=== PATIENT | male | born 1940 | race Caucasian/White ===

== ENCOUNTER 2016-08-11 16:37 | Inpatient (IN) ==
--- NOTE | 2016-08-11 17:11 | Emergency Department Note ---
Disposition Clinical Impression: Transaminitis, Elevated bilirubin Abdominal pain Qualifiers: Abdominal location: epigastric Qualified Code(s): R10.13 - Epigastric pain Disposition: Admitted As Inpatient Condition: Good Time of Disposition: 18:43 General Adult HPI - General Chief complaint: ED Abdominal Pain Stated complaint: ABD PAIN Time Seen by Provider: 08/11/16 16:44 Source: patient Limitations: no limitations Nursing Notes Reviewed: Yes Vital Signs Reviewed: Yes - History of Present Illness HPI Narrative: Three-day history of abdominal pain that started in his lower abdomen as a gas feeling and came up to his epigastric region. He states he has had several episodes of this in the past year. With him getting closer together. he states that it was relieved with the medicine at the [place]. Has any radiation of the symptoms. He stated to bubbling feeling in his abdomen initially and then a sharp pain. Onset (ago): hour(s) Location: abdomen Radiation: non-radiation Pain Scale: 0 Quality: crushing, sharp Consistency: intermittent - Related Data Home Medications Medication Instructions Recorded Confirmed Aspirin [Adult Low Dose Aspirin EC] 81 mg PO QAM 09/10/15 05/27/16 Metoprolol [Lopressor] 25 mg PO BID 09/10/15 05/27/16 Omeprazole [PriLOSEC] 40 mg PO QAM 09/10/15 05/27/16 Simvastatin [Zocor] 40 mg PO HS 09/10/15 05/27/16 Warfarin [Coumadin] 5 mg PO QMWF 09/10/15 05/27/16 Warfarin [Coumadin] 7.5 mg PO QTUTHSA 09/10/15 05/27/16 Losartan [Cozaar] 25 mg PO DAILY 05/27/16 05/27/16 Previous Rx's Medication Instructions Recorded Famotidine [Pepcid] 20 mg PO BID #21 tablet 05/27/16 Allergies Allergy/AdvReac Type Severity Reaction Status Date / Time No Known Allergies Allergy Verified 09/10/15 01:00 All systems ED: reviewed and negative except as stated. Constitutional: Denies: fever, chills, weakness ENT ED: Denies: throat pain, congestion, dysphagia Cardiovascular: Denies: chest pain, palpitations, edema, syncope Respiratory: Denies: cough, dyspnea Gastrointestinal: Reports: abdominal pain (She states it starts in his lower abdomen and feels like gas then radiates up to his epigastric region. Has happened 4 times in the past year.). Denies: nausea, vomiting, diarrhea, constipation, hematemesis, melena, hematochezia Genitourinary: Denies: urgency, dysuria, frequency, hematuria Musculoskeletal: Denies: back pain, neck pain, joint swelling Integumentary: Denies: rash, abrasion Neurological: Denies: headache, weakness Past Medical History - Past Medical History Attestation: Yes The following information was validated with the patient. Medical history: Reports: aortic aneurysm, CVA, diabetes, GERD, hyperlipidemia, hypertension, myocardial infarction, TIA Psychiatric history: Reports: anxiety, depression - Social History Smoking Status: Former smoker Smokeless Tobacco Status: No Alcohol use: Reports: none Drug use: Reports: none Physical Exam - General Limitations: no limitations General appearance: alert, in no apparent distress - Head Head exam: atraumatic, normocephalic, normal inspection - Eye Eye exam: Present: normal appearance, PERRL, EOMI. Absent: scleral icterus, conjunctival injection - ENT ENT exam: normal exam, normal oropharynx, mucous membranes moist - Neck Neck exam: Present: normal inspection, full ROM, trachea midline. Absent: tenderness, lymphadenopathy - Chest Chest inspection: Present: normal inspection, symmetric chest wall rise. Absent : tenderness, rash - Respiratory Respiratory exam: Present: normal lung sounds bilaterally. Absent: respiratory distress, wheezes - Cardiovascular Cardiovascular exam: Present: regular rate, normal rhythm, normal heart sounds - Abdominal Exam Abdominal exam: Present: soft, Non-Tender, normal bowel sounds. Absent: tenderness, distention, guarding, rebound, rigidity, organomegaly, Ospina's sign , Rovsing's sign, tenderness at McBurney's Point - Extremities Exam Extremities exam: Present: normal inspection, full ROM, normal capillary refill. Absent: tenderness, pedal edema - Back Exam Back exam: Present: normal inspection, full ROM. Absent: tenderness, CVA tenderness (R), CVA tenderness (L) - Neurological Exam Neurological exam: Present: alert, oriented X3 - Psychiatric Psychiatric exam: Present: normal affect, normal mood - Skin Skin exam: Present: warm, dry, intact, normal color. Absent: rash, cyanosis, erythema Course Course Narrative: Well-appearing male patient in no distress brought in by EMS from the [place]. He has had a three-day history of abdominal pain. He states the pain starts in his lower abdomen feels like gas and then radiates up to his epigastric region. He states his is happened about 4 times in the past year. Generally relieved with pain medication. He states this time he was requesting to figure out why he was having this pain. So the [place] did lab work and a CT of his abdomen. They sent him over due to elevated liver enzymes. [facility] results show no urinary tract infection. His troponin is negative. His WBC is 7.8. His AST is 340. His ALC is 331. His total bilirubin is 6.1. Hysterectomy bilirubin is 3.8. His alkaline phosphatase is 175. He has no history of liver complications. CT there is read as no acute findings but a distended gallbladder without CT evidence of cholelithiasis or acute cholecystitis. Multiple low-attenuation lesions arising from each kidney statistically likely to represent cyst. Milk or hernia containing nonobstructed loop of bowel and omental fat. We will review the CT ourselves and I will contact surgery for further recommendations. Is resting comfortably at this time he has no abdominal pain. He was given Toradol and this relieved his pain at the [place]. His abdomen is soft and nontender. He is obese. Appears as if his diet is poor. He reports fried food. He states that the fried food does not aggravate his abdominal pain. - Reevaluation(s) Reevaluation #1: Patient is resting comfortably in bed. He is agreeable to admission to the hospital. Time: 18:42 - Consultations Consultation #1: Dr. Vigil. He is recommending admitting to the hospitalist and having them consult Dr. Reddy in the morning. He Is requesting patient have a full hepatic workup as well as a gallbladder ultrasound and hepatitis panel. Time: 18:29 Consultation #2: Spoke with Dr. Gloria. He is addmitting Pt in stable condition. I have made him aware that Dr Vigil reccomeneded consulting Dr Reddy, and doing a hepatitis panel. As well as a possible RUQ U/S Time: 19:08 Vital Signs Temperature 97.8 F 08/11/16 16:41 Pulse Rate 84 08/11/16 16:41 Respiratory Rate 16 08/11/16 16:41 Blood Pressure 147/101 08/11/16 16:41 O2 Sat by Pulse Oximetry 97 08/11/16 16:41 Temperature 97.8 F 08/11/16 16:41 Pulse Rate 75 08/11/16 19:45 Respiratory Rate 18 08/11/16 19:47 Blood Pressure 0/0 08/11/16 19:47 O2 Sat by Pulse Oximetry 99 08/11/16 19:45 Oxygen Delivery Oxygen Delivery Room Air Medical Decision Making - Medical Records Medical records reviewed: Yes I reviewed the patient's medical records. - Lab Data Lab results reviewed: Yes I reviewed the patient's lab results. - Radiology Data Radiology results reviewed: Yes I reviewed the patient's radiology results. Attestation Statement - Attestation Attestation: I examined this patient and my medical decision-making was reviewed with the P[employer] DESIGNER/PA/Advanced Practice Nurse/Resident Physician. I agree with the documented findings, disposition and treatment plan as described except to the extent set forth below. 75-year-old male brought in from his abdominal pain. He has been having recurrent abdominal pain over the past couple days ago worse last night. He presented to the [facility] and was found to have elevated transaminases , alkaline phosphatase and bilirubin. CT of the abdomen was negative for any acute process. Patient currently denies any active pain. He did receive 1 dose of IV Toradol at [facility]. Denies fevers, chills or rales. No chest pain or dyspnea. No diarrhea or dysuria. Pleasant elderly male in no apparent distress. Currently appears comfortable. Oropharynx clear and mucous membranes are moist. Conjunctivae are moist. Chest is clear to auscultation bilaterally. Abdomen soft non-distended, non- tender to palpation. Flanks are non-tender. Extremities warm and dry. Patient remained comfortable. Case is discussed with hospitalist for admission and they will continue further workup including probable MRCP and ultrasound.
[2016-08-11] MEDS ORDERED: Acetaminophen 325 MG TABLET PO PRN (20:35)
[2016-08-11] MEDS ORDERED: Ondansetron 4 MG/2 ML VIAL IVP PRN (20:35)
[2016-08-11] MEDS ORDERED: *HR* OxyCODONE Immed Rel 5 MG TABLET PO PRN (20:35)
[2016-08-11] MEDS ORDERED: Naloxone 0.4 MG/ML INJ IVP PRN (20:35)
[2016-08-11] MEDS ORDERED: Pantoprazole 80 MG in 0.9 % Sodium Chloride 50 ML IVPB STA (21:03)
[2016-08-11] MEDS ORDERED: GI Cocktail 40 ML EACH PO STA (21:09)
--- NOTE | 2016-08-11 21:23 | Internal Med History&Physical ---
Date of Encounter: 08/11/16 Time of Encounter: 20:00 Assessment and Plan (1) Acute generalized abdominal pain Status: Acute . (2) Cholestasis Status: Acute . (3) Jaundice, hepatocellular Status: Acute . (4) Obesity (BMI 30-39.9) Status: Chronic . (5) PAF (paroxysmal atrial fibrillation) Status: Chronic . (6) Chronic anticoagulation Status: Chronic . (7) HTN (hypertension) Status: Chronic . Qualifiers: Hypertension type: essential hypertension Qualified Code(s): I10 - Essential (primary) hypertension (8) Type 2 diabetes mellitus Status: Chronic . Qualifiers: Diabetes mellitus complication status: with unspecified complications Diabetes mellitus senior care insulin use: without terminal supervisor use Qualified Code( s): E11.8 - Type 2 diabetes mellitus with unspecified complications (9) CAD (coronary artery disease), [place] coronary artery Status: Chronic . Qualifiers: [place] vs. transplanted heart: [place] heart Associated angina: angina presence unspecified Qualified Code(s): I25.10 - Atherosclerotic heart disease of [place] coronary artery without angina pectoris (10) History of PTCA Status: Chronic . (11) H/O TIA (transient ischemic attack) and stroke Status: Chronic . (12) Hard of hearing Status: Chronic . Qualifiers: Hearing loss type: unspecified Laterality: bilateral Qualified Code(s): H91.93 - Unspecified hearing loss, bilateral (13) Dyslipidemia Status: Chronic . (14) GERD (gastroesophageal reflux disease) Status: Chronic . Qualifiers: Esophagitis presence: esophagitis presence not specified Qualified Code(s) : K21.9 - Gastro-esophageal reflux disease without esophagitis (15) Transaminitis Status: Acute . (16) LLQ abdominal pain Status: Acute . (17) Gaseous abdominal distention Status: Acute . Internal Medicine - H&P: HPI Chief complaint: Acute abdominal pain Admitted From: Hospital to Hospital Transfer (Hospital transfer [facility] to [facility] emergency department) Plans for Post Hospital Care: Home History of present illness: Mr. Antunez is a 75 year old male [facility] patient history significantfor type 2 DM , CKD III, ANDRES, osteoarthritis, osteopenia, chr LBP/neck/MSK pain, CAD, CHF, AAA s/p repair, hypogonadism/ED, depression-anxiety, h/o TIA/syncope, hypertension, dyslipidemia, PAF/PSVT/chr A/C (WARFARIN), skin Pawan s/pexcisions, morbid obesity, former smoker The patient was visited and interviewed and examined. Patient is admitted for complaints of abdominal pain x3-4days as a referral from [facility] urgent care center. Patient reported primarily epigastric pain worse in the 24 hours leading up to his presentation to the urgent care center with radiation to his shoulders. Abdominal bloating nausea and diminished oral intake was reported. She reports that this has occurred at least 4 times within the last year and each time self-limited without the discrete diagnosis being made. CT of abdomen and pelvis without contrast obtained at the [facility] prior to transfer demonstrated no acute findings. No distended gallbladder without evidence of cholelithiasis or acute cholecystitis was noted. Nonobstructive bowel gas pattern seen. Multiple bilateral renal cysts. Umbilical hernia without obstruction containing a loop of bowel and omental fat. Incomplete distention of the urinary bladder was suspicious for thickening and correlation recommended. Lung bases demonstrated mild atelectatic changes. Calcified granuloma right lung base. Coronary vascular calcifications. Granulomatous disease and calcifications noted. Liver and spleen aorta stent graft noted. Atherosclerotic vascular disease. Changes of the spine and pelvis noted incidentally. Prostate enlargement with minimal calcification. Postsurgical changes in each groin. He was transitioned to [facility] to access next level of care and potential consultative interventions. Initial studies suggest presence of cholestatic jaundice. Differential includes biliary obstruction and associated pancreatitis. Workup and treatment will proceed comprehensively. Cumulative laboratory and radiographic data base will be considered and discussed. Pertinent ancillary medical records including ECW and PCI documentation when available was reviewed and considered. Given the patient's presenting concerns, past medical history, clinical findings and symptoms, he is admitted at this time will undergo further evaluation and disposition. Orders were written as per Computerized physician medical orderly system.......................................................................... .................... Consultative opinion and will be sought as clinical circumstances justify. Pain management needs will be addressed. Laboratory radiographic data base will be updated as appropriate. Studies include: Cultures of blood and urine and sputum, coag's, UA, cardiac injury panel, BNP, ammonia, metabolic and hematologic panel, magnesium, phosphorus, ionized calcium, thyroid panel, amylase, lipase, lipid profile, A1c C-peptide, CRP sedimentation rate, respiratory infection profile, respiratory virus panel, blood gas, lactic acid, serologies, etc. Precautions: Aspiration, fall, delirium protocol/surveillance initiated. Telemetry with continuous hemodynamic monitoring and pulse oximetry initiated. Empiric antibody coverage: Intravenous Rocephin and azithromycin pending culture data. Special studies: CTchest/abd/pelvis, MRCP, chest x-ray, telemetry, EKG. Pulmonary toilet: Incentive spirometry, aerosol bronchodilator, mucolytic, antitussive, supplemental oxygen. Corticosteroid therapy PRN. CPAP/BiPAP supplemental oxygen delivery employed PRN. Aerosol Mucomyst therapy may be employed. Fluid and electrolyte repletion efforts will proceed. Careful attention to fluid balance and renal recovery will be emphasized. Avoidance of nephrotoxic exposure and adverse drug drug interaction in the setting of impaired renal function will be monitored closely. Acute coronary syndrome protocol/surveillance initiated. DVT and PUD prophylaxis initiated: PPI therapy, intermittent pneumatic cuffs. Subcutaneous heparin was held due to thrombocytopenia. Early ambulation will be encouraged. Immunization updates recommended. Influenza and pneumococcal vaccinations as part of ongoing preventative healthcare recommendations strongly recommended. Smoking cessation counseling briefly addressed. Patient is a former smoker. Advanced care directive discussion briefly addressed. Patient does not declare any healthcare restrictions at this time. Cardiovascular risk appraisal and cardiovascular risk reduction efforts will be emphasized. Physical /occupational therapy may be counseled to evaluate patient's function capacity and progressive mobility of her circumstances justify. Sliding scale insulin coverage, ADA dietary restraint and schedule an as-needed basis fingerstick glucose assessments were initiated. Nutrition/diabetes education counseling may be considered as circumstances justify. Outpatient medication schedules will be reviewed confirmed and facilitated as appropriate. Reconciliation of home treatments including adjustment substitutions and reintroduction into the treatment regimen as necessary maintenance therapies for chronic pre-existing medical conditions. Plan of care has been reviewed and discussed in detail with the patient. Questions addressed. Hospital course dictated by clinical findings, treatment response and potential consultative interventions. Patient is a risk for further acute clinical decline due to his age, chief complaints and comorbid conditions. Condition is serious. Prognosis is guarded. CODE STATUS is full. Past Med Surg Social Fam HX - Past Medical History Source: old records reviewed Medical history: aortic aneurysm, arthritis, atrial fibrillation, cancer, COPD ( ANDRES), coronary artery disease, CVA, diabetes, GERD, hyperlipidemia, hypertension , myocardial infarction, osteoporosis, renal disease, SVT, syncope, TIA, other Psychiatric history: anxiety, depression, other - Past Surgical History Surgical History: angioplasty/stent, other - Social History Smoking Status: Former smoker Smokeless Tobacco Status: No Alcohol use: none Drug use: none Occupational status: retired Current living situation: With Family Activity Level: Independent ambulation, Mostly sedentary Recent Out of Country Travel Within the Last 8 Weeks: No Exposure or Possible Exposure to Illness During Travel: No - Family History Father History Unknown: Yes Adopted: [place]: gabby brown Family Member Ethnicity: Non- Living Status: Cause of : cardiac Hx Family Cardiac Disorders: Yes Internal Medicine - H&P: Meds Aspirin [Adult Low Dose Aspirin EC] 81 mg PO QAM 09/10/15 [History] Simvastatin [Zocor] 40 mg PO HS 09/10/15 [History] Warfarin [Coumadin] 5 mg PO MOWEFR 09/10/15 [History] Warfarin [Coumadin] 7.5 mg PO SUTUTHSA 09/10/15 [History] DiphenhydraMINE [Benadryl] 50 mg PO BID 08/12/16 [History] Ketoconazole Shampoo [Nizoral Shampoo] 1 appl TP Q48H 08/12/16 [History] Losartan Potassium [Cozaar] 50 mg PO DAILY 08/12/16 [History] Omeprazole [PriLOSEC] 20 mg PO DAILY 08/12/16 [History] Diltiazem CD (24hr) [Cardizem CD] 120 mg PO DAILY #30 cap.er.24h 08/19/16 [Rx] Docusate [Colace] 100 mg PO BID #60 capsule 08/19/16 [Rx] HYDROcodone/Acet 5/325 mg [[place] 5-325 mg] 1 tab PO Q6H PRN #30 tablet 08/19/16 [Rx] Metoprolol [Lopressor] 50 mg PO BID #60 tablet 08/19/16 [Rx] Sennosides [Senna] 17.6 mg PO HS 14 Days 08/19/16 [Rx] Allergies No Known Allergies Allergy (Verified 08/12/16 14:11) All Systems PM: A 10-system review of systems was performed and is negative for pertinent findings except as documented above in the HPI. - Constitutional Constitutional: as per HPI, malaise, no chills, no fever(s), no night sweats - EENT Eyes: as per HPI, no change in vision, no discharge, no pain, no photophobia Ears: as per HPI, decreased hearing, no ear discharge, no ear pain, no tinnitus Nose, mouth and throat: as per HPI, no dysphagia, no nasal discharge, no neck pain, no sore throat - Cardiovascular Cardiovascular ROS IM: as per HPI, no chest pain, no diaphoresis, no dyspnea, no lightheadedness, no palpitations, no syncope - Respiratory Respiratory: as per HPI, no cough, no dyspnea, no wheezing, no excessive phlegm production - Gastrointestinal Gastrointestinal: as per HPI, abdominal pain, bloating, excessive flatus, other , no diarrhea, no hematemesis, no hematochezia, no melena, no nausea, no vomiting - Genitourinary Genitourinary ROS male: as per HPI - Musculoskeletal Musculoskeletal ROS IM: as per HPI, other, no numbness, no tingling - Integumentary Integumentary IM: as per HPI, no rash, no unusual bruising - Neurological Neurological ROS: abnormal gait, no confusion, no convulsions, no focal weakness , no numbness, no tingling, no tremor(s) - Psychiatric Psychiatric: as per HPI - Endocrine Endocrine IM: as per HPI - Hematologic/Lymphatic Hematologic/Lymphatic: as per HPI, no easy bruising - Allergic/Immunologic Allergic/Immunologic: as per HPI - Constitutional Vitals: Temp Pulse Resp BP Pulse Ox 97.9 F 77 16 124/83 95 08/11/16 21:00 08/11/16 21:00 08/11/16 21:00 08/11/16 21:00 08/11/16 21:00 General appearance: Present: cooperative, mild distress, A&O X 3, morbidly obese , answers questions appropriately - Head Head exam: Present: atraumatic, normocephalic - Eye Eye exam: Present: EOMI, PERRL, conjuntiva pink, sclera anicteric Pupils: Present: normal accommodation, PERRL - ENT ENT exam: Present: mucous membranes moist, normal oropharynx - Neck Neck exam general surgery: Present: full ROM, supple, trachea midline. Absent: lymphadenopathy - Respiratory Respiratory exam: Present: decreased breath sounds, CTAB. Absent: accessory muscle use, rales, rhonchi, wheezes - Cardiovascular Cardiovascular exam: Present: distant heart sounds, RRR, +S1, +S2. Absent: diastolic murmur, gallop, rubs, systolic murmur - GI/Abdominal GI/Abdominal exam: Present: guarding, normal bowel sounds, soft, tenderness ( LLQ tenderness/guarding), no peritoneal signs. Absent: distended - Extremities Exam Extremities exam: Present: full ROM, warm, radial pulses palpable and symetrical. Absent: calf tenderness, cyanotic, pedal edema - Neurological Exam Neurological exam: Present: alert, CN II-XII intact, oriented X3, no focal deficits. Absent: pronater drift, facial droop, speech deficit - Psychiatric Psychiatric exam: Present: normal affect, normal mood - Skin Skin exam: Present: dry, intact, warm. Absent: petechiae, rash, urticaria, vesicles Internal Med - H&P Results - Labs CBC & Chem 7: 08/19/16 04:16 08/19/16 04:16 Labs: Vital Signs Temp Pulse Resp BP Pulse Ox 08/11/16 21:00 97.9 F 77 16 124/83 95 08/11/16 19:47 18 0/0 08/11/16 19:45 75 18 119/92 99 08/11/16 19:02 97 18 104/57 97 08/11/16 18:01 88 16 107/70 95 08/11/16 16:41 97.8 F 84 16 147/101 97 Intake and Output 08/11/16 08/11/16 08/11/16 07:59 15:59 23:59 Intake Total 0 / 0 Output Total 0 / 0 Balance 0 / 0 Intake: Oral 0 / 0 Output: Urine 0 / 0 Other: Weight 104 kg Patient Weight 08/11/16 23:59 Weight 104 kg Cardiac Enzymes 08/11/16 Range/Units 20:53 Troponin I 0.00 (0-0.03) ng/mL Allergies Allergy/AdvReac Type Severity Reaction Status Date / Time No Known Allergies Allergy Verified 09/10/15 01:00 - Impressions Laboratory Results Troponin I 0.00 ng/mL (0-0.03) 08/11/16 20:53 Impressions Abdomen X-Ray 08/11/16 21:15 IMPRESSION: No acute process of the chest or abdomen. D/ / 08/11/2016 22:05:09 Nabor Garrison MD / gadiel Interpreting Provider: Nabor Garrison MD Chest X-Ray 08/11/16 21:15 IMPRESSION: No acute process of the chest or abdomen. D/ / 08/11/2016 22:05:09 Nabor Garrison MD / gadiel Interpreting Provider: Nabor Garrison MD - Attending Attestation Allergies No Known Allergies Allergy (Verified 08/12/16 14:11) Home Medications Medication Instructions Recorded Confirmed Type Aspirin [Adult Low Dose Aspirin EC] 81 mg PO QAM 09/10/15 08/12/16 History Simvastatin [Zocor] 40 mg PO HS 09/10/15 08/12/16 History Warfarin [Coumadin] 5 mg PO MOWEFR 09/10/15 08/12/16 History Warfarin [Coumadin] 7.5 mg PO SUTUTHSA 09/10/15 08/12/16 History DiphenhydraMINE [Benadryl] 50 mg PO BID 08/12/16 08/12/16 History Ketoconazole Shampoo [Nizoral 1 appl TP Q48H 08/12/16 08/12/16 History Shampoo] Losartan Potassium [Cozaar] 50 mg PO DAILY 08/12/16 08/12/16 History Omeprazole [PriLOSEC] 20 mg PO DAILY 08/12/16 08/12/16 History Prescriptions Medication Instructions Recorded Type Diltiazem CD (24hr) [Cardizem CD] 120 mg PO DAILY #30 cap.er.24h 08/19/16 Rx Docusate [Colace] 100 mg PO BID #60 capsule 08/19/16 Rx HYDROcodone/Acet 5/325 mg [[place] 1 tab PO Q6H PRN #30 tablet 08/19/16 Rx 5-325 mg] Metoprolol [Lopressor] 50 mg PO BID #60 tablet 08/19/16 Rx Sennosides [Senna] 17.6 mg PO HS 14 Days 08/19/16 Rx Medications Discontinued Medications Acetaminophen (Tylenol) 650 mg PO Q6HR PRN PRN Reason: Mild Pain (1-3) Stop: 02/10/17 20:36 Acetaminophen (Tylenol) 650 mg PO Q6HR PRN PRN Reason: Mild Pain (1-3) Stop: 02/10/17 20:36 Aspirin (Aspirin Ec) 81 mg PO QAM [facility] Stop: 02/11/17 09:01 Last Admin: 08/16/16 08:07 Dose: 81 mg Bupivacaine HCl (Marcaine-Mpf 0.5% Vial) Confirm Administered Dose 30 ml .ROUTE .STK-MED ONE Stop: 08/16/16 11:42 Cefoxitin Sodium (Mefoxin) Confirm Administered Dose 2,000 mg IVPB .STK-MED ONE Stop: 08/16/16 12:42 Dexamethasone (Decadron) 4 mg IVP .STK-MED ONE Stop: 08/12/16 12:37 Diltiazem HCl (Cardizem) 30 mg PO Q6HR [facility] Stop: 02/16/17 10:29 Last Admin: 08/19/16 11:52 Dose: 30 mg Docusate Sodium (Colace) 100 mg PO BID PRN PRN Reason: Constipation Stop: 02/10/17 20:36 Docusate Sodium (Colace) 100 mg PO BID [facility] Stop: 02/11/17 09:01 Last Admin: 08/16/16 08:07 Dose: 100 mg Docusate Sodium (Colace) 100 mg PO BID [facility] Stop: 02/11/17 09:01 Last Admin: 08/19/16 08:05 Dose: 100 mg Enoxaparin Sodium (Lovenox) 40 mg SQ 0600 [facility] PRN Reason: Protocol Stop: 02/12/17 12:01 Esmolol HCl (Esmolol) Confirm Administered Dose 100 mg IVP .STK-MED ONE Stop: 08/16/16 12:42 Fentanyl Citrate (Fentanyl (Pf)) Confirm Administered Dose 100 mcg .ROUTE .STK- MED ONE Stop: 08/12/16 13:56 Fentanyl Citrate (Fentanyl (Pf)) Confirm Administered Dose 100 mcg .ROUTE .STK- MED ONE Stop: 08/16/16 12:05 Furosemide (Lasix) 20 mg IVP ONCE ONE Stop: 08/15/16 00:59 Last Admin: 08/15/16 01:10 Dose: 20 mg Glycopyrrolate (Robinul) Confirm Administered Dose 0.4 mg .ROUTE .STK-MED ONE Stop: 08/16/16 13:45 Heparin Sodium (Porcine) (Heparin) 5,000 unit SQ Q12HCO [facility] Stop: 02/13/17 18:01 Last Admin: 08/16/16 05:40 Dose: Hydromorphone HCl (Dilaudid) 1 mg IVP Q2H PRN PRN Reason: Severe Pain (7-10) Stop: 02/11/17 06:41 Last Admin: 08/12/16 07:47 Dose: 1 mg Hydromorphone HCl (Dilaudid) 1 mg IVP Q2H PRN PRN Reason: Severe Pain (7-10) Stop: 02/11/17 06:41 Last Admin: 08/15/16 16:55 Dose: 1 mg Re-Assess: [facility] Pain Assessment Document 08/15/16 17:40 GERTRUDE (Rec: 08/15/16 18:52 GERTRUDE [id number]) Patient's Stated Pain Level Pain Intensity 3 Hydromorphone HCl (Dilaudid) 0.5 mg IVP Q5MIN PRN; Protocol PRN Reason: Pain Stop: 02/15/17 13:44 Last Admin: 08/16/16 14:25 Dose: 0.5 mg Hydromorphone HCl (Dilaudid) Confirm Administered Dose 2 mg .ROUTE .STK-MED ONE Stop: 08/16/16 13:51 Hydromorphone HCl (Dilaudid) 1 mg IVP Q2H PRN PRN Reason: Severe Pain (7-10) Stop: 02/11/17 06:41 Last Admin: 08/19/16 08:53 Dose: 1 mg Re-Assess: [facility] Pain Assessment Document 08/19/16 09:38 MMR (Rec: 08/19/16 10:00 MMR [id number]) Patient's Stated Pain Level Pain Intensity 3 Sodium Chloride (0.9 % Sodium Chloride) 1,000 mls @ 75 mls/hr IVC .[id number] [facility] Stop: 02/10/17 20:46 Last Infusion: 08/14/16 17:49 Dose: 0 mls/hr Pantoprazole Sodium 80 mg/ (Sodium Chloride) 50 mls @ 600 mls/hr IVPB ONCE STA Stop: 08/11/16 21:07 Last Infusion: 08/14/16 17:50 Dose: 0 mls/hr Pantoprazole Sodium 40 mg/ (Sodium Chloride) 100 mls @ 20 mls/hr IVC .Q5H [facility] Stop: 02/10/17 21:16 Last Infusion: 08/14/16 17:49 Dose: 0 mls/hr Magnesium Sulfate 2 gm/ (Dextrose) 104 mls @ 100 mls/hr IVPB ONCE STA Stop: 08/12/16 07:45 Last Infusion: 08/14/16 17:49 Dose: 0 mls/hr Sodium Phosphate 30 mmol/ (Dextrose) 110 mls @ 16 mls/hr IVPB ONCE ONE Stop: 08/12/16 13:35 Last Infusion: 08/14/16 17:50 Dose: 0 mls/hr Lactated Ringer's (Lactated Ringers) 1,000 mls @ 50 mls/hr IVC .Q20H [facility] Stop: 02/11/17 13:31 Last Infusion: 08/14/16 14:38 Dose: 0 mls/hr Sodium Chloride (0.9 % Sodium Chloride) 1,000 mls @ 125 mls/hr IVC .Q8H [facility] Stop: 02/11/17 14:34 Last Infusion: 08/13/16 11:37 Dose: 125 mls/hr Lactated Ringer's (Lactated Ringers) 1,000 mls @ 75 mls/hr IVC .[id number] [facility] Stop: 02/12/17 11:46 Last Infusion: 08/15/16 16:54 Dose: 100 mls/hr Phytonadione 10 mg/ Sodium (Chloride) 51 mls @ 100 mls/hr IVPB ONCE ONE Stop: 08/13/16 12:52 Last Infusion: 08/13/16 15:14 Dose: 100 mls/hr Lactated Ringer's (Lactated Ringers) 1,000 mls @ 100 mls/hr IVC .Q10H [facility] Stop: 02/14/17 11:30 Last Admin: 08/17/16 07:06 Dose: Diltiazem HCl 125 mg/ Dextrose 125 mls @ 5 mls/hr IVC .Q24H [facility] PRN Reason: 5 MG/HR Stop: 02/14/17 14:01 Last Infusion: 08/16/16 11:25 Dose: 5 mg/hr, 5 mls/hr Lactated Ringer's (Lactated Ringers) 1,000 mls @ 25 mls/hr IVC .Q24H [facility] Stop: 02/15/17 13:46 Last Infusion: 08/16/16 15:08 Dose: 25 mls/hr Diltiazem HCl 125 mg/ Dextrose 125 mls @ 5 mls/hr IVC .Q24H [facility] PRN Reason: 5 MG/HR Stop: 02/14/17 14:01 Last Admin: 08/17/16 12:54 Dose: Indomethacin (Indocin) 100 mg RC ONCE ONE Stop: 08/12/16 15:29 Last Admin: 08/12/16 15:00 Dose: 100 mg Comments: given by Arcenio Ashford RN Labetalol HCl (Labetalol) 5 mg IVP ONCE ONE Stop: 08/16/16 14:41 Last Admin: 08/16/16 14:44 Dose: 5 mg Lidocaine (Xylocaine-Mpf 2% Vial) 5 ml INFILT .STK-MED ONE Stop: 08/12/16 12:37 Lidocaine (Xylocaine-Mpf 2%) Confirm Administered Dose 2 ml .ROUTE .STK-MED ONE Stop: 08/16/16 12:06 Losartan Potassium (Cozaar) 25 mg PO DAILY [facility] PRN Reason: Protocol Stop: 02/11/17 09:01 Last Admin: 08/12/16 00:23 Dose: 25 mg Losartan Potassium (Cozaar) 25 mg PO HS [facility] PRN Reason: Protocol Stop: 02/11/17 21:01 Last Admin: 08/15/16 19:35 Dose: 25 mg Losartan Potassium (Cozaar) 25 mg PO HS [facility] PRN Reason: Protocol Stop: 02/11/17 21:01 Last Admin: 08/18/16 20:16 Dose: 25 mg Magnesium Citrate (Citroma) 296 ml PO ONCE ONE Stop: 08/18/16 16:04 Last Admin: 08/18/16 17:05 Dose: 296 ml Metoprolol Tartrate (Lopressor) 25 mg PO BID [facility] Stop: 02/11/17 09:01 Last Admin: 08/15/16 07:10 Dose: 25 mg Metoprolol Tartrate (Lopressor) 5 mg IVP ONCE ONE Stop: 08/12/16 08:38 Last Admin: 08/12/16 08:50 Dose: 5 mg Metoprolol Tartrate (Lopressor) Confirm Administered Dose 5 mg IVP .STK-MED ONE Stop: 08/12/16 08:41 Metoprolol Tartrate (Lopressor) 5 mg IVP Q6HR PRN PRN Reason: Tachyarrhythmias Stop: 02/11/17 11:24 Last Admin: 08/16/16 05:41 Dose: 5 mg Metoprolol Tartrate (Lopressor) 25 mg PO ONCE ONE Stop: 08/15/16 00:59 Last Admin: 08/15/16 01:10 Dose: 25 mg Metoprolol Tartrate (Lopressor) 5 mg IVP ONCE ONE Stop: 08/15/16 13:31 Last Admin: 08/15/16 13:36 Dose: 5 mg Metoprolol Tartrate (Lopressor) 50 mg PO BID [facility] Stop: 02/14/17 21:01 Last Admin: 08/16/16 08:07 Dose: 50 mg Metoprolol Tartrate (Lopressor) 5 mg IVP Q6HR PRN PRN Reason: Tachyarrhythmias Stop: 02/11/17 11:24 Metoprolol Tartrate (Lopressor) 50 mg PO BID [facility] Stop: 02/14/17 21:01 Last Admin: 08/19/16 08:05 Dose: 50 mg Midazolam HCl (Versed) Confirm Administered Dose 2 mg .ROUTE .STK-MED ONE Stop: 08/12/16 13:56 Morphine Sulfate (Morphine Sulfate) 2 mg IVP Q4HR PRN PRN Reason: Severe Pain (7-10) Stop: 02/10/17 20:36 Last Admin: 08/12/16 06:39 Dose: 2 mg Re-Assess: [facility] Pain Assessment Document 08/12/16 07:30 MED (Rec: 08/12/16 07:40 MED [id number]) Patient's Stated Pain Level Pain Intensity 7 Multi-Ingredient Liquid (Gi Cocktail) 40 ml PO ONCE STA Stop: 08/11/16 21:10 Last Admin: 08/11/16 22:37 Dose: 40 ml Naloxone HCl (Narcan) 0.4 mg IVP Q2MIN PRN PRN Reason: Opioid Reversal Stop: 02/10/17 20:36 Naloxone HCl (Narcan) 0.4 mg IVP Q2MIN PRN PRN Reason: Opioid Reversal Stop: 02/10/17 20:36 Neostigmine Methylsulfate (Neostigmine Methylsulfate) Confirm Administered Dose 3 mg .ROUTE .STK-MED ONE Stop: 08/16/16 13:45 Ondansetron HCl (Zofran) 4 mg IVP Q8HR PRN PRN Reason: Nausea And Vomiting Stop: 02/10/17 20:36 Last Admin: 08/12/16 10:13 Dose: 4 mg Ondansetron HCl (Zofran) 4 mg IVP .STK-MED ONE Stop: 08/12/16 12:37 Ondansetron HCl (Zofran) Confirm Administered Dose 4 mg .ROUTE .STK-MED ONE Stop: 08/16/16 13:46 Ondansetron HCl (Zofran) 4 mg IVP Q8HR PRN PRN Reason: Nausea And Vomiting Stop: 02/10/17 20:36 Oxycodone HCl (Roxicodone) 5 mg PO Q6HR PRN PRN Reason: Moderate Pain (4-6) Stop: 02/10/17 20:36 Last Admin: 08/12/16 04:19 Dose: 5 mg Re-Assess: [facility] Pain Assessment Document 08/12/16 05:04 [id number] (Rec: 08/12/16 05:24 [id number]) Patient's Stated Pain Level Pain Intensity 7 Oxycodone HCl (Roxicodone) 10 mg PO Q6HR PRN PRN Reason: Moderate Pain (4-6) Stop: 02/10/17 20:36 Oxycodone HCl (Roxicodone) 10 mg PO Q6HR PRN PRN Reason: Moderate Pain (4-6) Stop: 02/10/17 20:36 Last Admin: 08/15/16 11:36 Dose: 10 mg Re-Assess: [facility] Pain Assessment Document 08/15/16 12:21 GERTRUDE (Rec: 08/15/16 16:58 GERTRUDE [id number]) Patient's Stated Pain Level Pain Intensity 2 Oxycodone/Acetaminophen (Percocet 5/325) 1 each PO Q4HR PRN PRN Reason: Pain Stop: 02/15/17 16:40 Last Admin: 08/19/16 13:54 Dose: 1 each Pantoprazole Sodium (Protonix) 40 mg IVP Q12HR [facility] Stop: 02/11/17 18:01 Last Admin: 08/16/16 05:40 Dose: 40 mg Pantoprazole Sodium (Protonix) 40 mg IVP Q12HR [facility] Stop: 02/11/17 18:01 Last Admin: 08/19/16 05:09 Dose: 40 mg Phenylephrine HCl (Phenylephrine) 10 mg IVC .STK-MED ONE Stop: 08/12/16 12:37 Polyethylene Glycol (Miralax) 17 gm PO DAILY [facility] Stop: 02/16/17 10:46 Last Admin: 08/19/16 08:05 Dose: 17 gm Promethazine HCl (Phenergan) 6.25 mg IVP Q5MIN PRN PRN Reason: Nausea And Vomiting Stop: 08/17/16 13:44 Propofol (Diprivan) 400 mg IVP .STK-MED ONE Stop: 08/12/16 12:37 Propofol (Diprivan) Confirm Administered Dose 200 mg IVP .STK-MED ONE Stop: 08/16/16 12:05 Simethicone (Gas-X) 80 mg PO TID KAYKAY Stop: 02/16/17 10:31 Last Admin: 08/19/16 08:05 Dose: 80 mg Simvastatin (Zocor) 40 mg PO HS KAYKAY PRN Reason: Protocol Stop: 02/11/17 21:01 Last Admin: 08/15/16 19:35 Dose: 40 mg Simvastatin (Zocor) 40 mg PO HS KAYKAY PRN Reason: Protocol Stop: 02/11/17 21:01 Last Admin: 08/18/16 20:15 Dose: 40 mg Sodium Chloride (0.9 % Sodium Chloride) 100 ml IV .STK-MED ONE Stop: 08/12/16 12:37 Sodium Chloride (Many Nasal [place]) 2 spray NS Q1H PRN PRN Reason: Congestion; stuffy nose Stop: 02/16/17 01:54 Last Admin: 08/17/16 02:23 Dose: 2 spray Succinylcholine Chloride (Quelicin) 200 mg IVP .STK-MED ONE Stop: 08/12/16 12:37 Succinylcholine Chloride (Quelicin) Confirm Administered Dose 200 mg IVP .STK- MED ONE Stop: 08/16/16 12:06 Warfarin Sodium (Coumadin) 5 mg PO [id number] KAYKAY Stop: 02/18/17 18:01 Warfarin Sodium (Coumadin) 7.5 mg PO [id number]@1800 KAYKAY Stop: 02/16/17 18:01 Last Admin: 08/18/16 17:53 Dose: 7.5 mg Microbiology Results 08/12/16 03:40 Urine,Clean Catch Urine Culture - Final No growth. Nursing Notes 08/19/16 15:29 Clinical Case Mgmt by Ailyn Paris Received call from [place] with [facility] to inform this CM that they will be bringing a portable oxygen tank to the hospital and then will go with the patient to set up home oxygen. Informed primary ANKITA Perez of this so that the patient can be ready to be discharged home around that time. Clinical Case Mgmt Is Patient Currently Being No Followed By Navigation What Brought The Patient To "Severe pain" The Hospital Does The Patient Have A Yes: Herberth [place] Physician That They See Regularly Patient Referred To [address] [place] [address] No Does The PT Have Any Trouble No Getting To Their Appointment Are There Any Meds The PT Has No Trouble Getting Filled Monthly Home Environment Mobile Home Resides With Spouse Does The Patient Plan To Yes Return Home Is There A Caregiver At Home Yes To Help The Patient Is The Patient Appropriate For Yes Case Management Is The Patient Appropriate For No Social Work Consult Referrals Made No Is The PT Appropriate For No Navigation Or Payer Case Mgmt Initialized on 08/19/16 15:29 - END OF NOTE 08/19/16 13:03 Clinical Case Mgmt by Ailyn Paris Called and spoke with Nereida Alberto-Home Oxygen Coordinator to set up home oxygen for Mr Antunez d/t decreased saturations with walking. Information given and faxed; fax number [phone]. Waiting on return call at this time. Clinical Case Mgmt Is Patient Currently Being No Followed By Navigation What Brought The Patient To "Severe pain" The Hospital Does The Patient Have A Yes: Herberth [place] Physician That They See Regularly Patient Referred To [facility] No Does The PT Have Any Trouble No Getting To Their Appointment Are There Any Meds The PT Has No Trouble Getting Filled Monthly Home Environment Mobile Home Resides With Spouse Does The Patient Plan To Yes Return Home Is There A Caregiver At Home Yes To Help The Patient Is The Patient Appropriate For Yes Case Management Is The Patient Appropriate For No Social Work Consult Referrals Made No Is The PT Appropriate For No Navigation Or Payer Case Mgmt Initialized on 08/19/16 13:03 - END OF NOTE 08/18/16 03:43 Nurse Note by Mark Fischer Patient declines bathing at this time, states he "is not feeling well." Initialized on 08/18/16 03:43 - END OF NOTE 08/17/16 08:05 Nurse Note by Eduarda Paz Patient states "The way i feel right now i don't wanna get up to do anything today." after this HARD CANDY BATCH MIXER asked if he would like to get cleaned up later on. Initialized on 08/17/16 08:05 - END OF NOTE 08/16/16 15:27 Nurse Note by Lianet Mendez No vitals, patient on surgery vitals. Initialized on 08/16/16 15:27 - END OF NOTE 08/16/16 14:54 Phase I Recovery Note by Verito Ortega Addendum entered by Verito Ortega 08/16/16 15:13: 1508 Pt transported to [facility] via bed by OR leeanne Patel. Pt is stable with n/c. Pt is resting quietly with eyes closed. No acute distress noted at time of transport. Original Note: 08/16/2016 1357 Pt arrives to PACU stable with patent airway and simple mask. Pt is sleeping; no acute distress noted. Report received from Shiv Benavides RN and Shiv Blanco GENERAL FARMWORKER. Pt care assumed at this time. 1410 simple mask replaced by n/c. Pt encouraged to cough and deep breathe. Dilaudid given for c/o pain. 1420 RN inquires patient if his breathing seems labored, Lungs CTA anterior hernandez and no pedal edema noted. Pt states that his breathing is labored d/t pain and recent dx of CHF. 1430 Pt is resting quietly with eyes closed 1440 Pt HR increasing and BP elevated. Dr. Strickland and Dr. Juarez notified. Order received for labetalol 5mg IV x 1 now. 1450 BP has decreased after labetolol. Initialized on 08/16/16 14:54 - END OF NOTE 08/16/16 13:00 Nurse Note by Marianela Stanley Patient away for surgery at 1300 Patient Rounding. Initialized on 08/16/16 13:00 - END OF NOTE 08/16/16 11:29 Transport Report by Xin Elaine Date: 08/16/16 Transport Method: Portable No Known Allergies Allergy (Verified 08/12/16 14:11) Resuscitation Status Full Code Oxygen: Nasal Cannula 3 Mental Status: Alert Fall Risk: Isolation: Nurse Required for Transport: No ___ Yes Limb Restrictions: No ___ Yes Behavioral issue/Risk for Elopement: No ___ Yes Telemetry Room Notification: Destination: MRI XRAY STRESS ULTRASOUND CT DIALYSIS ENDO OTHER: Depart Time: Nurse: Transporter: Arrive Time: Received by: ___ Return Time: Nurse: Transporter: ] Initialized on 08/16/16 11:29 - END OF NOTE 08/15/16 19:27 Nurse Note by Barbara Monet Will reassess BP after administration of scheduled Lopressor. Initialized on 08/15/16 19:27 - END OF NOTE 08/15/16 19:23 Nurse Note by Emelina Tejeda [id number] Pt's heart rate was elevating to 140 during ambulation and 170 when using the bedside commode. Notified Dr. Mendiola. EKG obtained. Pt is in AFIB with RVR. Dr. Mendiola changed dose of medication and added a cardizem drip Initialized on 08/15/16 19:23 - END OF NOTE 08/15/16 11:58 Nurse Note by Lianet Mendez Cancel ECG assessment, HARD CANDY BATCH MIXER document on EKG instead Initialized on 08/15/16 11:58 - END OF NOTE 08/15/16 04:44 Nurse Note by Radha Burris Pt states that since the lasix and extra lopressor that he's feeling better. Heart-rat enow running 105. Initialized on 08/15/16 04:44 - END OF NOTE 08/15/16 00:44 Nurse Note by Radha Burris 0030 Pt still running in 130's heart-rate. Pt also c/o increase in shortness of breath. Dr Davis paged and will come and see patient. Stat EKG was obtained. Initialized on 08/15/16 00:44 - END OF NOTE 08/13/16 18:39 Nurse Note by Radha Burris Pt has been running at-fib today with heart-rate from 90-120's Pt has been given 2 doses of IV Lopressore for heart-rate above 120 per order. Pt states that his heart-rate will stay up and down shelia while in the hospital. Initialized on 08/13/16 18:39 - END OF NOTE 08/13/16 16:12 Nurse Note by Radha Burris Dr in talking with patient. Initialized on 08/13/16 16:12 - END OF NOTE 08/12/16 13:40 Clinical Case Mgmt by Ailyn Paris Spoke with patient regarding home set up and discharge planning. Patient resides at home with ; goal to return. Denies use of DME's including oxygen ; patient currently on 2L NC. States he is still very independent, still drives. Denies needs at this time. Will continue to monitor for discharge needs. Clinical Case Mgmt Is Patient Currently Being No Followed By Navigation What Brought The Patient To "Severe pain" The Hospital Does The Patient Have A Yes: Herberth Team [place] Physician That They See Regularly Patient Referred To [facility] No Does The PT Have Any Trouble No Getting To Their Appointment Are There Any Meds The PT Has No Trouble Getting Filled Monthly Home Environment Mobile Home Resides With Spouse Does The Patient Plan To Yes Return Home Is There A Caregiver At Home Yes To Help The Patient Is The Patient Appropriate For Yes Case Management Is The Patient Appropriate For No Social Work Consult Referrals Made No Is The PT Appropriate For No Navigation Or Payer Case Mgmt Initialized on 08/12/16 13:40 - END OF NOTE 08/12/16 08:52 Nurse Note by Gissel Ruiz 0840: THIS RN NOTIFIED BY TELEMETRY THAT THE PT'S HEARTRATE SUSTAINING IN THE 130'S - NOTIFIED. ORDER OBTAINED FOR IV LOPRESSOR 5MG NOW PER PT'S NPO STATUS. IV LOPRESSOR GIVEN AT 0850. Initialized on 08/12/16 08:52 - END OF NOTE 08/12/16 08:42 Nurse Note by Harper Leavitt I asked the PT. if he wanted to take s shower this morning, he stated not right now he is in too much pain. Initialized on 08/12/16 08:42 - END OF NOTE 08/12/16 07:41 Nurse Note by Gissel Ruiz SCHEDULED MEDICATIONS BEING HELD UNTIL PT RETURNS FROM ULTRASOUND Initialized on 08/12/16 07:41 - END OF NOTE 08/12/16 07:36 Transport Report by Therese Amato Date: 08/12/16 Transport Method: Wheelchair No Known Allergies Allergy (Verified 09/10/15 01:00) Resuscitation Status Full Code 08/11/16 20:44 MRCP [MR abdomen wo con] [MR] Stat Mode Of Transportation: Wheelchair Reason For Exam: acute abdomenal pain Order Doctor: Vasquez Bey Exam Performed At:: [facility] Additional Notes/Special Instructions: PT HAS AAA REPAIR DONE 2-4 YEARS AGO AT [place]. ALSO HAS CARDS AT HOME, WILL FAX OFF FOR INFO AND IF HE CAN GET AHOLD OF HIS SHE WILL BRING CARDS BACK IN THE MORNING. EXAM ON HOLD UNTIL TOMORROW - 08/11 @ 2147 - CRL CFS @ 2053 - CRL 08/11/16 21:09 US gall bladder [US] Routine Comment: includes liver Mode Of Transportation: Wheelchair Reason For Exam: acute abd pain w/cholestasis Order Doctor: Vasquez Bey Exam Performed At:: [facility] Additional Notes/Special Instructions: pt not NPO 08/12/16 AM Oxygen: Room Air Mental Status: Alert Fall Risk: Isolation: Nurse Required for Transport: No ___ Yes Limb Restrictions: No ___ Yes Behavioral issue/Risk for Elopement: No ___ Yes Telemetry Room Notification: Destination: MRI XRAY STRESS ULTRASOUND CT DIALYSIS ENDO OTHER: Depart Time: Nurse: Transporter: Arrive Time: Received by: ___ Return Time: Nurse: Transporter: ] Initialized on 08/12/16 07:36 - END OF NOTE 08/12/16 07:36 Transport Report by Therese Amato Date: 08/12/16 Transport Method: Wheelchair No Known Allergies Allergy (Verified 09/10/15 01:00) Resuscitation Status Full Code 08/11/16 20:44 MRCP [MR abdomen wo con] [MR] Stat Mode Of Transportation: Wheelchair Reason For Exam: acute abdomenal pain Order Doctor: Vasquez Bey Exam Performed At:: [facility] Additional Notes/Special Instructions: PT HAS AAA REPAIR DONE 2-4 YEARS AGO AT [place]. ALSO HAS CARDS AT HOME, WILL FAX OFF FOR INFO AND IF HE CAN GET AHOLD OF HIS SHE WILL BRING CARDS BACK IN THE MORNING. EXAM ON HOLD UNTIL TOMORROW - 08/11 @ 2147 - CRL CFS @ 4 - CRL 08/11/16 21:09 US gall bladder [US] Routine Comment: includes liver Mode Of Transportation: Wheelchair Reason For Exam: acute abd pain w/cholestasis Order Doctor: Vasquez Bey Exam Performed At:: [facility] Additional Notes/Special Instructions: pt not NPO 08/12/16 AM Oxygen: Room Air Mental Status: Alert Fall Risk: Isolation: Nurse Required for Transport: No ___ Yes Limb Restrictions: No ___ Yes Behavioral issue/Risk for Elopement: No ___ Yes Telemetry Room Notification: Destination: MRI XRAY STRESS ULTRASOUND CT DIALYSIS ENDO OTHER: Depart Time: Nurse: Transporter: Arrive Time: Received by: ___ Return Time: Nurse: Transporter: ] Initialized on 08/12/16 07:36 - END OF NOTE 08/12/16 05:45 Nurse Note by Lesvia Motta Patient ran A-fib low to mid 100"s was his heart rate throughout this shift, unable to print, saved strips to clinical access. Initialized on 08/12/16 05:45 - END OF NOTE 08/11/16 19:01 Nurse Note by Onel Mcdonald DR SPOKE TO DR VIGIL AND CONCERN NOTED FOR HEPATITIS, SO WILL ADMIT TO THE HOSPITALIST AND FOLLOW UP WITH DR ATKINSON FOR HEP, OBSTRUCTED GB OR OTHER PROBLEMS. Initialized on 08/11/16 19:01 - END OF NOTE 08/11/16 18:57 Nurse Note by Onel Mcdonald PROVIDED PT W MEAL DOM Initialized on 08/11/16 18:57 - END OF NOTE 08/11/16 18:38 Transport Report by Jeff Huntley Date: 08/11/16 Transport Method: Wheelchair No Known Allergies Allergy (Verified 09/10/15 01:00) Resuscitation Status Oxygen: Mental Status: Fall Risk: Isolation: Nurse Required for Transport: No ___ Yes Limb Restrictions: No ___ Yes Behavioral issue/Risk for Elopement: No ___ Yes Telemetry Room Notification: Destination: MRI XRAY STRESS ULTRASOUND CT DIALYSIS ENDO OTHER: Depart Time: Nurse: Transporter: Arrive Time: Received by: ___ Return Time: Nurse: Transporter: ] Initialized on 08/11/16 18:38 - END OF NOTE Orders 08/11/16 18:[address] Stat Comment: Reason for Visit: increased liver enzymes 08/11/16 20:35 Vital Signs Assessment [RC] Q4H Acetaminophen [Tylenol] 650 mg PO Q6HR PRN Docusate [Colace] 100 mg PO BID PRN Morphine [Morphine Sulfate] 2 mg IVP Q4HR PRN Naloxone [Narcan] 0.4 mg IVP Q2MIN PRN Ondansetron [Zofran] 4 mg IVP Q8HR PRN OxyCODONE Immed Rel [Roxicodone] 5 mg PO Q6HR PRN Resuscitation Status: Active [RES] Routine Comment: Resuscitation Status: Full Code 08/11/16 20:36 Bed rest [RC] .CONT Physician Instructions: Bed rest w/bedside commode [RC] .PRN Peripheral IV [RC] CONT Placement to Observation Routine Physician Instructions: Reason for Visit: Abdomenal pain Is VTE Prophylaxis Indicated?: Yes 08/11/16 20:37 Cardiac Monitoring Med/Surg [RC] .CONT Telemetry Reason: ACS/CP Continuous pulse oximetry [RC] CONT Comment: Measure intake and output [RC] QSHIFT Measure weight [RC] DAILY RT has an order or consult [RC] NOW 08/11/16 20:38 Oxygen via nasal cannula Nasal Cannula 2 lpm Comment: Titrate O2 to main O2 sat greater than: 92% 08/11/16 20:45 0.9 % Sodium Chloride 1,000 ml IVC 75 mls/hr 08/11/16 20:53 Troponin I Q6H Comment: Specimen: Send someone from the department to collect 08/11/16 21:03 Pantoprazole [Protonix] 80 mg 0.9 % Sodium Chloride 50 ml IVPB ONCE 08/11/16 21:09 Apply anti-embolic stockings [RC] .NOW GI Cocktail 40 ml PO ONCE STA 08/11/16 21:15 XR abdomen 2V [XR] Routine Mode Of Transportation: Wheelchair Reason For Exam: acute abd pain Order Doctor: Vasquez Bey Exam Performed At:: [facility] XR chest 2V [XR] Routine Mode Of Transportation: Wheelchair Reason For Exam: acute abd pain Order Doctor: Vasquez Bey Exam Performed At:: [facility] 0.9 % Sodium Chloride Mini Bag [0.9 % Sodium Chloride (Mini-Bag +)] 100 ml Pantoprazole [Protonix] 40 mg IVC 20 mls/hr 08/12/16 01:14 Admit as Inpatient Routine Estimated Total Length of Stay (Days): 3 Plans for Post Hospital Care: Home Inpatient Status Required: Still symptomatic/not sta Unresolved acute problem Explain each choice below Explain Concerns: Acute illness risk for further decline due to comorbid conditions Potential Adverse Outcome: Sepsis Worsening Renal Failure Fall Risk at Home Cardiac Perfusion Is VTE Prophylaxis Indicated?: Yes 08/12/16 03:40 Culture,Urine [RM] Routine GWEN Source: [facility] Specimen Description: Drug Screen, Urine [UCHEM] AM 0400 Comment: Specimen: Has been collected UA w. reflex culture [Urinalysis Reflex Cult & Micro] [URIN] AM 0400 Comment: Specimen: Has been collected 08/12/16 05:32 Activated Partial Thrombo Time [COAG] AM 0400 Comment: Specimen: Send someone from the department to collect Amylase Routine B-Type Natriuretic Peptide AM 0400 Comment: Specimen: Send someone from the department to collect Bilirubin,Direct Routine C-Peptide AM 0400 Comment: Specimen: Send someone from the department to collect C-Reactive Protein Routine Complete Blood Count [HEME] AM 0400 Comment: Specimen: Send someone from the department to collect Comprehensive Metabolic Panel AM 0400 Comment: Specimen: Send someone from the department to collect Erythrocyte Sedimentation Rate [HEME] AM 0400 Comment: Specimen: Send someone from the department to collect Hepatitis Prof.(Routine A,B,C) AM 0400 Comment: Specimen: Send someone from the department to collect Hgb A1C AM 0400 Comment: Specimen: Send someone from the department to collect Lactate Dehydrogenase Routine Lipase Routine Lipid Panel AM 0400 Comment: Specimen: Send someone from the department to collect Magnesium AM 0400 Comment: Specimen: Send someone from the department to collect Phosphorous AM 0400 Comment: Specimen: Send someone from the department to collect Prothrombin Time INR [COAG] AM 0400 Comment: Specimen: Send someone from the department to collect Thyroid Stimulating Hormone Routine Troponin I Q6H Comment: Specimen: Send someone from the department to collect 08/12/16 06:40 HYDROmorphone (PF) [Dilaudid] 1 mg IVP Q2H PRN 08/12/16 06:42 OxyCODONE Immed Rel [Roxicodone] 10 mg PO Q6HR PRN 08/12/16 06:43 Magnesium Sulfate 2 gm D5% in Water [Dextrose 5%] 100 ml IVPB ONCE Sodium Phosphate 30 mmol D5% in Water [Dextrose 5%] 100 ml IVPB ONCE 08/12/16 08:37 Metoprolol [Lopressor] 5 mg IVP ONCE ONE 08/12/16 08:40 Metoprolol [Lopressor] 5 mg IVP .STK-MED ONE 08/12/16 09:00 US gall bladder [US] Routine Comment: includes liver Mode Of Transportation: Wheelchair Reason For Exam: acute abd pain w/cholestasis Order Doctor: Vasquez Bey Exam Performed At:: [facility] Additional Notes/Special Instructions: Aspirin Enteric Coated [Aspirin EC] 81 mg PO QAM Docusate [Colace] 100 mg PO BID Losartan [Cozaar] 25 mg PO DAILY Metoprolol [Lopressor] 25 mg PO BID 08/12/16 09:01 Consult to Gastroenterology [CONS] Routine Consulting Provider: Gastroenterology [facility] Reason for Consult: please evaluate for elevated lipase, transaminits and hyperbilirubinemia, MRCP and liver US has been ordered. Thank you Call Completed: Yes 08/12/16 10:16 MR abdomen wo con [MR] Stat Mode Of Transportation: Wheelchair Reason For Exam: acute abdomenal pain Order Doctor: Vasquez Bey Exam Performed At:: [facility] Additional Notes/Special Instructions: PT HAS AAA REPAIR DONE 2-4 YEARS AGO [place] [facility] [place]. ALSO HAS CARDS AT HOME, WILL FAX OFF FOR INFO AND IF HE CAN GET AHOLD OF HIS SHE WILL BRING CARDS BACK IN THE MORNING. EXAM ON HOLD UNTIL TOMORROW - 08/11 @ 2147 - CRL CFS @ 2054 - CRL 08/12/16 11:23 Metoprolol [Lopressor] 5 mg IVP Q6HR PRN 08/12/16 11:39 POC Glucometer Test [POC] Routine 08/12/16 11:49 Troponin I Q6H Comment: Specimen: Send someone from the department to collect 08/12/16 12:36 0.9 % Sodium Chloride 100 ml IV .STK-MED ONE Dexamethasone [Decadron] 4 mg IVP .STK-MED ONE Lidocaine -MPF 2% [Xylocaine-MPF 2% VIAL] 5 ml INFILT .STK-MED ONE Ondansetron [Zofran] 4 mg IVP .STK-MED ONE Phenylephrine 10 mg IVC .STK-MED ONE Propofol [Diprivan] 400 mg IVP .STK-MED ONE Succinylcholine [Quelicin] 200 mg IVP .STK-MED ONE 08/12/16 12:48 HYDROmorphone (PF) [Dilaudid] 1 mg IVP Q2H PRN OxyCODONE Immed Rel [Roxicodone] 10 mg PO Q6HR PRN 08/12/16 13:30 Ringers Solution, Lactated [Lactated Ringers] 1,000 ml IVC 50 mls/hr 08/12/16 13:55 FentaNYL (PF) 100 mcg .ROUTE .STK-MED ONE Midazolam HCl [Versed] 2 mg .ROUTE .STK-MED ONE 08/12/16 14:00 XR endo cath bilpanc duct si [XR] Routine Mode Of Transportation: Wheelchair Reason For Exam: ERCP WITH PANCREATIC STENT-JAUNDICE Order Doctor: Olivia Atkinson 08/12/16 14:33 0.9 % Sodium Chloride 1,000 ml IVC 125 mls/hr 08/12/16 15:28 Indomethacin [Indocin] 100 mg RC ONCE ONE 08/12/16 16:54 POC Glucometer Test [POC] Routine 08/12/16 18:00 Pantoprazole [Protonix] 40 mg IVP Q12HR 08/12/16 21:00 Losartan [Cozaar] 25 mg PO HS Simvastatin [Zocor] 40 mg PO HS 08/13/16 06:20 Amylase Routine CBC [Complete Blood Count] [HEME] AM 0400 Comment: Specimen: Send someone from the department to collect Chem 7 [Basic Metabolic Panel] AM 0400 Comment: Specimen: Send someone from the department to collect Hepatic Panel AM 0400 Comment: Specimen: Send someone from the department to collect Lipase Routine 08/13/16 11:06 Consult to Surgery [CONS] Routine Consulting Provider: [facility] Reason for Consult: Choledocholithiasis. s/p ERCP with 7mm CBD stone. Evaluate candidacy for cholecystectomy. Call Completed: No 08/13/16 11:21 PT/INR [Prothrombin Time INR] [COAG] Stat Comment: Specimen: Send someone from the department to collect 08/13/16 11:45 Ringers Solution, Lactated [Lactated Ringers] 1,000 ml IVC 75 mls/hr 08/13/16 12:00 Enoxaparin [Lovenox] 40 mg SQ 0600 08/13/16 12:06 POC Glucometer Test [POC] Routine 08/13/16 12:22 Phytonadione [AquaMephyton] 10 mg 0.9 % Sodium Chloride 50 ml IVPB ONCE 08/13/16 12:23 Transfusion, FFP [RC] .NOW 08/13/16 13:16 Type and Screen [BBK] Stat BBK Wristband Number: [id number] 08/13/16 Lunch Clear Liquid Diet Diet Modifications: 08/14/16 04:04 Amylase AM 0400 Comment: Specimen: Send someone from the department to collect Basic Metabolic Panel Routine Hepatic Panel AM 0400 Comment: Specimen: Send someone from the department to collect Lipase AM 0400 Comment: Specimen: Send someone from the department to collect PT/INR [Prothrombin Time INR] [COAG] AM 0400 Comment: Specimen: Send someone from the department to collect 08/14/16 05:48 POC Glucometer Test [POC] Routine 08/14/16 06:29 Ambulate [RC] TID Physician Instructions: 08/14/16 18:00 Heparin 5,000 unit SQ Q12HCO 08/14/16 Breakfast Clear Liquid Diet Diet Modifications: 08/15/16 00:22 EKG [ECG 12 lead ECG] [ECG] Stat Mode Of Transportation: Portable Reason For Exam: A fib with RVR Order Doctor: Julia Davis Exam Performed At:: [facility] 08/15/16 00:23 12 lead ECG assessment [RC] NOW 08/15/16 00:42 ECG 12 lead ECG [ECG] Routine Mode Of Transportation: Portable Reason For Exam: . 08/15/16 00:58 Furosemide [Lasix] 20 mg IVP ONCE ONE Metoprolol [Lopressor] 25 mg PO ONCE ONE 08/15/16 04:26 BNP [B-Type Natriuretic Peptide] AM 0400 Comment: Specimen: Send someone from the department to collect Basic Metabolic Panel Routine LFTs [Hepatic Panel] AM 0400 Comment: Specimen: Send someone from the department to collect 08/15/16 05:35 POC Glucometer Test [POC] Routine 08/15/16 11:05 POC Glucometer Test [POC] Routine 08/15/16 11:29 Ringers Solution, Lactated [Lactated Ringers] 1,000 ml IVC 100 mls/hr 08/15/16 11:35 ECG 12 lead ECG [ECG] Routine Mode Of Transportation: Portable Reason For Exam: . 08/15/16 13:30 Metoprolol [Lopressor] 5 mg IVP ONCE ONE 08/15/16 14:00 D5% in Water [Dextrose 5%] 100 ml Diltiazem [Cardizem] 125 mg IVC 5 mg/hr 08/15/16 17:11 POC Glucometer Test [POC] Routine 08/15/16 21:00 Metoprolol [Lopressor] 50 mg PO BID 08/15/16 Dinner Full Liquid Diet Diet Modifications: 08/16/16 XR cholangiogram operative [XR] Routine Mode Of Transportation: Portable Reason For Exam: LAP CRSI FOR GALLSTONE PANCREATITIS Order Doctor: Nanda Lidn Exam Performed At:: [facility] 08/16/16 00:34 POC Glucometer Test [POC] Routine 08/16/16 05:44 POC Glucometer Test [POC] Routine 08/16/16 08:38 CBC [Complete Blood Count] [HEME] Stat Comment: Specimen: Send someone from the department to collect Chem 7 [Basic Metabolic Panel] Stat Comment: Specimen: Send someone from the department to collect Hepatic Panel Stat Comment: Specimen: Send someone from the department to collect 08/16/16 08:51 INR/PT [Prothrombin Time INR] [COAG] Stat Comment: Specimen: Send someone from the department to collect 08/16/16 11:20 POC Glucometer Test [POC] Routine 08/16/16 11:41 Bupivacaine-MPF 0.5% [Marcaine-MPF 0.5% VIAL] 30 ml .ROUTE .STK-MED ONE 08/16/16 12:04 FentaNYL (PF) 100 mcg .ROUTE .STK-MED ONE Propofol [Diprivan] 200 mg IVP .STK-MED ONE 08/16/16 12:05 Lidocaine -MPF 2% [Xylocaine-MPF 2%] 2 ml .ROUTE .STK-MED ONE Succinylcholine [Quelicin] 200 mg IVP .STK-MED ONE 08/16/16 12:41 CefOXitin [Mefoxin] 2,000 mg IVPB .STK-MED ONE Esmolol 100 mg IVP .STK-MED ONE 08/16/16 12:54 Surgical Pathology [PTH] Routine Comment: Department: Surgical Pathology Specimen: Has been collected Specimen placed in fixative?: Yes Tissue Removal Time:: 12:55 Tissue Fixative Time:: 13:38 DATE JOSE ANTONIO:: 08/16/16 PRE-OP DIAGNOSIS:: gallstone pancreatitis POST-OP DIAGNOSIS:: same SPECIMEN & SITE: 1: gallbladder and contents 08/16/16 13:43 Continuous pulse oximetry [RC] .ONCE Comment: Discharge from PACU when crite [RC] PROTOCOL Glucose, blood poc measurement [RC] .ONCE Oxygen via nasal cannula Nasal Cannula 2 lpm Comment: Titrate O2 to main O2 sat greater than: 94% RT has an order or consult [RC] NOW HYDROmorphone (PF) [Dilaudid] 0.5 mg IVP Q5MIN PRN OPTION # __ (1-5): 1 MAX DOSE ____(MG): 2 Promethazine [Phenergan] 6.25 mg IVP Q5MIN PRN 08/16/16 13:44 Glycopyrrolate [Robinul] 0.4 mg .ROUTE .STK-MED ONE Neostigmine Methylsulfate 3 mg .ROUTE .STK-MED ONE 08/16/16 13:45 Ondansetron [Zofran] 4 mg .ROUTE .STK-MED ONE Ringers Solution, Lactated [Lactated Ringers] 1,000 ml IVC 25 mls/hr 08/16/16 13:50 HYDROmorphone [Dilaudid] 2 mg .ROUTE .STK-MED ONE 08/16/16 13:51 Transfer Order [TRANSFER] Routine Comment: Patient Transfer: Med/Surg Telemetry 08/16/16 14:02 POC Glucometer Test [POC] Routine 08/16/16 14:40 Labetalol 5 mg IVP ONCE ONE 08/16/16 16:39 EPCD [Intermittent pneumatic ronaldo] [RC] .CONTINUOUS Intermit Pneumatic Compression Device: Calf Pumps Acetaminophen [Tylenol] 650 mg PO Q6HR PRN D5% in Water [Dextrose 5%] 100 ml Diltiazem [Cardizem] 125 mg IVC 5 mg/hr HYDROmorphone (PF) [Dilaudid] 1 mg IVP Q2H PRN Metoprolol [Lopressor] 5 mg IVP Q6HR PRN Naloxone [Narcan] 0.4 mg IVP Q2MIN PRN Ondansetron [Zofran] 4 mg IVP Q8HR PRN OxyCODONE/APAP 5/325 [Percocet 5/325] 1 each PO Q4HR PRN 08/16/16 18:00 Pantoprazole [Protonix] 40 mg IVP Q12HR 08/16/16 21:00 Docusate [Colace] 100 mg PO BID Losartan [Cozaar] 25 mg PO HS Metoprolol [Lopressor] 50 mg PO BID Simvastatin [Zocor] 40 mg PO HS 08/16/16 Lunch Clear Liquid Diet Diet Modifications: advance to regular diet if tolerates 08/17/16 01:53 Saline Nasal [place] [Many Nasal [place]] 2 spray NS Q1H PRN 08/17/16 04:56 CBC [Complete Blood Count] [HEME] AM 0400 Comment: Specimen: Send someone from the department to collect Hepatic Panel AM 0400 Comment: Specimen: Send someone from the department to collect Lipase Stat Comment: Specimen: Send someone from the department to collect 08/17/16 10:28 Diltiazem [Cardizem] 30 mg PO Q6HR 08/17/16 10:30 Simethicone [Gas-X] 80 mg PO TID 08/17/16 10:45 Polyethylene Glycol 3350 [MiraLAX] 17 gm PO DAILY 08/17/16 14:48 NPO Diet Diet Modifications: 08/17/16 17:30 POC Glucometer Test [POC] Routine 08/17/16 18:00 Warfarin [Coumadin] 7.5 mg PO [id number] 08/17/16 23:46 POC Glucometer Test [POC] Routine 08/18/16 04:26 Prothrombin Time INR [COAG] AM 0400 Comment: Specimen: Send someone from the department to collect 08/18/16 05:25 POC Glucometer Test [POC] Routine 08/18/16 08:07 CBC [Complete Blood Count] [HEME] Stat Comment: Specimen: Send someone from the department to collect Chem 7 [Basic Metabolic Panel] Stat Comment: Specimen: Send someone from the department to collect Hepatic Panel Stat Comment: Specimen: Send someone from the department to collect 08/18/16 10:57 XR acute abdominal series [XR] Stat Mode Of Transportation: Portable Reason For Exam: ileus Order Doctor: Ehsan Arriaza Exam Performed At:: [facility] 08/18/16 12:15 POC Glucometer Test [POC] Routine 08/18/16 16:03 Magnesium Citrate [Citroma] 296 ml PO ONCE ONE 08/18/16 17:11 POC Glucometer Test [POC] Routine 08/19/16 01:21 POC Glucometer Test [POC] Routine 08/19/16 04:16 Complete Blood Count [HEME] AM 0400 Comment: Specimen: Send someone from the department to collect Comprehensive Metabolic Panel AM 0400 Comment: Specimen: Send someone from the department to collect Magnesium AM 0400 Comment: Specimen: Send someone from the department to collect Phosphorous AM 0400 Comment: Specimen: Send someone from the department to collect 08/19/16 05:22 POC Glucometer Test [POC] Routine 08/19/16 10:22 Discharge Order [DISCHARGE] Routine Comment: 08/19/16 10:32 Advance Diet as Tolerated Routine Comment: 08/19/16 11:48 POC Glucometer Test [POC] Routine 08/19/16 18:00 Warfarin [Coumadin] 5 mg PO [email or web address] 08/19/16 Lunch Diabetic Diet Diet Modifications: Vital Signs Temp Pulse Resp BP Pulse Ox 08/19/16 10:00 95 08/19/16 05:18 98.0 F 85 15 166/82 95 08/19/16 01:20 98.2 F 83 17 124/76 98 08/18/16 22:02 97.7 F 65 17 151/83 96 08/18/16 17:08 97.8 F 99 18 155/73 96 08/18/16 16:10 98.5 F 86 18 149/79 95 08/18/16 12:11 98.7 F 89 18 162/92 97 08/18/16 08:29 97.6 F 91 18 161/76 93 L 08/18/16 03:39 98.3 F 90 20 142/90 95 08/17/16 22:57 97.6 F 100 20 158/78 94 L 08/17/16 18:55 99.0 F 94 20 152/87 94 L 08/17/16 15:25 98.0 F 75 18 115/80 91 L 08/17/16 11:53 98.2 F 102 18 133/90 93 L 08/17/16 07:45 94 L 08/17/16 06:48 98.4 F 108 18 130/72 96 08/17/16 05:26 98.3 F 89 18 136/75 94 L 08/16/16 22:52 98.6 F 99 18 151/67 95 08/16/16 22:03 94 L 08/16/16 19:07 98.2 F 90 18 118/76 94 L 08/16/16 17:20 97.7 F 99 18 120/81 96 08/16/16 16:20 98.5 F 96 18 138/77 95 08/16/16 15:54 98 F 98 18 147/78 95 08/16/16 15:35 98.5 F 86 18 128/74 95 08/16/16 15:20 98.7 F 90 18 147/83 95 08/16/16 15:07 97.7 F 95 20 145/85 92 L 08/16/16 14:57 92 20 147/80 93 L 08/16/16 14:47 94 20 142/80 93 L 08/16/16 14:37 102 20 167/95 93 L 08/16/16 14:27 97.8 F 94 20 165/95 93 L 08/16/16 14:17 90 20 168/89 93 L 08/16/16 14:07 83 20 150/77 95 08/16/16 13:57 97.6 F 82 16 148/73 95 08/16/16 11:34 98.0 F 106 16 161/91 95 08/16/16 07:50 98.4 F 92 17 151/91 96 08/16/16 04:04 99.0 F 95 16 150/82 96 08/16/16 00:31 98.8 F 85 14 110/64 92 L 08/15/16 20:15 98.0 F 91 18 160/92 93 L 08/15/16 14:24 98.7 F 86 17 151/75 93 L 08/15/16 11:09 98.1 F 98 16 154/74 97 08/15/16 06:59 98.0 F 100 16 136/74 94 L 08/15/16 04:31 98.0 F 80 18 127/89 96 08/15/16 00:40 98.0 F 71 20 149/71 94 L 08/14/16 21:52 97.9 F 108 16 155/83 95 08/14/16 19:35 97.8 F 132 16 159/79 91 L 08/14/16 10:00 97.3 F L 90 18 147/63 96 08/14/16 07:25 98.7 F 90 18 108/70 94 L 08/14/16 04:21 98.7 F 105 16 135/84 95 08/14/16 00:30 99.1 F 67 15 147/78 96 08/13/16 20:05 98.1 F 114 16 154/68 96 08/13/16 15:36 98.6 F 100 18 125/69 95 08/13/16 11:54 98.5 F 109 18 107/63 97 08/13/16 08:05 98.1 F 94 18 134/64 97 08/13/16 04:51 98.2 F 96 14 122/72 96 08/13/16 03:13 97.5 F L 86 18 102/61 95 08/12/16 23:45 97.9 F 94 18 126/62 92 L 08/12/16 18:47 98.3 F 86 18 122/70 95 08/12/16 16:10 97.7 F 88 16 121/67 96 17 15:45 99.3 F 88 16 137/77 97 06 15:35 99.3 F 80 16 130/62 96 08/12/16 15:25 97.3 F L 71 16 120/70 95 0617 15:15 97.3 F L 79 16 105/63 96 08/12/16 13:19 97.3 F L 95 18 131/78 95 08/12/16 11:30 97.7 F 101 20 111/71 97 08/12/16 08:54 124 111/64 96 08/12/16 08:05 97 08/12/16 07:35 98.6 F 78 16 131/71 91 L 08/12/16 01:12 98.0 F 76 16 116/78 96 08/11/16 21:00 97.9 F 77 16 124/83 95 08/11/16 20:36 97.7 F 89 16 132/82 96 08/11/16 19:47 18 0/0 08/11/16 19:45 75 18 119/92 99 08/11/16 19:02 97 18 104/57 97 08/11/16 18:01 88 16 107/70 95 08/11/16 16:41 97.8 F 84 16 147/101 97 Laboratory Results 08/11/16 08/12/16 08/12/16 Range/Units 20:53 03:40 03:40 WBC (4.3-11.1) K/mcL RBC (4.19-5.50) M/mcL Hgb (12.9-16.9) g/dL Hct (37.5-50.1) % MCV (83.0-100.0) fL MCH (28.0-33.3) pg MCHC (31.6-35.5) g/dL RDW (11.5-14.5) % Plt Count (140-400) K/mcL MPV (9.4-12.4) fL Immature Gran % (0-4) % Seg Neutrophils % % Lymphocytes % % Monocytes % % Eosinophils % % Basophils % % Neutrophils # (1.6-8.9) K/mcL Lymphocytes # (0.6-4.6) K/mcL Monocytes # (0.0-1.3) K/mcL Eosinophils # (0.0-0.6) K/mcL Basophils # (0.0-0.2) K/mcL Immature Plt Fraction (1.1-6.1) % ESR (0-10) mm/hr PT (9.4-12.1) Seconds INR APTT (26.0-36.0) Seconds Sodium (136-145) mEq/L Potassium (3.5-4.5) mEq/L Chloride (98-109) mEq/L Carbon Dioxide (19-29) mEq/L BUN (8-26) mg/dL Creatinine (0.72-1.25) mg/dL Est GFR ( Amer) (> 60) Est GFR (Non-Af Amer) (> 60) BUN/Creatinine Ratio (6-26) Glucose (70-99) mg/dL POC Glucose (58-89) Est Mean Plasma Glucose mg/dl Hemoglobin A1c ( - 5.6) % C-Peptide (0.8-3.5) ng/mL Calculated Osmolality (280-300) Calcium (8.6-10.8) mg/dL Phosphorus (2.3-4.7) mg/dL Magnesium (1.6-2.6) mg/dL Total Bilirubin (0.2-1.2) mg/dL Direct Bilirubin (0.0-0.5) mg/dL Indirect Bilirubin (0.0-1.2) mg/dL AST (5-34) Units/L ALT (0-55) Units/L Alkaline Phosphatase (38-126) Units/L Lactate Dehydrogenase (159-327) Units/L Troponin I 0.00 (0-0.03) ng/mL C-Reactive Protein (Less than 5) mg/L B-Natriuretic Peptide (0-100) pg/mL Serum Total Protein (6.0-8.3) g/dL Albumin (3.5-5.0) g/dL Globulin (2.4-3.5) g/dL Albumin/Globulin Ratio (1.1-2.2) Triglycerides (< 150) mg/dL Cholesterol (< 200) mg/dL LDL Cholesterol, Calc (0-99) mg/dL VLDL Cholesterol, Calc (< 31) mg/dL HDL Cholesterol (40-59) mg/dL Cholesterol/HDL Ratio (0-4.9) Amylase (25-125) Units/L Lipase (8-78) Units/L TSH (0.350-4.840) mcIU/mL Urine Color [place] A (Yellow) Urine Clarity Cloudy A (Clear) Urine pH 5.5 (5.0-8.0) pH Units Ur Specific [place] 1.019 (1.010-1.025) Urine Protein Trace (Neg-Trace) mg/dL Urine Glucose (UA) Normal (Normal) mg/dL Urine Ketones Trace H (Negative) mg/dL Urine Blood Negative (Negative) Urine Nitrite Positive A (Negative) Urine Bilirubin Large H (Negative) Urine Urobilinogen Normal (Normal) mg/dL Ur Leukocyte Esterase Small H (Negative) Urine Microscopic RBC 5-15 H (0-3) per hpf Urine Microscopic WBC 5-15 H (0-3) per hpf Ur Squamous Epith Cells Few (None-Few) per lpf Urine Bacteria None Seen (None-Few) per hpf Hyaline Casts None Seen (None-Few) per lpf Ur Culture Indicated? YES A (NO) Urine Opiates Screen Positive H (Curiso=055) ng/mL Ur Barbiturates Screen Negative (Kywcva=307) ng/mL Ur Phencyclidine Scrn Negative (Cutoff=25) ng/mL Ur Amphetamines Screen Negative (Txtppl=2607) ng/mL U Benzodiazepines Scrn Negative (Qtzmgh=346) ng/mL Urine Cocaine Screen Negative (Cutoff= 300) ng/mL U Marijuana (THC) Screen Negative (Cutoff = 50) ng/mL Hepatitis A IgM Ab (Nonreactive) Hep Bs Antigen (Nonreactive) Hep B Core IgM Ab (Nonreactive) Hepatitis C Ab Screen (Nonreactive) Blood Type Antibody Screen 08/12/16 08/12/16 08/12/16 Range/Units 05:32 05:32 05:32 WBC 8.7 (4.3-11.1) K/mcL RBC 5.42 (4.19-5.50) M/mcL Hgb 15.0 (12.9-16.9) g/dL Hct 46.0 (37.5-50.1) % MCV 84.9 (83.0-100.0) fL MCH 27.7 L (28.0-33.3) pg MCHC 32.6 (31.6-35.5) g/dL RDW 13.7 (11.5-14.5) % Plt Count 154 (140-400) K/mcL MPV 9.8 (9.4-12.4) fL Immature Gran % 0.3 (0-4) % Seg Neutrophils % 84.1 % Lymphocytes % 6.2 % Monocytes % 9.1 % Eosinophils % 0.1 % Basophils % 0.2 % Neutrophils # 7.3 (1.6-8.9) K/mcL Lymphocytes # 0.5 L (0.6-4.6) K/mcL Monocytes # 0.8 (0.0-1.3) K/mcL Eosinophils # 0.0 (0.0-0.6) K/mcL Basophils # 0.0 (0.0-0.2) K/mcL Immature Plt Fraction 3.0 (1.1-6.1) % ESR (0-10) mm/hr PT 42.0 H (9.4-12.1) Seconds INR 3.7 APTT 38.9 H (26.0-36.0) Seconds Sodium (136-145) mEq/L Potassium (3.5-4.5) mEq/L Chloride (98-109) mEq/L Carbon Dioxide (19-29) mEq/L BUN (8-26) mg/dL Creatinine (0.72-1.25) mg/dL Est GFR ( Amer) (> 60) Est GFR (Non-Af Amer) (> 60) BUN/Creatinine Ratio (6-26) Glucose (70-99) mg/dL POC Glucose (58-89) Est Mean Plasma Glucose mg/dl Hemoglobin A1c ( - 5.6) % C-Peptide (0.8-3.5) ng/mL Calculated Osmolality (280-300) Calcium (8.6-10.8) mg/dL Phosphorus (2.3-4.7) mg/dL Magnesium (1.6-2.6) mg/dL Total Bilirubin (0.2-1.2) mg/dL Direct Bilirubin (0.0-0.5) mg/dL Indirect Bilirubin (0.0-1.2) mg/dL AST (5-34) Units/L ALT (0-55) Units/L Alkaline Phosphatase (38-126) Units/L Lactate Dehydrogenase (159-327) Units/L Troponin I 0.00 (0-0.03) ng/mL C-Reactive Protein (Less than 5) mg/L B-Natriuretic Peptide (0-100) pg/mL Serum Total Protein (6.0-8.3) g/dL Albumin (3.5-5.0) g/dL Globulin (2.4-3.5) g/dL Albumin/Globulin Ratio (1.1-2.2) Triglycerides (< 150) mg/dL Cholesterol (< 200) mg/dL LDL Cholesterol, Calc (0-99) mg/dL VLDL Cholesterol, Calc (< 31) mg/dL HDL Cholesterol (40-59) mg/dL Cholesterol/HDL Ratio (0-4.9) Amylase (25-125) Units/L Lipase (8-78) Units/L TSH (0.350-4.840) mcIU/mL Urine Color (Yellow) Urine Clarity (Clear) Urine pH (5.0-8.0) pH Units Ur Specific [place] (1.010-1.025) Urine Protein (Neg-Trace) mg/dL Urine Glucose (UA) (Normal) mg/dL Urine Ketones (Negative) mg/dL Urine Blood (Negative) Urine Nitrite (Negative) Urine Bilirubin (Negative) Urine Urobilinogen (Normal) mg/dL Ur Leukocyte Esterase (Negative) Urine Microscopic RBC (0-3) per hpf Urine Microscopic WBC (0-3) per hpf Ur Squamous Epith Cells (None-Few) per lpf Urine Bacteria (None-Few) per hpf Hyaline Casts (None-Few) per lpf Ur Culture Indicated? (NO) Urine Opiates Screen (Urtuxt=518) ng/mL Ur Barbiturates Screen (Gtfcxq=478) ng/mL Ur Phencyclidine Scrn (Cutoff=25) ng/mL Ur Amphetamines Screen (Jghdlq=5571) ng/mL U Benzodiazepines Scrn (Ezcpoj=155) ng/mL Urine Cocaine Screen (Cutoff= 300) ng/mL U Marijuana (THC) Screen (Cutoff = 50) ng/mL Hepatitis A IgM Ab (Nonreactive) Hep Bs Antigen (Nonreactive) Hep B Core IgM Ab (Nonreactive) Hepatitis C Ab Screen (Nonreactive) Blood Type Antibody Screen 08/12/16 08/12/16 08/12/16 Range/Units 05:32 05:32 05:32 WBC (4.3-11.1) K/mcL RBC (4.19-5.50) M/mcL Hgb (12.9-16.9) g/dL Hct (37.5-50.1) % MCV (83.0-100.0) fL MCH (28.0-33.3) pg MCHC (31.6-35.5) g/dL RDW (11.5-14.5) % Plt Count (140-400) K/mcL MPV (9.4-12.4) fL Immature Gran % (0-4) % Seg Neutrophils % % Lymphocytes % % Monocytes % % Eosinophils % % Basophils % % Neutrophils # (1.6-8.9) K/mcL Lymphocytes # (0.6-4.6) K/mcL Monocytes # (0.0-1.3) K/mcL Eosinophils # (0.0-0.6) K/mcL Basophils # (0.0-0.2) K/mcL Immature Plt Fraction (1.1-6.1) % ESR 38 H (0-10) mm/hr PT (9.4-12.1) Seconds INR APTT (26.0-36.0) Seconds Sodium 135 L (136-145) mEq/L Potassium 4.0 (3.5-4.5) mEq/L Chloride 105 (98-109) mEq/L Carbon Dioxide 19 (19-29) mEq/L BUN 21 (8-26) mg/dL Creatinine 1.77 H (0.72-1.25) mg/dL Est GFR ( Amer) 46 L (> 60) Est GFR (Non-Af Amer) 38 L (> 60) BUN/Creatinine Ratio 12 (6-26) Glucose 96 (70-99) mg/dL POC Glucose (58-89) Est Mean Plasma Glucose mg/dl Hemoglobin A1c ( - 5.6) % C-Peptide (0.8-3.5) ng/mL Calculated Osmolality 283 (280-300) Calcium 8.9 (8.6-10.8) mg/dL Phosphorus 2.0 L (2.3-4.7) mg/dL Magnesium 1.4 L (1.6-2.6) mg/dL Total Bilirubin 7.7 H (0.2-1.2) mg/dL Direct Bilirubin 4.8 H (0.0-0.5) mg/dL Indirect Bilirubin (0.0-1.2) mg/dL AST 227 H (5-34) Units/L ALT 266 H (0-55) Units/L Alkaline Phosphatase 172 H (38-126) Units/L Lactate Dehydrogenase 252 (159-327) Units/L Troponin I (0-0.03) ng/mL C-Reactive Protein 72 H (Less than 5) mg/L B-Natriuretic Peptide 91 (0-100) pg/mL Serum Total Protein 7.0 (6.0-8.3) g/dL Albumin 3.2 L (3.5-5.0) g/dL Globulin 3.8 H (2.4-3.5) g/dL Albumin/Globulin Ratio 0.8 L (1.1-2.2) Triglycerides 98 (< 150) mg/dL Cholesterol 100 (< 200) mg/dL LDL Cholesterol, Calc 54 (0-99) mg/dL VLDL Cholesterol, Calc 20 (< 31) mg/dL HDL Cholesterol 26 L (40-59) mg/dL Cholesterol/HDL Ratio 3.8 (0-4.9) Amylase 2959 H (25-125) Units/L Lipase 9217 H (8-78) Units/L TSH 1.436 (0.350-4.840) mcIU/mL Urine Color (Yellow) Urine Clarity (Clear) Urine pH (5.0-8.0) pH Units Ur Specific [place] (1.010-1.025) Urine Protein (Neg-Trace) mg/dL Urine Glucose (UA) (Normal) mg/dL Urine Ketones (Negative) mg/dL Urine Blood (Negative) Urine Nitrite (Negative) Urine Bilirubin (Negative) Urine Urobilinogen (Normal) mg/dL Ur Leukocyte Esterase (Negative) Urine Microscopic RBC (0-3) per hpf Urine Microscopic WBC (0-3) per hpf Ur Squamous Epith Cells (None-Few) per lpf Urine Bacteria (None-Few) per hpf Hyaline Casts (None-Few) per lpf Ur Culture Indicated? (NO) Urine Opiates Screen (Puwglc=427) ng/mL Ur Barbiturates Screen (Ubvtjv=950) ng/mL Ur Phencyclidine Scrn (Cutoff=25) ng/mL Ur Amphetamines Screen (Qjzbbq=3123) ng/mL U Benzodiazepines Scrn (Thiejq=772) ng/mL Urine Cocaine Screen (Cutoff= 300) ng/mL U Marijuana (THC) Screen (Cutoff = 50) ng/mL Hepatitis A IgM Ab (Nonreactive) Hep Bs Antigen (Nonreactive) Hep B Core IgM Ab (Nonreactive) Hepatitis C Ab Screen (Nonreactive) Blood Type Antibody Screen 08/12/16 08/12/16 08/12/16 Range/Units 05:32 05:32 05:32 WBC (4.3-11.1) K/mcL RBC (4.19-5.50) M/mcL Hgb (12.9-16.9) g/dL Hct (37.5-50.1) % MCV (83.0-100.0) fL MCH (28.0-33.3) pg MCHC (31.6-35.5) g/dL RDW (11.5-14.5) % Plt Count (140-400) K/mcL MPV (9.4-12.4) fL Immature Gran % (0-4) % Seg Neutrophils % % Lymphocytes % % Monocytes % % Eosinophils % % Basophils % % Neutrophils # (1.6-8.9) K/mcL Lymphocytes # (0.6-4.6) K/mcL Monocytes # (0.0-1.3) K/mcL Eosinophils # (0.0-0.6) K/mcL Basophils # (0.0-0.2) K/mcL Immature Plt Fraction (1.1-6.1) % ESR (0-10) mm/hr PT (9.4-12.1) Seconds INR APTT (26.0-36.0) Seconds Sodium (136-145) mEq/L Potassium (3.5-4.5) mEq/L Chloride (98-109) mEq/L Carbon Dioxide (19-29) mEq/L BUN (8-26) mg/dL Creatinine (0.72-1.25) mg/dL Est GFR ( Amer) (> 60) Est GFR (Non-Af Amer) (> 60) BUN/Creatinine Ratio (6-26) Glucose (70-99) mg/dL POC Glucose (58-89) Est Mean Plasma Glucose 131 mg/dl Hemoglobin A1c 6.2 H ( - 5.6) % C-Peptide 3.5 (0.8-3.5) ng/mL Calculated Osmolality (280-300) Calcium (8.6-10.8) mg/dL Phosphorus (2.3-4.7) mg/dL Magnesium (1.6-2.6) mg/dL Total Bilirubin (0.2-1.2) mg/dL Direct Bilirubin (0.0-0.5) mg/dL Indirect Bilirubin (0.0-1.2) mg/dL AST (5-34) Units/L ALT (0-55) Units/L Alkaline Phosphatase (38-126) Units/L Lactate Dehydrogenase (159-327) Units/L Troponin I (0-0.03) ng/mL C-Reactive Protein (Less than 5) mg/L B-Natriuretic Peptide (0-100) pg/mL Serum Total Protein (6.0-8.3) g/dL Albumin (3.5-5.0) g/dL Globulin (2.4-3.5) g/dL Albumin/Globulin Ratio (1.1-2.2) Triglycerides (< 150) mg/dL Cholesterol (< 200) mg/dL LDL Cholesterol, Calc (0-99) mg/dL VLDL Cholesterol, Calc (< 31) mg/dL HDL Cholesterol (40-59) mg/dL Cholesterol/HDL Ratio (0-4.9) Amylase (25-125) Units/L Lipase (8-78) Units/L TSH (0.350-4.840) mcIU/mL Urine Color (Yellow) Urine Clarity (Clear) Urine pH (5.0-8.0) pH Units Ur Specific [place] (1.010-1.025) Urine Protein (Neg-Trace) mg/dL Urine Glucose (UA) (Normal) mg/dL Urine Ketones (Negative) mg/dL Urine Blood (Negative) Urine Nitrite (Negative) Urine Bilirubin (Negative) Urine Urobilinogen (Normal) mg/dL Ur Leukocyte Esterase (Negative) Urine Microscopic RBC (0-3) per hpf Urine Microscopic WBC (0-3) per hpf Ur Squamous Epith Cells (None-Few) per lpf Urine Bacteria (None-Few) per hpf Hyaline Casts (None-Few) per lpf Ur Culture Indicated? (NO) Urine Opiates Screen (Nmbnky=141) ng/mL Ur Barbiturates Screen (Xxehsy=873) ng/mL Ur Phencyclidine Scrn (Cutoff=25) ng/mL Ur Amphetamines Screen (Uefxow=6645) ng/mL U Benzodiazepines Scrn (Ffuvjk=111) ng/mL Urine Cocaine Screen (Cutoff= 300) ng/mL U Marijuana (THC) Screen (Cutoff = 50) ng/mL Hepatitis A IgM Ab Nonreactive (Nonreactive) Hep Bs Antigen Nonreactive (Nonreactive) Hep B Core IgM Ab Nonreactive (Nonreactive) Hepatitis C Ab Screen Nonreactive (Nonreactive) Blood Type Antibody Screen 08/12/16 08/12/16 08/12/16 Range/Units 11:39 11:49 16:54 WBC (4.3-11.1) K/mcL RBC (4.19-5.50) M/mcL Hgb (12.9-16.9) g/dL Hct (37.5-50.1) % MCV (83.0-100.0) fL MCH (28.0-33.3) pg MCHC (31.6-35.5) g/dL RDW (11.5-14.5) % Plt Count (140-400) K/mcL MPV (9.4-12.4) fL Immature Gran % (0-4) % Seg Neutrophils % % Lymphocytes % % Monocytes % % Eosinophils % % Basophils % % Neutrophils # (1.6-8.9) K/mcL Lymphocytes # (0.6-4.6) K/mcL Monocytes # (0.0-1.3) K/mcL Eosinophils # (0.0-0.6) K/mcL Basophils # (0.0-0.2) K/mcL Immature Plt Fraction (1.1-6.1) % ESR (0-10) mm/hr PT (9.4-12.1) Seconds INR APTT (26.0-36.0) Seconds Sodium (136-145) mEq/L Potassium (3.5-4.5) mEq/L Chloride (98-109) mEq/L Carbon Dioxide (19-29) mEq/L BUN (8-26) mg/dL Creatinine (0.72-1.25) mg/dL Est GFR ( Amer) (> 60) Est GFR (Non-Af Amer) (> 60) BUN/Creatinine Ratio (6-26) Glucose (70-99) mg/dL POC Glucose 108 H 101 H (58-89) Est Mean Plasma Glucose mg/dl Hemoglobin A1c ( - 5.6) % C-Peptide (0.8-3.5) ng/mL Calculated Osmolality (280-300) Calcium (8.6-10.8) mg/dL Phosphorus (2.3-4.7) mg/dL Magnesium (1.6-2.6) mg/dL Total Bilirubin (0.2-1.2) mg/dL Direct Bilirubin (0.0-0.5) mg/dL Indirect Bilirubin (0.0-1.2) mg/dL AST (5-34) Units/L ALT (0-55) Units/L Alkaline Phosphatase (38-126) Units/L Lactate Dehydrogenase (159-327) Units/L Troponin I 0.00 (0-0.03) ng/mL C-Reactive Protein (Less than 5) mg/L B-Natriuretic Peptide (0-100) pg/mL Serum Total Protein (6.0-8.3) g/dL Albumin (3.5-5.0) g/dL Globulin (2.4-3.5) g/dL Albumin/Globulin Ratio (1.1-2.2) Triglycerides (< 150) mg/dL Cholesterol (< 200) mg/dL LDL Cholesterol, Calc (0-99) mg/dL VLDL Cholesterol, Calc (< 31) mg/dL HDL Cholesterol (40-59) mg/dL Cholesterol/HDL Ratio (0-4.9) Amylase (25-125) Units/L Lipase (8-78) Units/L TSH (0.350-4.840) mcIU/mL Urine Color (Yellow) Urine Clarity (Clear) Urine pH (5.0-8.0) pH Units Ur Specific [place] (1.010-1.025) Urine Protein (Neg-Trace) mg/dL Urine Glucose (UA) (Normal) mg/dL Urine Ketones (Negative) mg/dL Urine Blood (Negative) Urine Nitrite (Negative) Urine Bilirubin (Negative) Urine Urobilinogen (Normal) mg/dL Ur Leukocyte Esterase (Negative) Urine Microscopic RBC (0-3) per hpf Urine Microscopic WBC (0-3) per hpf Ur Squamous Epith Cells (None-Few) per lpf Urine Bacteria (None-Few) per hpf Hyaline Casts (None-Few) per lpf Ur Culture Indicated? (NO) Urine Opiates Screen (Bcgyjq=066) ng/mL Ur Barbiturates Screen (Zrihkf=708) ng/mL Ur Phencyclidine Scrn (Cutoff=25) ng/mL Ur Amphetamines Screen (Kayqmp=1203) ng/mL U Benzodiazepines Scrn (Lnykwq=683) ng/mL Urine Cocaine Screen (Cutoff= 300) ng/mL U Marijuana (THC) Screen (Cutoff = 50) ng/mL Hepatitis A IgM Ab (Nonreactive) Hep Bs Antigen (Nonreactive) Hep B Core IgM Ab (Nonreactive) Hepatitis C Ab Screen (Nonreactive) Blood Type Antibody Screen 08/13/16 08/13/16 08/13/16 Range/Units 06:20 06:20 11:21 WBC 9.1 (4.3-11.1) K/mcL RBC 4.85 (4.19-5.50) M/mcL Hgb 13.1 D (12.9-16.9) g/dL Hct 42.3 (37.5-50.1) % MCV 87.2 (83.0-100.0) fL MCH 27.0 L (28.0-33.3) pg MCHC 31.0 L (31.6-35.5) g/dL RDW 14.0 (11.5-14.5) % Plt Count 131 L (140-400) K/mcL MPV 9.6 (9.4-12.4) fL Immature Gran % 0.8 (0-4) % Seg Neutrophils % 86.2 % Lymphocytes % 6.6 % Monocytes % 6.3 % Eosinophils % 0.0 % Basophils % 0.1 % Neutrophils # 7.8 (1.6-8.9) K/mcL Lymphocytes # 0.6 (0.6-4.6) K/mcL Monocytes # 0.6 (0.0-1.3) K/mcL Eosinophils # 0.0 (0.0-0.6) K/mcL Basophils # 0.0 (0.0-0.2) K/mcL Immature Plt Fraction (1.1-6.1) % ESR (0-10) mm/hr PT 43.1 H (9.4-12.1) Seconds INR 3.8 APTT (26.0-36.0) Seconds Sodium 137 (136-145) mEq/L Potassium 4.8 H (3.5-4.5) mEq/L Chloride 108 (98-109) mEq/L Carbon Dioxide 19 (19-29) mEq/L BUN 29 H (8-26) mg/dL Creatinine 1.58 H (0.72-1.25) mg/dL Est GFR ( Amer) 52 L (> 60) Est GFR (Non-Af Amer) 43 L (> 60) BUN/Creatinine Ratio 18 (6-26) Glucose 140 H (70-99) mg/dL POC Glucose (58-89) Est Mean Plasma Glucose mg/dl Hemoglobin A1c ( - 5.6) % C-Peptide (0.8-3.5) ng/mL Calculated Osmolality 292 (280-300) Calcium 8.0 L (8.6-10.8) mg/dL Phosphorus (2.3-4.7) mg/dL Magnesium (1.6-2.6) mg/dL Total Bilirubin 3.4 H D (0.2-1.2) mg/dL Direct Bilirubin 2.1 H (0.0-0.5) mg/dL Indirect Bilirubin 1.3 H (0.0-1.2) mg/dL AST 89 H (5-34) Units/L ALT 165 H (0-55) Units/L Alkaline Phosphatase 132 H (38-126) Units/L Lactate Dehydrogenase (159-327) Units/L Troponin I (0-0.03) ng/mL C-Reactive Protein (Less than 5) mg/L B-Natriuretic Peptide (0-100) pg/mL Serum Total Protein 6.2 (6.0-8.3) g/dL Albumin 2.5 L D (3.5-5.0) g/dL Globulin 3.7 H (2.4-3.5) g/dL Albumin/Globulin Ratio 0.7 L (1.1-2.2) Triglycerides (< 150) mg/dL Cholesterol (< 200) mg/dL LDL Cholesterol, Calc (0-99) mg/dL VLDL Cholesterol, Calc (< 31) mg/dL HDL Cholesterol (40-59) mg/dL Cholesterol/HDL Ratio (0-4.9) Amylase 928 H (25-125) Units/L Lipase 981 H (8-78) Units/L TSH (0.350-4.840) mcIU/mL Urine Color (Yellow) Urine Clarity (Clear) Urine pH (5.0-8.0) pH Units Ur Specific [place] (1.010-1.025) Urine Protein (Neg-Trace) mg/dL Urine Glucose (UA) (Normal) mg/dL Urine Ketones (Negative) mg/dL Urine Blood (Negative) Urine Nitrite (Negative) Urine Bilirubin (Negative) Urine Urobilinogen (Normal) mg/dL Ur Leukocyte Esterase (Negative) Urine Microscopic RBC (0-3) per hpf Urine Microscopic WBC (0-3) per hpf Ur Squamous Epith Cells (None-Few) per lpf Urine Bacteria (None-Few) per hpf Hyaline Casts (None-Few) per lpf Ur Culture Indicated? (NO) Urine Opiates Screen (Ycnaoh=694) ng/mL Ur Barbiturates Screen (Ijbblh=808) ng/mL Ur Phencyclidine Scrn (Cutoff=25) ng/mL Ur Amphetamines Screen (Lyictx=1483) ng/mL U Benzodiazepines Scrn (Jbhoob=114) ng/mL Urine Cocaine Screen (Cutoff= 300) ng/mL U Marijuana (THC) Screen (Cutoff = 50) ng/mL Hepatitis A IgM Ab (Nonreactive) Hep Bs Antigen (Nonreactive) Hep B Core IgM Ab (Nonreactive) Hepatitis C Ab Screen (Nonreactive) Blood Type Antibody Screen 08/13/16 08/13/16 08/14/16 Range/Units 12:06 13:16 04:04 WBC (4.3-11.1) K/mcL RBC (4.19-5.50) M/mcL Hgb (12.9-16.9) g/dL Hct (37.5-50.1) % MCV (83.0-100.0) fL MCH (28.0-33.3) pg MCHC (31.6-35.5) g/dL RDW (11.5-14.5) % Plt Count (140-400) K/mcL MPV (9.4-12.4) fL Immature Gran % (0-4) % Seg Neutrophils % % Lymphocytes % % Monocytes % % Eosinophils % % Basophils % % Neutrophils # (1.6-8.9) K/mcL Lymphocytes # (0.6-4.6) K/mcL Monocytes # (0.0-1.3) K/mcL Eosinophils # (0.0-0.6) K/mcL Basophils # (0.0-0.2) K/mcL Immature Plt Fraction (1.1-6.1) % ESR (0-10) mm/hr PT (9.4-12.1) Seconds INR APTT (26.0-36.0) Seconds Sodium 137 (136-145) mEq/L Potassium 4.4 (3.5-4.5) mEq/L Chloride 105 (98-109) mEq/L Carbon Dioxide 23 (19-29) mEq/L BUN 24 (8-26) mg/dL Creatinine 1.11 (0.72-1.25) mg/dL Est GFR ( Amer) > 60 (> 60) Est GFR (Non-Af Amer) > 60 (> 60) BUN/Creatinine Ratio 22 (6-26) Glucose 99 (70-99) mg/dL POC Glucose 125 H (58-89) Est Mean Plasma Glucose mg/dl Hemoglobin A1c ( - 5.6) % C-Peptide (0.8-3.5) ng/mL Calculated Osmolality 288 (280-300) Calcium 8.1 L (8.6-10.8) mg/dL Phosphorus (2.3-4.7) mg/dL Magnesium (1.6-2.6) mg/dL Total Bilirubin 3.5 H (0.2-1.2) mg/dL Direct Bilirubin 1.7 H (0.0-0.5) mg/dL Indirect Bilirubin 1.8 H (0.0-1.2) mg/dL AST 39 H (5-34) Units/L ALT 107 H (0-55) Units/L Alkaline Phosphatase 110 (38-126) Units/L Lactate Dehydrogenase (159-327) Units/L Troponin I (0-0.03) ng/mL C-Reactive Protein (Less than 5) mg/L B-Natriuretic Peptide (0-100) pg/mL Serum Total Protein 6.0 (6.0-8.3) g/dL Albumin 2.4 L (3.5-5.0) g/dL Globulin 3.6 H (2.4-3.5) g/dL Albumin/Globulin Ratio 0.7 L (1.1-2.2) Triglycerides (< 150) mg/dL Cholesterol (< 200) mg/dL LDL Cholesterol, Calc (0-99) mg/dL VLDL Cholesterol, Calc (< 31) mg/dL HDL Cholesterol (40-59) mg/dL Cholesterol/HDL Ratio (0-4.9) Amylase (25-125) Units/L Lipase 110 H (8-78) Units/L TSH (0.350-4.840) mcIU/mL Urine Color (Yellow) Urine Clarity (Clear) Urine pH (5.0-8.0) pH Units Ur Specific [place] (1.010-1.025) Urine Protein (Neg-Trace) mg/dL Urine Glucose (UA) (Normal) mg/dL Urine Ketones (Negative) mg/dL Urine Blood (Negative) Urine Nitrite (Negative) Urine Bilirubin (Negative) Urine Urobilinogen (Normal) mg/dL Ur Leukocyte Esterase (Negative) Urine Microscopic RBC (0-3) per hpf Urine Microscopic WBC (0-3) per hpf Ur Squamous Epith Cells (None-Few) per lpf Urine Bacteria (None-Few) per hpf Hyaline Casts (None-Few) per lpf Ur Culture Indicated? (NO) Urine Opiates Screen (Amctyz=990) ng/mL Ur Barbiturates Screen (Ehubtd=360) ng/mL Ur Phencyclidine Scrn (Cutoff=25) ng/mL Ur Amphetamines Screen (Ihiysw=3322) ng/mL U Benzodiazepines Scrn (Twrrha=028) ng/mL Urine Cocaine Screen (Cutoff= 300) ng/mL U Marijuana (THC) Screen (Cutoff = 50) ng/mL Hepatitis A IgM Ab (Nonreactive) Hep Bs Antigen (Nonreactive) Hep B Core IgM Ab (Nonreactive) Hepatitis C Ab Screen (Nonreactive) Blood Type A NEGATIVE Antibody Screen NEGATIVE 08/14/16 08/14/16 08/14/16 Range/Units 04:04 04:04 05:48 WBC (4.3-11.1) K/mcL RBC (4.19-5.50) M/mcL Hgb (12.9-16.9) g/dL Hct (37.5-50.1) % MCV (83.0-100.0) fL MCH (28.0-33.3) pg MCHC (31.6-35.5) g/dL RDW (11.5-14.5) % Plt Count (140-400) K/mcL MPV (9.4-12.4) fL Immature Gran % (0-4) % Seg Neutrophils % % Lymphocytes % % Monocytes % % Eosinophils % % Basophils % % Neutrophils # (1.6-8.9) K/mcL Lymphocytes # (0.6-4.6) K/mcL Monocytes # (0.0-1.3) K/mcL Eosinophils # (0.0-0.6) K/mcL Basophils # (0.0-0.2) K/mcL Immature Plt Fraction (1.1-6.1) % ESR (0-10) mm/hr PT 17.5 H D (9.4-12.1) Seconds INR 1.6 D APTT (26.0-36.0) Seconds Sodium (136-145) mEq/L Potassium (3.5-4.5) mEq/L Chloride (98-109) mEq/L Carbon Dioxide (19-29) mEq/L BUN (8-26) mg/dL Creatinine (0.72-1.25) mg/dL Est GFR ( Amer) (> 60) Est GFR (Non-Af Amer) (> 60) BUN/Creatinine Ratio (6-26) Glucose (70-99) mg/dL POC Glucose 94 H (58-89) Est Mean Plasma Glucose mg/dl Hemoglobin A1c ( - 5.6) % C-Peptide (0.8-3.5) ng/mL Calculated Osmolality (280-300) Calcium (8.6-10.8) mg/dL Phosphorus (2.3-4.7) mg/dL Magnesium (1.6-2.6) mg/dL Total Bilirubin (0.2-1.2) mg/dL Direct Bilirubin (0.0-0.5) mg/dL Indirect Bilirubin (0.0-1.2) mg/dL AST (5-34) Units/L ALT (0-55) Units/L Alkaline Phosphatase (38-126) Units/L Lactate Dehydrogenase (159-327) Units/L Troponin I (0-0.03) ng/mL C-Reactive Protein (Less than 5) mg/L B-Natriuretic Peptide (0-100) pg/mL Serum Total Protein (6.0-8.3) g/dL Albumin (3.5-5.0) g/dL Globulin (2.4-3.5) g/dL Albumin/Globulin Ratio (1.1-2.2) Triglycerides (< 150) mg/dL Cholesterol (< 200) mg/dL LDL Cholesterol, Calc (0-99) mg/dL VLDL Cholesterol, Calc (< 31) mg/dL HDL Cholesterol (40-59) mg/dL Cholesterol/HDL Ratio (0-4.9) Amylase 178 H (25-125) Units/L Lipase (8-78) Units/L TSH (0.350-4.840) mcIU/mL Urine Color (Yellow) Urine Clarity (Clear) Urine pH (5.0-8.0) pH Units Ur Specific [place] (1.010-1.025) Urine Protein (Neg-Trace) mg/dL Urine Glucose (UA) (Normal) mg/dL Urine Ketones (Negative) mg/dL Urine Blood (Negative) Urine Nitrite (Negative) Urine Bilirubin (Negative) Urine Urobilinogen (Normal) mg/dL Ur Leukocyte Esterase (Negative) Urine Microscopic RBC (0-3) per hpf Urine Microscopic WBC (0-3) per hpf Ur Squamous Epith Cells (None-Few) per lpf Urine Bacteria (None-Few) per hpf Hyaline Casts (None-Few) per lpf Ur Culture Indicated? (NO) Urine Opiates Screen (Rohwre=069) ng/mL Ur Barbiturates Screen (Gyipnt=744) ng/mL Ur Phencyclidine Scrn (Cutoff=25) ng/mL Ur Amphetamines Screen (Nurlxr=4353) ng/mL U Benzodiazepines Scrn (Hcdlsc=951) ng/mL Urine Cocaine Screen (Cutoff= 300) ng/mL U Marijuana (THC) Screen (Cutoff = 50) ng/mL Hepatitis A IgM Ab (Nonreactive) Hep Bs Antigen (Nonreactive) Hep B Core IgM Ab (Nonreactive) Hepatitis C Ab Screen (Nonreactive) Blood Type Antibody Screen 08/15/16 08/15/16 08/15/16 Range/Units 04:26 04:26 05:35 WBC (4.3-11.1) K/mcL RBC (4.19-5.50) M/mcL Hgb (12.9-16.9) g/dL Hct (37.5-50.1) % MCV (83.0-100.0) fL MCH (28.0-33.3) pg MCHC (31.6-35.5) g/dL RDW (11.5-14.5) % Plt Count (140-400) K/mcL MPV (9.4-12.4) fL Immature Gran % (0-4) % Seg Neutrophils % % Lymphocytes % % Monocytes % % Eosinophils % % Basophils % % Neutrophils # (1.6-8.9) K/mcL Lymphocytes # (0.6-4.6) K/mcL Monocytes # (0.0-1.3) K/mcL Eosinophils # (0.0-0.6) K/mcL Basophils # (0.0-0.2) K/mcL Immature Plt Fraction (1.1-6.1) % ESR (0-10) mm/hr PT (9.4-12.1) Seconds INR APTT (26.0-36.0) Seconds Sodium 138 (136-145) mEq/L Potassium 3.8 (3.5-4.5) mEq/L Chloride 103 (98-109) mEq/L Carbon Dioxide 27 (19-29) mEq/L BUN 14 D (8-26) mg/dL Creatinine 1.02 (0.72-1.25) mg/dL Est GFR ( Amer) > 60 (> 60) Est GFR (Non-Af Amer) > 60 (> 60) BUN/Creatinine Ratio 14 (6-26) Glucose 122 H (70-99) mg/dL POC Glucose 117 H (58-89) Est Mean Plasma Glucose mg/dl Hemoglobin A1c ( - 5.6) % C-Peptide (0.8-3.5) ng/mL Calculated Osmolality 288 (280-300) Calcium 8.5 L (8.6-10.8) mg/dL Phosphorus (2.3-4.7) mg/dL Magnesium (1.6-2.6) mg/dL Total Bilirubin 2.9 H (0.2-1.2) mg/dL Direct Bilirubin 1.6 H (0.0-0.5) mg/dL Indirect Bilirubin 1.3 H (0.0-1.2) mg/dL AST 22 (5-34) Units/L ALT 70 H (0-55) Units/L Alkaline Phosphatase 97 (38-126) Units/L Lactate Dehydrogenase (159-327) Units/L Troponin I (0-0.03) ng/mL C-Reactive Protein (Less than 5) mg/L B-Natriuretic Peptide 349 H (0-100) pg/mL Serum Total Protein 6.3 (6.0-8.3) g/dL Albumin 2.3 L (3.5-5.0) g/dL Globulin 4.0 H (2.4-3.5) g/dL Albumin/Globulin Ratio 0.6 L (1.1-2.2) Triglycerides (< 150) mg/dL Cholesterol (< 200) mg/dL LDL Cholesterol, Calc (0-99) mg/dL VLDL Cholesterol, Calc (< 31) mg/dL HDL Cholesterol (40-59) mg/dL Cholesterol/HDL Ratio (0-4.9) Amylase (25-125) Units/L Lipase (8-78) Units/L TSH (0.350-4.840) mcIU/mL Urine Color (Yellow) Urine Clarity (Clear) Urine pH (5.0-8.0) pH Units Ur Specific [place] (1.010-1.025) Urine Protein (Neg-Trace) mg/dL Urine Glucose (UA) (Normal) mg/dL Urine Ketones (Negative) mg/dL Urine Blood (Negative) Urine Nitrite (Negative) Urine Bilirubin (Negative) Urine Urobilinogen (Normal) mg/dL Ur Leukocyte Esterase (Negative) Urine Microscopic RBC (0-3) per hpf Urine Microscopic WBC (0-3) per hpf Ur Squamous Epith Cells (None-Few) per lpf Urine Bacteria (None-Few) per hpf Hyaline Casts (None-Few) per lpf Ur Culture Indicated? (NO) Urine Opiates Screen (Wyergq=305) ng/mL Ur Barbiturates Screen (Pdfbqx=247) ng/mL Ur Phencyclidine Scrn (Cutoff=25) ng/mL Ur Amphetamines Screen (Bhxnub=8614) ng/mL U Benzodiazepines Scrn (Kxssyc=575) ng/mL Urine Cocaine Screen (Cutoff= 300) ng/mL U Marijuana (THC) Screen (Cutoff = 50) ng/mL Hepatitis A IgM Ab (Nonreactive) Hep Bs Antigen (Nonreactive) Hep B Core IgM Ab (Nonreactive) Hepatitis C Ab Screen (Nonreactive) Blood Type Antibody Screen 08/15/16 08/15/16 08/16/16 Range/Units 11:05 17:11 00:34 WBC (4.3-11.1) K/mcL RBC (4.19-5.50) M/mcL Hgb (12.9-16.9) g/dL Hct (37.5-50.1) % MCV (83.0-100.0) fL MCH (28.0-33.3) pg MCHC (31.6-35.5) g/dL RDW (11.5-14.5) % Plt Count (140-400) K/mcL MPV (9.4-12.4) fL Immature Gran % (0-4) % Seg Neutrophils % % Lymphocytes % % Monocytes % % Eosinophils % % Basophils % % Neutrophils # (1.6-8.9) K/mcL Lymphocytes # (0.6-4.6) K/mcL Monocytes # (0.0-1.3) K/mcL Eosinophils # (0.0-0.6) K/mcL Basophils # (0.0-0.2) K/mcL Immature Plt Fraction (1.1-6.1) % ESR (0-10) mm/hr PT (9.4-12.1) Seconds INR APTT (26.0-36.0) Seconds Sodium (136-145) mEq/L Potassium (3.5-4.5) mEq/L Chloride (98-109) mEq/L Carbon Dioxide (19-29) mEq/L BUN (8-26) mg/dL Creatinine (0.72-1.25) mg/dL Est GFR ( Amer) (> 60) Est GFR (Non-Af Amer) (> 60) BUN/Creatinine Ratio (6-26) Glucose (70-99) mg/dL POC Glucose 116 H 95 H 99 H (58-89) Est Mean Plasma Glucose mg/dl Hemoglobin A1c ( - 5.6) % C-Peptide (0.8-3.5) ng/mL Calculated Osmolality (280-300) Calcium (8.6-10.8) mg/dL Phosphorus (2.3-4.7) mg/dL Magnesium (1.6-2.6) mg/dL Total Bilirubin (0.2-1.2) mg/dL Direct Bilirubin (0.0-0.5) mg/dL Indirect Bilirubin (0.0-1.2) mg/dL AST (5-34) Units/L ALT (0-55) Units/L Alkaline Phosphatase (38-126) Units/L Lactate Dehydrogenase (159-327) Units/L Troponin I (0-0.03) ng/mL C-Reactive Protein (Less than 5) mg/L B-Natriuretic Peptide (0-100) pg/mL Serum Total Protein (6.0-8.3) g/dL Albumin (3.5-5.0) g/dL Globulin (2.4-3.5) g/dL Albumin/Globulin Ratio (1.1-2.2) Triglycerides (< 150) mg/dL Cholesterol (< 200) mg/dL LDL Cholesterol, Calc (0-99) mg/dL VLDL Cholesterol, Calc (< 31) mg/dL HDL Cholesterol (40-59) mg/dL Cholesterol/HDL Ratio (0-4.9) Amylase (25-125) Units/L Lipase (8-78) Units/L TSH (0.350-4.840) mcIU/mL Urine Color (Yellow) Urine Clarity (Clear) Urine pH (5.0-8.0) pH Units Ur Specific [place] (1.010-1.025) Urine Protein (Neg-Trace) mg/dL Urine Glucose (UA) (Normal) mg/dL Urine Ketones (Negative) mg/dL Urine Blood (Negative) Urine Nitrite (Negative) Urine Bilirubin (Negative) Urine Urobilinogen (Normal) mg/dL Ur Leukocyte Esterase (Negative) Urine Microscopic RBC (0-3) per hpf Urine Microscopic WBC (0-3) per hpf Ur Squamous Epith Cells (None-Few) per lpf Urine Bacteria (None-Few) per hpf Hyaline Casts (None-Few) per lpf Ur Culture Indicated? (NO) Urine Opiates Screen (Qsooqc=453) ng/mL Ur Barbiturates Screen (Jbzbto=289) ng/mL Ur Phencyclidine Scrn (Cutoff=25) ng/mL Ur Amphetamines Screen (Mlrcsd=0538) ng/mL U Benzodiazepines Scrn (Pqagyl=211) ng/mL Urine Cocaine Screen (Cutoff= 300) ng/mL U Marijuana (THC) Screen (Cutoff = 50) ng/mL Hepatitis A IgM Ab (Nonreactive) Hep Bs Antigen (Nonreactive) Hep B Core IgM Ab (Nonreactive) Hepatitis C Ab Screen (Nonreactive) Blood Type Antibody Screen 08/16/16 08/16/16 08/16/16 Range/Units 05:44 08:38 08:38 WBC 8.2 (4.3-11.1) K/mcL RBC 4.44 (4.19-5.50) M/mcL Hgb 12.6 L (12.9-16.9) g/dL Hct 38.6 (37.5-50.1) % MCV 86.9 (83.0-100.0) fL MCH 28.4 (28.0-33.3) pg MCHC 32.6 (31.6-35.5) g/dL RDW 14.0 (11.5-14.5) % Plt Count 148 (140-400) K/mcL MPV 10.3 (9.4-12.4) fL Immature Gran % 0.4 (0-4) % Seg Neutrophils % 71.7 % Lymphocytes % 15.6 % Monocytes % 10.7 % Eosinophils % 1.5 % Basophils % 0.1 % Neutrophils # 5.9 (1.6-8.9) K/mcL Lymphocytes # 1.3 (0.6-4.6) K/mcL Monocytes # 0.9 (0.0-1.3) K/mcL Eosinophils # 0.1 (0.0-0.6) K/mcL Basophils # 0.0 (0.0-0.2) K/mcL Immature Plt Fraction (1.1-6.1) % ESR (0-10) mm/hr PT (9.4-12.1) Seconds INR APTT (26.0-36.0) Seconds Sodium 138 (136-145) mEq/L Potassium 3.7 (3.5-4.5) mEq/L Chloride 103 (98-109) mEq/L Carbon Dioxide 24 (19-29) mEq/L BUN 11 (8-26) mg/dL Creatinine 0.88 (0.72-1.25) mg/dL Est GFR ( Amer) > 60 (> 60) Est GFR (Non-Af Amer) > 60 (> 60) BUN/Creatinine Ratio 13 (6-26) Glucose 117 H (70-99) mg/dL POC Glucose 103 H (58-89) Est Mean Plasma Glucose mg/dl Hemoglobin A1c ( - 5.6) % C-Peptide (0.8-3.5) ng/mL Calculated Osmolality 286 (280-300) Calcium 8.6 (8.6-10.8) mg/dL Phosphorus (2.3-4.7) mg/dL Magnesium (1.6-2.6) mg/dL Total Bilirubin 2.5 H (0.2-1.2) mg/dL Direct Bilirubin 1.4 H (0.0-0.5) mg/dL Indirect Bilirubin 1.1 (0.0-1.2) mg/dL AST 17 (5-34) Units/L ALT 48 (0-55) Units/L Alkaline Phosphatase 95 (38-126) Units/L Lactate Dehydrogenase (159-327) Units/L Troponin I (0-0.03) ng/mL C-Reactive Protein (Less than 5) mg/L B-Natriuretic Peptide (0-100) pg/mL Serum Total Protein 6.4 (6.0-8.3) g/dL Albumin 2.2 L (3.5-5.0) g/dL Globulin 4.2 H (2.4-3.5) g/dL Albumin/Globulin Ratio 0.5 L (1.1-2.2) Triglycerides (< 150) mg/dL Cholesterol (< 200) mg/dL LDL Cholesterol, Calc (0-99) mg/dL VLDL Cholesterol, Calc (< 31) mg/dL HDL Cholesterol (40-59) mg/dL Cholesterol/HDL Ratio (0-4.9) Amylase (25-125) Units/L Lipase (8-78) Units/L TSH (0.350-4.840) mcIU/mL Urine Color (Yellow) Urine Clarity (Clear) Urine pH (5.0-8.0) pH Units Ur Specific [place] (1.010-1.025) Urine Protein (Neg-Trace) mg/dL Urine Glucose (UA) (Normal) mg/dL Urine Ketones (Negative) mg/dL Urine Blood (Negative) Urine Nitrite (Negative) Urine Bilirubin (Negative) Urine Urobilinogen (Normal) mg/dL Ur Leukocyte Esterase (Negative) Urine Microscopic RBC (0-3) per hpf Urine Microscopic WBC (0-3) per hpf Ur Squamous Epith Cells (None-Few) per lpf Urine Bacteria (None-Few) per hpf Hyaline Casts (None-Few) per lpf Ur Culture Indicated? (NO) Urine Opiates Screen (Jwwdem=350) ng/mL Ur Barbiturates Screen (Wcghte=066) ng/mL Ur Phencyclidine Scrn (Cutoff=25) ng/mL Ur Amphetamines Screen (Novdjk=3087) ng/mL U Benzodiazepines Scrn (Wlzpia=230) ng/mL Urine Cocaine Screen (Cutoff= 300) ng/mL U Marijuana (THC) Screen (Cutoff = 50) ng/mL Hepatitis A IgM Ab (Nonreactive) Hep Bs Antigen (Nonreactive) Hep B Core IgM Ab (Nonreactive) Hepatitis C Ab Screen (Nonreactive) Blood Type Antibody Screen 08/16/16 08/16/16 08/16/16 Range/Units 08:51 11:20 14:02 WBC (4.3-11.1) K/mcL RBC (4.19-5.50) M/mcL Hgb (12.9-16.9) g/dL Hct (37.5-50.1) % MCV (83.0-100.0) fL MCH (28.0-33.3) pg MCHC (31.6-35.5) g/dL RDW (11.5-14.5) % Plt Count (140-400) K/mcL MPV (9.4-12.4) fL Immature Gran % (0-4) % Seg Neutrophils % % Lymphocytes % % Monocytes % % Eosinophils % % Basophils % % Neutrophils # (1.6-8.9) K/mcL Lymphocytes # (0.6-4.6) K/mcL Monocytes # (0.0-1.3) K/mcL Eosinophils # (0.0-0.6) K/mcL Basophils # (0.0-0.2) K/mcL Immature Plt Fraction (1.1-6.1) % ESR (0-10) mm/hr PT 15.9 H (9.4-12.1) Seconds INR 1.5 APTT (26.0-36.0) Seconds Sodium (136-145) mEq/L Potassium (3.5-4.5) mEq/L Chloride (98-109) mEq/L Carbon Dioxide (19-29) mEq/L BUN (8-26) mg/dL Creatinine (0.72-1.25) mg/dL Est GFR ( Amer) (> 60) Est GFR (Non-Af Amer) (> 60) BUN/Creatinine Ratio (6-26) Glucose (70-99) mg/dL POC Glucose 107 H 123 H (58-89) Est Mean Plasma Glucose mg/dl Hemoglobin A1c ( - 5.6) % C-Peptide (0.8-3.5) ng/mL Calculated Osmolality (280-300) Calcium (8.6-10.8) mg/dL Phosphorus (2.3-4.7) mg/dL Magnesium (1.6-2.6) mg/dL Total Bilirubin (0.2-1.2) mg/dL Direct Bilirubin (0.0-0.5) mg/dL Indirect Bilirubin (0.0-1.2) mg/dL AST (5-34) Units/L ALT (0-55) Units/L Alkaline Phosphatase (38-126) Units/L Lactate Dehydrogenase (159-327) Units/L Troponin I (0-0.03) ng/mL C-Reactive Protein (Less than 5) mg/L B-Natriuretic Peptide (0-100) pg/mL Serum Total Protein (6.0-8.3) g/dL Albumin (3.5-5.0) g/dL Globulin (2.4-3.5) g/dL Albumin/Globulin Ratio (1.1-2.2) Triglycerides (< 150) mg/dL Cholesterol (< 200) mg/dL LDL Cholesterol, Calc (0-99) mg/dL VLDL Cholesterol, Calc (< 31) mg/dL HDL Cholesterol (40-59) mg/dL Cholesterol/HDL Ratio (0-4.9) Amylase (25-125) Units/L Lipase (8-78) Units/L TSH (0.350-4.840) mcIU/mL Urine Color (Yellow) Urine Clarity (Clear) Urine pH (5.0-8.0) pH Units Ur Specific [place] (1.010-1.025) Urine Protein (Neg-Trace) mg/dL Urine Glucose (UA) (Normal) mg/dL Urine Ketones (Negative) mg/dL Urine Blood (Negative) Urine Nitrite (Negative) Urine Bilirubin (Negative) Urine Urobilinogen (Normal) mg/dL Ur Leukocyte Esterase (Negative) Urine Microscopic RBC (0-3) per hpf Urine Microscopic WBC (0-3) per hpf Ur Squamous Epith Cells (None-Few) per lpf Urine Bacteria (None-Few) per hpf Hyaline Casts (None-Few) per lpf Ur Culture Indicated? (NO) Urine Opiates Screen (Qezecu=018) ng/mL Ur Barbiturates Screen (Juzxxg=641) ng/mL Ur Phencyclidine Scrn (Cutoff=25) ng/mL Ur Amphetamines Screen (Irhdyg=4486) ng/mL U Benzodiazepines Scrn (Gbtozo=665) ng/mL Urine Cocaine Screen (Cutoff= 300) ng/mL U Marijuana (THC) Screen (Cutoff = 50) ng/mL Hepatitis A IgM Ab (Nonreactive) Hep Bs Antigen (Nonreactive) Hep B Core IgM Ab (Nonreactive) Hepatitis C Ab Screen (Nonreactive) Blood Type Antibody Screen 08/17/16 08/17/16 08/17/16 Range/Units 04:56 04:56 04:56 WBC 8.3 (4.3-11.1) K/mcL RBC 4.55 (4.19-5.50) M/mcL Hgb 12.5 L (12.9-16.9) g/dL Hct 40.1 (37.5-50.1) % MCV 88.1 (83.0-100.0) fL MCH 27.5 L (28.0-33.3) pg MCHC 31.2 L (31.6-35.5) g/dL RDW 14.1 (11.5-14.5) % Plt Count 169 (140-400) K/mcL MPV 9.8 (9.4-12.4) fL Immature Gran % 0.6 (0-4) % Seg Neutrophils % 72.6 % Lymphocytes % 13.6 % Monocytes % 11.7 % Eosinophils % 1.3 % Basophils % 0.2 % Neutrophils # 6.0 (1.6-8.9) K/mcL Lymphocytes # 1.1 (0.6-4.6) K/mcL Monocytes # 1.0 (0.0-1.3) K/mcL Eosinophils # 0.1 (0.0-0.6) K/mcL Basophils # 0.0 (0.0-0.2) K/mcL Immature Plt Fraction (1.1-6.1) % ESR (0-10) mm/hr PT (9.4-12.1) Seconds INR APTT (26.0-36.0) Seconds Sodium (136-145) mEq/L Potassium (3.5-4.5) mEq/L Chloride (98-109) mEq/L Carbon Dioxide (19-29) mEq/L BUN (8-26) mg/dL Creatinine (0.72-1.25) mg/dL Est GFR ( Amer) (> 60) Est GFR (Non-Af Amer) (> 60) BUN/Creatinine Ratio (6-26) Glucose (70-99) mg/dL POC Glucose (58-89) Est Mean Plasma Glucose mg/dl Hemoglobin A1c ( - 5.6) % C-Peptide (0.8-3.5) ng/mL Calculated Osmolality (280-300) Calcium (8.6-10.8) mg/dL Phosphorus (2.3-4.7) mg/dL Magnesium (1.6-2.6) mg/dL Total Bilirubin 1.8 H (0.2-1.2) mg/dL Direct Bilirubin 0.9 H (0.0-0.5) mg/dL Indirect Bilirubin 0.9 (0.0-1.2) mg/dL AST 35 H (5-34) Units/L ALT 45 (0-55) Units/L Alkaline Phosphatase 88 (38-126) Units/L Lactate Dehydrogenase (159-327) Units/L Troponin I (0-0.03) ng/mL C-Reactive Protein (Less than 5) mg/L B-Natriuretic Peptide (0-100) pg/mL Serum Total Protein 6.5 (6.0-8.3) g/dL Albumin 2.2 L (3.5-5.0) g/dL Globulin 4.3 H (2.4-3.5) g/dL Albumin/Globulin Ratio 0.5 L (1.1-2.2) Triglycerides (< 150) mg/dL Cholesterol (< 200) mg/dL LDL Cholesterol, Calc (0-99) mg/dL VLDL Cholesterol, Calc (< 31) mg/dL HDL Cholesterol (40-59) mg/dL Cholesterol/HDL Ratio (0-4.9) Amylase (25-125) Units/L Lipase 45 (8-78) Units/L TSH (0.350-4.840) mcIU/mL Urine Color (Yellow) Urine Clarity (Clear) Urine pH (5.0-8.0) pH Units Ur Specific [place] (1.010-1.025) Urine Protein (Neg-Trace) mg/dL Urine Glucose (UA) (Normal) mg/dL Urine Ketones (Negative) mg/dL Urine Blood (Negative) Urine Nitrite (Negative) Urine Bilirubin (Negative) Urine Urobilinogen (Normal) mg/dL Ur Leukocyte Esterase (Negative) Urine Microscopic RBC (0-3) per hpf Urine Microscopic WBC (0-3) per hpf Ur Squamous Epith Cells (None-Few) per lpf Urine Bacteria (None-Few) per hpf Hyaline Casts (None-Few) per lpf Ur Culture Indicated? (NO) Urine Opiates Screen (Irhjlm=995) ng/mL Ur Barbiturates Screen (Qstqlp=426) ng/mL Ur Phencyclidine Scrn (Cutoff=25) ng/mL Ur Amphetamines Screen (Ofxdhy=3856) ng/mL U Benzodiazepines Scrn (Wcezro=004) ng/mL Urine Cocaine Screen (Cutoff= 300) ng/mL U Marijuana (THC) Screen (Cutoff = 50) ng/mL Hepatitis A IgM Ab (Nonreactive) Hep Bs Antigen (Nonreactive) Hep B Core IgM Ab (Nonreactive) Hepatitis C Ab Screen (Nonreactive) Blood Type Antibody Screen 08/17/16 08/17/16 08/18/16 Range/Units 17:30 23:46 04:26 WBC (4.3-11.1) K/mcL RBC (4.19-5.50) M/mcL Hgb (12.9-16.9) g/dL Hct (37.5-50.1) % MCV (83.0-100.0) fL MCH (28.0-33.3) pg MCHC (31.6-35.5) g/dL RDW (11.5-14.5) % Plt Count (140-400) K/mcL MPV (9.4-12.4) fL Immature Gran % (0-4) % Seg Neutrophils % % Lymphocytes % % Monocytes % % Eosinophils % % Basophils % % Neutrophils # (1.6-8.9) K/mcL Lymphocytes # (0.6-4.6) K/mcL Monocytes # (0.0-1.3) K/mcL Eosinophils # (0.0-0.6) K/mcL Basophils # (0.0-0.2) K/mcL Immature Plt Fraction (1.1-6.1) % ESR (0-10) mm/hr PT 17.3 H (9.4-12.1) Seconds INR 1.6 APTT (26.0-36.0) Seconds Sodium (136-145) mEq/L Potassium (3.5-4.5) mEq/L Chloride (98-109) mEq/L Carbon Dioxide (19-29) mEq/L BUN (8-26) mg/dL Creatinine (0.72-1.25) mg/dL Est GFR ( Amer) (> 60) Est GFR (Non-Af Amer) (> 60) BUN/Creatinine Ratio (6-26) Glucose (70-99) mg/dL POC Glucose 114 H 105 H (58-89) Est Mean Plasma Glucose mg/dl Hemoglobin A1c ( - 5.6) % C-Peptide (0.8-3.5) ng/mL Calculated Osmolality (280-300) Calcium (8.6-10.8) mg/dL Phosphorus (2.3-4.7) mg/dL Magnesium (1.6-2.6) mg/dL Total Bilirubin (0.2-1.2) mg/dL Direct Bilirubin (0.0-0.5) mg/dL Indirect Bilirubin (0.0-1.2) mg/dL AST (5-34) Units/L ALT (0-55) Units/L Alkaline Phosphatase (38-126) Units/L Lactate Dehydrogenase (159-327) Units/L Troponin I (0-0.03) ng/mL C-Reactive Protein (Less than 5) mg/L B-Natriuretic Peptide (0-100) pg/mL Serum Total Protein (6.0-8.3) g/dL Albumin (3.5-5.0) g/dL Globulin (2.4-3.5) g/dL Albumin/Globulin Ratio (1.1-2.2) Triglycerides (< 150) mg/dL Cholesterol (< 200) mg/dL LDL Cholesterol, Calc (0-99) mg/dL VLDL Cholesterol, Calc (< 31) mg/dL HDL Cholesterol (40-59) mg/dL Cholesterol/HDL Ratio (0-4.9) Amylase (25-125) Units/L Lipase (8-78) Units/L TSH (0.350-4.840) mcIU/mL Urine Color (Yellow) Urine Clarity (Clear) Urine pH (5.0-8.0) pH Units Ur Specific [place] (1.010-1.025) Urine Protein (Neg-Trace) mg/dL Urine Glucose (UA) (Normal) mg/dL Urine Ketones (Negative) mg/dL Urine Blood (Negative) Urine Nitrite (Negative) Urine Bilirubin (Negative) Urine Urobilinogen (Normal) mg/dL Ur Leukocyte Esterase (Negative) Urine Microscopic RBC (0-3) per hpf Urine Microscopic WBC (0-3) per hpf Ur Squamous Epith Cells (None-Few) per lpf Urine Bacteria (None-Few) per hpf Hyaline Casts (None-Few) per lpf Ur Culture Indicated? (NO) Urine Opiates Screen (Xpesow=768) ng/mL Ur Barbiturates Screen (Tatroq=389) ng/mL Ur Phencyclidine Scrn (Cutoff=25) ng/mL Ur Amphetamines Screen (Ctfhjg=6153) ng/mL U Benzodiazepines Scrn (Sbmaxq=065) ng/mL Urine Cocaine Screen (Cutoff= 300) ng/mL U Marijuana (THC) Screen (Cutoff = 50) ng/mL Hepatitis A IgM Ab (Nonreactive) Hep Bs Antigen (Nonreactive) Hep B Core IgM Ab (Nonreactive) Hepatitis C Ab Screen (Nonreactive) Blood Type Antibody Screen 08/18/16 08/18/16 08/18/16 Range/Units 05:25 08:07 08:07 WBC 7.9 (4.3-11.1) K/mcL RBC 4.42 (4.19-5.50) M/mcL Hgb 12.4 L (12.9-16.9) g/dL Hct 39.5 (37.5-50.1) % MCV 89.4 (83.0-100.0) fL MCH 28.1 (28.0-33.3) pg MCHC 31.4 L (31.6-35.5) g/dL RDW 13.9 (11.5-14.5) % Plt Count 173 (140-400) K/mcL MPV 10.0 (9.4-12.4) fL Immature Gran % 0.5 (0-4) % Seg Neutrophils % 63.8 % Lymphocytes % 21.5 % Monocytes % 10.8 % Eosinophils % 3.0 % Basophils % 0.4 % Neutrophils # 5.0 (1.6-8.9) K/mcL Lymphocytes # 1.7 (0.6-4.6) K/mcL Monocytes # 0.9 (0.0-1.3) K/mcL Eosinophils # 0.2 (0.0-0.6) K/mcL Basophils # 0.0 (0.0-0.2) K/mcL Immature Plt Fraction (1.1-6.1) % ESR (0-10) mm/hr PT (9.4-12.1) Seconds INR APTT (26.0-36.0) Seconds Sodium 141 (136-145) mEq/L Potassium 3.7 (3.5-4.5) mEq/L Chloride 103 (98-109) mEq/L Carbon Dioxide 28 (19-29) mEq/L BUN 14 (8-26) mg/dL Creatinine 1.03 (0.72-1.25) mg/dL Est GFR ( Amer) > 60 (> 60) Est GFR (Non-Af Amer) > 60 (> 60) BUN/Creatinine Ratio 14 (6-26) Glucose 118 H (70-99) mg/dL POC Glucose 107 H (58-89) Est Mean Plasma Glucose mg/dl Hemoglobin A1c ( - 5.6) % C-Peptide (0.8-3.5) ng/mL Calculated Osmolality 294 (280-300) Calcium 8.6 (8.6-10.8) mg/dL Phosphorus (2.3-4.7) mg/dL Magnesium (1.6-2.6) mg/dL Total Bilirubin 1.8 H (0.2-1.2) mg/dL Direct Bilirubin 1.1 H (0.0-0.5) mg/dL Indirect Bilirubin 0.7 (0.0-1.2) mg/dL AST 26 (5-34) Units/L ALT 35 (0-55) Units/L Alkaline Phosphatase 85 (38-126) Units/L Lactate Dehydrogenase (159-327) Units/L Troponin I (0-0.03) ng/mL C-Reactive Protein (Less than 5) mg/L B-Natriuretic Peptide (0-100) pg/mL Serum Total Protein 6.4 (6.0-8.3) g/dL Albumin 2.2 L (3.5-5.0) g/dL Globulin 4.2 H (2.4-3.5) g/dL Albumin/Globulin Ratio 0.5 L (1.1-2.2) Triglycerides (< 150) mg/dL Cholesterol (< 200) mg/dL LDL Cholesterol, Calc (0-99) mg/dL VLDL Cholesterol, Calc (< 31) mg/dL HDL Cholesterol (40-59) mg/dL Cholesterol/HDL Ratio (0-4.9) Amylase (25-125) Units/L Lipase (8-78) Units/L TSH (0.350-4.840) mcIU/mL Urine Color (Yellow) Urine Clarity (Clear) Urine pH (5.0-8.0) pH Units Ur Specific [place] (1.010-1.025) Urine Protein (Neg-Trace) mg/dL Urine Glucose (UA) (Normal) mg/dL Urine Ketones (Negative) mg/dL Urine Blood (Negative) Urine Nitrite (Negative) Urine Bilirubin (Negative) Urine Urobilinogen (Normal) mg/dL Ur Leukocyte Esterase (Negative) Urine Microscopic RBC (0-3) per hpf Urine Microscopic WBC (0-3) per hpf Ur Squamous Epith Cells (None-Few) per lpf Urine Bacteria (None-Few) per hpf Hyaline Casts (None-Few) per lpf Ur Culture Indicated? (NO) Urine Opiates Screen (Pygjvm=929) ng/mL Ur Barbiturates Screen (Laojyo=533) ng/mL Ur Phencyclidine Scrn (Cutoff=25) ng/mL Ur Amphetamines Screen (Qmbncp=0965) ng/mL U Benzodiazepines Scrn (Kbzgjv=421) ng/mL Urine Cocaine Screen (Cutoff= 300) ng/mL U Marijuana (THC) Screen (Cutoff = 50) ng/mL Hepatitis A IgM Ab (Nonreactive) Hep Bs Antigen (Nonreactive) Hep B Core IgM Ab (Nonreactive) Hepatitis C Ab Screen (Nonreactive) Blood Type Antibody Screen 08/18/16 08/18/16 08/19/16 Range/Units 12:15 17:11 01:21 WBC (4.3-11.1) K/mcL RBC (4.19-5.50) M/mcL Hgb (12.9-16.9) g/dL Hct (37.5-50.1) % MCV (83.0-100.0) fL MCH (28.0-33.3) pg MCHC (31.6-35.5) g/dL RDW (11.5-14.5) % Plt Count (140-400) K/mcL MPV (9.4-12.4) fL Immature Gran % (0-4) % Seg Neutrophils % % Lymphocytes % % Monocytes % % Eosinophils % % Basophils % % Neutrophils # (1.6-8.9) K/mcL Lymphocytes # (0.6-4.6) K/mcL Monocytes # (0.0-1.3) K/mcL Eosinophils # (0.0-0.6) K/mcL Basophils # (0.0-0.2) K/mcL Immature Plt Fraction (1.1-6.1) % ESR (0-10) mm/hr PT (9.4-12.1) Seconds INR APTT (26.0-36.0) Seconds Sodium (136-145) mEq/L Potassium (3.5-4.5) mEq/L Chloride (98-109) mEq/L Carbon Dioxide (19-29) mEq/L BUN (8-26) mg/dL Creatinine (0.72-1.25) mg/dL Est GFR ( Amer) (> 60) Est GFR (Non-Af Amer) (> 60) BUN/Creatinine Ratio (6-26) Glucose (70-99) mg/dL POC Glucose 123 H 93 H 112 H (58-89) Est Mean Plasma Glucose mg/dl Hemoglobin A1c ( - 5.6) % C-Peptide (0.8-3.5) ng/mL Calculated Osmolality (280-300) Calcium (8.6-10.8) mg/dL Phosphorus (2.3-4.7) mg/dL Magnesium (1.6-2.6) mg/dL Total Bilirubin (0.2-1.2) mg/dL Direct Bilirubin (0.0-0.5) mg/dL Indirect Bilirubin (0.0-1.2) mg/dL AST (5-34) Units/L ALT (0-55) Units/L Alkaline Phosphatase (38-126) Units/L Lactate Dehydrogenase (159-327) Units/L Troponin I (0-0.03) ng/mL C-Reactive Protein (Less than 5) mg/L B-Natriuretic Peptide (0-100) pg/mL Serum Total Protein (6.0-8.3) g/dL Albumin (3.5-5.0) g/dL Globulin (2.4-3.5) g/dL Albumin/Globulin Ratio (1.1-2.2) Triglycerides (< 150) mg/dL Cholesterol (< 200) mg/dL LDL Cholesterol, Calc (0-99) mg/dL VLDL Cholesterol, Calc (< 31) mg/dL HDL Cholesterol (40-59) mg/dL Cholesterol/HDL Ratio (0-4.9) Amylase (25-125) Units/L Lipase (8-78) Units/L TSH (0.350-4.840) mcIU/mL Urine Color (Yellow) Urine Clarity (Clear) Urine pH (5.0-8.0) pH Units Ur Specific [place] (1.010-1.025) Urine Protein (Neg-Trace) mg/dL Urine Glucose (UA) (Normal) mg/dL Urine Ketones (Negative) mg/dL Urine Blood (Negative) Urine Nitrite (Negative) Urine Bilirubin (Negative) Urine Urobilinogen (Normal) mg/dL Ur Leukocyte Esterase (Negative) Urine Microscopic RBC (0-3) per hpf Urine Microscopic WBC (0-3) per hpf Ur Squamous Epith Cells (None-Few) per lpf Urine Bacteria (None-Few) per hpf Hyaline Casts (None-Few) per lpf Ur Culture Indicated? (NO) Urine Opiates Screen (Wjkoog=341) ng/mL Ur Barbiturates Screen (Qiykif=352) ng/mL Ur Phencyclidine Scrn (Cutoff=25) ng/mL Ur Amphetamines Screen (Tnwhyt=0958) ng/mL U Benzodiazepines Scrn (Wawwvj=419) ng/mL Urine Cocaine Screen (Cutoff= 300) ng/mL U Marijuana (THC) Screen (Cutoff = 50) ng/mL Hepatitis A IgM Ab (Nonreactive) Hep Bs Antigen (Nonreactive) Hep B Core IgM Ab (Nonreactive) Hepatitis C Ab Screen (Nonreactive) Blood Type Antibody Screen 08/19/16 08/19/16 08/19/16 Range/Units 04:16 04:16 05:22 WBC 6.5 (4.3-11.1) K/mcL RBC 4.19 (4.19-5.50) M/mcL Hgb 11.7 L (12.9-16.9) g/dL Hct 37.3 L (37.5-50.1) % MCV 89.0 (83.0-100.0) fL MCH 27.9 L (28.0-33.3) pg MCHC 31.4 L (31.6-35.5) g/dL RDW 13.7 (11.5-14.5) % Plt Count 178 (140-400) K/mcL MPV 10.0 (9.4-12.4) fL Immature Gran % 0.5 (0-4) % Seg Neutrophils % 68.4 % Lymphocytes % 17.1 % Monocytes % 11.1 % Eosinophils % 2.6 % Basophils % 0.3 % Neutrophils # 4.5 (1.6-8.9) K/mcL Lymphocytes # 1.1 (0.6-4.6) K/mcL Monocytes # 0.7 (0.0-1.3) K/mcL Eosinophils # 0.2 (0.0-0.6) K/mcL Basophils # 0.0 (0.0-0.2) K/mcL Immature Plt Fraction (1.1-6.1) % ESR (0-10) mm/hr PT (9.4-12.1) Seconds INR APTT (26.0-36.0) Seconds Sodium 140 (136-145) mEq/L Potassium 3.9 (3.5-4.5) mEq/L Chloride 103 (98-109) mEq/L Carbon Dioxide 28 (19-29) mEq/L BUN 14 (8-26) mg/dL Creatinine 0.96 (0.72-1.25) mg/dL Est GFR ( Amer) > 60 (> 60) Est GFR (Non-Af Amer) > 60 (> 60) BUN/Creatinine Ratio 15 (6-26) Glucose 122 H (70-99) mg/dL POC Glucose 102 H (58-89) Est Mean Plasma Glucose mg/dl Hemoglobin A1c ( - 5.6) % C-Peptide (0.8-3.5) ng/mL Calculated Osmolality 292 (280-300) Calcium 8.4 L (8.6-10.8) mg/dL Phosphorus 2.2 L (2.3-4.7) mg/dL Magnesium 1.7 (1.6-2.6) mg/dL Total Bilirubin 1.2 (0.2-1.2) mg/dL Direct Bilirubin (0.0-0.5) mg/dL Indirect Bilirubin (0.0-1.2) mg/dL AST 21 (5-34) Units/L ALT 29 (0-55) Units/L Alkaline Phosphatase 75 (38-126) Units/L Lactate Dehydrogenase (159-327) Units/L Troponin I (0-0.03) ng/mL C-Reactive Protein (Less than 5) mg/L B-Natriuretic Peptide (0-100) pg/mL Serum Total Protein 6.1 (6.0-8.3) g/dL Albumin 2.1 L (3.5-5.0) g/dL Globulin 4.0 H (2.4-3.5) g/dL Albumin/Globulin Ratio 0.5 L (1.1-2.2) Triglycerides (< 150) mg/dL Cholesterol (< 200) mg/dL LDL Cholesterol, Calc (0-99) mg/dL VLDL Cholesterol, Calc (< 31) mg/dL HDL Cholesterol (40-59) mg/dL Cholesterol/HDL Ratio (0-4.9) Amylase (25-125) Units/L Lipase (8-78) Units/L TSH (0.350-4.840) mcIU/mL Urine Color (Yellow) Urine Clarity (Clear) Urine pH (5.0-8.0) pH Units Ur Specific [place] (1.010-1.025) Urine Protein (Neg-Trace) mg/dL Urine Glucose (UA) (Normal) mg/dL Urine Ketones (Negative) mg/dL Urine Blood (Negative) Urine Nitrite (Negative) Urine Bilirubin (Negative) Urine Urobilinogen (Normal) mg/dL Ur Leukocyte Esterase (Negative) Urine Microscopic RBC (0-3) per hpf Urine Microscopic WBC (0-3) per hpf Ur Squamous Epith Cells (None-Few) per lpf Urine Bacteria (None-Few) per hpf Hyaline Casts (None-Few) per lpf Ur Culture Indicated? (NO) Urine Opiates Screen (Mxuqnn=673) ng/mL Ur Barbiturates Screen (Whsybf=590) ng/mL Ur Phencyclidine Scrn (Cutoff=25) ng/mL Ur Amphetamines Screen (Xemqxr=1724) ng/mL U Benzodiazepines Scrn (Nluauc=037) ng/mL Urine Cocaine Screen (Cutoff= 300) ng/mL U Marijuana (THC) Screen (Cutoff = 50) ng/mL Hepatitis A IgM Ab (Nonreactive) Hep Bs Antigen (Nonreactive) Hep B Core IgM Ab (Nonreactive) Hepatitis C Ab Screen (Nonreactive) Blood Type Antibody Screen 08/19/16 Range/Units 11:48 WBC (4.3-11.1) K/mcL RBC (4.19-5.50) M/mcL Hgb (12.9-16.9) g/dL Hct (37.5-50.1) % MCV (83.0-100.0) fL MCH (28.0-33.3) pg MCHC (31.6-35.5) g/dL RDW (11.5-14.5) % Plt Count (140-400) K/mcL MPV (9.4-12.4) fL Immature Gran % (0-4) % Seg Neutrophils % % Lymphocytes % % Monocytes % % Eosinophils % % Basophils % % Neutrophils # (1.6-8.9) K/mcL Lymphocytes # (0.6-4.6) K/mcL Monocytes # (0.0-1.3) K/mcL Eosinophils # (0.0-0.6) K/mcL Basophils # (0.0-0.2) K/mcL Immature Plt Fraction (1.1-6.1) % ESR (0-10) mm/hr PT (9.4-12.1) Seconds INR APTT (26.0-36.0) Seconds Sodium (136-145) mEq/L Potassium (3.5-4.5) mEq/L Chloride (98-109) mEq/L Carbon Dioxide (19-29) mEq/L BUN (8-26) mg/dL Creatinine (0.72-1.25) mg/dL Est GFR ( Amer) (> 60) Est GFR (Non-Af Amer) (> 60) BUN/Creatinine Ratio (6-26) Glucose (70-99) mg/dL POC Glucose 150 H (58-89) Est Mean Plasma Glucose mg/dl Hemoglobin A1c ( - 5.6) % C-Peptide (0.8-3.5) ng/mL Calculated Osmolality (280-300) Calcium (8.6-10.8) mg/dL Phosphorus (2.3-4.7) mg/dL Magnesium (1.6-2.6) mg/dL Total Bilirubin (0.2-1.2) mg/dL Direct Bilirubin (0.0-0.5) mg/dL Indirect Bilirubin (0.0-1.2) mg/dL AST (5-34) Units/L ALT (0-55) Units/L Alkaline Phosphatase (38-126) Units/L Lactate Dehydrogenase (159-327) Units/L Troponin I (0-0.03) ng/mL C-Reactive Protein (Less than 5) mg/L B-Natriuretic Peptide (0-100) pg/mL Serum Total Protein (6.0-8.3) g/dL Albumin (3.5-5.0) g/dL Globulin (2.4-3.5) g/dL Albumin/Globulin Ratio (1.1-2.2) Triglycerides (< 150) mg/dL Cholesterol (< 200) mg/dL LDL Cholesterol, Calc (0-99) mg/dL VLDL Cholesterol, Calc (< 31) mg/dL HDL Cholesterol (40-59) mg/dL Cholesterol/HDL Ratio (0-4.9) Amylase (25-125) Units/L Lipase (8-78) Units/L TSH (0.350-4.840) mcIU/mL Urine Color (Yellow) Urine Clarity (Clear) Urine pH (5.0-8.0) pH Units Ur Specific [place] (1.010-1.025) Urine Protein (Neg-Trace) mg/dL Urine Glucose (UA) (Normal) mg/dL Urine Ketones (Negative) mg/dL Urine Blood (Negative) Urine Nitrite (Negative) Urine Bilirubin (Negative) Urine Urobilinogen (Normal) mg/dL Ur Leukocyte Esterase (Negative) Urine Microscopic RBC (0-3) per hpf Urine Microscopic WBC (0-3) per hpf Ur Squamous Epith Cells (None-Few) per lpf Urine Bacteria (None-Few) per hpf Hyaline Casts (None-Few) per lpf Ur Culture Indicated? (NO) Urine Opiates Screen (Ptpsco=002) ng/mL Ur Barbiturates Screen (Snfgod=374) ng/mL Ur Phencyclidine Scrn (Cutoff=25) ng/mL Ur Amphetamines Screen (Letofi=4415) ng/mL U Benzodiazepines Scrn (Zxuzwt=149) ng/mL Urine Cocaine Screen (Cutoff= 300) ng/mL U Marijuana (THC) Screen (Cutoff = 50) ng/mL Hepatitis A IgM Ab (Nonreactive) Hep Bs Antigen (Nonreactive) Hep B Core IgM Ab (Nonreactive) Hepatitis C Ab Screen (Nonreactive) Blood Type Antibody Screen Assessments/Treatments 12 lead ECG assessment Start: 08/15/16 00: 23 Freq: NOW Status: Complete Document 08/15/16 00:47 JLM (Rec: 08/15/16 00:47 JLM [id number]) Document 08/15/16 11:57 BEH (Rec: 08/15/16 11:57 BEH [id number]) Document 08/15/16 11:57 BEH (Rec: 08/15/16 11:57 BEH [id number]) Ambulate Start: 08/14/16 06: 29 Freq: TID Status: Discharge Document 08/14/16 12:45 LEB (Rec: 08/14/16 14:45 LEB [id number]) Ambulate Ambulation Distance (ft) (feet) 125 Ambulation Ability Standby Assistance Ambulation Tolerance Good Document 08/17/16 15:25 EGH (Rec: 08/17/16 15:26 EGH [id number]) Ambulate Ambulation Distance (ft) (feet) 450 Ambulation Ability Standby Assistance Ambulation Tolerance Good Document 08/18/16 20:25 CNH (Rec: 08/18/16 20:34 CNH [id number]) Ambulate Ambulation Distance (ft) (feet) 30 Ambulation Ability Independent Ambulation Tolerance Fair Cardiac Monitoring Med/Surg Start: 08/11/16 20: 37 Freq: .CONT Status: Discharge Document 08/12/16 08:05 MED (Rec: 08/12/16 19:51 MED [id number]) Alarms/Limits Heart Rate 134 EKG Method Telemetry Rhythm Atrial Fibrillation QRS Interval 0.08 QT Interval 0.29 Document 08/12/16 12:50 MED (Rec: 08/12/16 19:52 MED [id number]) Alarms/Limits Heart Rate 103 Rhythm Atrial Fibrillation QRS Interval 0.09 QT Interval 0.33 Document 08/12/16 17:00 MED (Rec: 08/12/16 19:53 MED [id number]) Alarms/Limits Heart Rate 84 EKG Method Telemetry Rhythm Atrial Fibrillation QRS Interval 0.11 QT Interval 0.32 Document 08/12/16 20:06 JDF (Rec: 08/13/16 01:19 JDF [id number]) Cardiac Monitoring Monitor Number [id number] Strip placed in Chart Yes Alarms/Limits HR Alarm 130/40 Heart Rate 82 EKG Method Telemetry Rhythm Atrial Fibrillation QRS Interval 0.07 QT Interval 0.31 Document 08/13/16 00:10 JDF (Rec: 08/13/16 02:34 JDF [id number]) Cardiac Monitoring Monitor Number [id number] Strip placed in Chart Yes Alarms/Limits HR Alarm 130/40 Heart Rate 93 EKG Method Telemetry Rhythm Atrial Fibrillation QRS Interval 0.06 QT Interval 0.29 Document 08/13/16 03:41 JDF (Rec: 08/13/16 05:00 JDF [id number]) Cardiac Monitoring Monitor Number [id number] Strip placed in Chart Yes Alarms/Limits HR Alarm 130/40 Heart Rate 77 EKG Method Telemetry Rhythm Atrial Fibrillation QRS Interval 0.08 QT Interval 0.32 Document 08/13/16 09:57 JLM (Rec: 08/13/16 10:00 JLM [id number]) Cardiac Monitoring Monitor Number [id number] Strip placed in Chart Yes Alarms/Limits HR Alarm 130/40 Heart Rate 120 EKG Method Telemetry Rhythm Atrial Fibrillation QRS Interval .08 Document 08/13/16 11:17 JLM (Rec: 08/13/16 11:17 JLM [id number]) Cardiac Monitoring Monitor Number [id number] Strip placed in Chart Yes Alarms/Limits HR Alarm 130/40 Heart Rate 102 EKG Method Telemetry Rhythm Atrial Fibrillation QRS Interval .08 Document 08/13/16 18:39 JLM (Rec: 08/13/16 18:39 JLM [id number]) Cardiac Monitoring Monitor Number [id number] Alarms/Limits HR Alarm 130/40 Heart Rate 102 Rhythm Atrial Fibrillation QRS Interval .08 Document 08/15/16 00:49 JLM (Rec: 08/15/16 00:50 JLM [id number]) Cardiac Monitoring Monitor Number [id number] Strip placed in Chart Yes Alarms/Limits HR Alarm 130/40 Heart Rate 123 EKG Method Telemetry Rhythm Atrial Fibrillation QRS Interval .08 Document 08/17/16 03:30 CBT (Rec: 08/17/16 07:05 CBT [id number]) Cardiac Monitoring Monitor Number [id number] Strip placed in Chart No Alarms/Limits HR Alarm 130/40 Heart Rate 110 EKG Method Bedside Rhythm Atrial Fibrillation Cardiac Ectopy PAC's Document 08/17/16 11:45 KJP (Rec: 08/17/16 12:19 KJP [id number]) Cardiac Monitoring Monitor Number [id number] Strip placed in Chart No Alarms/Limits HR Alarm 130/40 Heart Rate 139 EKG Method Telemetry Rhythm Atrial Fibrillation Cardiac Ectopy PAC's QRS Interval 0.09 QT Interval 0.31 Document 08/17/16 20:06 CN (Rec: 08/18/16 01:09 [id number] Cardiac Monitoring Monitor Number [id number] Strip placed in Chart No Alarms/Limits HR Alarm 130/40 Heart Rate 106 EKG Method Telemetry Rhythm Atrial Fibrillation [place] Interval 0.27 QRS Interval 0.07 QT Interval 0.32 Document 08/18/16 00:05 [facility] (Rec: 08/18/16 01:09 [id number]) Cardiac Monitoring Monitor Number [id number] Strip placed in Chart No Alarms/Limits HR Alarm 130/40 Heart Rate 115 EKG Method Telemetry Rhythm Atrial Fibrillation [place] Interval 0.10 QRS Interval 0.07 QT Interval 0.32 Document 08/18/16 04:10 [facility] (Rec: 08/18/16 07:05 [id number]) Cardiac Monitoring Monitor Number [id number] Strip placed in Chart No Alarms/Limits HR Alarm 130/40 Heart Rate 99 EKG Method Telemetry Rhythm Sinus Arrhythmia [place] Interval 0.14 QRS Interval 0.07 QT Interval 0.30 Document 08/18/16 10:40 KJP (Rec: 08/18/16 18:18 KJP [id number]) Cardiac Monitoring Monitor Number [id number] Strip placed in Chart No Alarms/Limits HR Alarm 130/40 Heart Rate 119 EKG Method Telemetry Rhythm Sinus Arrhythmia Cardiac Ectopy PAC's QRS Interval 0.04 QT Interval 0.32 Document 08/18/16 20:02 [facility] (Rec: 08/19/16 01:43 [facility] [id number]) Cardiac Monitoring Monitor Number [id number] Strip placed in Chart No Alarms/Limits HR Alarm 130/40 Heart Rate 152 EKG Method Telemetry Rhythm Atrial Fibrillation [place] Interval 0.09 QRS Interval 0.07 QT Interval 0.28 Document 08/19/16 00:00 CN (Rec: 08/19/16 01:45 [facility] [id number]) Cardiac Monitoring Monitor Number [id number] Strip placed in Chart No Alarms/Limits HR Alarm 130/40 Heart Rate 124 EKG Method Telemetry Rhythm Atrial Fibrillation [place] Interval 0.12 QRS Interval 0.08 QT Interval 0.13 Document 08/19/16 04:01 [facility] (Rec: 08/19/16 07:27 [facility] [id number]) Cardiac Monitoring Monitor Number [id number] Strip placed in Chart No Alarms/Limits HR Alarm 130/40 Heart Rate 95 EKG Method Telemetry Rhythm Atrial Fibrillation [place] Interval 0.11 QRS Interval 0.07 QT Interval 0.36 Senior Planning Analyst Nutrition Assessment Start: 08/12/16 15: 05 Freq: Status: Discharge Document 08/12/16 15:06 [facility] (Rec: 08/12/16 15:13 [id number] Nutritional Assessment - Senior Planning Analyst Subjective Data: 75 YOM admitted with abdominal pain, cholestasis, jaundice. GI consulted, pt currently off the floor for ERCP. Abd MRI- suggests acute pancreatitis. Hx: DM, CAD, TIA, HTN, GERD, HLD, CKD III, ANDRES, CHF Labs: amylase 2959, lipase 9217, alb 3.2, phos 2, Mg 1.4, tbili 4.8 Meds: Mg Sulfate, Na Phos, IVF , Zofran [place] Body Weight 166 Comment CBW: 229# unable to obtain wt hx Diet NPO Gastrointestinal Symptoms Abdominal Pain Calories Needed to Maintain Weight 1875-2250kcal (25-30kcal/kg) Estimated Protein Needs 90gm (1.2gm/kg) Initial assessment face to face time Inadequate food/beverage with patient (mins) intake Nutrition Problem PES Statement r/t abdominal pain and GI workup aeb undergoing ERCP Nutrition Intervention: Meals and Snacks Comment 1. Diet: NPO- advance per GI Nutrition Monitoring: Gastrointestinal Profile Comment f/u 08/14 Diet advance/tolerance Document 08/14/16 15:34 [facility] (Rec: 08/14/16 15:39 [facility] [id number]) Nutritional Assessment - Senior Planning Analyst Subjective Data: Pt admitted with acute pancreatitis. s/p ERCP with stent placemnet. LFT's, amylase and lipase continue to trend down. Currently on clear liquid diet, to be NPO p MN for lap cris tomorrow. Pt is now day #5 of NPO/clear liquids. Alb is down to 2.4. Anticipate diet to advance tomorrow after lap cris. [place] Body Weight 166 Comment CBW: 238# unable to obtain wt hx Diet clear liquids Calories Needed to Maintain Weight 1875-2250kcal (25-30kcal/kg) Estimated Protein Needs 90gm (1.2gm/kg) Initial assessment face to face time Inadequate food/beverage with patient (mins) intake Nutrition Problem PES Statement r/t abdominal pain and GI workup aeb undergoing ERCP Nutrition Intervention: Meals and Snacks Comment 1. Diet: Clear liquids- advance per Surgery after lap cris tomorrow 2. Would benefit from high protein supplements as diet advances Nutrition Monitoring: Energy Intake Gastrointestinal Profile Comment f/u 08/16 Document 08/16/16 13:45 CCP (Rec: 08/16/16 13:48 CCP [id number]) Nutritional Assessment - Senior Planning Analyst Subjective Data: Pt is day #6 of NPO/clear liquids. Is NPO today with plans for lap cris. Admitted with acute pancreatitis, s/p ERCP with stent placement. Amylase/lipase and LFT's significantly decreased. Albumin down to 2.2. Anticipate PO diet to advance as tolerated following lap cris today. [place] Body Weight 166 Comment CBW: 234# unable to obtain wt hx Diet NPO Calories Needed to Maintain Weight 1875-2250kcal (25-30kcal/kg) Estimated Protein Needs 90gm (1.2gm/kg) Initial assessment face to face time Inadequate food/beverage with patient (mins) intake Nutrition Problem PES Statement r/t abdominal pain and GI workup aeb undergoing ERCP Nutrition Intervention: Coordination of Care Comment 1. Diet: NPO- advance per Surgery 2. Pt is 6 days without adequate nutrition, if po diet not able to advance will need to consider TPN Nutrition Monitoring: Energy Intake Gastrointestinal Profile Comment f/u 08/19 Diet advance vs TPN *check on 08/17 for possible addition of supplements Discharge Assessment Start: 08/11/16 19: 42 Freq: Status: Discharge Document 08/19/16 13:02 [facility] (Rec: 08/19/16 13:08 [facility] [id number]) Discharge Assessment Discharge Disposition Home Mode of Discharge Wheelchair Belongings sent with patient Yes Services Needed at Discharge Oxygen Therapy Summary of Care Provided Yes Patient was provided information on Yes accessing patient portal Level Of Consciousness Awake Alert Appropriate Eating (Feeding) Ability Independent Bathing Ability Independent Upper Body Dressing Ability Independent Lower Body Dressing Ability Independent Ambulation Ability Independent Toileting Ability Independent Bowel Continent Bladder Continent Has Patient Been in Isolation During No Hospital Stay Doctor's Appointment Made Yes: 2 week F/U; S/P Rehan Wheeler Referrals Made No Patient Education Given Yes Discharge Instructions Given To Patient Discharge Instructions Address Diet Medications Follow Up Patient instructed regarding new Yes medications and to provide the list to their Primary Care Provider Patient instructed to carry their Yes medication list with them at all times in case of emergency Prescriptions Given To Patient Was patient discharged on Warfarin for No confirmed VTE diagnosis? Was patient discharged with diagnosis of No ischemic or hemmorrhagic stroke? Flu Vaccine Given No Reason Flu Vaccine Not Given Previously Received Current Flu Season Discharge Assessment From OR Start: 08/16/16 12: 15 Freq: Status: Discharge Document 08/16/16 14:00 [facility] (Rec: 08/16/16 14:00 [facility]) Discharge Assessment From OR Level of Consciousness at Discharge From Under Care of Anesthesia OR Bovie Pad Removed Yes EKG Pads No Pad Site Reaction no Pressure Areas Checked? Yes Tubes/Drains Secured? Yes Circulation Checked? Yes Prep Solution Removed Post Op? Yes Tolerated Procedure With No Apparent Yes Injury? ED Abdominal Pain Assessment Start: 08/11/16 16: 38 Freq: Status: Complete Document 08/11/16 16:46 DLW (Rec: 08/11/16 16:47 DLW [id number]) Abdominal Pain Symptoms/Complaint Abdominal Pain Context Unknown Improves With Medication Worsens With Eating Associated Symptoms Denies Other Symptoms Level Of Consciousness Awake Alert Appropriate Follows Commands Patient Orientation Person Place Time Skin Temperature Warm Skin Moisture Dry Skin Turgor Normal Capillary Refill < 3 Seconds Respiratory Depth Normal All Quadrants Bowel Sounds Hyperactive Abdomen Description Soft Nausea/Vomiting Presence None Bladder Distention Description None ED Discharge Assessment Start: 08/11/16 16: 38 Freq: Status: Discharge Document 08/11/16 19:47 DLW (Rec: 08/11/16 19:54 DLW [id number]) ED Discharge Assessment ED Discharge Disposition Admitted ED Condition on Discharge Good Med Rec/Patient Pharmacy Completed? Yes Admitted to 3A Bed assigned 3A-33 Transported by oxygen equipment technician Transported with monitor oxygen IV pulse oximetry Report given to Nurse Care transferred to (name/credentials) RADHA RN Information relayed patient's care treatments medications given condition recent/anticipated changes Clinical Documentation Summary Provided Yes Pain Scale 0 Pain Scale Used Standard (1-10) Blood Pressure 0/0 Heart rate 105 Respiratory Rate 18 Oxygen Delivery Room Air Oxygen Saturation 96 Critical Care Minutes 0 EKG Assessment Start: 08/15/16 11: 58 Freq: Status: Discharge Document 08/15/16 12:02 BEH (Rec: 08/15/16 12:03 BEH [id number]) EKG Assessment EKG Indications Shortness of Breath Heart Rate < 50 or > 150 EKG Method 12 Lead Endoscopy Op Start: 08/12/16 14: 01 Freq: Status: Discharge Document 08/12/16 14:01 TLS (Rec: 08/12/16 14:03 TLS [id number]) Procedure and Scope Identification Letter ERCP cp Document 08/12/16 14:39 CLF (Rec: 08/12/16 14:40 CLF [id number]) Procedure and Scope Identification Letter ERCP cp Sphincterotomy Yes Biliary Stent Yes Stone Retrieval w/Balloon Yes Document 08/12/16 14:48 CLF (Rec: 08/12/16 14:48 CLF [id number]) Procedure and Scope Identification Letter Sphincterotomy Yes Stone Retrieval w/Balloon Yes Pancreatic Stent Yes Fall Precautions Acute Start: 08/11/16 20: 38 Freq: Q12H Status: Discharge Document 08/11/16 21:00 [id number] (Rec: 08/12/16 01:16 [id number]) Saleh Putnam Fall Risk Assessment Tool Age 70-79 years (2 points) Fall History No falls within last 6 months (0 points) Elimination, Bowel, and Urine N/A (0 pts) Medications: Includes HARD CANDY BATCH MIXER/opiates, On 1 high fall risk drug (3 antivulsants, ant-hypertensives, points) diuretics, hypnotics, Patient Care Equipment: Any equipment One present (1 point) that tethers patient (e.g. IV infusions, chest tube, indwelling Mobility Requires assistance or supervision for transfer/ ambulation (2 points) Cognition N/A (0 points) Total Fall Risk Score 8 Fall Risk Category Moderate Risk (6-13) Fall Risk Interventions Low Risk Interventions Bed in lowest position Top side rails up x 2 Secure brake on bed Use properly fitting non-skid footwear Call light and frequently needed objects within reach Encourage patients/families to call for assistance when needed Fall education including risk assessment, injury risk and routine/ Inspect environment for safety and communication risk Supervise and assist with toileting/ADLs as needed High Risk Interventions Remain with patient while toileting Document 08/12/16 08:05 MED (Rec: 08/12/16 17:18 MED [id number]) [facility] Fall Risk Assessment Tool Age 70-79 years (2 points) Fall History No falls within last 6 months (0 points) Elimination, Bowel, and Urine N/A (0 pts) Medications: Includes HARD CANDY BATCH MIXER/opiates, On 1 high fall risk drug (3 antivulsants, ant-hypertensives, points) diuretics, hypnotics, Patient Care Equipment: Any equipment One present (1 point) that tethers patient (e.g. IV infusions, chest tube, indwelling Mobility Requires assistance or supervision for transfer/ ambulation (2 points) Cognition N/A (0 points) Total Fall Risk Score 8 Fall Risk Category Moderate Risk (6-13) Fall Risk Interventions Low Risk Interventions Bed in lowest position Top side rails up x 2 Secure brake on bed Use properly fitting non-skid footwear Call light and frequently needed objects within reach Encourage patients/families to call for assistance when needed Fall education including risk assessment, injury risk and routine/ Inspect environment for safety and communication risk Supervise and assist with toileting/ADLs as needed High Risk Interventions Remain with patient while toileting Document 08/12/16 20:06 RAHAT (Rec: 08/13/16 01:19 RAHAT [id number]) [facility] Fall Risk Assessment Tool Age 70-79 years (2 points) Fall History No falls within last 6 months (0 points) Elimination, Bowel, and Urine N/A (0 pts) Medications: Includes HARD CANDY BATCH MIXER/opiates, On 1 high fall risk drug (3 antivulsants, ant-hypertensives, points) diuretics, hypnotics, Patient Care Equipment: Any equipment One present (1 point) that tethers patient (e.g. IV infusions, chest tube, indwelling Mobility Requires assistance or supervision for transfer/ ambulation (2 points) Cognition N/A (0 points) Total Fall Risk Score 8 Fall Risk Category Moderate Risk (6-13) Fall Risk Interventions Low Risk Interventions Bed in lowest position Top side rails up x 2 Secure brake on bed Use properly fitting non-skid footwear Call light and frequently needed objects within reach Encourage patients/families to call for assistance when needed Fall education including risk assessment, injury risk and routine/ Inspect environment for safety and communication risk Supervise and assist with toileting/ADLs as needed Moderate Risk Interventions Institue fall-risk divyalit ( yellow flag, yellow non-skid socks and Document 08/13/16 08:57 JL (Rec: 08/13/16 09:07 JLM [id number]) [facility] Fall Risk Assessment Tool Age 70-79 years (2 points) Fall History No falls within last 6 months (0 points) Elimination, Bowel, and Urine N/A (0 pts) Medications: Includes HARD CANDY BATCH MIXER/opiates, N/A (0 points) antivulsants, ant-hypertensives, diuretics, hypnotics, Patient Care Equipment: Any equipment One present (1 point) that tethers patient (e.g. IV infusions, chest tube, indwelling Mobility N/A (0 points) Cognition N/A (0 points) Total Fall Risk Score 3 Fall Risk Category Low Risk (0-5) Document 08/13/16 20:59 [id number] (Rec: 08/13/16 21:00 [id number]) [facility] Fall Risk Assessment Tool Age 70-79 years (2 points) Fall History No falls within last 6 months (0 points) Elimination, Bowel, and Urine N/A (0 pts) Medications: Includes HARD CANDY BATCH MIXER/opiates, N/A (0 points) antivulsants, ant-hypertensives, diuretics, hypnotics, Patient Care Equipment: Any equipment One present (1 point) that tethers patient (e.g. IV infusions, chest tube, indwelling Mobility N/A (0 points) Cognition N/A (0 points) Total Fall Risk Score 3 Fall Risk Category Low Risk (0-5) Fall Risk Interventions Low Risk Interventions Bed in lowest position Top side rails up x 2 Secure brake on bed Use properly fitting non-skid footwear Call light and frequently needed objects within reach Encourage patients/families to call for assistance when needed Fall education including risk assessment, injury risk and routine/ Inspect environment for safety and communication risk Supervise and assist with toileting/ADLs as needed Document 08/14/16 08:00 [facility] (Rec: 08/14/16 09:12 [id number] Fall Risk Assessment Tool Age 70-79 years (2 points) Fall History No falls within last 6 months (0 points) Elimination, Bowel, and Urine N/A (0 pts) Medications: Includes HARD CANDY BATCH MIXER/opiates, On 1 high fall risk drug (3 antivulsants, ant-hypertensives, points) diuretics, hypnotics, Patient Care Equipment: Any equipment One present (1 point) that tethers patient (e.g. IV infusions, chest tube, indwelling Mobility N/A (0 points) Cognition N/A (0 points) Total Fall Risk Score 6 Fall Risk Category Moderate Risk (6-13) Fall Risk Interventions Low Risk Interventions Bed in lowest position Top side rails up x 2 Secure brake on bed Use properly fitting non-skid footwear Call light and frequently needed objects within reach Encourage patients/families to call for assistance when needed Fall education including risk assessment, injury risk and routine/ Inspect environment for safety and communication risk Supervise and assist with toileting/ADLs as needed Moderate Risk Interventions Institue fall-risk tooklit ( yellow flag, yellow non-skid socks and Frequent reorientation for confused patients Document 08/14/16 19:47 [facility] (Rec: 08/14/16 20:02 [facility] [id number]) [facility] Fall Risk Assessment Tool Age 70-79 years (2 points) Fall History No falls within last 6 months (0 points) Elimination, Bowel, and Urine N/A (0 pts) Medications: Includes HARD CANDY BATCH MIXER/opiates, On 2 or more high fall risk antivulsants, ant-hypertensives, drugs (5 points) diuretics, hypnotics, Patient Care Equipment: Any equipment One present (1 point) that tethers patient (e.g. IV infusions, chest tube, indwelling Mobility N/A (0 points) Cognition N/A (0 points) Total Fall Risk Score 8 Fall Risk Category Moderate Risk (6-13) Fall Risk Interventions Low Risk Interventions Bed in lowest position Top side rails up x 2 Secure brake on bed Use properly fitting non-skid footwear Document 08/15/16 07:00 GERTRUDE (Rec: 08/15/16 19:13 GERTRUDE [id number]) [facility] Fall Risk Assessment Tool Age 70-79 years (2 points) Fall History No falls within last 6 months (0 points) Elimination, Bowel, and Urine N/A (0 pts) Medications: Includes HARD CANDY BATCH MIXER/opiates, On 2 or more high fall risk antivulsants, ant-hypertensives, drugs (5 points) diuretics, hypnotics, Patient Care Equipment: Any equipment One present (1 point) that tethers patient (e.g. IV infusions, chest tube, indwelling Mobility N/A (0 points) Cognition N/A (0 points) Total Fall Risk Score 8 Fall Risk Category Moderate Risk (6-13) Fall Risk Interventions Moderate Risk Interventions Institue fall-risk tooklit ( yellow flag, yellow non-skid socks and Frequent reorientation for confused patients Document 08/15/16 16:55 GERTRUDE (Rec: 08/15/16 19:22 GERTRUDE [id number]) [facility] Fall Risk Assessment Tool Age 70-79 years (2 points) Fall History No falls within last 6 months (0 points) Elimination, Bowel, and Urine N/A (0 pts) Medications: Includes HARD CANDY BATCH MIXER/opiates, On 2 or more high fall risk antivulsants, ant-hypertensives, drugs (5 points) diuretics, hypnotics, Patient Care Equipment: Any equipment One present (1 point) that tethers patient (e.g. IV infusions, chest tube, indwelling Mobility N/A (0 points) Cognition N/A (0 points) Total Fall Risk Score 8 Fall Risk Category Moderate Risk (6-13) Document 08/15/16 19:51 JRA (Rec: 08/15/16 19:58 JRA [id number]) [facility] Fall Risk Assessment Tool Age 70-79 years (2 points) Fall History No falls within last 6 months (0 points) Elimination, Bowel, and Urine N/A (0 pts) Medications: Includes HARD CANDY BATCH MIXER/opiates, On 2 or more high fall risk antivulsants, ant-hypertensives, drugs (5 points) diuretics, hypnotics, Patient Care Equipment: Any equipment 3 or more present (3 points) that tethers patient (e.g. IV infusions, chest tube, indwelling Mobility N/A (0 points) Cognition N/A (0 points) Total Fall Risk Score 10 Fall Risk Category Moderate Risk (6-13) Fall Risk Interventions Low Risk Interventions Bed in lowest position Top side rails up x 2 Secure brake on bed Use properly fitting non-skid footwear Moderate Risk Interventions Institue fall-risk tooklit ( yellow flag, yellow non-skid socks and Frequent reorientation for confused patients High Risk Interventions Remain with patient while toileting Document 08/16/16 07:00 MMR (Rec: 08/16/16 09:27 MMR [id number]) Saleh Putnam Fall Risk Assessment Tool Age 70-79 years (2 points) Fall History No falls within last 6 months (0 points) Elimination, Bowel, and Urine N/A (0 pts) Medications: Includes HARD CANDY BATCH MIXER/opiates, On 2 or more high fall risk antivulsants, ant-hypertensives, drugs (5 points) diuretics, hypnotics, Patient Care Equipment: Any equipment 3 or more present (3 points) that tethers patient (e.g. IV infusions, chest tube, indwelling Mobility N/A (0 points) Cognition N/A (0 points) Total Fall Risk Score 10 Fall Risk Category Moderate Risk (6-13) Fall Risk Interventions Low Risk Interventions Bed in lowest position Top side rails up x 2 Secure brake on bed Use properly fitting non-skid footwear Call light and frequently needed objects within reach Encourage patients/families to call for assistance when needed Fall education including risk assessment, injury risk and routine/ Inspect environment for safety and communication risk Supervise and assist with toileting/ADLs as needed Document 08/16/16 22:02 CBT (Rec: 08/16/16 22:03 CBT [id number]) Saleh Putnam Fall Risk Assessment Tool Age 70-79 years (2 points) Fall History No falls within last 6 months (0 points) Elimination, Bowel, and Urine N/A (0 pts) Medications: Includes HARD CANDY BATCH MIXER/opiates, On 2 or more high fall risk antivulsants, ant-hypertensives, drugs (5 points) diuretics, hypnotics, Patient Care Equipment: Any equipment Two present (2 points) that tethers patient (e.g. IV infusions, chest tube, indwelling Mobility N/A (0 points) Cognition N/A (0 points) Total Fall Risk Score 9 Fall Risk Category Moderate Risk (6-13) Fall Risk Interventions Low Risk Interventions Bed in lowest position Top side rails up x 2 Secure brake on bed Use properly fitting non-skid footwear Call light and frequently needed objects within reach Encourage patients/families to call for assistance when needed Fall education including risk assessment, injury risk and routine/ Inspect environment for safety and communication risk Supervise and assist with toileting/ADLs as needed Moderate Risk Interventions Institue fall-risk tooklit ( yellow flag, yellow non-skid socks and Frequent reorientation for confused patients Document 08/17/16 07:45 KJP (Rec: 08/17/16 07:58 KJP [id number]) [facility] Fall Risk Assessment Tool Age 70-79 years (2 points) Fall History No falls within last 6 months (0 points) Elimination, Bowel, and Urine N/A (0 pts) Medications: Includes HARD CANDY BATCH MIXER/opiates, On 2 or more high fall risk antivulsants, ant-hypertensives, drugs (5 points) diuretics, hypnotics, Patient Care Equipment: Any equipment Two present (2 points) that tethers patient (e.g. IV infusions, chest tube, indwelling Mobility N/A (0 points) Cognition N/A (0 points) Total Fall Risk Score 9 Fall Risk Category Moderate Risk (6-13) Fall Risk Interventions Low Risk Interventions Bed in lowest position Top side rails up x 2 Secure brake on bed Use properly fitting non-skid footwear Call light and frequently needed objects within reach Encourage patients/families to call for assistance when needed Fall education including risk assessment, injury risk and routine/ Inspect environment for safety and communication risk Supervise and assist with toileting/ADLs as needed Moderate Risk Interventions Institue fall-risk tooklit ( yellow flag, yellow non-skid socks and Frequent reorientation for confused patients High Risk Interventions Remain with patient while toileting Document 08/17/16 22:18 [facility] (Rec: 08/17/16 22:51 [id number]) [facility] Fall Risk Assessment Tool Age 70-79 years (2 points) Fall History No falls within last 6 months (0 points) Elimination, Bowel, and Urine N/A (0 pts) Medications: Includes HARD CANDY BATCH MIXER/opiates, On 2 or more high fall risk antivulsants, ant-hypertensives, drugs (5 points) diuretics, hypnotics, Patient Care Equipment: Any equipment One present (1 point) that tethers patient (e.g. IV infusions, chest tube, indwelling Mobility N/A (0 points) Cognition N/A (0 points) Total Fall Risk Score 8 Fall Risk Category Moderate Risk (6-13) Fall Risk Interventions Low Risk Interventions Bed in lowest position Top side rails up x 2 Secure brake on bed Use properly fitting non-skid footwear Call light and frequently needed objects within reach Encourage patients/families to call for assistance when needed Fall education including risk assessment, injury risk and routine/ Inspect environment for safety and communication risk Supervise and assist with toileting/ADLs as needed Moderate Risk Interventions Institue fall-risk tooklit ( yellow flag, yellow non-skid socks and Frequent reorientation for confused patients High Risk Interventions Remain with patient while toileting Document 08/18/16 08:45 KJP (Rec: 08/18/16 09:01 KJP [id number]) [facility] Fall Risk Assessment Tool Age 70-79 years (2 points) Fall History No falls within last 6 months (0 points) Elimination, Bowel, and Urine N/A (0 pts) Medications: Includes HARD CANDY BATCH MIXER/opiates, On 2 or more high fall risk antivulsants, ant-hypertensives, drugs (5 points) diuretics, hypnotics, Patient Care Equipment: Any equipment One present (1 point) that tethers patient (e.g. IV infusions, chest tube, indwelling Mobility N/A (0 points) Cognition N/A (0 points) Total Fall Risk Score 8 Fall Risk Category Moderate Risk (6-13) Fall Risk Interventions Low Risk Interventions Bed in lowest position Top side rails up x 2 Secure brake on bed Use properly fitting non-skid footwear Call light and frequently needed objects within reach Encourage patients/families to call for assistance when needed Fall education including risk assessment, injury risk and routine/ Inspect environment for safety and communication risk Supervise and assist with toileting/ADLs as needed Moderate Risk Interventions Institue fall-risk tooklit ( yellow flag, yellow non-skid socks and Frequent reorientation for confused patients High Risk Interventions Remain with patient while toileting Document 08/18/16 20:25 [facility] (Rec: 08/18/16 20:34 [id number]) [facility] Fall Risk Assessment Tool Age 70-79 years (2 points) Fall History No falls within last 6 months (0 points) Elimination, Bowel, and Urine N/A (0 pts) Medications: Includes HARD CANDY BATCH MIXER/opiates, On 2 or more high fall risk antivulsants, ant-hypertensives, drugs (5 points) diuretics, hypnotics, Patient Care Equipment: Any equipment One present (1 point) that tethers patient (e.g. IV infusions, chest tube, indwelling Mobility N/A (0 points) Cognition N/A (0 points) Total Fall Risk Score 8 Fall Risk Category Moderate Risk (6-13) Fall Risk Interventions Low Risk Interventions Bed in lowest position Top side rails up x 2 Secure brake on bed Use properly fitting non-skid footwear Call light and frequently needed objects within reach Encourage patients/families to call for assistance when needed Fall education including risk assessment, injury risk and routine/ Inspect environment for safety and communication risk Supervise and assist with toileting/ADLs as needed Moderate Risk Interventions Institue fall-risk tooklit ( yellow flag, yellow non-skid socks and High Risk Interventions Remain with patient while toileting Document 08/19/16 07:00 MMR (Rec: 08/19/16 08:38 MMR [id number]) [facility] Fall Risk Assessment Tool Age 70-79 years (2 points) Fall History No falls within last 6 months (0 points) Elimination, Bowel, and Urine N/A (0 pts) Medications: Includes HARD CANDY BATCH MIXER/opiates, On 2 or more high fall risk antivulsants, ant-hypertensives, drugs (5 points) diuretics, hypnotics, Patient Care Equipment: Any equipment One present (1 point) that tethers patient (e.g. IV infusions, chest tube, indwelling Mobility N/A (0 points) Cognition N/A (0 points) Total Fall Risk Score 8 Fall Risk Category Moderate Risk (6-13) Fall Risk Interventions Low Risk Interventions Bed in lowest position Top side rails up x 2 Secure brake on bed Use properly fitting non-skid footwear Call light and frequently needed objects within reach Encourage patients/families to call for assistance when needed Fall education including risk assessment, injury risk and routine/ Inspect environment for safety and communication risk Supervise and assist with toileting/ADLs as needed Glucose, blood point of care measurement Start: 08/12/16 08: 39 Freq: Status: Discharge Document 08/12/16 08:40 BELKIS (Rec: 08/12/16 08:42 [id number]) Blood Glucose Assessment Blood Glucose* 114 Hypoglycemia Symptoms None Hyperglycemia Symptoms None Document 08/12/16 11:38 BELKIS (Rec: 08/12/16 11:40 BELKIS [id number]) Blood Glucose Assessment Blood Glucose* 108 Hypoglycemia Symptoms None Hyperglycemia Symptoms None Document 08/12/16 16:52 BELKIS (Rec: 08/12/16 16:54 BELKIS [id number]) Blood Glucose Assessment Blood Glucose* 101 Hypoglycemia Symptoms None Hyperglycemia Symptoms None Document 08/12/16 23:50 RKA (Rec: 08/12/16 23:50 RKA [id number]) Blood Glucose Assessment Blood Glucose* 126 Hypoglycemia Symptoms None Hyperglycemia Symptoms None Action Taken Wrote on board, will notify RN Document 08/13/16 04:55 RKA (Rec: 08/13/16 04:55 RKA [id number]) Blood Glucose Assessment Blood Glucose* 135 Hypoglycemia Symptoms None Hyperglycemia Symptoms None Action Taken Wrote on board, will notify RN Document 08/13/16 11:54 [facility] (Rec: 08/13/16 12:07 [facility] [id number]) Blood Glucose Assessment Blood Glucose* 125 Hypoglycemia Symptoms None Hyperglycemia Symptoms None Action Taken RN notified Document 08/14/16 05:50 [facility] (Rec: 08/14/16 05:52 [facility] [id number]) Blood Glucose Assessment Blood Glucose* 94 Hypoglycemia Symptoms None Hyperglycemia Symptoms None Action Taken rn notified Document 08/15/16 05:41 LMO (Rec: 08/15/16 05:41 LMO [id number]) Blood Glucose Assessment Blood Glucose* 117 Hypoglycemia Symptoms None Hyperglycemia Symptoms None Document 08/15/16 11:09 BEH (Rec: 08/15/16 11:10 BEH [id number]) Blood Glucose Assessment Blood Glucose* 116 Hypoglycemia Symptoms None Hyperglycemia Symptoms None Action Taken On board for RN Document 08/15/16 17:09 BEH (Rec: 08/15/16 17:11 BEH [id number]) Blood Glucose Assessment Blood Glucose* 95 Hypoglycemia Symptoms None Hyperglycemia Symptoms None Action Taken On board for RN Document 08/16/16 00:31 LMO (Rec: 08/16/16 00:37 LMO [id number]) Blood Glucose Assessment Blood Glucose* 99 Hypoglycemia Symptoms None Hyperglycemia Symptoms None Document 08/16/16 05:46 LMO (Rec: 08/16/16 05:47 LMO [id number]) Blood Glucose Assessment Blood Glucose* 103 Hypoglycemia Symptoms None Hyperglycemia Symptoms None Document 08/16/16 11:34 BEH (Rec: 08/16/16 11:34 BEH [id number]) Blood Glucose Assessment Blood Glucose* 107 Hypoglycemia Symptoms None Hyperglycemia Symptoms None Action Taken On board for RN Document 08/17/16 17:28 EG (Rec: 08/17/16 17:31 [id number] Blood Glucose Assessment Blood Glucose* 114 Hypoglycemia Symptoms None Hyperglycemia Symptoms None Action Taken Rn notified Document 08/17/16 23:44 CDP (Rec: 08/17/16 23:46 CDP [id number]) Blood Glucose Assessment Blood Glucose* 105 Hypoglycemia Symptoms None Hyperglycemia Symptoms None Action Taken RN aware. Document 08/18/16 05:23 CDP (Rec: 08/18/16 05:25 CDP [id number]) Blood Glucose Assessment Blood Glucose* 107 Hypoglycemia Symptoms None Hyperglycemia Symptoms None Action Taken RN aware. Document 08/18/16 12:11 [facility] (Rec: 08/18/16 12:21 [id number]) Blood Glucose Assessment Blood Glucose* 123 Hypoglycemia Symptoms None Hyperglycemia Symptoms None Action Taken RN notified Document 08/18/16 17:08 EG (Rec: 08/18/16 17:20 [id number] Blood Glucose Assessment Blood Glucose* 93 Hypoglycemia Symptoms None Hyperglycemia Symptoms None Action Taken RN notified Document 08/19/16 01:20 [id number] (Rec: 08/19/16 01:24 [id number]) Blood Glucose Assessment Blood Glucose* 112 Document 08/19/16 05:18 [id number] (Rec: 08/19/16 05:24 [id number]) Blood Glucose Assessment Blood Glucose* 102 Document 08/19/16 11:46 BLE (Rec: 08/19/16 11:51 BLE [id number]) Blood Glucose Assessment Blood Glucose* 150 Hypoglycemia Symptoms None Hyperglycemia Symptoms None Action Taken nurse notifited Holding Vital Signs Start: 08/12/16 13: 17 Freq: Status: Complete Document 08/12/16 13:19 CLF (Rec: 08/12/16 13:19 CLF [id number]) Holding Vital Signs Temperature (97.6 F-99.6 F) 97.3 F L Pulse Rate 95 Blood Pressure 131/78 Respiratory Rate 18 O2 Sat by Pulse Oximetry (95-100) 95 Hygiene activity Start: 08/11/16 20: 38 Freq: .PRN Status: Discharge Document 08/12/16 08:42 BELKIS (Rec: 08/12/16 08:42 BELKIS [id number]) Hygiene Bath Type Postpone Until Later 08/12/16 08:42 Nurse Note by Harper Leavitt I asked the PT. if he wanted to take s shower this morning, he stated not right now he is in too much pain. Initialized on 08/12/16 08:42 - END OF NOTE Document 08/12/16 10:50 BELKIS (Rec: 08/12/16 10:51 BELKIS [id number]) Hygiene Bath Type Postpone Until Later Linen Change Complete Document 08/13/16 15:36 [facility] (Rec: 08/13/16 15:39 [facility] [id number]) Hygiene Bath Type Shower Bathing Ability Independent [place]arro Care Completed By N/A Shandra Kahn Complete Oral Care Assist Independent Other Hygiene Hair Washed Document 08/15/16 11:57 [facility] (Rec: 08/15/16 11:57 BEH [id number]) Hygiene Bath Type Full Bed Bath Bathing Ability 2 Person Assist Document 08/17/16 08:05 [facility] (Rec: 08/17/16 08:06 [facility] [id number]) Hygiene Bath Type Refused 08/17/16 08:05 Nurse Note by Eduarda Paz Patient states "The way i feel right now i don't wanna get up to do anything today." after this HARD CANDY BATCH MIXER asked if he would like to get cleaned up later on. Initialized on 08/17/16 08:05 - END OF NOTE Document 08/17/16 15:25 [facility] (Rec: 08/17/16 15:26 [facility] [id number]) Hygiene Bath Type Refused Document 08/18/16 03:43 CDP (Rec: 08/18/16 03:43 CDP [id number]) Hygiene Bath Type Refused 08/18/16 03:43 Nurse Note by Mark Fischer Patient declines bathing at this time, states he "is not feeling well." Initialized on 08/18/16 03:43 - END OF NOTE Document 08/18/16 22:02 [id number] (Rec: 08/18/16 22:03 [id number]) Hygiene Bath Type Refused Navarro Care Completed By N/A Linen Change Complete IV-Invasive Line Management Start: 08/11/16 20: 38 Freq: Q4H Status: Discharge Document 08/11/16 21:00 [id number] (Rec: 08/12/16 01:07 [id number]) IV/Invasive Line Assessment Right Wrist Reason for Line Insertion/Rationale for Replace Lost Fluids Insertion Provide Access for IV Medication(s) Provide Access for Emergency Gauge (gauge) 20 IV Catheter Type Peripheral IV Site Observation [employer] [place] Site Observation Intervention Inspected Line Dressing Applied Transparent Dressing Dry/Intact Line Care Saline Flush Labs drawn from Line* No Document 08/12/16 04:24 [id number] (Rec: 08/12/16 04:26 [id number]) IV/Invasive Line Assessment Right Wrist Reason for Line Insertion/Rationale for Replace Lost Fluids Insertion Provide Access for IV Medication(s) Provide Access for Emergency Gauge (gauge) 20 IV Catheter Type Peripheral IV Site Observation Patent [place] Site Observation Intervention Inspected Line Dressing Applied Transparent Dressing Dry/Intact Line Care Saline Flush Labs drawn from Line* No Document 08/12/16 08:05 MED (Rec: 08/12/16 17:18 MED [id number]) IV/Invasive Line Assessment Right Wrist Reason for Line Insertion/Rationale for Replace Lost Fluids Insertion Provide Access for IV Medication(s) Provide Access for Emergency Gauge (gauge) 20 IV Catheter Type Peripheral IV Site Observation Patent [place] Site Observation Intervention Inspected Line Dressing Applied Transparent Dressing Dry/Intact Line Care Saline Flush Labs drawn from Line* No Document 08/12/16 16:10 MED (Rec: 08/12/16 18:53 MED [id number]) IV/Invasive Line Assessment Right Wrist Reason for Line Insertion/Rationale for Replace Lost Fluids Insertion Provide Access for IV Medication(s) Provide Access for Emergency Gauge (gauge) 20 IV Catheter Type Peripheral IV Site Observation [place] Site Observation Intervention Inspected Line Dressing Applied Transparent Dressing Dry/Intact Line Care Saline Flush Labs drawn from Line* No Document 08/12/16 20:06 JDF (Rec: 08/13/16 01:19 JDF [id number]) IV/Invasive Line Assessment Left Wrist Reason for Line Insertion/Rationale for Provide Access for IV Insertion Medication(s) Provide Access for Emergency Gauge (gauge) 22 IV Catheter Type Peripheral IV Line Care Saline Flush Cap(s) Changed Right Wrist Reason for Line Insertion/Rationale for Replace Lost Fluids Insertion Maintain Electrolyte Balance Provide Access for IV Medication(s) Provide Access for Emergency Gauge (gauge) 20 IV Catheter Type Peripheral IV Site Observation [employer] [place] Site Observation Intervention Inspected Line Dressing Applied Transparent Dressing Dry/Intact Line Care Saline Flush Labs drawn from Line* No Document 08/13/16 00:10 JDF (Rec: 08/13/16 02:33 JDF [id number]) IV/Invasive Line Assessment Left Wrist Reason for Line Insertion/Rationale for Provide Access for IV Insertion Medication(s) Provide Access for Emergency Gauge (gauge) 22 IV Catheter Type Peripheral IV Line Care Cap(s) Changed Right Wrist Reason for Line Insertion/Rationale for Replace Lost Fluids Insertion Maintain Electrolyte Balance Provide Access for IV Medication(s) Provide Access for Emergency Gauge (gauge) 20 IV Catheter Type Peripheral IV Site Observation [place] Site Observation Intervention Inspected Line Dressing Applied Transparent Dressing Dry/Intact Line Care Saline Flush Labs drawn from Line* No Document 08/13/16 03:41 JDF (Rec: 08/13/16 03:43 JDF [id number]) IV/Invasive Line Assessment Left Wrist Reason for Line Insertion/Rationale for Provide Access for IV Insertion Medication(s) Provide Access for Emergency Gauge (gauge) 22 IV Catheter Type Peripheral IV Line Care Cap(s) Changed Right Wrist Reason for Line Insertion/Rationale for Replace Lost Fluids Insertion Maintain Electrolyte Balance Provide Access for IV Medication(s) Provide Access for Emergency Gauge (gauge) 20 IV Catheter Type Peripheral IV Site Observation [place] Site Observation Intervention Inspected Line Dressing Applied Transparent Dressing Dry/Intact Line Care Saline Flush Labs drawn from Line* No Document 08/13/16 08:57 JL (Rec: 08/13/16 09:07 [id number]) IV/Invasive Line Assessment Left Wrist Reason for Line Insertion/Rationale for Provide Access for IV Insertion Medication(s) Provide Access for Emergency Gauge (gauge) 22 IV Catheter Type Peripheral IV Site Observation [place] Site Observation Intervention Inspected Line Dressing Applied Transparent Dressing Dry/Intact Right Wrist Reason for Line Insertion/Rationale for Replace Lost Fluids Insertion Maintain Electrolyte Balance Provide Access for IV Medication(s) Provide Access for Emergency Gauge (gauge) 20 IV Catheter Type Peripheral IV Site Observation [place] Site Observation Intervention Inspected Line Dressing Applied Transparent Dressing Dry/Intact Document 08/13/16 12:37 [facility] (Rec: 08/13/16 12:41 [id number]) IV/Invasive Line Assessment Left Wrist Reason for Line Insertion/Rationale for Replace Lost Fluids Insertion Maintain Electrolyte Balance Provide Access for IV Medication(s) Provide Access for Emergency Gauge (gauge) 22 IV Catheter Type Peripheral IV Site Observation Intervention Inspected Line Dressing Applied Transparent Dressing Dry/Intact Line Care Saline Flush P-Locked Right Wrist Reason for Line Insertion/Rationale for Replace Lost Fluids Insertion Maintain Electrolyte Balance Provide Access for IV Medication(s) Provide Access for Emergency Gauge (gauge) 20 IV Catheter Type Peripheral IV Site Observation [place] Site Observation Intervention Inspected Line Dressing Applied Transparent Dressing Dry/Intact Labs drawn from Line* No Document 08/13/16 15:05 JL (Rec: 08/13/16 15:06 [id number] IV/[facility]vasive Line Assessment Left Wrist Reason for Line Insertion/Rationale for Provide Access for IV Insertion Medication(s) Provide Access for Emergency Gauge (gauge) 22 IV Catheter Type Peripheral IV Site Observation Intervention Inspected Line Dressing Applied Transparent Dressing Dry/Intact Right Wrist Reason for Line Insertion/Rationale for Replace Lost Fluids Insertion Maintain Electrolyte Balance Provide Access for IV Medication(s) Provide Access for Emergency Gauge (gauge) 20 IV Catheter Type Peripheral IV Site Observation Intervention Inspected Line Dressing Applied Transparent Dressing Dry/Intact Document 08/13/16 20:59 [id number] (Rec: 08/13/16 21:00 [id number]) IV/Invasive Line Assessment Left Wrist Reason for Line Insertion/Rationale for Provide Access for IV Insertion Medication(s) Provide Access for Emergency Gauge (gauge) 22 IV Catheter Type Peripheral IV Site Observation Intervention Inspected Line Dressing Applied Transparent Dressing Dry/Intact Right Wrist Reason for Line Insertion/Rationale for Replace Lost Fluids Insertion Maintain Electrolyte Balance Provide Access for IV Medication(s) Provide Access for Emergency Gauge (gauge) 20 IV Catheter Type Peripheral IV Site Observation Intervention Inspected Line Dressing Applied Transparent Dressing Dry/Intact Labs drawn from Line* No Document 08/14/16 01:46 [id number] (Rec: 08/14/16 01:46 [id number]) IV/Invasive Line Assessment Left Wrist Reason for Line Insertion/Rationale for Provide Access for IV Insertion Medication(s) Provide Access for Emergency Gauge (gauge) 22 IV Catheter Type Peripheral IV Site Observation Intervention Inspected Line Dressing Applied Transparent Dressing Dry/Intact Right Wrist Reason for Line Insertion/Rationale for Replace Lost Fluids Insertion Maintain Electrolyte Balance Provide Access for IV Medication(s) Provide Access for Emergency Gauge (gauge) 20 IV Catheter Type Peripheral IV Site Observation Intervention Inspected Line Dressing Applied Transparent Dressing Dry/Intact Labs drawn from Line* No Document 08/14/16 09:00 HL (Rec: 08/14/16 09:11 [id number]) IV/Invasive Line Assessment Left Wrist Reason for Line Insertion/Rationale for Provide Access for IV Insertion Medication(s) Provide Access for Emergency Gauge (gauge) 22 IV Catheter Type Peripheral IV Site Observation Patent Site Observation Intervention Inspected Line Dressing Applied Transparent Dressing Dry/Intact Right Wrist Reason for Line Insertion/Rationale for Replace Lost Fluids Insertion Provide Access for IV Medication(s) Provide Access for Emergency Gauge (gauge) 20 IV Catheter Type Peripheral IV Site Observation Patent Site Observation Intervention Inspected Line Dressing Applied Transparent Dressing Dry/Intact Labs drawn from Line* No Document 08/14/16 12:51 [facility] (Rec: 08/14/16 12:52 [id number]) IV/Invasive Line Assessment Left Wrist Reason for Line Insertion/Rationale for Provide Access for IV Insertion Medication(s) Gauge (gauge) 22 IV Catheter Type Peripheral IV Site Observation Patent Site Observation Intervention Inspected Line Dressing Applied Transparent Dressing Dry/Intact Line Care Saline Flush Right Wrist Reason for Line Insertion/Rationale for Replace Lost Fluids Insertion Provide Access for IV Medication(s) Provide Access for Emergency Gauge (gauge) 20 IV Catheter Type Peripheral IV Site Observation Patent Site Observation Intervention Inspected Line Dressing Applied Transparent Dressing Dry/Intact Labs drawn from Line* No Document 08/14/16 19:47 JLM (Rec: 08/14/16 20:02 JLM [id number]) IV/Invasive Line Assessment Left Wrist Reason for Line Insertion/Rationale for Provide Access for Emergency Insertion Gauge (gauge) 22 IV Catheter Type Peripheral IV Site Observation [place] Site Observation Intervention Inspected Line Dressing Applied Transparent Dressing Dry/Intact Line Care Saline Flush P-Locked Right Wrist Reason for Line Insertion/Rationale for Replace Lost Fluids Insertion Maintain Electrolyte Balance Provide Access for IV Medication(s) Provide Access for Emergency Gauge (gauge) 20 IV Catheter Type Peripheral IV Site Observation [place] Site Observation Intervention Tip Sent for Culture Dressing Applied Transparent Dressing Dry/Intact Document 08/15/16 00:45 JLM (Rec: 08/15/16 00:46 JLM [id number]) IV/Invasive Line Assessment Left Wrist Reason for Line Insertion/Rationale for Provide Access for IV Insertion Medication(s) Provide Access for Emergency Gauge (gauge) 22 IV Catheter Type Peripheral IV Site Observation [place] Site Observation Intervention Inspected Line Dressing Applied Transparent Dressing Dry/Intact Right Wrist Reason for Line Insertion/Rationale for Replace Lost Fluids Insertion Maintain Electrolyte Balance Provide Access for IV Medication(s) Provide Access for Emergency Gauge (gauge) 20 IV Catheter Type Peripheral IV Site Observation [place] Site Observation Intervention Inspected Line Dressing Applied Transparent Dressing Dry/Intact Document 08/15/16 04:16 JL (Rec: 08/15/16 04:28 [id number] IV/Invasive Line Assessment Left Wrist Reason for Line Insertion/Rationale for Provide Access for IV Insertion Medication(s) Provide Access for Emergency Gauge (gauge) 22 IV Catheter Type Peripheral IV Site Observation [place] Site Observation Intervention Inspected Line Dressing Applied Transparent Dressing Dry/Intact Right Wrist Reason for Line Insertion/Rationale for Replace Lost Fluids Insertion Maintain Electrolyte Balance Provide Access for IV Medication(s) Provide Access for Emergency Gauge (gauge) 20 IV Catheter Type Peripheral IV Site Observation [place] Site Observation Intervention Inspected Line Dressing Applied Transparent Dressing Dry/Intact Document 08/15/16 07:00 GERTRUDE (Rec: 08/15/16 19:13 GERTRUDE [id number]) IV/Invasive Line Assessment Left Wrist Reason for Line Insertion/Rationale for Provide Access for IV Insertion Medication(s) Provide Access for Emergency Gauge (gauge) 22 IV Catheter Type Peripheral IV Site Observation [place] Site Observation Intervention Inspected Line Dressing Applied Transparent Dressing Dry/Intact Right Wrist Reason for Line Insertion/Rationale for Replace Lost Fluids Insertion Maintain Electrolyte Balance Provide Access for IV Medication(s) Provide Access for Emergency Gauge (gauge) 20 IV Catheter Type Peripheral IV Site Observation [place] Site Observation Intervention Inspected Line Dressing Applied Transparent Dressing Dry/Intact Labs drawn from Line* No Document 08/15/16 11:26 GERTRUDE (Rec: 08/15/16 19:18 GERTRUDE [id number]) IV/Invasive Line Assessment Left Wrist Reason for Line Insertion/Rationale for Provide Access for IV Insertion Medication(s) Provide Access for Emergency Gauge (gauge) 22 IV Catheter Type Peripheral IV Site Observation [place] Site Observation Intervention Inspected Line Dressing Applied Transparent Dressing Dry/Intact Right Wrist Reason for Line Insertion/Rationale for Replace Lost Fluids Insertion Maintain Electrolyte Balance Provide Access for IV Medication(s) Provide Access for Emergency Gauge (gauge) 20 IV Catheter Type Peripheral IV Site Observation [place] Site Observation Intervention Inspected Line Dressing Applied Transparent Dressing Dry/Intact Labs drawn from Line* No Document 08/15/16 16:55 GERTRUDE (Rec: 08/15/16 19:22 GERTRUDE [id number]) IV/Invasive Line Assessment Left Wrist Reason for Line Insertion/Rationale for Provide Access for IV Insertion Medication(s) Provide Access for Emergency Gauge (gauge) 22 IV Catheter Type Peripheral IV Site Observation [place] Site Observation Intervention Inspected Line Dressing Applied Transparent Dressing Dry/Intact Right Wrist Reason for Line Insertion/Rationale for Replace Lost Fluids Insertion Maintain Electrolyte Balance Provide Access for IV Medication(s) Provide Access for Emergency Gauge (gauge) 20 IV Catheter Type Peripheral IV Site Observation [place] Site Observation Intervention Inspected Line Dressing Applied Transparent Dressing Dry/Intact Document 08/15/16 19:51 JRA (Rec: 08/15/16 19:58 JRA [id number]) IV/Invasive Line Assessment Left Wrist Reason for Line Insertion/Rationale for Provide Access for IV Insertion Medication(s) Provide Access for Emergency Gauge (gauge) 22 IV Catheter Type Peripheral IV Site Observation [place] Site Observation Intervention Inspected Line Dressing Applied Transparent Dressing Dry/Intact Right Wrist Reason for Line Insertion/Rationale for Replace Lost Fluids Insertion Maintain Electrolyte Balance Provide Access for IV Medication(s) Provide Access for Emergency Gauge (gauge) 20 IV Catheter Type Peripheral IV Site Observation [place] Site Observation Intervention Inspected Line Dressing Applied Transparent Dressing Dry/Intact Labs drawn from Line* No Document 08/15/16 23:17 JRA (Rec: 08/15/16 23:17 JRA [id number]) IV/Invasive Line Assessment Left Wrist Reason for Line Insertion/Rationale for Provide Access for IV Insertion Medication(s) Provide Access for Emergency Gauge (gauge) 22 IV Catheter Type Peripheral IV Site Observation [place] Site Observation Intervention Inspected Line Dressing Applied Transparent Dressing Dry/Intact Right Wrist Reason for Line Insertion/Rationale for Replace Lost Fluids Insertion Maintain Electrolyte Balance Provide Access for IV Medication(s) Provide Access for Emergency Gauge (gauge) 20 IV Catheter Type Peripheral IV Site Observation [place] Site Observation Intervention Inspected Line Dressing Applied Transparent Dressing Dry/Intact Labs drawn from Line* No Document 08/16/16 04:30 JRA (Rec: 08/16/16 06:09 JRA [id number]) IV/Invasive Line Assessment Left Wrist Reason for Line Insertion/Rationale for Provide Access for IV Insertion Medication(s) Provide Access for Emergency Gauge (gauge) 22 IV Catheter Type Peripheral IV Site Observation [place] Site Observation Intervention Inspected Line Dressing Applied Transparent Dressing Dry/Intact Right Wrist Reason for Line Insertion/Rationale for Replace Lost Fluids Insertion Maintain Electrolyte Balance Provide Access for IV Medication(s) Provide Access for Emergency Gauge (gauge) 20 IV Catheter Type Peripheral IV Site Observation [place] Site Observation Intervention Inspected Line Dressing Applied Transparent Dressing Dry/Intact Labs drawn from Line* No Document 08/16/16 07:00 MMR (Rec: 08/16/16 07:47 MMR [id number]) IV/Invasive Line Assessment Left Wrist Reason for Line Insertion/Rationale for Provide Access for IV Insertion Medication(s) Provide Access for Emergency IV Catheter Type Peripheral IV Site Observation [place] Site Observation Intervention Inspected Line Dressing Applied Transparent Dressing Dry/Intact Right Wrist Reason for Line Insertion/Rationale for Replace Lost Fluids Insertion Provide Access for IV Medication(s) Provide Access for Emergency IV Catheter Type Peripheral IV Site Observation [place] Site Observation Intervention Inspected Line Dressing Applied Transparent Dressing Dry/Intact Labs drawn from Line* No Document 08/16/16 11:00 MMR (Rec: 08/16/16 11:18 MMR [id number]) IV/Invasive Line Assessment Left Wrist Reason for Line Insertion/Rationale for Provide Access for IV Insertion Medication(s) Provide Access for Emergency IV Catheter Type Peripheral IV Site Observation [place] Site Observation Intervention Inspected Line Dressing Applied Window Dressing Dry/Intact Line Care Saline Flush Right Wrist Reason for Line Insertion/Rationale for Provide Access for IV Insertion Medication(s) Provide Access for Emergency IV Catheter Type Peripheral IV Site Observation [place] Dressing Applied Transparent Dressing Dry/Intact Line Care Saline Flush Labs drawn from Line* No Document 08/16/16 15:10 MMR (Rec: 08/16/16 15:42 MMR [id number]) IV/Invasive Line Assessment Left Wrist Reason for Line Insertion/Rationale for Replace Lost Fluids Insertion Provide Access for IV Medication(s) Provide Access for Emergency IV Catheter Type Peripheral IV Site Observation [place] Site Observation Intervention Inspected Line Dressing Applied Transparent Dressing Dry/Intact Line Care Saline Flush Right Wrist IV Catheter Type Peripheral IV Site Observation [place] Site Observation Intervention Inspected Line Dressing Applied Transparent Dressing Dry/Intact Line Care Saline Flush Labs drawn from Line* No Document 08/16/16 22:01 CBT (Rec: 08/16/16 22:02 CBT [id number]) IV/Invasive Line Assessment Left Wrist Reason for Line Insertion/Rationale for Replace Lost Fluids Insertion Provide Access for IV Medication(s) Provide Access for Emergency IV Catheter Type Peripheral IV Site Observation [place] Site Observation Intervention Inspected Line Dressing Applied Transparent Dressing Dry/Intact Line Care Saline Flush Right Wrist Reason for Line Insertion/Rationale for Replace Lost Fluids Insertion Maintain Electrolyte Balance Provide Access for IV Medication(s) IV Catheter Type Peripheral IV Site Observation [place] Site Observation Intervention Inspected Line Dressing Applied Transparent Dressing Dry/Intact Line Care Saline Flush P-Locked Labs drawn from Line* No Document 08/17/16 00:02 CBT (Rec: 08/17/16 00:02 CBT [id number]) IV/Invasive Line Assessment Left Wrist Reason for Line Insertion/Rationale for Replace Lost Fluids Insertion Provide Access for IV Medication(s) Provide Access for Emergency IV Catheter Type Peripheral IV Site Observation [place] Site Observation Intervention Inspected Line Dressing Applied Transparent Dressing Dry/Intact Line Care Saline Flush Right Wrist Reason for Line Insertion/Rationale for Replace Lost Fluids Insertion Maintain Electrolyte Balance Provide Access for IV Medication(s) IV Catheter Type Peripheral IV Site Observation [place] Site Observation Intervention Inspected Line Dressing Applied Transparent Dressing Dry/Intact Line Care Saline Flush P-Locked Labs drawn from Line* No Document 08/17/16 05:22 CBT (Rec: 08/17/16 05:22 CBT [id number]) IV/Invasive Line Assessment Left Wrist Reason for Line Insertion/Rationale for Replace Lost Fluids Insertion Provide Access for IV Medication(s) Provide Access for Emergency IV Catheter Type Peripheral IV Site Observation [place] Site Observation Intervention Inspected Line Dressing Applied Transparent Dressing Dry/Intact Line Care Saline Flush Right Wrist Reason for Line Insertion/Rationale for Replace Lost Fluids Insertion Maintain Electrolyte Balance Provide Access for IV Medication(s) IV Catheter Type Peripheral IV Site Observation [place] Site Observation Intervention Inspected Line Dressing Applied Transparent Dressing Dry/Intact Line Care Saline Flush P-Locked Labs drawn from Line* No Document 08/17/16 07:45 KJP (Rec: 08/17/16 07:58 KJP [id number]) IV/Invasive Line Assessment Left Wrist Reason for Line Insertion/Rationale for Replace Lost Fluids Insertion Provide Access for IV Medication(s) Provide Access for Emergency IV Catheter Type Peripheral IV Site Observation [place] Site Observation Intervention Inspected Line Dressing Applied Transparent Dressing Dry/Intact Line Care Saline Flush Right Wrist Reason for Line Insertion/Rationale for Replace Lost Fluids Insertion Maintain Electrolyte Balance Provide Access for IV Medication(s) IV Catheter Type Peripheral IV Site Observation [place] Site Observation Intervention Inspected Line Dressing Applied Transparent Dressing Dry/Intact Line Care Saline Flush P-Locked Labs drawn from Line* No Document 08/17/16 15:15 KJ (Rec: 08/17/16 17:07 [id number]) IV/Invasive Line Assessment Left Wrist Reason for Line Insertion/Rationale for Replace Lost Fluids Insertion Provide Access for IV Medication(s) Provide Access for Emergency IV Catheter Type Peripheral IV Site Observation [place] Site Observation Intervention Inspected Line Dressing Applied Transparent Dressing Dry/Intact Line Care Saline Flush Right Wrist Reason for Line Insertion/Rationale for Replace Lost Fluids Insertion Maintain Electrolyte Balance Provide Access for IV Medication(s) IV Catheter Type Peripheral IV Site Observation [place] Site Observation Intervention Inspected Line Dressing Applied Transparent Dressing Dry/Intact Line Care Saline Flush P-Locked Labs drawn from Line* No Document 08/17/16 22:18 [facility] (Rec: 08/17/16 22:51 [id number]) IV/Invasive Line Assessment Left Wrist Reason for Line Insertion/Rationale for Replace Lost Fluids Insertion Provide Access for IV Medication(s) Provide Access for Emergency Gauge (gauge) 22 IV Catheter Type Peripheral IV Site Observation Intervention Inspected Line Line Care P-Locked Line Complications Catheter Migrated Right Wrist Reason for Line Insertion/Rationale for Provide Access for IV Insertion Medication(s) Provide Access for Blood Provide Access for Emergency Gauge (gauge) 20 IV Catheter Type Peripheral IV Site Observation [place] Site Observation Intervention Pain Medication Administered Inspected Line Dressing Applied Transparent Dressing Dry/Intact Line Care Saline Flush P-Locked Date IV Line Discontinued 08/17/16 IV Line Removal Patient Tolerance Tolerated Well IV removed/ tip intact Education Completed Expresses Understanding Labs drawn from Line* No Document 08/18/16 01:15 [facility] (Rec: 08/18/16 01:16 [id number]) IV/Invasive Line Assessment Right Wrist Reason for Line Insertion/Rationale for Provide Access for IV Insertion Medication(s) Provide Access for Blood Provide Access for Emergency Gauge (gauge) 20 IV Catheter Type Peripheral IV Site Observation [place] Site Observation Intervention Inspected Line Dressing Applied Window Dressing Dry/Intact Line Care P-Locked Labs drawn from Line* No Document 08/18/16 04:11 [facility] (Rec: 08/18/16 04:16 [id number]) IV/Invasive Line Assessment Right Wrist Reason for Line Insertion/Rationale for Provide Access for IV Insertion Medication(s) Provide Access for Blood Provide Access for Emergency Gauge (gauge) 20 IV Catheter Type Peripheral IV Site Observation [place] Site Observation Intervention Pain Medication Administered Inspected Line Dressing Applied Window Dressing Dry/Intact Line Care Saline Flush P-Locked Labs drawn from Line* No Document 08/18/16 08:45 KJP (Rec: 08/18/16 09:01 KJP [id number]) IV/Invasive Line Assessment Right Wrist Reason for Line Insertion/Rationale for Provide Access for IV Insertion Medication(s) Provide Access for Blood Provide Access for Emergency Gauge (gauge) 20 IV Catheter Type Peripheral IV Site Observation [place] Site Observation Intervention Pain Medication Administered Inspected Line Dressing Applied Window Dressing Dry/Intact Line Care Saline Flush P-Locked Date IV Line Discontinued 08/17/16 IV Line Removal Patient Tolerance Tolerated Well IV removed/ tip intact Education Completed Expresses Understanding Labs drawn from Line* No Document 08/18/16 15:52 KJP (Rec: 08/18/16 15:56 KJP [id number]) IV/Invasive Line Assessment Right Wrist Reason for Line Insertion/Rationale for Provide Access for IV Insertion Medication(s) Provide Access for Blood Provide Access for Emergency Gauge (gauge) 20 IV Catheter Type Peripheral IV Site Observation [place] Site Observation Intervention Pain Medication Administered Inspected Line Dressing Applied Window Dressing Dry/Intact Line Care Saline Flush P-Locked Labs drawn from Line* No Document 08/18/16 20:25 CNH (Rec: 08/18/16 20:34 CNH [id number]) IV/Invasive Line Assessment Right Wrist Reason for Line Insertion/Rationale for Provide Access for IV Insertion Medication(s) Provide Access for Blood Provide Access for Emergency Gauge (gauge) 20 IV Catheter Type Peripheral IV Site Observation [place] Site Observation Intervention Inspected Line Dressing Applied Window Dressing Dry/Intact Line Care Saline Flush P-Locked Labs drawn from Line* No Document 08/19/16 01:00 MMR (Rec: 08/19/16 13:24 MMR [id number]) IV/Invasive Line Assessment Right Wrist Reason for Line Insertion/Rationale for Replace Lost Fluids Insertion Maintain Electrolyte Balance Provide Access for IV Medication(s) Provide Access for Emergency IV Catheter Type Peripheral IV Site Observation [place] Site Observation Intervention Inspected Line Dressing Applied Transparent Dressing Dry/Intact Line Care Saline Flush P-Locked Labs drawn from Line* No Document 08/19/16 00:18 CNH (Rec: 08/19/16 01:35 CNH [id number]) IV/Invasive Line Assessment Right Wrist Reason for Line Insertion/Rationale for Provide Access for IV Insertion Medication(s) Provide Access for Blood Provide Access for Emergency Gauge (gauge) 20 IV Catheter Type Peripheral IV Site Observation [place] Site Observation Intervention Inspected Line Dressing Applied Window Dressing Dry/Intact Line Care P-Locked Labs drawn from Line* No Document 08/19/16 05:15 CN (Rec: 08/19/16 05:32 [id number]) IV/Invasive Line Assessment Right Wrist Reason for Line Insertion/Rationale for Provide Access for IV Insertion Medication(s) Provide Access for Blood Provide Access for Emergency Gauge (gauge) 20 IV Catheter Type Peripheral IV Site Observation [place] Site Observation Intervention Pain Medication Administered Inspected Line Dressing Applied Window Dressing Dry/Intact Line Care Saline Flush P-Locked Labs drawn from Line* No Document 08/19/16 07:00 MMR (Rec: 08/19/16 09:14 MMR [id number]) IV/Invasive Line Assessment Right Wrist Reason for Line Insertion/Rationale for Replace Lost Fluids Insertion Maintain Electrolyte Balance Provide Access for IV Medication(s) Provide Access for Emergency IV Catheter Type Peripheral IV Site Observation [place] Site Observation Intervention Inspected Line Dressing Applied Transparent Dressing Dry/Intact Line Care Saline Flush P-Locked Labs drawn from Line* No Document 08/19/16 11:00 MMR (Rec: 08/19/16 11:21 MMR [id number]) IV/Invasive Line Assessment Right Wrist Reason for Line Insertion/Rationale for Replace Lost Fluids Insertion Maintain Electrolyte Balance Provide Access for IV Medication(s) Provide Access for Emergency IV Catheter Type Peripheral IV Site Observation [place] Site Observation Intervention Inspected Line Dressing Applied Transparent Dressing Dry/Intact Line Care Saline Flush P-Locked Labs drawn from Line* No Document 08/19/16 13:25 MMR (Rec: 08/19/16 13:25 MMR [id number]) IV/Invasive Line Assessment IV Line Removal Patient Tolerance Tolerated Well Sterile Dressing Applied IV removed/ tip intact Bleeding Controlled Education Completed Expresses Understanding Initial Patient Assessment Start: 08/11/16 20: 38 Freq: .ONCE Status: Complete Document 08/11/16 22:59 [id number] (Rec: 08/11/16 23:16 [id number]) General Questions Date of Arrival on Unit 08/11/16 Time of Arrival on Unit 20:10 Admitted From Emergency Dept Chief Complaint abdominal pain Onset of Chief Complaint 08/09/16 History Provided By Patient Orientation To Call Light Bed Phone TV Bathroom Smoking Policy Visiting Hours Procedures ID Bracelet On Emergency Contact Name Negin Antunez Relationship to Patient Emergency Contact Bands applied ID band Patient Health Portal Patient was provided information on Yes accessing patient portal Patient Requests Portal Enrollment No Reason No Portal Enrollment Patient Declines Malnutrition Screening Tool (MST) Have You Recently Lost Weight Without No Trying Advance Directives Advance Directives No Advance Directives Information Provided Yes Advance Directives on File No Patient Rights Copy of Rights Given and Verbalizes Yes Understanding Tobacco Free [place]: Copy of AHS Yes Statement Given and Patient Verbalizes Understanding Communication Ability Primary Language Welsh Preferred Language Welsh Canvas Cutter Machine Required No Ability to Follow Directions Good Able to Read Yes Able to Write Yes Communication Tools None Learning Preferences One-on-One Instruction Hearing Ability Use of Hearing Aid Visual Assistive Devices Glasses Pain Assessment Do You Have Any Ongoing (Chronic) Pain Yes: lower back/ neck Problems What treatment or medications are you hydrocodone receiving for pain management Educated on Pain Scale Yes Past Medical History Medical history aortic aneurysm arthritis atrial fibrillation coronary artery disease CVA diabetes GERD hyperlipidemia hypertension myocardial infarction TIA other Male Surgical History angioplasty/stent other Psychiatric history anxiety depression other Smoking Status Former smoker Smokeless Tobacco Status No Alcohol use none Drug use none Occupational status retired Current living situation With Family Activity level Independent ambulation Mostly sedentary Recent Out of Country Travel Within the No Last 8 Weeks Exposure or Possible Exposure to Illness No During Travel Family History-Meaningful Use Father History Unknown Yes [place]opted [place] Race Ethnicity Non- Living Status Cause of cardiac Hx Family Cardiac Disorders Yes Psychosocial Over Age 75 and Lives Alone or Over Age Yes 80 Potential Need for Follow-up Care (ECF, No Home Health, ECT) Developmentally Disabled or History of No Mental Health 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 Need or No Terminal Implications Responsible for Care of Others No Financial Concerns No Suspected Abuse or Neglect No Suicidal or Homicidal Ideation No Social Service Consult Needed No Functional Assessment Employment Status Retired Eating (Feeding) Ability Independent Bathing Ability Independent Upper Body Dressing Ability Independent Lower Body Dressing Ability Independent Ambulation Ability Independent Toileting Ability Independent Bladder Continent Bowel Continent Normal Bowel Pattern Daily Date of Last Known Bowel Movement 08/11/16 Intake and Output, Strict Start: 08/11/16 20: 38 Freq: Q8H Status: Discharge Document 08/11/16 21:00 LMO (Rec: 08/11/16 21:07 LMO [id number]) Intake and Output Intake, Oral Amount 0 Output, Urine Amount 0 Document 08/12/16 01:12 LMO (Rec: 08/12/16 01:19 LMO [id number]) Intake and Output Intake, Oral Amount 0 Output, Urine Amount 0 Document 08/12/16 07:35 BELKIS (Rec: 08/12/16 07:37 BELKIS [id number]) Intake and Output Output, Urine Amount 325 Urine Color Light Anne Marie Tea Colored Number of Bowel Movements 0 Document 08/12/16 09:00 JMW (Rec: 08/12/16 09:12 JMW [id number]) Intake and Output Meal NPO breakfast Oral Supplements* None Document 08/12/16 10:50 BELKIS (Rec: 08/12/16 10:50 BELKIS [id number]) Intake and Output Output, Urine Amount 0 Document 08/12/16 13:07 BELKIS (Rec: 08/12/16 13:07 BELKIS [id number]) Intake and Output Intake, Oral Amount 0 Meal NPO Percent of Meal Consumed 0% Oral Supplements* None Document 08/12/16 16:10 MED (Rec: 08/12/16 18:53 MED [id number]) Intake and Output Intake, Oral Amount 0 Document 08/12/16 17:28 BELKIS (Rec: 08/12/16 17:28 BELKIS [id number]) Intake and Output Intake, Oral Amount 0 Meal NPO Percent of Meal Consumed 0% Oral Supplements* None Document 08/13/16 08:05 EGH (Rec: 08/13/16 08:09 EGH [id number]) Intake and Output Intake, Oral Amount 0 Output, Urine Amount 0 Document 08/13/16 11:54 EGH (Rec: 08/13/16 12:07 EGH [id number]) Intake and Output Intake, Oral Amount 0 Number of Voids 1 Document 08/13/16 15:36 EGH (Rec: 08/13/16 15:39 EGH [id number]) Intake and Output Intake, Oral Amount 300 Number of Voids 0 Document 08/13/16 20:05 TMC (Rec: 08/13/16 20:15 TMC [id number]) Intake and Output Intake, Oral Amount 120 Output, Urine Amount 350 Urine Color Yellow Brown Document 08/14/16 00:30 TMC (Rec: 08/14/16 00:36 TMC [id number]) Intake and Output Intake, Oral Amount 0 Output, Urine Amount 150 Urine Color Dark Anne Marie Document 08/14/16 04:21 TMC (Rec: 08/14/16 04:23 TMC [id number]) Intake and Output Intake, Oral Amount 0 Output, Urine Amount 0 Document 08/14/16 05:50 TMC (Rec: 08/14/16 05:52 TMC [id number]) Intake and Output Intake, Oral Amount 0 Output, Urine Amount 300 Urine Color Dark Anne Marie Document 08/14/16 07:25 LEB (Rec: 08/14/16 07:28 LEB [id number]) Intake and Output Output, Urine Amount 0 Document 08/14/16 10:00 LEB (Rec: 08/14/16 12:21 LEB [id number]) Intake and Output Output, Urine Amount 250 Urine Color Dark Anne Marie Document 08/14/16 13:52 [id number] (Rec: 08/14/16 13:52 [id number]) Intake and Output Intake, Oral Amount 360 Meal Lunch Percent of Meal Consumed 75% Oral Supplements* None Document 08/14/16 18:21 [id number] (Rec: 08/14/16 18:22 [id number] [id number]) Intake and Output Intake, Oral Amount 240 Meal Dinner Oral Supplements* None Document 08/14/16 18:54 LEB (Rec: 08/14/16 18:54 LEB [id number]) Intake and Output Intake, Oral Amount 120 Meal Lunch Percent of Meal Consumed 75% Oral Supplements* None Document 08/14/16 19:35 LMO (Rec: 08/14/16 19:49 LMO [id number]) Intake and Output Intake, Oral Amount 0 Output, Urine Amount 200 Urine Color Dark Anne Marie Document 08/14/16 21:52 LMO (Rec: 08/14/16 21:54 LMO [id number]) Intake and Output Intake, Oral Amount 0 Output, Urine Amount 150 Urine Color Dark Anne Marie Tea Colored Document 08/15/16 01:44 LMO (Rec: 08/15/16 01:45 LMO [id number]) Intake and Output Intake, Oral Amount 0 Output, Urine Amount 300 Urine Color Straw Document 08/15/16 04:31 LMO (Rec: 08/15/16 04:38 LMO [id number]) Intake and Output Intake, Oral Amount 0 Output, Urine Amount 1,050 Urine Color Bright Yellow Document 08/15/16 06:59 BEH (Rec: 08/15/16 07:06 BEH [id number]) Intake and Output Intake, Oral Amount 0 Output, Urine Amount 500 Urine Color Dark Yellow Document 08/15/16 09:38 [id number] (Rec: 08/15/16 09:38 [id number]) Intake and Output Meal NPO Oral Supplements* None Document 08/15/16 11:09 BEH (Rec: 08/15/16 11:10 BEH [id number]) Intake and Output Intake, Oral Amount 0 Output, Urine Amount 500 Urine Color Dark Yellow Document 08/15/16 13:42 JRA(2) (Rec: 08/15/16 13:42 JRA(2) [id number]) Intake and Output Meal NPO lunch Oral Supplements* None Document 08/15/16 14:24 BEH (Rec: 08/15/16 14:26 BEH [id number]) Intake and Output Intake, Oral Amount 0 Output, Urine Amount 0 Document 08/15/16 18:09 BEH (Rec: 08/15/16 18:09 BEH [id number]) Intake and Output Meal NPO Oral Supplements* None Document 08/15/16 20:04 JRA (Rec: 08/15/16 20:15 JRA [id number]) Intake and Output Output, Urine Amount 200 Urine Color Dark Anne Marie Number of Bowel Movements 1 Stool Size Large Stool Consistency formed Document 08/15/16 20:15 TMC (Rec: 08/15/16 20:28 TMC [id number]) Intake and Output Intake, Oral Amount 240 Meal Dinner Percent of Meal Consumed 50% Oral Supplements* None Document 08/16/16 00:31 LMO (Rec: 08/16/16 00:37 LMO [id number]) Intake and Output Intake, Oral Amount 0 Output, Urine Amount 0 Document 08/16/16 04:04 LMO (Rec: 08/16/16 04:10 LMO [id number]) Intake and Output Intake, Oral Amount 0 Output, Urine Amount 250 Urine Color Dark Anne Marie Red Brown Document 08/16/16 05:46 LMO (Rec: 08/16/16 05:47 LMO [id number]) Intake and Output Intake, Oral Amount 0 Output, Urine Amount 275 Urine Color Dark Anne Marie Document 08/16/16 07:50 BEH (Rec: 08/16/16 07:51 BEH [id number]) Intake and Output Intake, Oral Amount 0 Output, Urine Amount 0 Document 08/16/16 09:50 BEH (Rec: 08/16/16 09:50 BEH [id number]) Intake and Output Meal NPO Oral Supplements* None Document 08/16/16 11:34 BEH (Rec: 08/16/16 11:34 BEH [id number]) Intake and Output Intake, Oral Amount 0 Output, Urine Amount 700 Urine Color Dark Yellow Document 08/16/16 13:35 BEH (Rec: 08/16/16 13:35 BEH [id number]) Intake and Output Meal NPO Oral Supplements* None Document 08/16/16 19:09 JCC (Rec: 08/16/16 19:09 [id number]) Intake and Output Intake, Oral Amount 360 Meal Dinner Percent of Meal Consumed 90% Oral Supplements* None Document 08/16/16 22:52 JC (Rec: 08/16/16 22:53 [id number]) Intake and Output Intake, Oral Amount 200 Output, Urine Amount 0 Document 08/16/16 23:29 JC (Rec: 08/16/16 23:29 [id number]) Intake and Output Output, Urine Amount 400 Urine Color Straw Light Anne Marie Document 08/17/16 06:48 EGH (Rec: 08/17/16 07:03 EGH [id number]) Intake and Output Intake, Oral Amount 400 Output, Urine Amount 0 Document 08/17/16 09:37 [id number] (Rec: 08/17/16 09:37 [id number]) Intake and Output Intake, Oral Amount 350 Meal Breakfast Oral Supplements* None Document 08/17/16 11:53 EGH (Rec: 08/17/16 11:54 EGH [id number]) Intake and Output Intake, Oral Amount 0 Output, Urine Amount 0 Document 08/17/16 13:17 [id number] (Rec: 08/17/16 13:17 [id number] [id number]) Intake and Output Intake, Oral Amount 600 Meal Lunch Oral Supplements* None Document 08/17/16 15:25 EGH (Rec: 08/17/16 15:26 [id number] Intake and Output Intake, Oral Amount 0 Output, Urine Amount 400 Urine Color Dark Anne Marie Tea Colored Document 08/17/16 18:02 [id number] (Rec: 08/17/16 18:02 FC4311 [id number]) Intake and Output Meal NPO Oral Supplements* None Document 08/17/16 22:52 CNH (Rec: 08/17/16 22:52 [id number]) Intake and Output Output, Urine Amount 300 Urine Color Dark Anne Marie Document 08/18/16 08:29 EGH (Rec: 08/18/16 08:30 [id number]) Intake and Output Intake, Oral Amount 0 Output, Urine Amount 0 Document 08/18/16 12:11 EGH (Rec: 08/18/16 12:21 EGH [id number]) Intake and Output Intake, Oral Amount 0 Output, Urine Amount 450 Urine Color Dark Anne Marie Tea Colored Document 08/18/16 13:19 BELKIS (Rec: 08/18/16 13:19 BELKIS [id number]) Intake and Output Intake, Oral Amount 0 Meal NPO Percent of Meal Consumed 0% Oral Supplements* None Document 08/18/16 16:10 EGH (Rec: 08/18/16 16:14 EGH [id number]) Intake and Output Intake, Oral Amount 0 Output, Urine Amount 0 Document 08/18/16 17:08 EGH (Rec: 08/18/16 17:20 EGH [id number]) Intake and Output Intake, Oral Amount 0 Output, Urine Amount 0 Number of Bowel Movements 1 Stool Size Small Stool Consistency formed Stool Characteristics Normal for Patient Stool Color Brown Document 08/18/16 18:14 [id number] (Rec: 08/18/16 18:15 [id number]) Intake and Output Meal NPO Oral Supplements* None Document 08/18/16 20:25 CNH (Rec: 08/18/16 20:34 [id number]) Intake and Output Number of Voids 1 Urine Color Dark Yellow Number of Bowel Movements 1 Stool Size Moderate Stool Consistency soft Stool Color Brown Document 08/19/16 00:22 CNH (Rec: 08/19/16 00:23 CNH [id number]) Intake and Output Output, Stool Amount 200 Stool Consistency liquid Stool Color Brown Document 08/19/16 05:18 [id number] (Rec: 08/19/16 05:24 [id number] [id number]) Intake and Output Output, Urine Amount 100 Urine Color Dark Yellow Document 08/19/16 09:00 JMW (Rec: 08/19/16 09:15 JMW [id number]) Intake and Output Meal NPO breakfast Oral Supplements* None Document 08/19/16 09:20 MMR (Rec: 08/19/16 10:00 MMR [id number]) Intake and Output Number of Bowel Movements 1 Stool Consistency liquid Document 08/19/16 11:52 BLE (Rec: 08/19/16 11:52 BLE [id number]) Intake and Output Output, Urine Amount 0 Document 08/19/16 13:29 [id number] (Rec: 08/19/16 13:29 [id number] [id number]) Intake and Output Meal NPO Oral Supplements* None Measure weight Start: 08/11/16 20: 37 Freq: DAILY Status: Discharge Document 08/11/16 21:00 LMO (Rec: 08/11/16 21:07 LMO [id number]) Height and Weight Height 1.78 m Weight 104 kg Weight Measurement Method Built in [facility] Body Mass Index (BMI) 32.83 BMI Classification Obese Obesity Class I Document 08/13/16 04:51 RKA (Rec: 08/13/16 04:51 RKA [id number]) Height and Weight Weight 105.233 kg Weight Measurement Method Standing Scale Document 08/14/16 04:21 TMC (Rec: 08/14/16 04:23 TMC [id number]) Height and Weight Weight 108.153 kg Weight Measurement Method Standing Scale Document 08/15/16 04:31 LMO (Rec: 08/15/16 04:38 LMO [id number]) Height and Weight Weight 106.7 kg Weight Measurement Method Built in [facility] Document 08/16/16 04:04 LMO (Rec: 08/16/16 04:10 LMO [id number]) Height and Weight Weight 106.2 kg Weight Measurement Method Built in [employer] Document 08/18/16 03:39 CDP (Rec: 08/18/16 03:42 CDP [id number]) Height and Weight Height 1.78 m Weight 105 kg Weight Measurement Method Built in [facility] Body Mass Index (BMI) 33.18 BMI Classification Obese Obesity Class I Document 08/19/16 05:18 [id number] (Rec: 08/19/16 05:24 [id number]) Height and Weight Weight 106.8 kg Weight Measurement Method Built in [employer] Start: 08/12/16 14: 09 Freq: Status: Discharge Document 08/12/16 14:10 PSB (Rec: 08/12/16 14:17 PSB [id number]) Pharmacy [facility] Rec [facility] Home Medicatons Reconciled? Yes Was this to catch up from previous day No Does patient take 10 or more medications No ? Does patient request medication No education Do home meds include Coumadin, Xarelto, Yes: COUMADIN Pradaxa, Eliquis Added Patient Preferred Pharmacy Yes Verified Allergies Yes Would Patient Like to use [facility] Patient Pharmacy Nursing Dx: Discomfort Start: 08/16/16 12: 14 Freq: Status: Complete Document 08/16/16 14:04 BKN (Rec: 08/16/16 14:04 [place] [id number]) PACU Nursing Dx: Discomfort Explain cause of pain Yes Position for comfort Yes Medicate when indicated Yes Outcome Evaluation Met Nursing Dx:Impaired Gas Exchange Start: 08/16/16 12: 14 Freq: Status: Complete Document 08/16/16 14:04 BKN (Rec: 08/16/16 14:04 N [facility]) PACU Nursing Dx: Gas Exchange Administer oxygen as indicated Yes Position to maintain optimal ventilation Yes Encourage deep breathing exercises Yes Outcome Evaluation Met Nursing Dx:PACU Hypothermia Start: 08/16/16 12: 14 Freq: Status: Complete Document 08/16/16 14:04 BKN (Rec: 08/16/16 14:04 [place] [id number]) PACU Nursing Dx:Hypothermia Monitor patients temperature upon Yes arrival to PACU, after 30 mins., and upon discharge from PACU. Warm blankets will be used to warm Yes patient. Use chantel hugger for temperature less Yes than 96.8F Outcome Evaluation Met Nursing Post Operative Assessment Start: 08/16/16 15: 22 Freq: Status: Discharge Document 08/16/16 15:20 MMR (Rec: 08/16/16 15:25 [id number] Vital Signs with MEWS Temperature (97.6 F-99.6 F) 98.7 F Temperature Source Oral Pulse Rate 90 Respiratory Rate 18 Pulse Oximetry (95-100) 95 Oxygen Delivery Nasal Cannula Oxygen Flow Rate (LPM) 2.5 Blood Pressure 147/83 Blood Pressure Location Left Radial Artery Source Automatic Cuff Position HOB Elevated Neuro Status *recalled from last Alert documentation MEWS Score 1 Pain Assessment Pain Present Reports Pain Abdomen Pain Intensity 5 Description Pressure Scale Used Numeric (1 - 10) Description of Site surgical site Pain Intervention Ice Position Post Operative Assessment Acute Changes From Baseline (If Yes No Specify) Acute Changes From Baseline (If Yes No Specify) Acute Changes From Baseline (If Yes No Specify) Acute Changes From Baseline (If Yes No Specify) Acute Changes From Baseline (If Yes No Specify) Acute Changes From Baseline (If Yes No Specify) Acute Changes From Baseline (If Yes No Specify) Right Radial 2+ Left Radial 2+ Right Dorsalis Pedis 1+ Left Dorsalis Pedis 1+ Document 08/16/16 15:35 MMR (Rec: 08/16/16 15:40 MMR [id number]) Vital Signs with MEWS Temperature (97.6 F-99.6 F) 98.5 F Temperature Source Oral Pulse Rate 86 Respiratory Rate 18 Pulse Oximetry (95-100) 95 Oxygen Delivery Nasal Cannula Oxygen Flow Rate (LPM) 2.5 Blood Pressure 128/74 Blood Pressure Location Left Radial Artery Source Automatic Cuff Position Supine Neuro Status *recalled from last Alert documentation MEWS Score 1 Pain Assessment Pain Present Reports Pain Abdomen Pain Intensity 4 Description Pressure Scale Used Numeric (1 - 10) Pain Intervention Ice Post Operative Assessment Acute Changes From Baseline (If Yes No Specify) Acute Changes From Baseline (If Yes No Specify) Acute Changes From Baseline (If Yes No Specify) Acute Changes From Baseline (If Yes No Specify) Acute Changes From Baseline (If Yes No Specify) Acute Changes From Baseline (If Yes No Specify) Evidence of Incision/Wounds/Breakdown No Acute Changes From Baseline (If Yes No Specify) Right Radial 2+ Left Radial 2+ Right Dorsalis Pedis 1+ Left Dorsalis Pedis 1+ Document 08/16/16 15:54 MMR (Rec: 08/16/16 15:56 MMR [id number]) Vital Signs with MEWS Temperature (97.6 F-99.6 F) 98 F Temperature Source Oral Pulse Rate 98 Respiratory Rate 18 Pulse Oximetry (95-100) 95 Oxygen Delivery Nasal Cannula Oxygen Flow Rate (LPM) 2.5 Blood Pressure 147/78 Blood Pressure Location Left Radial Artery Source Automatic Cuff Position Supine Neuro Status *recalled from last Alert documentation MEWS Score 1 Pain Assessment Pain Present Reports Pain Abdomen Pain Intensity 4 Description Pressure Scale Used Numeric (1 - 10) Pain Intervention Ice Distraction Post Operative Assessment Acute Changes From Baseline (If Yes No Specify) Acute Changes From Baseline (If Yes No Specify) Acute Changes From Baseline (If Yes No Specify) Acute Changes From Baseline (If Yes No Specify) Acute Changes From Baseline (If Yes No Specify) Acute Changes From Baseline (If Yes No Specify) Evidence of Incision/Wounds/Breakdown No Acute Changes From Baseline (If Yes No Specify) Right Radial 2+ Left Radial 2+ Right Dorsalis Pedis 1+ Left Dorsalis Pedis 1+ Document 08/16/16 16:20 MMR (Rec: 08/16/16 17:[address] [id number]) Vital Signs with MEWS Temperature (97.6 F-99.6 F) 98.5 F Temperature Source Oral Pulse Rate 96 Respiratory Rate 18 Pulse Oximetry (95-100) 95 Oxygen Delivery Nasal Cannula Oxygen Flow Rate (LPM) 2.5 Blood Pressure 138/77 Blood Pressure Location Left Radial Artery Neuro Status *recalled from last Alert documentation MEWS Score 1 Pain Assessment Pain Present Reports Pain Abdomen Pain Intensity 4 Description Pressure Scale Used Numeric (1 - 10) Pain Intervention Ice Distraction Post Operative Assessment Acute Changes From Baseline (If Yes No Specify) Acute Changes From Baseline (If Yes No Specify) Acute Changes From Baseline (If Yes No Specify) Acute Changes From Baseline (If Yes No Specify) Acute Changes From Baseline (If Yes No Specify) Acute Changes From Baseline (If Yes No Specify) Evidence of Incision/Wounds/Breakdown No Acute Changes From Baseline (If Yes No Specify) Right Radial 2+ Left Radial 2+ Right Dorsalis Pedis 1+ Left Dorsalis Pedis 1+ Document 08/16/16 17:20 MMR (Rec: 08/16/16 18:[address] [facility] [id number]) Vital Signs with MEWS Temperature (97.6 F-99.6 F) 97.7 F Temperature Source Oral Pulse Rate 99 Respiratory Rate 18 Pulse Oximetry (95-100) 96 Oxygen Delivery Nasal Cannula Oxygen Flow Rate (LPM) 2.5 Blood Pressure 120/81 Blood Pressure Location Left Radial Artery Source Automatic Cuff Position HOB Elevated Neuro Status *recalled from last Alert documentation MEWS Score 1 Pain Assessment Pain Present Reports Pain Abdomen Pain Intensity 7 Description Pressure Sharp Scale Used Numeric (1 - 10) Description of Site surgical sites on abdomen Pain Intervention Ice Medication Post Operative Assessment Acute Changes From Baseline (If Yes No Specify) Acute Changes From Baseline (If Yes No Specify) Acute Changes From Baseline (If Yes No Specify) Acute Changes From Baseline (If Yes No Specify) Acute Changes From Baseline (If Yes No Specify) Acute Changes From Baseline (If Yes No Specify) Evidence of Incision/Wounds/Breakdown No Acute Changes From Baseline (If Yes No Specify) Right Radial 2+ Left Radial 2+ Right Dorsalis Pedis 1+ Left Dorsalis Pedis 1+ OP Nursing Dx: Injury Start: 08/12/16 13: 17 Freq: Status: Complete Document 08/12/16 14:01 TLS (Rec: 08/12/16 14:03 TLS [id number]) Op Nursing Dx:Injury Outcome Evaluation Met Bony Prominences are padded Yes Arm boards are padded, positioned at Yes less than 90 degrees with palms facing up and fingers extended Palms in neutral position when at the Yes side of the body Shoulder lateral rotation and abduction Yes are kept at a minimum Extremities are prevented from dropping Yes below bed level Head placed in neutral position if not Yes limited by procedure or patient physical limitations There is adequate padding for saphenous, Yes sciatic and peroneal nerves especially when patient in lithotomy on lateral position. Outcome Evaluation Met Document 08/12/16 14:57 CLF (Rec: 08/12/16 14:57 CLF [id number]) Op Nursing Dx:Injury ESU electrode appropriate size for Yes patient ESU electrode not placed over bony Yes prominences, metal implants, or tattoos ESU electrode placed on patient after Yes final positioning ESU electrode is free of pooling Yes solutions Outcome Evaluation Met OP Nursing Dx: Injury Start: 08/16/16 12: 14 Freq: Status: Discharge Document 08/16/16 12:37 CAC (Rec: 08/16/16 12:37 CAC [id number]) Op Nursing Dx:Injury ESU electrode appropriate size for Yes patient ESU electrode not placed over bony Yes prominences, metal implants, or tattoos ESU electrode placed on patient after Yes final positioning ESU electrode is free of pooling Yes solutions Outcome Evaluation Met Bony Prominences are padded Yes Arm boards are padded, positioned at Yes less than 90 degrees with palms facing up and fingers extended Palms in neutral position when at the Yes side of the body Shoulder lateral rotation and abduction Yes are kept at a minimum Extremities are prevented from dropping Yes below bed level Head placed in neutral position if not Yes limited by procedure or patient physical limitations There is adequate padding for saphenous, Yes sciatic and peroneal nerves especially when patient in lithotomy on lateral position. Outcome Evaluation Met Op Nursing Dx: Hypothermia Start: 08/16/16 12: 14 Freq: Status: Discharge Document 08/16/16 12:37 CAC (Rec: 08/16/16 12:37 CAC [facility]) Op Nursing Dx: Hypothermia Patient temperature will be monitored. Yes Room temperature will be maintained Yes between 68-73 degrees. Warm blankets will be used to warm Yes patient. Chantel Hugger used when possible. Yes Warm IV fluids will be used. Yes Warm irrigation fluids will be used. Yes Skin exposure will be minimized. Yes Outcome Evaluation Met Op Nursing Dx:Infection Start: 08/12/16 13: 17 Freq: Status: Complete Document 08/12/16 14:01 TLS (Rec: 08/12/16 14:03 TLS [id number]) Op Nursing Dx:Infection Has correct antibiotic prophylaxis been N/A given within last 60 mins? If hair removal required for procedure, No performed with clippers prior to OR Antiseptic agent applied to skin over No surgical site and surrounding area in a manner to minimize contamination, preserve skin integrity, and prevent tissue damage. Sterility will be maintained throughout No surgical procedure. Minimize traffic within the surgical Yes suite during procedure. Outcome Evaluation Met Op Nursing Dx:Infection Start: 08/16/16 12: 14 Freq: Status: Discharge Document 08/16/16 12:37 CAC (Rec: 08/16/16 12:37 CAC [facility]) Op Nursing Dx:Infection Has correct antibiotic prophylaxis been Yes given within last 60 mins? If hair removal required for procedure, Yes performed with clippers prior to OR Antiseptic agent applied to skin over Yes surgical site and surrounding area in a manner to minimize contamination, preserve skin integrity, and prevent tissue damage. Sterility will be maintained throughout Yes surgical procedure. Minimize traffic within the surgical Yes suite during procedure. Outcome Evaluation Met Operative Phase I Start: 08/16/16 14: 05 Freq: Status: Discharge Document 08/16/16 13:57 BKN (Rec: 08/16/16 14:17 [facility]) PACU Intake Data PACU Intake Data EPCD's Warm Blankets Ice SR UP x 2 Chantel Hugger No Home Medications Include Beta Zelalem Yes Date Beta Zelalem Last Taken 08/16/16 Time Beta Zelalem Last Taken 08:00 If yes, was beta zelalem taken/ Yes administered within 24 hours prior to making incision through PACU? Is anesthesia record complete with Yes correct date, antibiotic time and anesthesia start/end time? IV Site Documentation IV #2 IV access established prior to arrival Yes on the unit? IV Location Right Forearm Angiocath size 20 Site Evaluation No problems noted Dressing Transparent-Polyurethane Comment LR#1 running 700 LTC Initial assessment 13:57 IV #1 IV access established prior to arrival Yes on the unit? IV Location Left wrist Angiocath size 18 Site Evaluation No problems noted Dressing Transparent-Polyurethane Comment Cardizem drip running Initial assessment 13:57 Document 08/16/16 14:45 [facility] (Rec: 08/16/16 14:45 [facility]) PACU Intake Data PACU Intake Data Waiting Room Called Family Updated No Document 08/16/16 15:08 [facility] (Rec: 08/16/16 15:12 [facility]) IV Site Documentation IV #2 IV access established prior to arrival Yes on the unit? IV Location Right Forearm Angiocath size 20 Site Evaluation No problems noted Dressing Transparent-Polyurethane Comment LR#1 running 500 LTC Initial assessment 13:57 Reassessed 15:08 IV #1 IV access established prior to arrival Yes on the unit? IV Location Left wrist Angiocath size 18 Site Evaluation No problems noted Dressing Transparent-Polyurethane Comment Cardizem drip running Initial assessment 13:57 Reassessed 15:08 Oxygen administration Start: 08/11/16 20: 38 Freq: Q12H Status: Discharge Document 08/11/16 21:00 [id number] (Rec: 08/12/16 01:07 [id number]) Oxygen Oxygen Delivery Method Room Air Document 08/12/16 08:05 MED (Rec: 08/12/16 17:18 MED [id number]) Oxygen O2 Sat by Pulse Oximetry (95-100) 97 Oxygen Delivery Method Nasal Cannula Oxygen Flow Rate (LPM) 2 Document 08/12/16 20:06 JDF (Rec: 08/13/16 01:19 JDF [id number]) Oxygen Oxygen Delivery Method Nasal Cannula Oxygen Flow Rate (LPM) 2 Document 08/13/16 09:07 JLM (Rec: 08/13/16 09:07 JLM [id number]) Oxygen Oxygen Delivery Method Nasal Cannula Oxygen Flow Rate (LPM) 2 Document 08/14/16 09:10 HLC (Rec: 08/14/16 09:10 HLC [id number]) Oxygen Oxygen S/U/Change No Oxygen Delivery Method Nasal Cannula Oxygen Flow Rate (LPM) 2 Document 08/14/16 19:47 JLM (Rec: 08/14/16 20:02 JLM [id number]) Oxygen Oxygen Delivery Method Nasal Cannula Oxygen Flow Rate (LPM) 3 Document 08/15/16 19:51 JRA (Rec: 08/15/16 19:58 JRA [id number]) RT Cont. Pulse Ox Monitoring RT Cont. Pulse Ox Monitoring Charge* No Oxygen Oxygen S/U/Change No Oxygen Delivery Method Nasal Cannula Oxygen Flow Rate (LPM) 3 Document 08/16/16 07:00 MMR (Rec: 08/16/16 09:27 MMR [id number]) Oxygen Oxygen S/U/Change No Oxygen Delivery Method Nasal Cannula Oxygen Flow Rate (LPM) 3 Document 08/16/16 22:03 CBT (Rec: 08/16/16 22:04 CBT [id number]) Oxygen Oxygen S/U/Change No Heart rate 90 O2 Sat by Pulse Oximetry (95-100) 94 L Oxygen Delivery Method Nasal Cannula Oxygen Flow Rate (LPM) 2.5 FIO2 (%) 30 Document 08/17/16 07:45 KJP (Rec: 08/17/16 07:58 KJP [id number]) Oxygen Oxygen S/U/Change Yes O2 Sat by Pulse Oximetry (95-100) 94 L Oxygen Delivery Method Nasal Cannula Oxygen Flow Rate (LPM) 3 Document 08/17/16 22:18 CNH (Rec: 08/17/16 22:51 CNH [id number]) Oxygen Oxygen Delivery Method Nasal Cannula Oxygen Flow Rate (LPM) 3 Document 08/18/16 20:25 CNH (Rec: 08/18/16 20:34 CNH [id number]) Oxygen Oxygen Delivery Method Nasal Cannula Oxygen Flow Rate (LPM) 3 Document 08/19/16 07:00 MMR (Rec: 08/19/16 08:38 MMR [id number]) Oxygen Oxygen Delivery Method Nasal Cannula Oxygen Flow Rate (LPM) 3 Patient Belongings Start: 08/11/16 20: 38 Freq: .ONCE Status: Complete Document 08/11/16 22:59 [id number] (Rec: 08/11/16 23:16 [id number]) Patient Belongings Belongings With Patient on Admission Yes At Bedside Patient Belongings Glasses Pants Shirt Shoes Patient Rounding Start: 08/11/16 20: 38 Freq: Q1H Status: Discharge Document 08/11/16 21:00 LMO (Rec: 08/11/16 21:07 LMO [id number]) Hourly Rounding Hourly Rounding Checked for Patient Positioning Patient Personal Items Placed Within Reach Hourly Rounding Completed Yes Patient Awake Is family present? No Safety Call Light Within Reach Bed Position Low Phone Within Reach Bed Brake On Side Rails Up X2 Are the Floors Free From Trip Hazards? Yes Is the Room Free From Clutter? Yes Turn and Postion Bedrest Yes Turn Q 2HR No Patient Position Back Document 08/11/16 21:00 [id number] (Rec: 08/12/16 01:07 [id number]) Hourly Rounding Hourly Rounding Checked for Patient Positioning Patient Personal Items Placed Within Reach Checked Patient Pain Level Hourly Rounding Completed No Patient Awake Equipment in Use Anti-embolic Stockings Safety Call Light Within Reach Bed Position Low Phone Within Reach Bed Brake On Side Rails Up X2 Are the Floors Free From Trip Hazards? Yes Is the Room Free From Clutter? Yes Turn and Postion Bedrest Yes Turn Q 2HR No Patient Position Left Side Positioning Aides Pillows Document 08/12/16 01:12 LMO (Rec: 08/12/16 01:19 LMO [id number]) Hourly Rounding Hourly Rounding Checked for Patient Positioning Patient Personal Items Placed Within Reach Hourly Rounding Completed Yes Patient Sleeping Is family present? No Safety Call Light Within Reach Bed Position Low Phone Within Reach Bed Brake On Side Rails Up X2 Are the Floors Free From Trip Hazards? Yes Is the Room Free From Clutter? Yes Turn and Postion Bedrest No Turn Q 2HR No Patient Position Back Document 08/12/16 04:24 [id number] (Rec: 08/12/16 04:26 [id number]) Hourly Rounding Hourly Rounding Checked for Patient Positioning Patient Personal Items Placed Within Reach Checked Patient Pain Level Patient Resting With Eyes Closed Is family present? No Equipment in Use Anti-embolic Stockings Safety Call Light Within Reach Bed Position Low Phone Within Reach Bed Brake On Side Rails Up X2 Are the Floors Free From Trip Hazards? Yes Is the Room Free From Clutter? Yes Turn and Postion Bedrest No Turn Q 2HR No Patient Position Back Document 08/12/16 06:35 [id number] (Rec: 08/12/16 06:35 [id number]) Hourly Rounding Hourly Rounding Checked for Patient Positioning Patient Personal Items Placed Within Reach Patient Resting With Eyes Closed Is family present? No Equipment in Use Anti-embolic Stockings Safety Call Light Within Reach Bed Position Low Phone Within Reach Bed Brake On Side Rails Up X2 Are the Floors Free From Trip Hazards? Yes Is the Room Free From Clutter? Yes Turn and Postion Bedrest No Turn Q 2HR No Patient Position Back Document 08/12/16 07:35 BELKIS (Rec: 08/12/16 07:37 BELKIS [id number]) Hourly Rounding Hourly Rounding Checked for Patient Positioning Patient Personal Items Placed Within Reach Hourly Rounding Completed Yes Patient Awake Is family present? No Safety Call Light Within Reach Bed Position Low Phone Within Reach Bed Brake On Side Rails Up X2 Are the Floors Free From Trip Hazards? Yes Is the Room Free From Clutter? Yes Turn and Postion Bedrest Yes Turn Q 2HR No Document 08/12/16 08:05 MED (Rec: 08/12/16 17:18 MED [id number]) Hourly Rounding Hourly Rounding Checked for Patient Positioning Patient Personal Items Placed Within Reach Hourly Rounding Completed Yes Patient Awake Is family present? Yes Equipment in Use Anti-embolic Stockings Safety Call Light Within Reach Bed Position Low Phone Within Reach Bed Brake On Side Rails Up X2 Are the Floors Free From Trip Hazards? Yes Is the Room Free From Clutter? Yes Turn and Postion Bedrest No Turn Q 2HR No Document 08/12/16 08:54 MED (Rec: 08/12/16 08:54 MED [id number]) Hourly Rounding Hourly Rounding Checked for Patient Positioning Patient Personal Items Placed Within Reach Checked Patient Pain Level Hourly Rounding Completed Yes Is family present? Yes Safety Call Light Within Reach Bed Position Low Phone Within Reach Bed Brake On Side Rails Up X2 Are the Floors Free From Trip Hazards? Yes Is the Room Free From Clutter? Yes Turn and Postion Bedrest No Turn Q 2HR No Patient Position Back Document 08/12/16 09:00 [facility] (Rec: 08/12/16 09:12 [id number]) Hourly Rounding Hourly Rounding Completed Yes Patient Out of Room Document 08/12/16 10:18 MED (Rec: 08/12/16 10:18 MED [id number]) Hourly Rounding Hourly Rounding Checked for Patient Positioning Checked Patient Pain Level Hourly Rounding Completed Yes Comment PT REQUESTED NAUSEA MEDS AT MRI Document 08/12/16 10:50 BELKIS (Rec: 08/12/16 10:50 BELKIS [id number]) Hourly Rounding Hourly Rounding Completed Yes Patient Out of Room Is family present? No Are the Floors Free From Trip Hazards? Yes Is the Room Free From Clutter? Yes Document 08/12/16 11:30 ROSIE (Rec: 08/12/16 11:33 [id number]) Hourly Rounding Hourly Rounding Completed Yes Patient Awake Is family present? No Safety Call Light Within Reach Bed Position Low Phone Within Reach Bed Brake On Side Rails Up X2 Are the Floors Free From Trip Hazards? Yes Is the Room Free From Clutter? Yes Turn and Postion Bedrest No Patient Position Back Document 08/12/16 11:38 BELKIS (Rec: 08/12/16 11:40 BELKIS [id number]) Hourly Rounding Hourly Rounding Checked for Patient Positioning Patient Personal Items Placed Within Reach Hourly Rounding Completed Yes Patient Awake Is family present? No Safety Call Light Within Reach Bed Position Low Phone Within Reach Bed Brake On Side Rails Up X2 Are the Floors Free From Trip Hazards? Yes Is the Room Free From Clutter? Yes Turn and Postion Bedrest Yes Turn Q 2HR No Document 08/12/16 12:07 JEANMARIE (Rec: 08/12/16 12:08 JEANMARIE [id number]) Hourly Rounding Hourly Rounding Checked for Patient Positioning Patient Personal Items Placed Within Reach Checked Patient Pain Level Hourly Rounding Completed Yes Patient Resting With Eyes Closed Is family present? No Comment PT RESTING COMFORTABLY Safety Call Light Within Reach Bed Position Low Fall Precautions Phone Within Reach Bed Brake On Side Rails Up X3 Turn and Postion Turn Q 2HR No Patient Position Right Side Document 08/12/16 16:10 MED (Rec: 08/12/16 18:53 MED [id number]) Hourly Rounding Hourly Rounding Checked for Patient Positioning Patient Personal Items Placed Within Reach Checked Patient Pain Level Hourly Rounding Completed Yes Patient Awake Is family present? Yes Safety Call Light Within Reach Bed Position Low Phone Within Reach Bed Brake On Side Rails Up X2 Are the Floors Free From Trip Hazards? Yes Is the Room Free From Clutter? Yes Turn and Postion Bedrest No Turn Q 2HR No Document 08/12/16 16:23 BELKIS (Rec: 08/12/16 16:24 BELKIS [id number]) Hourly Rounding Hourly Rounding Checked for Patient Positioning Patient Personal Items Placed Within Reach Hourly Rounding Completed Yes Patient Awake Is family present? Yes Safety Call Light Within Reach Bed Position Low Phone Within Reach Bed Brake On Side Rails Up X2 Are the Floors Free From Trip Hazards? Yes Is the Room Free From Clutter? Yes Turn and Postion Bedrest No Turn Q 2HR No Document 08/12/16 18:48 RKA (Rec: 08/12/16 18:48 RKA [id number]) Hourly Rounding Hourly Rounding Checked for Patient Positioning Patient Personal Items Placed Within Reach Hourly Rounding Completed Yes Patient Awake Safety Call Light Within Reach Bed Position Low Side Rails Up X2 Are the Floors Free From Trip Hazards? Yes Is the Room Free From Clutter? Yes Turn and Postion Bedrest Yes Turn Q 2HR No Patient Position Back Document 08/12/16 20:06 JDF (Rec: 08/13/16 01:19 JDF [id number]) Hourly Rounding Hourly Rounding Checked for Patient Positioning Patient Personal Items Placed Within Reach Checked Patient Pain Level Hourly Rounding Completed Yes Patient Awake Is family present? No Safety Call Light Within Reach Bed Position Low Fall Precautions Phone Within Reach Bed Brake On Side Rails Up X2 Are the Floors Free From Trip Hazards? Yes Is the Room Free From Clutter? Yes Turn and Postion Bedrest Yes Turn Q 2HR No Document 08/12/16 20:19 RKLarry (Rec: 08/12/16 20:20 KESHIA [id number]) Hourly Rounding Hourly Rounding Checked for Patient Positioning Patient Personal Items Placed Within Reach Hourly Rounding Completed Yes Patient Awake Comment RN in room Safety Call Light Within Reach Bed Position Low Side Rails Up X2 Are the Floors Free From Trip Hazards? Yes Is the Room Free From Clutter? Yes Turn and Postion Bedrest Yes Turn Q 2HR No Patient Position Back Document 08/12/16 23:49 RKLarry (Rec: 08/12/16 23:50 KESHIA [id number]) Hourly Rounding Hourly Rounding Checked for Patient Positioning Patient Personal Items Placed Within Reach Hourly Rounding Completed Yes Patient Awake Safety Call Light Within Reach Bed Position Low Bed Exit Alarm Bed Brake On Side Rails Up X2 Document 08/13/16 00:10 JDF (Rec: 08/13/16 02:33 J [id number]) Hourly Rounding Hourly Rounding Checked for Patient Positioning Patient Personal Items Placed Within Reach Hourly Rounding Completed Yes Patient Sleeping Safety Call Light Within Reach Bed Position Low Bed Exit Alarm Fall Precautions Bed Brake On Side Rails Up X2 Are the Floors Free From Trip Hazards? Yes Is the Room Free From Clutter? Yes Turn and Postion Bedrest Yes Turn Q 2HR No Document 08/13/16 03:41 JDF (Rec: 08/13/16 03:43 JDF [id number]) Hourly Rounding Hourly Rounding Checked for Patient Positioning Patient Personal Items Placed Within Reach Checked Patient Pain Level Hourly Rounding Completed Yes Patient Resting With Eyes Closed Safety Call Light Within Reach Bed Position Low Fall Precautions Bed Brake On Side Rails Up X2 Are the Floors Free From Trip Hazards? Yes Is the Room Free From Clutter? Yes Turn and Postion Bedrest Yes Turn Q 2HR No Document 08/13/16 05:44 JDF (Rec: 08/13/16 05:46 JDF [id number]) Hourly Rounding Hourly Rounding Checked for Patient Positioning Patient Personal Items Placed Within Reach Checked Patient Pain Level Hourly Rounding Completed Yes Patient Awake Is family present? No Equipment in Use Specialty Bed Safety Call Light Within Reach Bed Position Low Fall Precautions Phone Within Reach Bed Brake On Side Rails Up X2 Are the Floors Free From Trip Hazards? Yes Is the Room Free From Clutter? Yes Turn and Postion Bedrest Yes Turn Q 2HR No Document 08/13/16 08:05 [facility] (Rec: 08/13/16 08:09 [id number] Hourly Rounding Hourly Rounding Checked for Patient Positioning Patient Personal Items Placed Within Reach Hourly Rounding Completed Yes Patient Awake Is family present? No Safety Call Light Within Reach Bed Position Low Phone Within Reach Bed Brake On Side Rails Up X2 Are the Floors Free From Trip Hazards? Yes Is the Room Free From Clutter? Yes Turn and Postion Bedrest No Turn Q 2HR No Document 08/13/16 08:57 JL (Rec: 08/13/16 09:07 [id number] Hourly Rounding Hourly Rounding Checked for Patient Positioning Patient Personal Items Placed Within Reach Checked Patient Pain Level Hourly Rounding Completed Yes Patient Awake Is family present? No Safety Call Light Within Reach Bed Position Low Phone Within Reach Bed Brake On Side Rails Up X2 Are the Floors Free From Trip Hazards? Yes Is the Room Free From Clutter? Yes Turn and Postion Bedrest Yes Turn Q 2HR No Patient Position Back Head of Bed Position (degrees) 45 Document 08/13/16 09:07 [facility] (Rec: 08/13/16 09:07 [id number] Hourly Rounding Hourly Rounding Checked for Patient Positioning Patient Personal Items Placed Within Reach Checked Patient Pain Level Hourly Rounding Completed Yes Patient Awake Is family present? No Safety Call Light Within Reach Bed Position Low Phone Within Reach Bed Brake On Side Rails Up X2 Are the Floors Free From Trip Hazards? Yes Is the Room Free From Clutter? Yes Turn and Postion Bedrest No Turn Q 2HR No Patient Position Back Head of Bed Position (degrees) 45 Document 08/13/16 10:27 JL (Rec: 08/13/16 10:27 [facility] [id number]) Hourly Rounding Hourly Rounding Checked for Patient Positioning Patient Personal Items Placed Within Reach Hourly Rounding Completed Yes Patient Awake Is family present? No Safety Call Light Within Reach Bed Position Low Phone Within Reach Bed Brake On Side Rails Up X2 Document 08/13/16 11:00 JL (Rec: 08/13/16 11:17 [facility] [id number]) Hourly Rounding Hourly Rounding Checked for Patient Positioning Patient Personal Items Placed Within Reach Hourly Rounding Completed Yes Patient Awake Is family present? No Safety Call Light Within Reach Bed Position Low Phone Within Reach Bed Brake On Side Rails Up X2 Are the Floors Free From Trip Hazards? Yes Is the Room Free From Clutter? Yes Turn and Postion Bedrest No Turn Q 2HR No Patient Position Back Head of Bed Position (degrees) 90 Document 08/13/16 11:54 EG (Rec: 08/13/16 12:07 [id number]) Hourly Rounding Hourly Rounding Checked for Patient Positioning Patient Personal Items Placed Within Reach Hourly Rounding Completed Yes Patient Awake Is family present? No Safety Call Light Within Reach Bed Position Low Phone Within Reach Bed Brake On Side Rails Up X2 Are the Floors Free From Trip Hazards? Yes Is the Room Free From Clutter? Yes Turn and Postion Bedrest No Turn Q 2HR No Document 08/13/16 12:41 JL (Rec: 08/13/16 12:42 [facility] [id number]) Hourly Rounding Hourly Rounding Checked for Patient Positioning Patient Personal Items Placed Within Reach Hourly Rounding Completed Yes Patient Awake Is family present? No Safety Call Light Within Reach Bed Position Low Phone Within Reach Bed Brake On Side Rails Up X2 Are the Floors Free From Trip Hazards? Yes Is the Room Free From Clutter? Yes Turn and Postion Bedrest No Turn Q 2HR No Patient Position Back Head of Bed Position (degrees) 90 Document 08/13/16 13:15 JL (Rec: 08/13/16 13:15 [facility] [id number]) Hourly Rounding Hourly Rounding Checked for Patient Positioning Patient Personal Items Placed Within Reach Checked Patient Pain Level Hourly Rounding Completed Yes Patient Awake Is family present? No Safety Call Light Within Reach Bed Position Low Phone Within Reach Bed Brake On Side Rails Up X2 Are the Floors Free From Trip Hazards? Yes Is the Room Free From Clutter? Yes Turn and Postion Bedrest No Turn Q 2HR No Patient Position Back Head of Bed Position (degrees) 90 Document 03/07/17 14:09 JLM (Rec: 08/13/16 14:09 [id number]) Hourly Rounding Hourly Rounding Checked for Patient Positioning Patient Personal Items Placed Within Reach Hourly Rounding Completed Yes Patient Awake Is family present? No Safety Call Light Within Reach Bed Position Low Phone Within Reach Bed Brake On Side Rails Up X2 Are the Floors Free From Trip Hazards? Yes Is the Room Free From Clutter? Yes Turn and Postion Bedrest Yes Turn Q 2HR No Patient Position Back Head of Bed Position (degrees) 90 Document 08/13/16 15:05 JLM (Rec: 08/13/16 15:06 [id number]) Hourly Rounding Hourly Rounding Checked for Patient Positioning Patient Personal Items Placed Within Reach Hourly Rounding Completed Yes Patient Awake Is family present? No Safety Call Light Within Reach Bed Position Low Phone Within Reach Bed Brake On Side Rails Up X2 Are the Floors Free From Trip Hazards? Yes Is the Room Free From Clutter? Yes Turn and Postion Turn Q 2HR No Patient Position Back Head of Bed Position (degrees) 90 Document 08/13/16 15:36 EG (Rec: 08/13/16 15:39 [id number] Hourly Rounding Hourly Rounding Checked for Patient Positioning Patient Personal Items Placed Within Reach Hourly Rounding Completed Yes Patient Awake Is family present? No Safety Call Light Within Reach Bed Position Low Phone Within Reach Bed Brake On Side Rails Up X2 Are the Floors Free From Trip Hazards? Yes Is the Room Free From Clutter? Yes Turn and Postion Bedrest No Turn Q 2HR No Document 08/13/16 16:10 JLM (Rec: 08/13/16 16:12 [id number] Hourly Rounding Hourly Rounding Checked for Patient Positioning Patient Personal Items Placed Within Reach Hourly Rounding Completed Yes Patient Awake Is family present? No Safety Call Light Within Reach Bed Position Low Phone Within Reach Bed Brake On Side Rails Up X2 Are the Floors Free From Trip Hazards? Yes Is the Room Free From Clutter? Yes Turn and Postion Bedrest Yes Turn Q 2HR No Patient Position Back Head of Bed Position (degrees) 90 Document 08/13/16 17:43 JLM (Rec: 08/13/16 17:43 [id number]) Hourly Rounding Hourly Rounding Checked for Patient Positioning Patient Personal Items Placed Within Reach Hourly Rounding Completed Yes Patient Awake Is family present? Yes Safety Call Light Within Reach Bed Position Low Fall Precautions Phone Within Reach Bed Brake On Side Rails Up X2 Are the Floors Free From Trip Hazards? Yes Is the Room Free From Clutter? Yes Turn and Postion Bedrest No Turn Q 2HR No Patient Position Back Head of Bed Position (degrees) 90 Document 08/13/16 18:15 [facility] (Rec: 08/13/16 18:15 [id number] Hourly Rounding Hourly Rounding Checked for Patient Positioning Patient Personal Items Placed Within Reach Hourly Rounding Completed Yes Patient Awake Is family present? Yes Safety Call Light Within Reach Bed Position Low Fall Precautions Phone Within Reach Bed Brake On Side Rails Up X2 Are the Floors Free From Trip Hazards? Yes Is the Room Free From Clutter? Yes Turn and Postion Bedrest No Turn Q 2HR No Patient Position Back Head of Bed Position (degrees) 90 Document 08/13/16 20:05 [facility] [place]Rec: 08/13/16 20:15 [id number]) Hourly Rounding Hourly Rounding Checked for Patient Positioning Patient Personal Items Placed Within Reach Checked Patient Pain Level Hourly Rounding Completed Yes Patient Awake Is family present? No Safety Call Light Within Reach Bed Position Low Phone Within Reach Bed Brake On Side Rails Up X2 Are the Floors Free From Trip Hazards? Yes Is the Room Free From Clutter? Yes Turn and Postion Bedrest No Turn Q 2HR No Patient Position Back Document 08/13/16 21:01 [id number] (Rec: 08/13/16 21:02 [id number]) Hourly Rounding Hourly Rounding Checked for Patient Positioning Patient Personal Items Placed Within Reach Checked Patient Pain Level Hourly Rounding Completed Yes Patient Awake Is family present? No Safety Call Light Within Reach Bed Position Low Fall Precautions Phone Within Reach Bed Brake On Side Rails Up X2 Are the Floors Free From Trip Hazards? Yes Is the Room Free From Clutter? Yes Turn and Postion Bedrest No Turn Q 2HR No Patient Position Back Document 08/14/16 00:30 [facility] (Rec: 08/14/16 00:36 [id number] Hourly Rounding Hourly Rounding Checked for Patient Positioning Patient Personal Items Placed Within Reach Checked Patient Pain Level Hourly Rounding Completed Yes Patient Awake Is family present? No Safety Call Light Within Reach Bed Position Low Phone Within Reach Bed Brake On Side Rails Up X2 Are the Floors Free From Trip Hazards? Yes Is the Room Free From Clutter? Yes Turn and Postion Bedrest No Turn Q 2HR No Patient Position Back Document 08/14/16 04:21 [facility] (Rec: 08/14/16 04:23 [id number] Hourly Rounding Hourly Rounding Checked for Patient Positioning Patient Personal Items Placed Within Reach Checked Patient Pain Level Hourly Rounding Completed Yes Patient Awake Is family present? No Safety Call Light Within Reach Bed Position Low Phone Within Reach Bed Brake On Side Rails Up X2 Are the Floors Free From Trip Hazards? Yes Is the Room Free From Clutter? Yes Turn and Postion Bedrest No Turn Q 2HR No Patient Position Back Document 08/14/16 05:50 [facility] (Rec: 08/14/16 05:52 [id number][facility] Hourly Rounding Hourly Rounding Checked for Patient Positioning Patient Personal Items Placed Within Reach Checked Patient Pain Level Hourly Rounding Completed Yes Patient Awake Is family present? No Safety Call Light Within Reach Bed Position Low Phone Within Reach Bed Brake On Side Rails Up X2 Are the Floors Free From Trip Hazards? Yes Is the Room Free From Clutter? Yes Turn and Postion Bedrest No Turn Q 2HR No Patient Position Back Document 08/14/16 07:25 LEB (Rec: 08/14/16 07:28 LEB [id number]) Hourly Rounding Hourly Rounding Checked for Patient Positioning Patient Personal Items Placed Within Reach Hourly Rounding Completed Yes Patient Awake Is family present? No Safety Call Light Within Reach Bed Position Low Phone Within Reach Bed Brake On Side Rails Up X2 Are the Floors Free From Trip Hazards? Yes Is the Room Free From Clutter? Yes Turn and Postion Bedrest No Turn Q 2HR No Document 08/14/16 09:13 [facility] (Rec: 08/14/16 09:13 [id number] Hourly Rounding Hourly Rounding Checked for Patient Positioning Patient Personal Items Placed Within Reach Checked Patient Pain Level Hourly Rounding Completed Yes Patient Awake Is family present? No Safety Call Light Within Reach Bed Position Low Phone Within Reach Bed Brake On Side Rails Up X2 Are the Floors Free From Trip Hazards? Yes Is the Room Free From Clutter? Yes Turn and Postion Bedrest No Turn Q 2HR No Patient Position Back Document 08/14/16 10:00 LEB (Rec: 08/14/16 12:21 LEB [id number]) Hourly Rounding Hourly Rounding Checked for Patient Positioning Patient Personal Items Placed Within Reach Hourly Rounding Completed Yes Patient Awake Is family present? No Safety Call Light Within Reach Bed Position Low Phone Within Reach Bed Brake On Side Rails Up X2 Are the Floors Free From Trip Hazards? Yes Is the Room Free From Clutter? Yes Turn and Postion Bedrest No Turn Q 2HR No Document 08/14/16 12:51 [facility] (Rec: 08/14/16 12:52 [id number]) Hourly Rounding Hourly Rounding Checked for Patient Positioning Patient Personal Items Placed Within Reach Checked Patient Pain Level Hourly Rounding Completed Yes Patient Awake Is family present? No Safety Call Light Within Reach Bed Position Low Phone Within Reach Bed Brake On Side Rails Up X2 Are the Floors Free From Trip Hazards? Yes Is the Room Free From Clutter? Yes Turn and Postion Bedrest No Turn Q 2HR No Patient Position Sitting on Side of Bed Document 08/14/16 14:33 [facility] (Rec: 08/14/16 14:33 [id number]) Hourly Rounding Hourly Rounding Checked for Patient Positioning Patient Personal Items Placed Within Reach Checked Patient Pain Level Hourly Rounding Completed Yes Patient Awake Is family present? No Safety Call Light Within Reach Bed Position Low Phone Within Reach Bed Brake On Side Rails Up X2 Are the Floors Free From Trip Hazards? Yes Is the Room Free From Clutter? Yes Turn and Postion Bedrest No Turn Q 2HR No Patient Position Right Side Document 08/14/16 19:35 LMO (Rec: 08/14/16 19:49 LMO [id number]) Hourly Rounding Hourly Rounding Checked for Patient Positioning Patient Personal Items Placed Within Reach Hourly Rounding Completed Yes Patient Awake Is family present? No Safety Call Light Within Reach Bed Position Low Phone Within Reach Bed Brake On Side Rails Up X2 Are the Floors Free From Trip Hazards? Yes Is the Room Free From Clutter? Yes Turn and Postion Bedrest No Turn Q 2HR No Patient Position Sitting on Side of Bed Document 08/14/16 19:47 JLM (Rec: 08/14/16 20:02 JLM [id number]) Hourly Rounding Hourly Rounding Checked for Patient Positioning Patient Personal Items Placed Within Reach Checked Patient Pain Level Hourly Rounding Completed Yes Patient Awake Is family present? No Safety Call Light Within Reach Bed Position Low Fall Precautions Phone Within Reach Bed Brake On Side Rails Up X2 Are the Floors Free From Trip Hazards? Yes Is the Room Free From Clutter? Yes Turn and Postion Bedrest No Turn Q 2HR No Patient Position Back Head of Bed Position (degrees) 90 Document 08/14/16 20:02 JLM (Rec: 08/14/16 20:02 JLM [id number]) Hourly Rounding Hourly Rounding Checked for Patient Positioning Patient Personal Items Placed Within Reach Checked Patient Pain Level Hourly Rounding Completed Yes Patient Awake Is family present? No Safety Call Light Within Reach Bed Position Low Fall Precautions Phone Within Reach Bed Brake On Side Rails Up X2 Are the Floors Free From Trip Hazards? Yes Is the Room Free From Clutter? Yes Turn and Postion Bedrest No Turn Q 2HR No Patient Position Back Head of Bed Position (degrees) 90 Document 08/14/16 21:52 LMO (Rec: 08/14/16 21:54 LMO [id number]) Hourly Rounding Hourly Rounding Checked for Patient Positioning Patient Personal Items Placed Within Reach Hourly Rounding Completed Yes Patient Awake Is family present? No Safety Call Light Within Reach Bed Exit Alarm Phone Within Reach Bed Brake On Side Rails Up X2 Are the Floors Free From Trip Hazards? Yes Is the Room Free From Clutter? Yes Turn and Postion Bedrest No Turn Q 2HR No Patient Position Back Document 08/14/16 22:00 JLM (Rec: 08/14/16 22:01 JLM [id number]) Hourly Rounding Hourly Rounding Checked for Patient Positioning Patient Personal Items Placed Within Reach Checked Patient Pain Level Hourly Rounding Completed Yes Patient Awake Is family present? No Safety Call Light Within Reach Bed Position Low Fall Precautions Phone Within Reach Bed Brake On Side Rails Up X2 Are the Floors Free From Trip Hazards? Yes Is the Room Free From Clutter? Yes Turn and Postion Bedrest No Turn Q 2HR No Patient Position Back Head of Bed Position (degrees) 90 Document 08/15/16 00:45 JLM (Rec: 08/15/16 00:46 JLM [id number]) Hourly Rounding Hourly Rounding Checked for Patient Positioning Patient Personal Items Placed Within Reach Checked Patient Pain Level Hourly Rounding Completed Yes Patient Awake Is family present? No Safety Call Light Within Reach Bed Position Low Fall Precautions Phone Within Reach Bed Brake On Side Rails Up X2 Are the Floors Free From Trip Hazards? Yes Is the Room Free From Clutter? Yes Turn and Postion Bedrest No Turn Q 2HR No Patient Position Back Head of Bed Position (degrees) 90 Document 08/15/16 01:01 JLM (Rec: 08/15/16 01:01 JLM [id number]) Hourly Rounding Hourly Rounding Checked for Patient Positioning Patient Personal Items Placed Within Reach Hourly Rounding Completed Yes Patient Awake Is family present? No Safety Call Light Within Reach Bed Position Low Fall Precautions Phone Within Reach Bed Brake On Side Rails Up X2 Are the Floors Free From Trip Hazards? Yes Is the Room Free From Clutter? Yes Turn and Postion Bedrest No Turn Q 2HR No Patient Position Back Head of Bed Position (degrees) 90 Document 08/15/16 01:44 LMO (Rec: 08/15/16 01:44 LMO [id number]) Hourly Rounding Hourly Rounding Checked for Patient Positioning Patient Personal Items Placed Within Reach Hourly Rounding Completed Yes Patient Awake Is family present? No Safety Call Light Within Reach Bed Position Low Phone Within Reach Bed Brake On Side Rails Up X2 Are the Floors Free From Trip Hazards? Yes Is the Room Free From Clutter? Yes Turn and Postion Bedrest No Turn Q 2HR No Patient Position Back Document 08/15/16 02:59 JLM (Rec: 08/15/16 03:00 JLM [id number]) Hourly Rounding Hourly Rounding Checked for Patient Positioning Patient Personal Items Placed Within Reach Hourly Rounding Completed Yes Patient Sleeping Is family present? No Safety Call Light Within Reach Bed Position Low Fall Precautions Phone Within Reach Bed Brake On Side Rails Up X2 Are the Floors Free From Trip Hazards? Yes Is the Room Free From Clutter? Yes Turn and Postion Bedrest No Turn Q 2HR No Patient Position Back Head of Bed Position (degrees) 90 Document 08/15/16 03:00 JLM (Rec: 08/15/16 03:09 JLM [id number]) Hourly Rounding Hourly Rounding Checked for Patient Positioning Patient Personal Items Placed Within Reach Checked Patient Pain Level Hourly Rounding Completed Yes Patient Awake Is family present? No Safety Call Light Within Reach Bed Position Low Fall Precautions Phone Within Reach Bed Brake On Side Rails Up X2 Are the Floors Free From Trip Hazards? Yes Is the Room Free From Clutter? Yes Turn and Postion Bedrest No Turn Q 2HR No Patient Position Back Head of Bed Position (degrees) 90 Document 08/15/16 04:16 JLM (Rec: 08/15/16 04:28 JL [id number]) Hourly Rounding Hourly Rounding Checked for Patient Positioning Patient Personal Items Placed Within Reach Checked Patient Pain Level Hourly Rounding Completed Yes Patient Awake Is family present? No Safety Call Light Within Reach Bed Position Low Fall Precautions Phone Within Reach Bed Brake On Side Rails Up X2 Are the Floors Free From Trip Hazards? Yes Is the Room Free From Clutter? Yes Turn and Postion Bedrest No Turn Q 2HR No Patient Position Back Head of Bed Position (degrees) 90 Document 08/15/16 04:31 LMO (Rec: 08/15/16 04:38 LMO [id number]) Hourly Rounding Hourly Rounding Checked for Patient Positioning Patient Personal Items Placed Within Reach Hourly Rounding Completed Yes Patient Awake Is family present? No Safety Call Light Within Reach Bed Position Low Phone Within Reach Bed Brake On Side Rails Up X2 Are the Floors Free From Trip Hazards? Yes Is the Room Free From Clutter? Yes Turn and Postion Bedrest No Turn Q 2HR No Patient Position Back Document 08/15/16 05:20 JL (Rec: 08/15/16 05:20 JL [id number]) Hourly Rounding Hourly Rounding Checked for Patient Positioning Patient Personal Items Placed Within Reach Checked Patient Pain Level Hourly Rounding Completed Yes Patient Awake Is family present? No Safety Call Light Within Reach Bed Position Low Fall Precautions Phone Within Reach Bed Brake On Side Rails Up X2 Are the Floors Free From Trip Hazards? Yes Is the Room Free From Clutter? Yes Turn and Postion Bedrest No Turn Q 2HR No Patient Position Back Head of Bed Position (degrees) 90 Document 08/15/16 05:41 LMO (Rec: 08/15/16 05:41 LMO [id number]) Hourly Rounding Hourly Rounding Checked for Patient Positioning Patient Personal Items Placed Within Reach Hourly Rounding Completed Yes Patient Awake Is family present? No Safety Call Light Within Reach Bed Position Low Phone Within Reach Bed Brake On Are the Floors Free From Trip Hazards? Yes Is the Room Free From Clutter? Yes Turn and Postion Bedrest No Turn Q 2HR No Patient Position Back Document 08/15/16 06:59 BEH (Rec: 08/15/16 07:06 BEH [id number]) Hourly Rounding Hourly Rounding Checked for Patient Positioning Patient Personal Items Placed Within Reach Hourly Rounding Completed Yes Patient Awake Is family present? No Safety Call Light Within Reach Bed Position Low Phone Within Reach Bed Brake On Side Rails Up X2 Are the Floors Free From Trip Hazards? Yes Is the Room Free From Clutter? Yes Turn and Postion Bedrest No Turn Q 2HR No Document 08/15/16 11:09 BEH (Rec: 08/15/16 11:10 BEH [id number]) Hourly Rounding Hourly Rounding Checked for Patient Positioning Patient Personal Items Placed Within Reach Hourly Rounding Completed Yes Patient Awake Is family present? No Safety Call Light Within Reach Bed Position Low Phone Within Reach Bed Brake On Side Rails Up X2 Are the Floors Free From Trip Hazards? Yes Is the Room Free From Clutter? Yes Turn and Postion Bedrest No Turn Q 2HR No Document 08/15/16 11:26 GERTRUDE (Rec: 08/15/16 19:18 GERTRUDE [id number]) Hourly Rounding Hourly Rounding Checked for Patient Positioning Patient Personal Items Placed Within Reach Checked Patient Pain Level Hourly Rounding Completed Yes Patient Awake Is family present? Yes Equipment in Use Specialty Bed Safety Call Light Within Reach Bed Position Low Phone Within Reach Bed Brake On Side Rails Up X2 Are the Floors Free From Trip Hazards? Yes Is the Room Free From Clutter? Yes Turn and Postion Bedrest No Turn Q 2HR No Document 08/15/16 14:24 BEH (Rec: 08/15/16 14:26 BEH [id number]) Hourly Rounding Hourly Rounding Checked for Patient Positioning Patient Personal Items Placed Within Reach Hourly Rounding Completed Yes Patient Awake Is family present? Yes Safety Call Light Within Reach Bed Position Low Phone Within Reach Bed Brake On Side Rails Up X2 Are the Floors Free From Trip Hazards? Yes Is the Room Free From Clutter? Yes Turn and Postion Bedrest No Turn Q 2HR No Document 08/15/16 16:55 GERTRUDE (Rec: 08/15/16 19:22 GERTRUDE [id number]) Hourly Rounding Hourly Rounding Checked for Patient Positioning Patient Personal Items Placed Within Reach Hourly Rounding Completed Yes Patient Awake Is family present? Yes Equipment in Use Specialty Bed Safety Call Light Within Reach Bed Position Low Phone Within Reach Bed Brake On Side Rails Up X2 Are the Floors Free From Trip Hazards? Yes Is the Room Free From Clutter? Yes Turn and Postion Bedrest No Turn Q 2HR No Document 08/15/16 19:51 JRA (Rec: 08/15/16 19:58 JRA [id number]) Hourly Rounding Hourly Rounding Checked for Patient Positioning Patient Personal Items Placed Within Reach Hourly Rounding Completed Yes Patient Awake Is family present? No Equipment in Use Specialty Bed Safety Call Light Within Reach Bed Position Low Phone Within Reach Bed Brake On Side Rails Up X2 Are the Floors Free From Trip Hazards? Yes Is the Room Free From Clutter? Yes Turn and Postion Bedrest No Turn Q 2HR No Patient Position Back Document 08/15/16 20:15 [facility] [place]Rec: 08/15/16 20:28 [facility] [id number][place] Hourly Rounding Hourly Rounding Checked for Patient Positioning Patient Personal Items Placed Within Reach Checked Patient Pain Level Hourly Rounding Completed Yes Patient Awake Is family present? No Safety Call Light Within Reach Bed Position Low Fall Precautions Phone Within Reach Bed Brake On Side Rails Up X3 Are the Floors Free From Trip Hazards? Yes Is the Room Free From Clutter? Yes Turn and Postion Bedrest Yes Turn Q 2HR No Patient Position Sitting up in Bed Document 08/15/16 23:17 JRLarry (Rec: 08/15/16 23:17 JR [id number]) Hourly Rounding Hourly Rounding Checked for Patient Positioning Patient Personal Items Placed Within Reach Hourly Rounding Completed Yes Patient Sleeping Is family present? No Equipment in Use Specialty Bed Safety Call Light Within Reach Bed Position Low Fall Precautions Phone Within Reach Bed Brake On Side Rails Up X3 Are the Floors Free From Trip Hazards? Yes Is the Room Free From Clutter? Yes Turn and Postion Bedrest Yes Turn Q 2HR No Patient Position Left Side Document 08/16/16 00:31 LMO (Rec: 08/16/16 00:37 LMO [id number]) Hourly Rounding Hourly Rounding Checked for Patient Positioning Patient Personal Items Placed Within Reach Hourly Rounding Completed Yes Patient Awake Is family present? No Safety Call Light Within Reach Bed Position Low Phone Within Reach Bed Brake On Side Rails Up X2 Are the Floors Free From Trip Hazards? Yes Is the Room Free From Clutter? Yes Turn and Postion Bedrest No Turn Q 2HR No Patient Position Back Document 08/16/16 04:04 LMO (Rec: 08/16/16 04:10 LMO [id number]) Hourly Rounding Hourly Rounding Checked for Patient Positioning Patient Personal Items Placed Within Reach Hourly Rounding Completed Yes Patient Awake Is family present? No Safety Call Light Within Reach Bed Position Low Phone Within Reach Bed Brake On Side Rails Up X2 Are the Floors Free From Trip Hazards? Yes Is the Room Free From Clutter? Yes Turn and Postion Bedrest No Turn Q 2HR No Patient Position Back Document 08/16/16 04:30 JRA (Rec: 08/16/16 06:09 JRA [id number]) Hourly Rounding Hourly Rounding Checked for Patient Positioning Patient Personal Items Placed Within Reach Hourly Rounding Completed Yes Patient Awake Is family present? No Equipment in Use Specialty Bed Safety Call Light Within Reach Bed Position Low Phone Within Reach Bed Brake On Side Rails Up X2 Are the Floors Free From Trip Hazards? Yes Is the Room Free From Clutter? Yes Turn and Postion Bedrest No Turn Q 2HR No Patient Position Left Side Document 08/16/16 05:46 LMO (Rec: 08/16/16 05:47 LMO [id number]) Hourly Rounding Hourly Rounding Checked for Patient Positioning Patient Personal Items Placed Within Reach Hourly Rounding Completed Yes Patient Awake Is family present? No Safety Call Light Within Reach Bed Position Low Phone Within Reach Bed Brake On Side Rails Up X2 Are the Floors Free From Trip Hazards? Yes Is the Room Free From Clutter? Yes Turn and Postion Bedrest No Turn Q 2HR No Patient Position Back Document 08/16/16 07:00 MMR (Rec: 08/16/16 07:45 MMR [id number]) Hourly Rounding Hourly Rounding Checked for Patient Positioning Patient Personal Items Placed Within Reach Checked Patient Pain Level Hourly Rounding Completed Yes Patient Sleeping Is family present? No Are the Floors Free From Trip Hazards? Yes Is the Room Free From Clutter? Yes Turn and Postion Bedrest No Turn Q 2HR No Patient Position Back Document 08/16/16 07:50 BEH (Rec: 08/16/16 07:51 BEH [id number]) Hourly Rounding Hourly Rounding Checked for Patient Positioning Patient Personal Items Placed Within Reach Hourly Rounding Completed Yes Patient Awake Is family present? No Safety Call Light Within Reach Bed Position Low Phone Within Reach Bed Brake On Side Rails Up X2 Are the Floors Free From Trip Hazards? Yes Is the Room Free From Clutter? Yes Turn and Postion Bedrest No Turn Q 2HR No Document 08/16/16 07:55 KJP (Rec: 08/16/16 08:20 KJP [id number]) Hourly Rounding Hourly Rounding Checked for Patient Positioning Patient Personal Items Placed Within Reach Hourly Rounding Completed Yes Patient Awake Is family present? No Equipment in Use Specialty Bed Safety Call Light Within Reach Bed Position Low Phone Within Reach Bed Brake On Side Rails Up X2 Are the Floors Free From Trip Hazards? Yes Is the Room Free From Clutter? Yes Turn and Postion Bedrest No Turn Q 2HR No Document 08/16/16 09:00 MMR (Rec: 08/16/16 09:24 MMR [id number]) Hourly Rounding Hourly Rounding Checked for Patient Positioning Patient Personal Items Placed Within Reach Checked Patient Pain Level Hourly Rounding Completed Yes Patient Awake Is family present? No Safety Call Light Within Reach Bed Position Low Phone Within Reach Bed Brake On Side Rails Up X2 Are the Floors Free From Trip Hazards? Yes Is the Room Free From Clutter? Yes Turn and Postion Bedrest No Turn Q 2HR No Patient Position Back Document 08/16/16 11:00 MMR (Rec: 08/16/16 11:16 MMR [id number]) Hourly Rounding Hourly Rounding Checked for Patient Positioning Patient Helped to Bathroom or Assisted with Bedpan or Urinal Patient Personal Items Placed Within Reach Checked Patient Pain Level Hourly Rounding Completed Yes Patient Awake Is family present? No Safety Call Light Within Reach Bed Position Low Phone Within Reach Bed Brake On Side Rails Up X2 Are the Floors Free From Trip Hazards? Yes Is the Room Free From Clutter? Yes Turn and Postion Bedrest No Turn Q 2HR No Patient Position Back Document 08/16/16 11:34 BEH (Rec: 08/16/16 11:34 BEH [id number]) Hourly Rounding Hourly Rounding Checked for Patient Positioning Patient Personal Items Placed Within Reach Hourly Rounding Completed Yes Patient Awake Is family present? No Safety Call Light Within Reach Bed Position Low Phone Within Reach Bed Brake On Side Rails Up X2 Are the Floors Free From Trip Hazards? Yes Is the Room Free From Clutter? Yes Turn and Postion Bedrest No Turn Q 2HR No Document 08/16/16 15:10 MMR (Rec: 08/16/16 15:40 MMR [id number]) Hourly Rounding Hourly Rounding Checked for Patient Positioning Patient Personal Items Placed Within Reach Checked Patient Pain Level Hourly Rounding Completed Yes Patient Awake Is family present? No Equipment in Use EPCDs Safety Call Light Within Reach Bed Position Low Phone Within Reach Bed Brake On Side Rails Up X2 Are the Floors Free From Trip Hazards? Yes Is the Room Free From Clutter? Yes Turn and Postion Bedrest No Turn Q 2HR No Patient Position Back Document 08/16/16 17:00 MMR (Rec: 08/16/16 17:45 MMR [id number]) Hourly Rounding Hourly Rounding Checked for Patient Positioning Patient Personal Items Placed Within Reach Checked Patient Pain Level Hourly Rounding Completed Yes Patient Awake Is family present? Yes Equipment in Use EPCDs Safety Call Light Within Reach Bed Position Low Phone Within Reach Bed Brake On Side Rails Up X2 Are the Floors Free From Trip Hazards? Yes Is the Room Free From Clutter? Yes Turn and Postion Bedrest No Turn Q 2HR No Patient Position Back Document 08/16/16 18:58 MMR (Rec: 08/16/16 18:59 MMR [id number]) Hourly Rounding Hourly Rounding Checked for Patient Positioning Patient Personal Items Placed Within Reach Checked Patient Pain Level Hourly Rounding Completed Yes Patient Awake Is family present? No Equipment in Use EPCDs Safety Call Light Within Reach Bed Position Low Phone Within Reach Bed Brake On Side Rails Up X2 Are the Floors Free From Trip Hazards? Yes Is the Room Free From Clutter? Yes Turn and Postion Bedrest No Turn Q 2HR No Patient Position Back Document 08/16/16 19:07 [facility] (Rec: 08/16/16 19:08 [facility] [id number]) Hourly Rounding Hourly Rounding Checked for Patient Positioning Patient Personal Items Placed Within Reach Hourly Rounding Completed Yes Patient Awake Is family present? No Equipment in Use EPCDs Safety Call Light Within Reach Bed Position Low Phone Within Reach Bed Brake On Side Rails Up X2 Are the Floors Free From Trip Hazards? Yes Is the Room Free From Clutter? Yes Turn and Postion Bedrest No Turn Q 2HR No Patient Position Back Document 08/16/16 20:46 CBT (Rec: 08/16/16 20:47 CBT [id number]) Hourly Rounding Hourly Rounding Checked for Patient Positioning Patient Personal Items Placed Within Reach Checked Patient Pain Level Hourly Rounding Completed Yes Patient Awake Is family present? No Equipment in Use EPCDs Safety Call Light Within Reach Bed Position Low Phone Within Reach Bed Brake On Side Rails Up X2 Are the Floors Free From Trip Hazards? Yes Is the Room Free From Clutter? Yes Turn and Postion Bedrest No Turn Q 2HR No Patient Position Back Head of Bed Position (degrees) 45 Document 08/16/16 21:30 CBT (Rec: 08/16/16 22:10 CBT [id number]) Hourly Rounding Hourly Rounding Checked for Patient Positioning Patient Personal Items Placed Within Reach Checked Patient Pain Level Hourly Rounding Completed Yes Patient Awake Is family present? No Equipment in Use EPCDs Safety Call Light Within Reach Bed Position Low Phone Within Reach Bed Brake On Side Rails Up X2 Are the Floors Free From Trip Hazards? Yes Is the Room Free From Clutter? Yes Turn and Postion Bedrest No Turn Q 2HR No Patient Position Back Head of Bed Position (degrees) 45 Document 08/16/16 22:52 [facility] (Rec: 08/16/16 22:53 [facility] [id number]) Hourly Rounding Hourly Rounding Checked for Patient Positioning Patient Personal Items Placed Within Reach Hourly Rounding Completed Yes Patient Awake Is family present? No Safety Call Light Within Reach Bed Position Low Fall Precautions Phone Within Reach Bed Brake On Side Rails Up X2 Are the Floors Free From Trip Hazards? Yes Is the Room Free From Clutter? Yes Turn and Postion Bedrest No Turn Q 2HR No Patient Position Back Document 08/17/16 00:01 CBT (Rec: 08/17/16 00:01 CBT [id number]) Hourly Rounding Hourly Rounding Checked for Patient Positioning Patient Personal Items Placed Within Reach Checked Patient Pain Level Hourly Rounding Completed Yes Patient Awake Is family present? No Equipment in Use EPCDs Safety Call Light Within Reach Bed Position Low Fall Precautions Phone Within Reach Bed Brake On Side Rails Up X2 Are the Floors Free From Trip Hazards? Yes Is the Room Free From Clutter? Yes Turn and Postion Bedrest No Turn Q 2HR No Patient Position Back Head of Bed Position (degrees) 45 Document 08/17/16 02:30 CBT (Rec: 08/17/16 02:31 CBT [id number]) Hourly Rounding Hourly Rounding Checked for Patient Positioning Patient Personal Items Placed Within Reach Checked Patient Pain Level Hourly Rounding Completed Yes Patient Awake Is family present? No Equipment in Use EPCDs Safety Call Light Within Reach Bed Position Low Fall Precautions Phone Within Reach Bed Brake On Side Rails Up X2 Are the Floors Free From Trip Hazards? Yes Is the Room Free From Clutter? Yes Turn and Postion Bedrest No Turn Q 2HR No Patient Position Back Head of Bed Position (degrees) 45 Document 08/17/16 05:22 CBT (Rec: 08/17/16 05:22 CBT [id number]) Hourly Rounding Hourly Rounding Checked for Patient Positioning Patient Personal Items Placed Within Reach Checked Patient Pain Level Hourly Rounding Completed Yes Patient Awake Is family present? No Equipment in Use EPCDs Safety Call Light Within Reach Bed Position Low Fall Precautions Phone Within Reach Bed Brake On Side Rails Up X2 Are the Floors Free From Trip Hazards? Yes Is the Room Free From Clutter? Yes Turn and Postion Bedrest No Turn Q 2HR No Patient Position Back Head of Bed Position (degrees) 45 Document 08/17/16 05:26 [facility] (Rec: 08/17/16 05:26 [facility] [id number]) Hourly Rounding Hourly Rounding Checked for Patient Positioning Patient Personal Items Placed Within Reach Hourly Rounding Completed Yes Patient Awake Is family present? No Safety Call Light Within Reach Bed Position Low Phone Within Reach Bed Brake On Side Rails Up X2 Are the Floors Free From Trip Hazards? Yes Is the Room Free From Clutter? Yes Turn and Postion Bedrest No Turn Q 2HR No Patient Position Back Document 08/17/16 06:48 EG (Rec: 08/17/16 07:03 [id number]) Hourly Rounding Hourly Rounding Checked for Patient Positioning Patient Personal Items Placed Within Reach Hourly Rounding Completed Yes Patient Awake Is family present? No Safety Call Light Within Reach Bed Position Low Phone Within Reach Bed Brake On Side Rails Up X2 Are the Floors Free From Trip Hazards? Yes Is the Room Free From Clutter? Yes Turn and Postion Bedrest No Turn Q 2HR No Document 08/17/16 07:45 KJP (Rec: 08/17/16 07:58 KJP [id number]) Hourly Rounding Hourly Rounding Checked for Patient Positioning Patient Personal Items Placed Within Reach Checked Patient Pain Level Hourly Rounding Completed Yes Patient Awake Is family present? No Equipment in Use EPCDs Safety Call Light Within Reach Bed Position Low Phone Within Reach Bed Brake On Side Rails Up X2 Are the Floors Free From Trip Hazards? Yes Is the Room Free From Clutter? Yes Turn and Postion Bedrest No Turn Q 2HR No Document 08/17/16 11:53 EG (Rec: 08/17/16 11:54 [id number] Hourly Rounding Hourly Rounding Checked for Patient Positioning Patient Personal Items Placed Within Reach Hourly Rounding Completed Yes Patient Awake Is family present? No Safety Call Light Within Reach Bed Position Low Phone Within Reach Bed Brake On Side Rails Up X2 Are the Floors Free From Trip Hazards? No Is the Room Free From Clutter? No Turn and Postion Bedrest No Turn Q 2HR No Document 08/17/16 15:15 KJP (Rec: 08/17/16 17:07 KJP [id number]) Hourly Rounding Hourly Rounding Checked for Patient Positioning Patient Personal Items Placed Within Reach Checked Patient Pain Level Hourly Rounding Completed Yes Patient Awake Is family present? No Equipment in Use EPCDs Safety Call Light Within Reach Bed Position Low Phone Within Reach Bed Brake On Side Rails Up X2 Are the Floors Free From Trip Hazards? Yes Is the Room Free From Clutter? Yes Turn and Postion Bedrest No Turn Q 2HR No Document 08/17/16 15:25 EG (Rec: 08/17/16 15:26 [id number]) Hourly Rounding Hourly Rounding Checked for Patient Positioning Patient Personal Items Placed Within Reach Hourly Rounding Completed Yes Patient Awake Is family present? No Safety Call Light Within Reach Bed Position Low Phone Within Reach Bed Brake On Side Rails Up X2 Are the Floors Free From Trip Hazards? Yes Is the Room Free From Clutter? Yes Turn and Postion Bedrest No Turn Q 2HR No Document 08/17/16 18:55 CDP (Rec: 08/17/16 18:59 CDP [id number]) Hourly Rounding Hourly Rounding Checked for Patient Positioning Patient Personal Items Placed Within Reach Checked Patient Pain Level Hourly Rounding Completed Yes Patient Awake Is family present? No Comment Vitals assessment completed, EPCDs placed back on. No needs . Equipment in Use EPCDs Specialty Bed Safety Call Light Within Reach Bed Position Low Fall Precautions Phone Within Reach Bed Brake On Side Rails Up X1 Side Rails Up X2 Are the Floors Free From Trip Hazards? Yes Is the Room Free From Clutter? Yes Turn and Postion Bedrest No Turn Q 2HR No Patient Position Sitting up in Bed Positioning Aides Pillows Document 08/17/16 19:30 CN (Rec: 08/18/16 01:15 [id number] Hourly Rounding Hourly Rounding Checked for Patient Positioning Patient Personal Items Placed Within Reach Hourly Rounding Completed Yes Patient Awake Is family present? No Equipment in Use EPCDs Specialty Bed Safety Call Light Within Reach Bed Position Low Fall Precautions Phone Within Reach Bed Brake On Side Rails Up X1 Side Rails Up X2 Are the Floors Free From Trip Hazards? Yes Is the Room Free From Clutter? Yes Turn and Postion Bedrest No Turn Q 2HR No Patient Position Back Positioning Aides Pillows Document 08/17/16 21:07 [facility] (Rec: 08/18/16 07:07 [id number]) Hourly Rounding Hourly Rounding Checked for Patient Positioning Patient Personal Items Placed Within Reach Hourly Rounding Completed Yes Patient Resting With Eyes Closed Is family present? No Equipment in Use EPCDs Specialty Bed Safety Call Light Within Reach Bed Position Low Fall Precautions Phone Within Reach Bed Brake On Side Rails Up X1 Side Rails Up X2 Are the Floors Free From Trip Hazards? Yes Is the Room Free From Clutter? Yes Turn and Postion Bedrest No Turn Q 2HR No Patient Position Back Positioning Aides Pillows Document 08/17/16 22:18 CN (Rec: 08/17/16 22:51 [id number]) Hourly Rounding Hourly Rounding Checked for Patient Positioning Patient Personal Items Placed Within Reach Checked Patient Pain Level Hourly Rounding Completed Yes Patient Awake Is family present? No Equipment in Use EPCDs Specialty Bed Safety Call Light Within Reach Bed Position Low Fall Precautions Phone Within Reach Bed Brake On Side Rails Up X1 Side Rails Up X2 Are the Floors Free From Trip Hazards? Yes Is the Room Free From Clutter? Yes Turn and Postion Bedrest No Turn Q 2HR No Patient Position Back Positioning Aides Pillows Document 08/17/16 22:57 CDP (Rec: 08/17/16 23:00 CDP [id number]) Hourly Rounding Hourly Rounding Checked for Patient Positioning Patient Personal Items Placed Within Reach Checked Patient Pain Level Hourly Rounding Completed Yes Patient Awake Is family present? No Comment Vitals assessment completed. No needs at this time. Equipment in Use EPCDs Specialty Bed Safety Call Light Within Reach Bed Position Low Fall Precautions Phone Within Reach Bed Brake On Side Rails Up X1 Side Rails Up X2 Are the Floors Free From Trip Hazards? Yes Is the Room Free From Clutter? Yes Turn and Postion Bedrest No Turn Q 2HR No Patient Position Sitting up in Bed Positioning Aides Pillows Document 08/17/16 23:07 [facility] (Rec: 08/18/16 07:08 [id number]) Hourly Rounding Hourly Rounding Checked for Patient Positioning Patient Personal Items Placed Within Reach Hourly Rounding Completed Yes Patient Resting With Eyes Closed Is family present? No Equipment in Use EPCDs Specialty Bed Safety Call Light Within Reach Bed Position Low Fall Precautions Phone Within Reach Bed Brake On Side Rails Up X1 Side Rails Up X2 Are the Floors Free From Trip Hazards? Yes Is the Room Free From Clutter? Yes Turn and Postion Bedrest No Turn Q 2HR No Patient Position Back Positioning Aides Pillows Document 08/18/16 01:10 [facility] (Rec: 08/18/16 01:12 [id number]) Hourly Rounding Hourly Rounding Checked for Patient Positioning Patient Personal Items Placed Within Reach Hourly Rounding Completed Yes Patient Awake Is family present? No Equipment in Use EPCDs Specialty Bed Safety Call Light Within Reach Bed Position Low Fall Precautions Phone Within Reach Bed Brake On Side Rails Up X1 Side Rails Up X2 Are the Floors Free From Trip Hazards? Yes Is the Room Free From Clutter? Yes Turn and Postion Bedrest No Turn Q 2HR No Patient Position Left Side Positioning Aides Pillows Document 08/18/16 03:08 CN (Rec: 08/18/16 07:09 [id number]) Hourly Rounding Hourly Rounding Checked for Patient Positioning Patient Personal Items Placed Within Reach Hourly Rounding Completed Yes Patient Awake Is family present? No Equipment in Use EPCDs Specialty Bed Safety Call Light Within Reach Bed Position Low Fall Precautions Phone Within Reach Bed Brake On Side Rails Up X1 Side Rails Up X2 Are the Floors Free From Trip Hazards? Yes Is the Room Free From Clutter? Yes Turn and Postion Bedrest No Turn Q 2HR No Patient Position Back Positioning Aides Pillows Document 08/18/16 03:39 CDP (Rec: 08/18/16 03:42 CDP [id number]) Hourly Rounding Hourly Rounding Checked for Patient Positioning Patient Personal Items Placed Within Reach Checked Patient Pain Level Hourly Rounding Completed Yes Patient Awake Is family present? No Comment Vitals assessment completed, weight. No needs. Equipment in Use Specialty Bed Safety Call Light Within Reach Bed Position Low Fall Precautions Phone Within Reach Bed Brake On Side Rails Up X1 Side Rails Up X2 Are the Floors Free From Trip Hazards? Yes Is the Room Free From Clutter? Yes Turn and Postion Bedrest No Turn Q 2HR No Patient Position Back Positioning Aides Pillows Document 08/18/16 04:11 CN (Rec: 08/18/16 04:16 [id number]) Hourly Rounding Hourly Rounding Checked for Patient Positioning Patient Personal Items Placed Within Reach Checked Patient Pain Level Hourly Rounding Completed Yes Patient Awake Is family present? No Equipment in Use EPCDs Specialty Bed Safety Call Light Within Reach Bed Position Low Fall Precautions Phone Within Reach Bed Brake On Side Rails Up X1 Side Rails Up X2 Are the Floors Free From Trip Hazards? Yes Is the Room Free From Clutter? Yes Turn and Postion Bedrest No Turn Q 2HR No Patient Position Back Positioning Aides Pillows Document 08/18/16 05:09 CN (Rec: 08/18/16 07:09 [id number]) Hourly Rounding Hourly Rounding Checked for Patient Positioning Patient Personal Items Placed Within Reach Checked Patient Pain Level Hourly Rounding Completed Yes Patient Awake Is family present? No Equipment in Use EPCDs Specialty Bed Safety Call Light Within Reach Bed Position Low Fall Precautions Phone Within Reach Bed Brake On Side Rails Up X1 Side Rails Up X2 Are the Floors Free From Trip Hazards? Yes Is the Room Free From Clutter? Yes Turn and Postion Bedrest No Turn Q 2HR No Patient Position Back Positioning Aides Pillows Document 08/18/16 08:29 [facility] (Rec: 08/18/16 08:30 [id number]) Hourly Rounding Hourly Rounding Checked for Patient Positioning Patient Helped to Bathroom or Assisted with Bedpan or Urinal Patient Personal Items Placed Within Reach Hourly Rounding Completed Yes Patient Awake Is family present? No Equipment in Use EPCDs Safety Call Light Within Reach Bed Position Low Phone Within Reach Bed Brake On Side Rails Up X2 Are the Floors Free From Trip Hazards? Yes Is the Room Free From Clutter? Yes Turn and Postion Bedrest No Turn Q 2HR No Document 08/18/16 08:45 KJP (Rec: 08/18/16 09:01 KJP [id number]) Hourly Rounding Hourly Rounding Checked for Patient Positioning Patient Helped to Bathroom or Assisted with Bedpan or Urinal Patient Personal Items Placed Within Reach Hourly Rounding Completed Yes Patient Awake Is family present? No Equipment in Use EPCDs Safety Call Light Within Reach Bed Position Low Phone Within Reach Bed Brake On Side Rails Up X2 Are the Floors Free From Trip Hazards? Yes Is the Room Free From Clutter? Yes Turn and Postion Bedrest No Turn Q 2HR No Document 08/18/16 12:11 [facility] (Rec: 08/18/16 12:21 [id number]) Hourly Rounding Hourly Rounding Checked for Patient Positioning Patient Personal Items Placed Within Reach Hourly Rounding Completed Yes Patient Awake Is family present? No Safety Call Light Within Reach Bed Position Low Phone Within Reach Bed Brake On Side Rails Up X2 Are the Floors Free From Trip Hazards? Yes Is the Room Free From Clutter? Yes Turn and Postion Bedrest No Turn Q 2HR No Document 08/18/16 15:52 KJP (Rec: 08/18/16 15:56 KJP [id number]) Hourly Rounding Hourly Rounding Checked for Patient Positioning Patient Personal Items Placed Within Reach Checked Patient Pain Level Hourly Rounding Completed Yes Patient Awake Is family present? No Equipment in Use EPCDs Safety Call Light Within Reach Bed Position Low Phone Within Reach Bed Brake On Side Rails Up X2 Are the Floors Free From Trip Hazards? Yes Is the Room Free From Clutter? Yes Turn and Postion Bedrest No Turn Q 2HR No Document 08/18/16 16:10 [facility] (Rec: 08/18/16 16:14 [facility] [id number]) Hourly Rounding Hourly Rounding Checked for Patient Positioning Patient Personal Items Placed Within Reach Hourly Rounding Completed Yes Patient Awake Is family present? No Safety Call Light Within Reach Bed Position Low Phone Within Reach Bed Brake On Side Rails Up X2 Are the Floors Free From Trip Hazards? Yes Is the Room Free From Clutter? Yes Turn and Postion Bedrest No Turn Q 2HR No Document 08/18/16 17:08 [facility] (Rec: 08/18/16 17:20 [id number] Hourly Rounding Hourly Rounding Checked for Patient Positioning Patient Personal Items Placed Within Reach Hourly Rounding Completed Yes Patient Awake Is family present? No Safety Call Light Within Reach Bed Position Low Phone Within Reach Bed Brake On Side Rails Up X2 Are the Floors Free From Trip Hazards? Yes Is the Room Free From Clutter? Yes Turn and Postion Bedrest No Turn Q 2HR No Document 08/18/16 19:25 [facility] (Rec: 08/18/16 19:36 [facility] [id number]) Hourly Rounding Hourly Rounding Checked for Patient Positioning Patient Personal Items Placed Within Reach Hourly Rounding Completed Yes Patient Resting With Eyes Closed Is family present? No Equipment in Use [facility] Special[facility] Bed Safety Call Light Within Reach Bed Position Low Phone Within Reach Bed Brake On Side Rails Up X2 Are the Floors Free From Trip Hazards? Yes Is the Room Free From Clutter? Yes Turn and Postion Bedrest No Turn Q 2HR No Patient Position Back Positioning Aides Pillows Document 08/18/16 20:25 [facility] (Rec: 08/18/16 20:34 [facility] [id number]) Hourly Rounding Hourly Rounding Checked for Patient Positioning Patient Personal Items Placed Within Reach Checked Patient Pain Level Hourly Rounding Completed Yes Patient Awake Is family present? No Equipment in Use EPCDs Specialty Bed Safety Call Light Within Reach Bed Position Low Phone Within Reach Bed Brake On Side Rails Up X2 Are the Floors Free From Trip Hazards? Yes Is the Room Free From Clutter? Yes Turn and Postion Bedrest No Turn Q 2HR No Patient Position Back Positioning Aides Pillows Document 08/18/16 21:36 CN (Rec: 08/19/16 01:38 [facility] [id number]) Hourly Rounding Hourly Rounding Checked for Patient Positioning Patient Personal Items Placed Within Reach Hourly Rounding Completed Yes Patient Resting With Eyes Closed Is family present? No Equipment in Use EPCDs Safety Call Light Within Reach Bed Position Low Fall Precautions Phone Within Reach Bed Brake On Side Rails Up X2 Are the Floors Free From Trip Hazards? Yes Is the Room Free From Clutter? Yes Turn and Postion Bedrest No Turn Q 2HR No Patient Position Back Positioning Aides Pillows Document 08/18/16 22:02 [id number] (Rec: 08/18/16 22:03 [id number]) Hourly Rounding Hourly Rounding Checked for Patient Positioning Patient Helped to Bathroom or Assisted with Bedpan or Urinal Patient Personal Items Placed Within Reach Checked Patient Pain Level Hourly Rounding Completed Yes Patient Awake Is family present? No Equipment in Use EPCDs Safety Call Light Within Reach Bed Position Low Phone Within Reach Bed Brake On Side Rails Up X2 Are the Floors Free From Trip Hazards? Yes Is the Room Free From Clutter? Yes Turn and Postion Bedrest No Turn Q 2HR No Patient Position Back Positioning Aides Pillows Document 08/18/16 23:38 CN (Rec: 08/19/16 01:38 [facility] [id number]) Hourly Rounding Hourly Rounding Checked for Patient Positioning Patient Personal Items Placed Within Reach Hourly Rounding Completed Yes Patient Resting With Eyes Closed Is family present? No Equipment in Use Specialty Bed Safety Call Light Within Reach Bed Position Low Phone Within Reach Bed Brake On Side Rails Up X2 Are the Floors Free From Trip Hazards? Yes Is the Room Free From Clutter? Yes Turn and Postion Bedrest No Turn Q 2HR No Patient Position Back Positioning Aides Pillows Document 08/19/16 01:20 [id number] (Rec: 08/19/16 01:24 [id number]) Hourly Rounding Hourly Rounding Checked for Patient Positioning Patient Personal Items Placed Within Reach Checked Patient Pain Level Hourly Rounding Completed Yes Patient Sleeping Is family present? No Equipment in Use EPCDs Safety Call Light Within Reach Bed Position Low Phone Within Reach Bed Brake On Side Rails Up X2 Are the Floors Free From Trip Hazards? Yes Is the Room Free From Clutter? Yes Turn and Postion Bedrest No Turn Q 2HR No Patient Position Back Positioning Aides Pillows Document 08/19/16 00:18 CN (Rec: 08/19/16 01:35 [facility] [id number]) Hourly Rounding Hourly Rounding Checked for Patient Positioning Patient Helped to Bathroom or Assisted with Bedpan or Urinal Patient Personal Items Placed Within Reach Checked Patient Pain Level Hourly Rounding Completed Yes Patient Awake Is family present? No Equipment in Use EPCDs Safety Call Light Within Reach Bed Position Low Fall Precautions Phone Within Reach Bed Brake On Side Rails Up X2 Are the Floors Free From Trip Hazards? Yes Is the Room Free From Clutter? Yes Turn and Postion Bedrest No Turn Q 2HR No Patient Position Back Positioning Aides Pillows Document 08/19/16 01:36 CN (Rec: 08/19/16 01:36 [facility] [id number]) Hourly Rounding Hourly Rounding Checked for Patient Positioning Patient Personal Items Placed Within Reach Hourly Rounding Completed Yes Patient Resting With Eyes Closed Is family present? No Equipment in Use EPCDs Safety Call Light Within Reach Bed Position Low Phone Within Reach Bed Brake On Side Rails Up X2 Are the Floors Free From Trip Hazards? Yes Is the Room Free From Clutter? Yes Turn and Postion Bedrest No Turn Q 2HR No Patient Position Back Positioning Aides Pillows Document 08/19/16 05:15 CN (Rec: 08/19/16 05:32 CN [id number]) Hourly Rounding Hourly Rounding Checked for Patient Positioning Patient Personal Items Placed Within Reach Checked Patient Pain Level Hourly Rounding Completed Yes Patient Awake Is family present? No Equipment in Use Specialty Bed Safety Call Light Within Reach Bed Position Low Fall Precautions Phone Within Reach Bed Brake On Side Rails Up X2 Are the Floors Free From Trip Hazards? Yes Is the Room Free From Clutter? Yes Turn and Postion Bedrest No Turn Q 2HR No Patient Position Back Positioning Aides Pillows Document 08/19/16 07:00 MMR (Rec: 08/19/16 08:31 MMR [id number]) Hourly Rounding Hourly Rounding Checked for Patient Positioning Patient Personal Items Placed Within Reach Checked Patient Pain Level Hourly Rounding Completed Yes Patient Awake Is family present? No Safety Call Light Within Reach Bed Position Low Fall Precautions Phone Within Reach Side Rails Up X2 Are the Floors Free From Trip Hazards? Yes Is the Room Free From Clutter? Yes Turn and Postion Bedrest No Turn Q 2HR No Patient Position Sitting up in Bed Document 08/19/16 09:00 MMR (Rec: 08/19/16 09:12 MMR [id number]) Hourly Rounding Hourly Rounding Checked for Patient Positioning Patient Personal Items Placed Within Reach Checked Patient Pain Level Hourly Rounding Completed Yes Patient Awake Is family present? No Safety Call Light Within Reach Bed Position Low Fall Precautions Phone Within Reach Bed Brake On Side Rails Up X2 Are the Floors Free From Trip Hazards? Yes Is the Room Free From Clutter? Yes Turn and Postion Bedrest No Turn Q 2HR No Patient Position Sitting on Side of Bed Document 08/19/16 11:00 MMR (Rec: 08/19/16 11:21 MMR [id number]) Hourly Rounding Hourly Rounding Checked for Patient Positioning Patient Personal Items Placed Within Reach Checked Patient Pain Level Hourly Rounding Completed Yes Patient Awake Is family present? No Safety Call Light Within Reach Bed Position Low Fall Precautions Phone Within Reach Bed Brake On Side Rails Up X2 Are the Floors Free From Trip Hazards? Yes Is the Room Free From Clutter? Yes Turn and Postion Bedrest No Turn Q 2HR No Patient Position Back Document 08/19/16 11:46 BLE (Rec: 08/19/16 11:51 BLE [id number]) Hourly Rounding Hourly Rounding Checked for Patient Positioning Patient Helped to Bathroom or Assisted with Bedpan or Urinal Patient Personal Items Placed Within Reach Checked Patient Pain Level Hourly Rounding Completed Yes Patient Awake Is family present? No Safety Call Light Within Reach Bed Position Low Fall Precautions Phone Within Reach Bed Brake On Side Rails Up X2 Are the Floors Free From Trip Hazards? Yes Is the Room Free From Clutter? Yes Turn and Postion Bedrest No Turn Q 2HR No Patient Position Sitting up in Bed Document 08/19/16 12:00 MMR (Rec: 08/19/16 12:10 MMR [id number]) Hourly Rounding Hourly Rounding Checked for Patient Positioning Patient Personal Items Placed Within Reach Checked Patient Pain Level Hourly Rounding Completed Yes Patient Awake Safety Call Light Within Reach Bed Position Low Fall Precautions Phone Within Reach Bed Brake On Side Rails Up X2 Are the Floors Free From Trip Hazards? Yes Is the Room Free From Clutter? Yes Turn and Postion Bedrest No Turn Q 2HR No Patient Position Back Document 08/19/16 13:00 MMR (Rec: 08/19/16 13:26 MMR [id number]) Hourly Rounding Hourly Rounding Checked for Patient Positioning Patient Personal Items Placed Within Reach Checked Patient Pain Level Hourly Rounding Completed Yes Patient Awake Is family present? No Safety Call Light Within Reach Bed Position Low Bed Exit Alarm Phone Within Reach Bed Brake On Side Rails Up X2 Are the Floors Free From Trip Hazards? Yes Is the Room Free From Clutter? Yes Turn and Postion Bedrest No Turn Q 2HR No Patient Position Back Peripheral venous cannula mgmt/flush Start: 08/11/16 20: 36 Freq: CONT Status: Discharge Document 08/12/16 20:06 JDF (Rec: 08/13/16 01:19 JDF [id number]) Document 08/14/16 14:33 HLC (Rec: 08/14/16 14:33 HLC [id number]) Post Op Vital Signs Start: 08/12/16 15: 20 Freq: Status: Complete Document 08/12/16 15:15 CLF (Rec: 08/12/16 15:22 CLF [id number]) Postoperative Vital Signs Alarm On/Audible Yes Temperature (97.6 F-99.6 F) 97.3 F L Pulse Rate 79 Respiratory Rate 16 Blood Pressure 105/63 O2 Sat by Pulse Oximetry (95-100) 96 Blood Glucose* 108 Pain Scale 0 Respiratory Effort Easy and Regular Oxygen Appliance Nasal cannula Oxygen Flow Rate (LPM) 2 Cough and Deep Breath No Position Fowlers Level of Consciousness Arouses to Name Activity Awake and Resting Nausea and Vomiting Denies Lines Peripheral Jabari Activity Able to move two extremeties voluntarily on command Jabari Respirations Dyspnea or limited breathing Jabari Circulation Blood pressure and heart rate 20-50% of preprocedure level Jabari Oxygen Saturation Needs oxygen to maintain saturations above 90% Jabari Consciousness Arousable on calling Jabari Total Score 5 Document 08/12/16 15:25 CLF (Rec: 08/12/16 15:27 CLF [id number]) Postoperative Vital Signs Alarm On/Audible Yes B/P Diastolic 90/40 SaO2 100/90 Temperature (97.6 F-99.6 F) 97.3 F L Pulse Rate 71 Respiratory Rate 16 Blood Pressure 120/70 O2 Sat by Pulse Oximetry (95-100) 95 Blood Glucose* 108 Pain Scale 0 Respiratory Effort Easy and Regular Oxygen Appliance Nasal cannula Oxygen Flow Rate (LPM) 2 Cough and Deep Breath No Position Fowlers Level of Consciousness Arouses to Name Activity Awake and Resting Nausea and Vomiting Denies Lines Peripheral Jabari Activity Able to move two extremeties voluntarily on command Jabari Respirations Dyspnea or limited breathing Jabari Circulation Blood pressure and heart rate 20-50% of preprocedure level Jabari Oxygen Saturation Needs oxygen to maintain saturations above 90% Jabari Consciousness Arousable on calling Jabari Total Score 5 Document 08/12/16 15:35 CLF (Rec: 08/12/16 15:35 CLF [place] [id number]) Postoperative Vital Signs Alarm On/Audible Yes B/P Diastolic 90/40 SaO2 100/90 Temperature (97.6 F-99.6 F) 99.3 F Pulse Rate 80 Respiratory Rate 16 Blood Pressure 130/62 O2 Sat by Pulse Oximetry (95-100) 96 Blood Glucose* 108 Pain Scale 0 Respiratory Effort Easy and Regular Oxygen Appliance Nasal cannula Oxygen Flow Rate (LPM) 2 Cough and Deep Breath No Position Fowlers Level of Consciousness Arouses to Name Activity Awake and Resting Nausea and Vomiting Denies Lines Peripheral Jabari Activity Able to move two extremeties voluntarily on command Jabari Respirations Dyspnea or limited breathing Jabari Circulation Blood pressure and heart rate 20-50% of preprocedure level Jabari Oxygen Saturation Needs oxygen to maintain saturations above 90% Jabari Consciousness Arousable on calling Jabari Total Score 5 Document 08/12/16 15:45 CLF (Rec: 08/12/16 15:44 CLF [place] [id number]) Postoperative Vital Signs Alarm On/Audible Yes B/P Diastolic 90/40 SaO2 100/90 Temperature (97.6 F-99.6 F) 99.3 F Pulse Rate 88 Respiratory Rate 16 Blood Pressure 137/77 O2 Sat by Pulse Oximetry (95-100) 97 Blood Glucose* 108 Pain Scale 0 Respiratory Effort Easy and Regular Oxygen Appliance Nasal cannula Oxygen Flow Rate (LPM) 2 Cough and Deep Breath No Position Left Lateral Level of Consciousness Arouses to Name Activity Awake and Resting Nausea and Vomiting Denies Lines Peripheral Jabari Activity Able to move two extremeties voluntarily on command Jabari Respirations Dyspnea or limited breathing Jabari Circulation Blood pressure and heart rate 20-50% of preprocedure level Jabari Oxygen Saturation Needs oxygen to maintain saturations above 90% Jabari Consciousness Arousable on calling Jabari Total Score 5 Document 08/16/16 15:20 MMR (Rec: 08/16/16 15:25 MMR [id number]) Post Op Vital Signs Start: 08/16/16 14: 05 Freq: Status: Discharge Document 08/16/16 13:57 CAROLYNE (Rec: 08/16/16 14:24 B[facility]lyn [facility]) Postoperative Vital Signs Alarm On/Audible Yes B/P Systolic 160/100 Heart Rate 125/50 SaO2 100/90 Temperature (97.6 F-99.6 F) 97.6 F Temperature Source Temporal Artery Scan Pulse Rate 82 Respiratory Rate 16 Blood Pressure 148/73 O2 Sat by Pulse Oximetry (95-100) 95 Blood Glucose* 123 EKG A-Fib Pain Scale 0 Comment Pt sleeping; no acute distress General Skin Assessment Capillary Refill < 3 Seconds Sensation Description Within Normal Limits Pulse Strength Normal Skin Temperature Warm Skin Appearance Warm and Dry Pale [place] Respiratory Effort Easy and Regular Auscultation of Lungs Clear Airway Patent Oxygen Appliance Mask Oxygen Flow Rate (LPM) 8 Cough and Deep Breath No Position Head of Bed Elevated 30 Level of Consciousness Sleeping Unable to Arouse Activity Sleeping Lines Peripheral Jabari Activity Unable to move Jabari Respirations Dyspnea or limited breathing Jabari Circulation Blood pressure and heart rate within 20% of preprocedure level Jabari Oxygen Saturation Needs oxygen to maintain saturations above 90% Jabari Consciousness Unresponsive Jabari Total Score 4 Drains and Dressings #1 Dressing Type and Location Abdominal Stabs x 6 with Steri -Strips and Mastisol Dressing Dry and Intact Drainage Bright Red Scant Document 08/16/16 14:07 CAROLYNE (Rec: 08/16/16 14:30 BKKaylyn [facility]) Postoperative Vital Signs Pulse Rate 83 Respiratory Rate 20 Blood Pressure 150/77 O2 Sat by Pulse Oximetry (95-100) 95 EKG A-Fib Pain Location Abdomen (OS) Pain Scale 7 General Skin Assessment Capillary Refill < 3 Seconds Sensation Description Within Normal Limits Pulse Strength Normal Skin Temperature Warm Skin Appearance Warm and Dry [place] Respiratory Effort Labored Auscultation of Lungs Clear Airway Patent Oxygen Appliance Mask Oxygen Flow Rate (LPM) 8 Cough and Deep Breath No Position Head of Bed Elevated 30 Level of Consciousness Responsive Sleeping Arouses to Name Activity Sleeping Nausea and Vomiting Denies Lines Peripheral Jabari Activity Able to move four extremeties voluntarily upon command Jabari Respirations Dyspnea or limited breathing Jabari Circulation Blood pressure and heart rate within 20% of preprocedure level Jabari Oxygen Saturation Needs oxygen to maintain saturations above 90% Jabari Consciousness Arousable on calling Jabari Total Score 7 Drains and Dressings #1 Dressing Type and Location Abdominal Stabs x 6 with Steri -Strips and Mastisol Dressing Dry and Intact Drainage Bright Red Scant Document 08/16/16 14:17 BKN (Rec: 08/16/16 14:34 BKN [email or web address]) Postoperative Vital Signs Pulse Rate 90 Respiratory Rate 20 Blood Pressure 168/89 O2 Sat by Pulse Oximetry (95-100) 93 L EKG A-Fib Pain Location Abdomen (OS) Pain Scale 6 General Skin Assessment Capillary Refill < 3 Seconds Sensation Description Within Normal Limits Pulse Strength Normal Skin Temperature Warm Skin Appearance Warm and Dry [place] Respiratory Effort Labored Auscultation of Lungs Clear Airway Patent Oxygen Appliance Nasal cannula Oxygen Flow Rate (LPM) 4 Cough and Deep Breath Yes Position Head of Bed Elevated 30 Level of Consciousness Oriented Responsive Drowsy Activity Awake and Resting Nausea and Vomiting Denies Lines Peripheral Jabari Activity Able to move four extremeties voluntarily upon command Jabari Respirations Able to deep breathe and cough freely Jabari Circulation Blood pressure and heart rate within 20% of preprocedure level Jabari Oxygen Saturation Needs oxygen to maintain saturations above 90% Jabari Consciousness Arousable on calling Jabari Total Score 8 Drains and Dressings #1 Dressing Type and Location Abdominal Stabs x 6 with Steri -Strips and Mastisol Dressing Dry and Intact Drainage Bright Red Scant Document 08/16/16 14:27 BKN (Rec: 08/16/16 14:37 BKN [email or web address]) Postoperative Vital Signs Temperature (97.6 F-99.6 F) 97.8 F Temperature Source Temporal Artery Scan Pulse Rate 94 Respiratory Rate 20 Blood Pressure 165/95 O2 Sat by Pulse Oximetry (95-100) 93 L EKG A-Fib Pain Location Abdomen (OS) Pain Scale 5 General Skin Assessment Capillary Refill < 3 Seconds Sensation Description Within Normal Limits Pulse Strength Normal Skin Temperature Warm Skin Appearance Warm and Dry [place] Respiratory Effort Labored Auscultation of Lungs Clear Airway Patent Oxygen Appliance Nasal cannula Oxygen Flow Rate (LPM) 4 Cough and Deep Breath Yes Position Head of Bed Elevated 30 Level of Consciousness Oriented Responsive Drowsy Activity Awake and Resting Nausea and Vomiting Denies Lines Peripheral Jabari Activity Able to move four extremeties voluntarily upon command Jabari Respirations Able to deep breathe and cough freely Jabari Circulation Blood pressure and heart rate within 20% of preprocedure level Jabari Oxygen Saturation Needs oxygen to maintain saturations above 90% Jabari Consciousness Arousable on calling Jabari Total Score 8 Drains and Dressings #1 Dressing Type and Location Abdominal Stabs x 6 with Steri -Strips and Mastisol Dressing Dry and Intact Drainage Bright Red Scant Document 08/16/16 14:37 BKN ([facility]: 08/16/16 14:[facility] Postoperative Vital Signs Pulse Rate 102 Respiratory Rate 20 Blood Pressure 167/95 O2 Sat by Pulse Oximetry (95-100) 93 L EKG A-Fib Pain Location Abdomen (OS) Pain Scale 4 Comment Pt sleeping General Skin Assessment Capillary Refill < 3 Seconds Sensation Description Within Normal Limits Pulse Strength Normal Skin Temperature Warm Skin Appearance Warm and Dry [place] Respiratory Effort Easy and Regular Auscultation of Lungs Clear Airway Patent Oxygen Appliance Nasal cannula Oxygen Flow Rate (LPM) 3 Cough and Deep Breath Yes Position Head of Bed Elevated 30 Level of Consciousness Responsive Sleeping Arouses to Name Activity Sleeping Nausea and Vomiting Denies Lines Peripheral Jabari Activity Able to move four extremeties voluntarily upon command Jabari Respirations Able to deep breathe and cough freely Jabari Circulation Blood pressure and heart rate within 20% of preprocedure level Jabari Oxygen Saturation Needs oxygen to maintain saturations above 90% Jabari Consciousness Arousable on calling Jabari Total Score 8 Drains and Dressings #1 Dressing Type and Location Abdominal Stabs x 6 with Steri -Strips and Mastisol Dressing Dry and Intact Drainage Bright Red Scant Document 08/16/16 14:47 BKN (Rec: 08/16/16 15:09 BK [id number]) Postoperative Vital Signs Pulse Rate 94 Respiratory Rate 20 Blood Pressure 142/80 O2 Sat by Pulse Oximetry (95-100) 93 L EKG A-Fib Pain Location Abdomen (OS) Pain Scale 4 Comment Pt sleeping General Skin Assessment Capillary Refill < 3 Seconds Sensation Description Within Normal Limits Pulse Strength Normal Skin Temperature Warm Skin Appearance Warm and Dry [place] Respiratory Effort Easy and Regular Auscultation of Lungs Clear Airway Patent Oxygen Appliance Nasal cannula Oxygen Flow Rate (LPM) 2 Cough and Deep Breath Yes Position Head of Bed Elevated 30 Level of Consciousness Responsive Sleeping Arouses to Name Activity Sleeping Nausea and Vomiting Denies Lines Peripheral Jabari Activity Able to move four extremeties voluntarily upon command Jabari Respirations Able to deep breathe and cough freely Jabari Circulation Blood pressure and heart rate within 20% of preprocedure level Jabari Oxygen Saturation Needs oxygen to maintain saturations above 90% Jabari Consciousness Arousable on calling Jabari Total Score 8 Drains and Dressings #1 Dressing Type and Location Abdominal Stabs x 6 with Steri -Strips and Mastisol Dressing Dry and Intact Drainage Bright Red Scant Document 08/16/16 14:57 [facility] (Rec: 08/16/16 15:11 [facility] [id number]) Postoperative Vital Signs Pulse Rate 92 Respiratory Rate 20 Blood Pressure 147/80 O2 Sat by Pulse Oximetry (95-100) 93 L EKG A-Fib Pain Location Abdomen (OS) Pain Scale 4 Comment Pt sleeping General Skin Assessment Capillary Refill < 3 Seconds Sensation Description Within Normal Limits Pulse Strength Normal Skin Temperature Warm Skin Appearance Warm and Dry [place] Respiratory Effort Easy and Regular Auscultation of Lungs Clear Airway Patent Oxygen Appliance Nasal cannula Oxygen Flow Rate (LPM) 2 Cough and Deep Breath Yes Position Head of Bed Elevated 30 Level of Consciousness Responsive Sleeping Arouses to Name Activity Sleeping Nausea and Vomiting Denies Lines Peripheral Jabari Activity Able to move four extremeties voluntarily upon command Jabari Respirations Able to deep breathe and cough freely Jabari Circulation Blood pressure and heart rate within 20% of preprocedure level Jabari Oxygen Saturation Needs oxygen to maintain saturations above 90% Jabari Consciousness Arousable on calling Jabari Total Score 8 Drains and Dressings #1 Dressing Type and Location Abdominal Stabs x 6 with Steri -Strips and Mastisol Dressing Dry and Intact Drainage Bright Red Scant Document 08/16/16 15:07 [facility] (Rec: 08/16/16 15:11 [facility] [id number]) Postoperative Vital Signs Temperature (97.6 F-99.6 F) 97.7 F Temperature Source Temporal Artery Scan Pulse Rate 95 Respiratory Rate 20 Blood Pressure 145/85 O2 Sat by Pulse Oximetry (95-100) 92 L EKG A-Fib Pain Location Abdomen (OS) Pain Scale 4 Comment Pt sleeping General Skin Assessment Capillary Refill < 3 Seconds Sensation Description Within Normal Limits Pulse Strength Normal Skin Temperature Warm Skin Appearance Warm and Dry [place] Respiratory Effort Easy and Regular Auscultation of Lungs Clear Airway Patent Oxygen Appliance Nasal cannula Oxygen Flow Rate (LPM) 2 Cough and Deep Breath Yes Position Head of Bed Elevated 30 Level of Consciousness Responsive Sleeping Arouses to Name Activity Sleeping Nausea and Vomiting Denies Lines Peripheral Jabari Activity Able to move four extremeties voluntarily upon command Jabari Respirations Able to deep breathe and cough freely Jabari Circulation Blood pressure and heart rate within 20% of preprocedure level Jabari Oxygen Saturation Needs oxygen to maintain saturations above 90% Jabari Consciousness Arousable on calling Jabari Total Score 8 Drains and Dressings #1 Dressing Type and Location Abdominal Stabs x 6 with Steri -Strips and Mastisol Dressing Dry and Intact Drainage Bright Red Scant Document 08/16/16 15:21 MMR (Rec: 08/16/16 15:21 MMR [id number]) Preoperative Checklist Start: 08/12/16 13: 13 Freq: Status: Discharge Document 08/12/16 13:13 CLF (Rec: 08/12/16 13:14 CLF [place] [id number]) Preoperative Checklist Verified Documents Surgical Consent History and Physical Home Medications Include Beta Zelalem No Patient Checklist ID Bracelet Verified NPO after Midnight Allergies Verified/ Band on Patient IV Access Obtained Glasses Removed Document 08/12/16 13:15 CLF (Rec: 08/12/16 13:15 CLF [place] [id number]) Preoperative Checklist Verified Documents Surgical Consent History and Physical Home Medications Include Beta Zelalem Yes Date Beta Zelalem Last Taken 08/12/16 Time Beta Zelalem Last Taken 00:13 Patient Checklist ID Bracelet Verified NPO after Midnight Allergies Verified/ Band on Patient IV Access Obtained Glasses Removed Document 08/12/16 13:16 CLF (Rec: 08/12/16 13:16 CLF [place] [id number]) Preoperative Checklist Verified Documents Surgical Consent History and Physical Home Medications Include Beta Zelalem Yes Date Beta Zelalem Last Taken 08/12/16 Time Beta Zelalem Last Taken 00:13 Patient Checklist ID Bracelet Verified NPO after Midnight Allergies Verified/ Band on Patient IV Access Obtained Glasses Removed Preoperative Checklist Start: 08/15/16 11: 40 Freq: Status: Discharge Document 08/15/16 11:40 GERTRUDE (Rec: 08/15/16 11:43 GERTRUDE [id number]) Preoperative Checklist Verified Documents Surgical Consent Home Medications Include Beta Zelalem Yes Date Beta Zelalem Last Taken 08/15/16 Time Beta Zelalem Last Taken 13:36 Patient Checklist ID Bracelet Verified IV Access Obtained Glasses Removed Underclothes Removed CHG Cloth Used Yes CHG Shower Yes Antiseptic Nasal Swabbing completed ( N/A Required for all Joint Replacements, Spinal Fusions and Open Hearts) Document 08/16/16 11:08 MMR (Rec: 08/16/16 11:11 MMR [id number]) Preoperative Checklist Verified Documents Surgical Consent History and Physical List of Home Meds Results Verified Type and Cross Chest X-Ray Electrolytes Bleeding/Clotting CBC Home Medications Include Beta Zelalem Yes Date Beta Zelalem Last Taken 08/16/16 Time Beta Zelalem Last Taken 05:42 Patient Checklist ID Bracelet Verified NPO after Midnight Voided/Catheter Emptied IV Access Obtained Underclothes Removed NPO since 0000 CHG Cloth Used Yes CHG Shower No Antiseptic Nasal Swabbing completed ( No Required for all Joint Replacements, Spinal Fusions and Open Hearts) Document 08/16/16 12:15 CAC (Rec: 08/16/16 12:15 CAC [id number]) Preoperative Checklist Verified Documents Surgical Consent Anesthesia Consent History and Physical List of Home Meds Results Verified Type and Cross Chest X-Ray Electrolytes Bleeding/Clotting CBC Home Medications Include Beta Zelalem Yes Date Beta Zelalem Last Taken 08/16/16 Time Beta Zelalem Last Taken 05:42 Patient Checklist ID Bracelet Verified NPO after Midnight Voided/Catheter Emptied IV Access Obtained Underclothes Removed NPO since 0000 CHG Cloth Used Yes CHG Shower No Antiseptic Nasal Swabbing completed ( No Required for all Joint Replacements, Spinal Fusions and Open Hearts) RT Continuous Pulse Oximetry Start: 08/11/16 16: 38 Freq: Status: Complete Document 08/11/16 16:46 DLW (Rec: 08/11/16 16:47 DLW [id number]) RT O2 Qualification Six Minute Walk Test Start: 08/19/16 10: 23 Freq: Status: Discharge Document 08/19/16 10:00 KJP (Rec: 08/19/16 11:17 KJP [id number]) Home Oxygen Qualification Oxygen Delivery Method Nasal Cannula Oxygen Flow Rate 3 O2 Sat by Pulse Oximetry (95-100) 95 Heart rate 60 Respiratory Rate 20 Pulse Rate 72 O2 Saturation by Pulse Oximetry 93 Six Minute Walk/Resting Test Home O2 Yes Charge* Respiratory Rate 22 Pulse Rate 64 O2 Saturation by Pulse Oximetry 91 Respiratory Rate 22 Pulse Rate 56 O2 Saturation by Pulse Oximetry 90 Respiratory Rate 22 Pulse Rate 60 O2 Saturation by Pulse Oximetry 90 Respiratory Rate 22 Pulse Rate 76 O2 Saturation by Pulse Oximetry 90 Respiratory Rate 22 Pulse Rate 78 O2 Saturation by Pulse Oximetry 88 Respiratory Rate 22 Pulse Rate 64 O2 Saturation by Pulse Oximetry 95 Oxygen delivery method Nasal Cannula Oxygen flow rate (L) 2 Activity Tolerance Good Adverse Reactions Desaturation Six Minute Walk Test Distance 340 Sepsis Screening Start: 08/11/16 20: 38 Freq: Q8H Status: Discharge Document 08/11/16 21:00 [id number] (Rec: 08/12/16 01:07 [id number]) Sepsis Screening Sepsis Infection Criteria Present none Sepsis SIRS Criteria none Sepsis Screen No Definite Risk Sepsis Action Taken no action required Document 08/12/16 04:24 [id number] (Rec: 08/12/16 04:26 [id number]) Sepsis Screening Sepsis Infection Criteria Present none Sepsis SIRS Criteria none Sepsis Screen No Definite Risk Sepsis Action Taken no action required Document 08/12/16 08:05 MED (Rec: 08/12/16 17:18 MED [id number]) Sepsis Screening Sepsis Infection Criteria Present none Sepsis SIRS Criteria none Sepsis Screen No Definite Risk Sepsis Action Taken no action required Document 08/12/16 16:10 MED (Rec: 08/12/16 18:53 MED [id number]) Sepsis Screening Sepsis Infection Criteria Present none Sepsis SIRS Criteria none Sepsis Screen No Definite Risk Sepsis Action Taken no action required Document 08/12/16 20:06 JDF (Rec: 08/13/16 01:19 JDF [id number]) Sepsis Screening Sepsis Infection Criteria Present none Sepsis SIRS Criteria HR > 90 bpm Sepsis Screen No Definite Risk Sepsis Action Taken no action required Document 08/13/16 03:41 JDF (Rec: 08/13/16 03:43 JDF [id number]) Sepsis Screening Sepsis Infection Criteria Present none Sepsis SIRS Criteria none Sepsis Screen No Definite Risk Sepsis Action Taken no action required Document 08/13/16 08:57 JLM (Rec: 08/13/16 09:07 [id number] Sepsis Screening Sepsis Infection Criteria Present none Sepsis SIRS Criteria none Sepsis Screen No Definite Risk Sepsis Action Taken no action required Document 08/13/16 12:37 JLM (Rec: 08/13/16 12:41 [id number] Sepsis Screening Sepsis Infection Criteria Present none Sepsis SIRS Criteria none Sepsis Screen No Definite Risk Sepsis Action Taken no action required Document 08/14/16 01:45 [id number] (Rec: 08/14/16 01:46 [id number]) Sepsis Screening Sepsis Infection Criteria Present none Sepsis SIRS Criteria none Sepsis Screen No Definite Risk Sepsis Action Taken no action required Document 08/14/16 09:19 HLC (Rec: 08/14/16 09:20 HLC [id number]) Sepsis Screening Sepsis Infection Criteria Present none Sepsis SIRS Criteria none Sepsis Screen No Definite Risk Sepsis Action Taken no action required Document 08/14/16 12:53 HLC (Rec: 08/14/16 12:59 [id number] Sepsis Screening Sepsis Infection Criteria Present none Sepsis SIRS Criteria none Sepsis Screen No Definite Risk Sepsis Action Taken no action required Document 08/14/16 19:47 JLM (Rec: 08/14/16 20:02 [id number] Sepsis Screening Sepsis Infection Criteria Present none Sepsis SIRS Criteria none Sepsis Screen No Definite Risk Sepsis Action Taken no action required Document 08/15/16 03:00 JLM (Rec: 08/15/16 03:09 JL [id number]) Sepsis Screening Sepsis Infection Criteria Present none Sepsis SIRS Criteria none Sepsis Screen No Definite Risk Sepsis Action Taken no action required Document 08/15/16 19:51 JRA (Rec: 08/15/16 19:58 JRA [id number]) Sepsis Screening Sepsis Infection Criteria Present none Sepsis SIRS Criteria HR > 90 bpm Sepsis Screen No Definite Risk Sepsis Action Taken no action required Document 08/16/16 09:00 MMR (Rec: 08/16/16 09:25 MMR [id number]) Sepsis Screening Sepsis Infection Criteria Present none Sepsis SIRS Criteria HR > 90 bpm Sepsis Screen No Definite Risk Sepsis Action Taken no action required Document 08/16/16 15:05 MMR (Rec: 08/16/16 15:42 MMR [id number]) Sepsis Screening Sepsis Infection Criteria Present none Sepsis SIRS Criteria HR > 90 bpm Sepsis Screen No Definite Risk Sepsis Action Taken no action required Document 08/16/16 22:05 CBT (Rec: 08/16/16 22:06 CBT [id number]) Sepsis Screening Sepsis Infection Criteria Present none Sepsis SIRS Criteria HR > 90 bpm Sepsis Screen No Definite Risk Sepsis Action Taken no action required Document 08/17/16 05:22 CBT (Rec: 08/17/16 05:23 CBT [id number]) Sepsis Screening Sepsis Infection Criteria Present none Sepsis SIRS Criteria HR > 90 bpm Sepsis Screen No Definite Risk Sepsis Action Taken no action required Document 08/17/16 07:45 KJP (Rec: 08/17/16 07:58 KJP [id number]) Sepsis Screening Sepsis Infection Criteria Present none Sepsis SIRS Criteria HR > 90 bpm Sepsis Screen No Definite Risk Sepsis Action Taken no action required Document 08/17/16 15:15 KJP (Rec: 08/17/16 17:07 KJP [id number]) Sepsis Screening Sepsis Infection Criteria Present none Sepsis SIRS Criteria HR > 90 bpm Sepsis Screen No Definite Risk Sepsis Action Taken no action required Document 08/17/16 22:18 CNH (Rec: 08/17/16 22:51 [id number] Sepsis Screening Sepsis Infection Criteria Present none Sepsis SIRS Criteria HR > 90 bpm Sepsis Screen No Definite Risk Sepsis Action Taken no action required Document 08/18/16 04:11 CNH (Rec: 08/18/16 04:16 [id number] Sepsis Screening Sepsis Infection Criteria Present none Sepsis SIRS Criteria none Sepsis Screen No Definite Risk Sepsis Action Taken no action required Document 08/18/16 08:45 KJP (Rec: 08/18/16 09:01 KJP [id number]) Sepsis Screening Sepsis Infection Criteria Present none Sepsis SIRS Criteria none Sepsis Screen No Definite Risk Sepsis Action Taken no action required Document 08/18/16 15:52 KJP (Rec: 08/18/16 15:56 KJP [id number]) Sepsis Screening Sepsis Infection Criteria Present none Sepsis SIRS Criteria none Sepsis Screen No Definite Risk Sepsis Action Taken no action required Document 08/18/16 20:25 CNH (Rec: 08/18/16 20:34 [id number]) Sepsis Screening Sepsis Infection Criteria Present none Sepsis SIRS Criteria HR > 90 bpm Sepsis Screen No Definite Risk Sepsis Action Taken no action required Document 08/19/16 05:15 CNH (Rec: 08/19/16 05:32 CNH [id number]) Sepsis Screening Sepsis Infection Criteria Present none Sepsis SIRS Criteria none Sepsis Screen No Definite Risk Sepsis Action Taken no action required Document 08/19/16 07:00 MMR (Rec: 08/19/16 10:26 MMR [id number]) Sepsis Screening Sepsis Infection Criteria Present none Sepsis SIRS Criteria HR > 90 bpm Sepsis Screen No Definite Risk Sepsis Action Taken no action required Skin Risk Assessment Scale Start: 08/11/16 20: 38 Freq: Q12H Status: Discharge Document 08/11/16 21:00 [id number] (Rec: 08/12/16 01:07 [id number]) Skin Risk Assessment Scale Moisture Risk Rarely Moist Sensory Perception Slightly Limited Activity Risk Walks Occasionally Mobility Risk Slightly Limited Nutrition Risk Adequate Friction & Shear Risk No Apparent Problem Skin Risk Total Score (points) 19 Document 08/12/16 08:05 MED (Rec: 08/12/16 17:18 MED [id number]) Skin Risk Assessment Scale Moisture Risk Rarely Moist Sensory Perception Slightly Limited Activity Risk Walks Occasionally Mobility Risk Slightly Limited Nutrition Risk Adequate Friction & Shear Risk No Apparent Problem Skin Risk Total Score (points) 19 Document 08/12/16 20:06 JDF (Rec: 08/13/16 01:19 JDF [id number]) Skin Risk Assessment Scale Moisture Risk Rarely Moist Sensory Perception Slightly Limited Activity Risk Walks Occasionally Mobility Risk Slightly Limited Nutrition Risk Adequate Friction & Shear Risk No Apparent Problem Skin Risk Total Score (points) 19 Document 08/13/16 08:57 JLM (Rec: 08/13/16 09:07 JLM [id number]) Skin Risk Assessment Scale Moisture Risk Rarely Moist Sensory Perception No Impairment Activity Risk Walks Frequently Mobility Risk No Limitations Nutrition Risk Adequate Friction & Shear Risk No Apparent Problem Skin Risk Total Score (points) 22 Document 08/13/16 21:00 [id number] (Rec: 08/13/16 21:00 [id number]) Skin Risk Assessment Scale Moisture Risk Rarely Moist Sensory Perception No Impairment Activity Risk Walks Frequently Mobility Risk No Limitations Nutrition Risk Adequate Friction & Shear Risk No Apparent Problem Skin Risk Total Score (points) 22 Document 08/14/16 09:14 HLC (Rec: 08/14/16 11:19 HLC [id number]) Skin Risk Assessment Scale Moisture Risk Rarely Moist Sensory Perception No Impairment Activity Risk Walks Occasionally Mobility Risk Slightly Limited Nutrition Risk Adequate Friction & Shear Risk No Apparent Problem Skin Risk Total Score (points) 20 Document 08/14/16 19:47 JLM (Rec: 08/14/16 20:02 JLM [id number]) Skin Risk Assessment Scale Moisture Risk Occasionally Moist Sensory Perception No Impairment Activity Risk Walks Frequently Mobility Risk No Limitations Nutrition Risk Adequate Friction & Shear Risk No Apparent Problem Skin Risk Total Score (points) 21 Document 08/15/16 07:00 GERTRUDE (Rec: 08/15/16 19:13 GERTRUDE [id number]) Skin Risk Assessment Scale Moisture Risk Occasionally Moist Sensory Perception No Impairment Activity Risk Walks Frequently Mobility Risk No Limitations Nutrition Risk Adequate Friction & Shear Risk No Apparent Problem Skin Risk Total Score (points) 21 Document 08/15/16 19:51 JRA (Rec: 08/15/16 19:58 JRA [id number]) Skin Risk Assessment Scale Moisture Risk Occasionally Moist Sensory Perception No Impairment Activity Risk Walks Occasionally Mobility Risk No Limitations Nutrition Risk Adequate Friction & Shear Risk No Apparent Problem Skin Risk Total Score (points) 20 Document 08/16/16 07:00 MMR (Rec: 08/16/16 09:27 MMR [id number]) Skin Risk Assessment Scale Moisture Risk Occasionally Moist Sensory Perception No Impairment Activity Risk Walks Occasionally Mobility Risk No Limitations Nutrition Risk Adequate Friction & Shear Risk No Apparent Problem Skin Risk Total Score (points) 20 Document 08/16/16 22:10 CBT (Rec: 08/16/16 22:10 CBT [id number]) Skin Risk Assessment Scale Moisture Risk Occasionally Moist Sensory Perception No Impairment Activity Risk Walks Occasionally Mobility Risk No Limitations Nutrition Risk Adequate Friction & Shear Risk No Apparent Problem Skin Risk Total Score (points) 20 Document 08/17/16 07:45 KJP (Rec: 08/17/16 07:58 KJP [id number]) Skin Risk Assessment Scale Moisture Risk Occasionally Moist Sensory Perception No Impairment Activity Risk Walks Occasionally Mobility Risk No Limitations Nutrition Risk Adequate Friction & Shear Risk No Apparent Problem Skin Risk Total Score (points) 20 Document 08/17/16 22:18 CNH (Rec: 08/17/16 22:51 CNH [id number]) Skin Risk Assessment Scale Moisture Risk Occasionally Moist Sensory Perception No Impairment Activity Risk Walks Occasionally Mobility Risk No Limitations Nutrition Risk Adequate Friction & Shear Risk No Apparent Problem Skin Risk Total Score (points) 20 Document 08/18/16 08:45 KJP (Rec: 08/18/16 09:01 KJP [id number]) Skin Risk Assessment Scale Moisture Risk Occasionally Moist Sensory Perception No Impairment Activity Risk Walks Occasionally Mobility Risk No Limitations Nutrition Risk Adequate Friction & Shear Risk No Apparent Problem Skin Risk Total Score (points) 20 Document 08/18/16 20:25 CNH (Rec: 08/18/16 20:34 CNH [id number]) Skin Risk Assessment Scale Moisture Risk Occasionally Moist Sensory Perception No Impairment Activity Risk Walks Occasionally Mobility Risk No Limitations Nutrition Risk Adequate Friction & Shear Risk No Apparent Problem Skin Risk Total Score (points) 20 Document 08/19/16 07:00 MMR (Rec: 08/19/16 08:38 MMR [id number]) Skin Risk Assessment Scale Moisture Risk Occasionally Moist Sensory Perception No Impairment Activity Risk Walks Occasionally Mobility Risk Slightly Limited Nutrition Risk Adequate Friction & Shear Risk No Apparent Problem Skin Risk Total Score (points) 19 Surgery Outputs Start: 08/16/16 12: 15 Freq: Status: Discharge Document 08/16/16 13:48 CAC (Rec: 08/16/16 13:48 CAC [id number]) Output Output, Estimated Blood Loss Amount 50 System Review Start: 08/11/16 20: 38 Freq: Q8H Status: Discharge Document 08/11/16 21:00 [id number] (Rec: 08/12/16 01:07 [id number]) Pain Assessment Pain Present Reports No Pain Neurological Assessment Eye Opening Spontaneous Motor Obeys Commands Verbal Oriented Coma Scale Total 15 Neurologic Status Alert Patient Orientation Person Place Time Arousable To Name Speech Pattern Normal rate Normal rhythm Normal tone Appropriate Clear Coherent Patient Behavior Cooperative Mood Description Calm Bilateral Pupil Reaction Reactive Pupil United Equal Scleral Edema No Sensory Hard of Hearing Vision impaired Dance Entertainer Strength Equal Push/Pull Equal Numbness/Tingling No Facial Symmetry Symmetrical Neurological Comment: a/o x3 Cardiovascular Assessment Signs and Symptoms Cool Extremities Pulse Rhythm Regular Jugular Vein Distention None Capillary Refill < 3 Seconds Circulatory Tenderness Description None Right Radial 2+ Left Radial 2+ Right Dorsalis Pedis 2+ Left Dorsalis Pedis 2+ Has Confirmed Diagnosis of DVT, PE or No VTE Mechanical Prophylaxis No Documentation of Mechanical Device Graduated compression elastic hosiery Respiratory Assessment Respiratory Symptoms None Effort Spontaneous Non-Labored Depth Normal Respiratory Pattern Regular Chest Shape Normal Expansion Symmetrical All Lung Hernandez Clear Oxygen Delivery Method Room Air Cough Description None Sputum Amount None Gastrointestinal Assessment Abdomen Description Large Round Distended Tender 3 or more loose stools, in less than 24 No hours Nausea/Vomiting Presence None GI Comment: pt's abdomen distended and right side tender to touch All Four Quadrants Active Flatus Presence Present Genitourinary Assessment Genitourinary Symptoms None Bladder Pattern Normal Voiding Method Urinal Bladder Distention None Suprapubic Tenderness with Palpation No Comment: have not assessed urine, will continue to monitor Integumentary Assessment Fingernail Color Yellow Nail Bed Appearance [place] Temperature Warm Moisture Dry Turgor Normal Color Normal Evidence of Incision/Wounds/Breakdown No Mucous membranes moist, pink and intact Yes Oral Cavity Normal Integumentary Comment: pt has small scrap to right [place] Musculoskeletal Assessment Musculoskeletal Symptoms Generalized Weakness Document 08/12/16 04:24 [id number] (Rec: 08/12/16 04:26 [id number]) Pain Assessment Pain Present Reports Pain Abdomen Pain Intensity 6 Description Ache Scale Used Numeric (1 - 10) Pain Intervention Medication Neurological Assessment Eye Opening Spontaneous Motor Obeys Commands Verbal Oriented Coma Scale Total 15 Neurologic Status Alert Patient Orientation Person Place Time Arousable To Name Speech Pattern Normal rate Normal rhythm Normal tone Appropriate Clear Coherent Patient Behavior Cooperative Mood Description Calm Relaxed Bilateral Pupil Reaction Reactive Pupil United Equal Scleral Edema No Sensory Hard of Hearing Vision impaired Dance Entertainer Strength Equal Push/Pull Equal Numbness/Tingling No Facial Symmetry Symmetrical Neurological Comment: a/o x3 Cardiovascular Assessment Signs and Symptoms Cool Extremities Pulse Rhythm Regular Jugular Vein Distention None Capillary Refill < 3 Seconds Circulatory Tenderness Description None Right Radial 2+ Left Radial 2+ Right Dorsalis Pedis 2+ Left Dorsalis Pedis 2+ Chest Pain Complaint No Has Confirmed Diagnosis of DVT, PE or No VTE Mechanical Prophylaxis No Respiratory Assessment Respiratory Symptoms None Effort Spontaneous Non-Labored Depth Normal Respiratory Pattern Regular Chest Shape Normal Expansion Symmetrical All Lung Hernandez Clear Oxygen Delivery Method Room Air Cough Description None Sputum Amount None Gastrointestinal Assessment Abdomen Description Large Round Distended Tender 3 or more loose stools, in less than 24 No hours Nausea/Vomiting Presence None GI Comment: pt's abdomen distended and right side tender to touch All Four Quadrants Active Flatus Presence Present Genitourinary Assessment Genitourinary Symptoms None Bladder Pattern Normal Voiding Method Urinal Bladder Distention None Suprapubic Tenderness with Palpation No Comment: have not assessed urine, will continue to monitor Integumentary Assessment Fingernail Color Yellow Nail Bed Appearance [place] Temperature Warm Moisture Dry Turgor Normal Color Normal Evidence of Incision/Wounds/Breakdown No Mucous membranes moist, pink and intact Yes Oral Cavity Normal Integumentary Comment: pt has small scrap to right [place] Musculoskeletal Assessment Musculoskeletal Symptoms Generalized Weakness Document 08/12/16 08:05 MED (Rec: 08/12/16 17:18 [facility] [id number]) Pain Assessment Pain Present Reports Pain Abdomen Pain Intensity 8 Neurological Assessment Eye Opening Spontaneous Motor Obeys Commands Verbal Oriented Coma Scale Total 15 Neurologic Status Alert Patient Orientation Person Place Time Arousable To Name Speech Pattern Normal rate Normal rhythm Normal tone Appropriate Clear Coherent Patient Behavior Cooperative Mood Description Calm Relaxed Bilateral Pupil Reaction Reactive Pupil United Equal Scleral Edema No Sensory Hard of Hearing Vision impaired Dance Entertainer Strength Equal Push/Pull Equal Numbness/Tingling No Facial Symmetry Symmetrical Neurological Comment: . Cardiovascular Assessment Signs and Symptoms Cool Extremities Pulse Rhythm Regular Jugular Vein Distention None Capillary Refill < 3 Seconds Circulatory Tenderness Description None Right Radial 2+ Left Radial 2+ Right Dorsalis Pedis 2+ Left Dorsalis Pedis 2+ Chest Pain Complaint No Has Confirmed Diagnosis of DVT, PE or No VTE Mechanical Prophylaxis No Respiratory Assessment Respiratory Symptoms None Effort Spontaneous Non-Labored Depth Normal Respiratory Pattern Regular Chest Shape Normal Expansion Symmetrical All Lung Hernandez Clear Oxygen Delivery Method Nasal Cannula Oxygen Flow Rate (LPM) 2 Cough Description None Sputum Amount None Gastrointestinal Assessment Abdomen Description Large Round Distended Tender 3 or more loose stools, in less than 24 No hours Nausea/Vomiting Presence None GI Comment: . All Four Quadrants Active Flatus Presence Present Genitourinary Assessment Genitourinary Symptoms None Bladder Pattern Normal Voiding Method Urinal Bladder Distention None Suprapubic Tenderness with Palpation No Integumentary Assessment Fingernail Color Yellow Nail Bed Appearance [place] Temperature Warm Moisture Dry Turgor Normal Color Normal Evidence of Incision/Wounds/Breakdown No Mucous membranes moist, pink and intact Yes Oral Cavity Normal Integumentary Comment: . Musculoskeletal Assessment Musculoskeletal Symptoms Generalized Weakness Document 08/12/16 16:10 MED (Rec: 08/12/16 18:53 [facility] [id number]) Pain Assessment Pain Present Reports Pain Abdomen Pain Intensity 10 Neurological Assessment Eye Opening Spontaneous Motor Obeys Commands Verbal Oriented Coma Scale Total 15 Neurologic Status Alert Patient Orientation Person Place Time Arousable To Name Speech Pattern Normal rate Patient Behavior Appropriate Mood Description Calm Bilateral Pupil Reaction Reactive Pupil United Equal Sensory Hard of Hearing Dance Entertainer Strength Equal Push/Pull Equal Cardiovascular Assessment Signs and Symptoms None Heart Sounds S1 & S2 Pulse Rhythm Regular Jugular Vein Distention None Chest Pain Complaint No Has Confirmed Diagnosis of DVT, PE or No VTE Mechanical Prophylaxis No Respiratory Assessment Respiratory Symptoms None Effort Normal for Patient Depth Normal Respiratory Pattern Regular Chest Shape Normal Expansion Symmetrical All Lung Hernandez Clear Oxygen Delivery Method Nasal Cannula Oxygen Flow Rate (LPM) 2 Cough Description None Sputum Amount None Gastrointestinal Assessment Abdomen Description Soft Large Tender Nausea/Vomiting Presence None All Four Quadrants Active Flatus Presence Present Genitourinary Assessment Genitourinary Symptoms None Integumentary Assessment Temperature Warm Moisture Dry Turgor Normal Color Normal All Pressure Points Assessed Yes Evidence of Incision/Wounds/Breakdown No Musculoskeletal Assessment Musculoskeletal Symptoms Generalized Weakness Document 08/12/16 20:06 [facility] (Rec: 08/13/16 01:19 [facility] [id number]) Pain Assessment Pain Present Reports No Pain Neurological Assessment Eye Opening Spontaneous Motor Obeys Commands Verbal Oriented Coma Scale Total 15 Neurologic Status Alert Patient Orientation Person Place Time Arousable To Name Speech Pattern Normal rate Normal rhythm Normal tone Patient Behavior Appropriate Cooperative Mood Description Calm Relaxed Bilateral Pupil Reaction Reactive Pupil United Equal Sensory Hard of Hearing Vision impaired Dance Entertainer Strength Equal Push/Pull Equal Numbness/Tingling No Facial Symmetry Symmetrical Blink Present Cough/Gag Normal Cardiovascular Assessment Signs and Symptoms None Heart Sounds S1 & S2 Pulse Rhythm Irregular Jugular Vein Distention None Capillary Refill < 3 Seconds Circulatory Tenderness Description None Right Radial 2+ Left Radial 2+ Right Dorsalis Pedis 1+ Left Dorsalis Pedis 1+ Chest Pain Complaint No Has Confirmed Diagnosis of DVT, PE or No VTE VTE Prophylaxis PO Treatment Mechanical Prophylaxis No Cardiac Monitoring Heart Rate 82 Monitoring Method Telemetry Rhythm Atrial Fibrillation QRS Interval 0.07 QT Interval 0.31 Monitor Number [id number] Pipe Liner Limits 130/40 Respiratory Assessment Respiratory Symptoms None Effort Normal for Patient Depth Normal Respiratory Pattern Regular Chest Shape Normal Expansion Symmetrical All Lung Hernandez Clear Oxygen Delivery Method Nasal Cannula Oxygen Flow Rate (LPM) 2 Cough Description None Sputum Amount None Gastrointestinal Assessment Abdomen Description Soft Large Distended Tender Nausea/Vomiting Presence None All Four Quadrants Active Flatus Presence Present Genitourinary Assessment Genitourinary Symptoms None Bladder Pattern Normal Voiding Method Urinal Bladder Distention None Suprapubic Tenderness with Palpation No Comment: Nurse has not visualized urine at this time Integumentary Assessment Nail Bed Appearance [place] Temperature Warm Moisture Dry Turgor Normal Color Normal All Pressure Points Assessed Yes Evidence of Incision/Wounds/Breakdown No Mucous membranes moist, pink and intact Yes Oral Cavity Normal Integumentary Comment: Pt noted to have a scab to his right lower leg Musculoskeletal Assessment Musculoskeletal Symptoms Generalized Weakness Document 08/13/16 03:41 JDF (Rec: 08/13/16 03:43 JDF [id number]) Pain Assessment Pain Present Reports No Pain Neurological Assessment Eye Opening Spontaneous Motor Obeys Commands Verbal Oriented Coma Scale Total 15 Neurologic Status Alert Patient Orientation Person Place Time Arousable To Name Speech Pattern Normal rate Normal rhythm Normal tone Patient Behavior Appropriate Cooperative Mood Description Calm Relaxed Bilateral Pupil Reaction Reactive Pupil United Equal Sensory Hard of Hearing Vision impaired Dance Entertainer Strength Equal Push/Pull Equal Numbness/Tingling No Facial Symmetry Symmetrical Blink Present Cough/Gag Normal Cardiovascular Assessment Signs and Symptoms None Heart Sounds S1 & S2 Pulse Rhythm Irregular Jugular Vein Distention None Capillary Refill < 3 Seconds Circulatory Tenderness Description None Right Radial 2+ Left Radial 2+ Right Dorsalis Pedis 1+ Left Dorsalis Pedis 1+ Chest Pain Complaint No Has Confirmed Diagnosis of DVT, PE or No VTE VTE Prophylaxis PO Treatment Mechanical Prophylaxis No Respiratory Assessment Respiratory Symptoms None Effort Normal for Patient Depth Normal Respiratory Pattern Regular Chest Shape Normal Expansion Symmetrical All Lung Hernandez Clear Oxygen Delivery Method Nasal Cannula Oxygen Flow Rate (LPM) 2 Cough Description None Sputum Amount None Gastrointestinal Assessment Abdomen Description Soft Large Distended Tender Nausea/Vomiting Presence None All Four Quadrants Active Flatus Presence Present Genitourinary Assessment Genitourinary Symptoms None Bladder Pattern Normal Voiding Method Urinal Bladder Distention None Suprapubic Tenderness with Palpation No Comment: Nurse has not visualized urine at this time Integumentary Assessment Nail Bed Appearance [place] Temperature Warm Moisture Dry Turgor Normal Color Normal All Pressure Points Assessed Yes Evidence of Incision/Wounds/Breakdown No Mucous membranes moist, pink and intact Yes Oral Cavity Normal Integumentary Comment: Pt noted to have a scab to his right lower leg Musculoskeletal Assessment Musculoskeletal Symptoms Generalized Weakness Document 08/13/16 08:57 JL (Rec: 08/13/16 09:07 [id number] Pain Assessment Pain Present Reports Pain Abdomen Pain Intensity 3 Description Ache Scale Used Numeric (1 - 10) Pain Intervention Medication Neurological Assessment Eye Opening Spontaneous Motor Obeys Commands Verbal Oriented Coma Scale Total [address] Time Speech Pattern Normal rate Normal rhythm Normal tone Appropriate Clear Coherent Patient Behavior Appropriate Cooperative Mood Description Calm Relaxed Bilateral Pupil Reaction Reactive Pupil United Equal Sensory Hard of Hearing Dance Entertainer Strength Equal Push/Pull Equal Numbness/Tingling No Facial Symmetry Symmetrical Cardiovascular Assessment Signs and Symptoms None Heart Sounds S1 & S2 Pulse Rhythm Regular Jugular Vein Distention None Capillary Refill < 3 Seconds Right Radial 2+ Left Radial 2+ Right Dorsalis Pedis 2+ Left Dorsalis Pedis 2+ Has Confirmed Diagnosis of DVT, PE or No VTE VTE Prophylaxis PO Treatment Contraindication Reason for not order Surgical Contraindication VTE Prophylaxis Mechanical Prophylaxis No Contraindication No VTE Prophylaxis Treatment not Indicated - Low risk for VTE Respiratory Assessment Respiratory Symptoms None Effort Normal for Patient Spontaneous Non-Labored Depth Normal Respiratory Pattern Regular Chest Shape Normal Expansion Symmetrical All Lung Hernandez Clear Diminished Oxygen Delivery Method Nasal Cannula Oxygen Flow Rate (LPM) 2 Cough Description Voluntary Cough Frequency Intermittent Sputum Amount None Gastrointestinal Assessment Abdomen Description Non-Tender Large Round 3 or more loose stools, in less than 24 No hours Nausea/Vomiting Presence None All Four Quadrants Active Flatus Presence Present Genitourinary Assessment Genitourinary Symptoms None Bladder Pattern Normal Voiding Method Toilet Bladder Distention None Suprapubic Tenderness with Palpation No Comment: No urine to assess at this time. Integumentary Assessment Nail Bed Appearance [place] Temperature Warm Moisture Dry Color Normal All Pressure Points Assessed Yes Evidence of Incision/Wounds/Breakdown No Mucous membranes moist, pink and intact Yes Oral Cavity Missing Teeth Musculoskeletal Assessment Musculoskeletal Symptoms Generalized Weakness Document 08/13/16 12:37 [facility] (Rec: 08/13/16 12:41 [facility] [id number]) Pain Assessment Pain Present Reports No Pain Abdomen Scale Used Numeric (1 - 10) Pain Intervention None Neurological Assessment Eye Opening Spontaneous Motor Obeys Commands Verbal Oriented Coma Scale Total [address] Time Speech Pattern Normal rate Normal rhythm Normal tone Appropriate Clear Coherent Patient Behavior Appropriate Cooperative Mood Description Calm Relaxed Bilateral Pupil Reaction Reactive Pupil United Equal Sensory Hard of Hearing Dance Entertainer Strength Equal Push/Pull Equal Numbness/Tingling No Facial Symmetry Symmetrical Cardiovascular Assessment Signs and Symptoms None Heart Sounds S1 & S2 Jugular Vein Distention None Capillary Refill < 3 Seconds Right Radial 2+ Left Radial 2+ Has Confirmed Diagnosis of DVT, PE or No VTE VTE Prophylaxis SQ Treatment PO Treatment Mechanical Prophylaxis No Cardiac Monitoring Heart Rate 91 Monitoring Method Telemetry Rhythm Atrial Fibrillation QRS Interval .08 Monitor Number [id number] Pipe Liner Limits 130/40 Respiratory Assessment Respiratory Symptoms None Effort Normal for Patient Spontaneous Non-Labored Depth Normal Respiratory Pattern Regular Chest Shape Normal Expansion Symmetrical All Lung Hernandez Clear Oxygen Delivery Method Nasal Cannula Oxygen Flow Rate (LPM) 2 Cough Description Voluntary Cough Frequency Intermittent Sputum Amount None Gastrointestinal Assessment Abdomen Description Large Round Firm 3 or more loose stools, in less than 24 No hours Nausea/Vomiting Presence None All Four Quadrants Active Flatus Presence Absent Genitourinary Assessment Genitourinary Symptoms None Bladder Pattern Normal Voiding Method Toilet Urinal Bladder Distention None Suprapubic Tenderness with Palpation No Integumentary Assessment Nail Bed Appearance [place] Temperature Warm Moisture Dry Turgor Loose Color Normal All Pressure Points Assessed Yes Evidence of Incision/Wounds/Breakdown No Mucous membranes moist, pink and intact Yes Oral Cavity Missing Teeth Musculoskeletal Assessment Musculoskeletal Symptoms Generalized Weakness Document 08/13/16 21:02 [id number] (Rec: 08/13/16 21:07 [id number]) Pain Assessment Pain Present Reports Pain Abdomen Pain Intensity 2 Scale Used Numeric (1 - 10) Pain Intervention None Comment pt denies any need for pain control at this time. Neurological Assessment Eye Opening Spontaneous Motor Obeys Commands Verbal Oriented Coma Scale Total 15 Neurologic Status Alert Patient Orientation Person Place Time Arousable To Name Speech Pattern Normal rate Normal rhythm Normal tone Appropriate Clear Coherent Patient Behavior Appropriate Cooperative Mood Description Calm Relaxed Bilateral Pupil Reaction Reactive Pupil United Equal Sensory Hard of Hearing Dance Entertainer Strength Equal Push/Pull Equal Numbness/Tingling No Facial Symmetry Symmetrical Cardiovascular Assessment Signs and Symptoms None Heart Sounds S1 & S2 Pulse Rhythm Regular Jugular Vein Distention None Capillary Refill < 3 Seconds Circulatory Tenderness Description None Right Radial 2+ Left Radial 2+ Has Confirmed Diagnosis of DVT, PE or No VTE VTE Prophylaxis SQ Treatment PO Treatment Contraindication Reason for not order Surgical Contraindication VTE Prophylaxis Mechanical Prophylaxis No Respiratory Assessment Respiratory Symptoms None Effort Normal for Patient Spontaneous Non-Labored Depth Normal Respiratory Pattern Regular Chest Shape Normal Expansion Symmetrical All Lung Hernandez Clear Oxygen Delivery Method Nasal Cannula Oxygen Flow Rate (LPM) 2 Cough Description None Sputum Amount None Gastrointestinal Assessment Abdomen Description Large Round Firm 3 or more loose stools, in less than 24 No hours Nausea/Vomiting Presence None All Four Quadrants Active Flatus Presence Absent Genitourinary Assessment Genitourinary Symptoms None Bladder Distention None Suprapubic Tenderness with Palpation No Integumentary Assessment Fingernail Color Yellow Nail Bed Appearance [place] Temperature Warm Moisture Dry Turgor Loose Color Normal All Pressure Points Assessed Yes Evidence of Incision/Wounds/Breakdown No Mucous membranes moist, pink and intact Yes Oral Cavity Missing Teeth Integumentary Comment: Pt noted to have a scab to his right lower leg Musculoskeletal Assessment Musculoskeletal Symptoms Generalized Weakness Document 08/14/16 09:14 [facility] (Rec: 08/14/16 09:20 [facility] [id number]) Pain Assessment Pain Present Reports No Pain Neurological Assessment Eye Opening Spontaneous Motor Obeys Commands Verbal Oriented Coma Scale Total 15 Neurologic Status Alert Patient Orientation Person Place Time Arousable To Name Speech Pattern Normal rate Normal rhythm Normal tone Appropriate Patient Behavior Appropriate Mood Description Calm Bilateral Pupil Reaction Reactive Pupil Size (mm) 2 Pupil United Equal Scleral Edema No Sensory Hard of Hearing Dance Entertainer Strength Equal Push/Pull Equal Numbness/Tingling No Facial Symmetry Symmetrical Cardiovascular Assessment Signs and Symptoms None Heart Sounds S1 & S2 Pulse Rhythm Irregular Jugular Vein Distention None Capillary Refill < 3 Seconds Circulatory Tenderness Description None Right Radial 2+ Left Radial 2+ Right Dorsalis Pedis 1+ Left Dorsalis Pedis 1+ Right Posterior Tibialis 1+ Left Posterior Tibialis 1+ Has Confirmed Diagnosis of DVT, PE or No VTE VTE Prophylaxis SQ Treatment PO Treatment Contraindication Reason for not order Surgical Contraindication VTE Prophylaxis Mechanical Prophylaxis No Cardiac Monitoring Heart Rate 112 Monitoring Method Telemetry Rhythm Sinus Arrhythmia Ectopy Multi-Focal PVC's [place] Interval 0.12 QRS Interval 0.09 QT Interval 0.30 Monitor Number [id number] Pipe Liner Limits 130/40 Strip placed in Chart Yes Monitor History Reviewed No Memory Cleared No Respiratory Assessment Respiratory Symptoms None Effort Normal for Patient Spontaneous Non-Labored Depth Normal Respiratory Pattern Regular Chest Shape Normal Expansion Symmetrical All Lung Hernandez Clear Diminished Oxygen Delivery Method Nasal Cannula Oxygen Flow Rate (LPM) 2 Cough Description None Sputum Amount None Gastrointestinal Assessment Abdomen Description Large Round Distended 3 or more loose stools, in less than 24 No hours Nausea/Vomiting Presence None All Four Quadrants Active Flatus Presence Absent Genitourinary Assessment Genitourinary Symptoms None Bladder Pattern Normal Voiding Method Urinal Bladder Distention None Suprapubic Tenderness with Palpation No Integumentary Assessment Fingernail Condition Striated Fingernail Color Yellow Nail Bed Appearance Pale [place] Temperature Warm Moisture Dry Turgor Normal Color Normal All Pressure Points Assessed Yes Evidence of Incision/Wounds/Breakdown No Mucous membranes moist, pink and intact Yes Oral Cavity Normal Musculoskeletal Assessment Musculoskeletal Symptoms Generalized Weakness Document 03/08/17 12:53 [facility] (Rec: 08/14/16 12:59 [id number]) Pain Assessment Pain Present Reports Pain Abdomen Pain Intensity 6 Description Ache Scale Used Numeric (1 - 10) Pain Intervention Medication Neurological Assessment Eye Opening Spontaneous Motor Obeys Commands Verbal Oriented Coma Scale Total 15 Neurologic Status Alert Patient Orientation Person Place Time Arousable To Name Speech Pattern Normal rate Normal rhythm Normal tone Appropriate Patient Behavior Appropriate Mood Description Calm Bilateral Pupil Reaction Reactive Pupil Size (mm) 2 Pupil United Equal Scleral Edema No Sensory Hard of Hearing Dance Entertainer Strength Equal Push/Pull Equal Numbness/Tingling No Facial Symmetry Symmetrical Cardiovascular Assessment Signs and Symptoms None Heart Sounds S1 & S2 Pulse Rhythm Irregular Jugular Vein Distention None Capillary Refill < 3 Seconds Circulatory Tenderness Description None Right Radial 2+ Left Radial 2+ Right Dorsalis Pedis 1+ Left Dorsalis Pedis 1+ Right Posterior Tibialis 1+ Left Posterior Tibialis 1+ Has Confirmed Diagnosis of DVT, PE or No VTE VTE Prophylaxis SQ Treatment PO Treatment Contraindication Reason for not order Surgical Contraindication VTE Prophylaxis Mechanical Prophylaxis No Cardiac Monitoring Heart Rate 113 Monitoring Method Telemetry Rhythm Atrial Fibrillation Ectopy PAC's QRS Interval 0.10 QT Interval 0.32 Monitor Number [id number] Pipe Liner Limits 120/40 Strip placed in Chart Yes Monitor History Reviewed No Memory Cleared No Respiratory Assessment Respiratory Symptoms None Effort Normal for Patient Spontaneous Non-Labored Depth Normal Respiratory Pattern Regular Chest Shape Normal Expansion Symmetrical All Lung Hernandez Clear Diminished Oxygen Delivery Method Nasal Cannula Oxygen Flow Rate (LPM) 2 Cough Description Voluntary Cough Frequency Intermittent Sputum Amount None Gastrointestinal Assessment Abdomen Description Large Round Distended 3 or more loose stools, in less than 24 No hours Nausea/Vomiting Presence None All Four Quadrants Active Flatus Presence Absent Genitourinary Assessment Genitourinary Symptoms None Bladder Pattern Normal Voiding Method Urinal Bladder Distention None Suprapubic Tenderness with Palpation No Integumentary Assessment Fingernail Condition Striated Fingernail Color Yellow Nail Bed Appearance Pale [place] Temperature Warm Moisture Dry Turgor Normal Color Normal All Pressure Points Assessed Yes Evidence of Incision/Wounds/Breakdown No Mucous membranes moist, pink and intact Yes Oral Cavity Normal Musculoskeletal Assessment Musculoskeletal Symptoms Generalized Weakness Document 08/14/16 19:47 [facility]: [facility]14[facility]16 [id number] Pain Assessment Pain Present Reports No Pain Abdomen Scale Used Numeric (1 - 10) Pain Intervention None Neurological Assessment Eye Opening Spontaneous Motor Obeys Commands Verbal Oriented Coma Scale Total [address] Time Speech Pattern Normal rate Normal rhythm Normal tone Appropriate Clear Coherent Patient Behavior Appropriate Cooperative Mood Description Calm Relaxed Bilateral Pupil Reaction Reactive Pupil United Equal Scleral Edema No Sensory Hard of Hearing Dance Entertainer Strength Equal Push/Pull Equal Numbness/Tingling No Facial Symmetry Symmetrical Cardiovascular Assessment Signs and Symptoms None Heart Sounds S1 & S2 Pulse Rhythm Irregular Jugular Vein Distention None Capillary Refill < 3 Seconds Right Radial 2+ Left Radial 2+ Right Dorsalis Pedis 2+ Left Dorsalis Pedis 2+ Has Confirmed Diagnosis of DVT, PE or No VTE VTE Prophylaxis SQ Treatment Mechanical Prophylaxis No Cardiac Monitoring Heart Rate 166 Rhythm Atrial Fibrillation QRS Interval .08 Monitor Number [id number] Pipe Liner Limits 130/40 Strip placed in Chart Yes Pacemaker Assessment Cardiac Comment: Pt given IV Lopressor at this time to control heart-rate. Respiratory Assessment Respiratory Symptoms Shortness of Breath at Rest Shortness of Breath on Exertion Effort Normal for Patient Spontaneous Depth Normal Respiratory Pattern Regular Chest Shape Normal Expansion Symmetrical Right Upper Lobe Expiratory Wheezing Oxygen Delivery Method Nasal Cannula Oxygen Flow Rate (LPM) 3 Cough Description Voluntary Cough Frequency Intermittent Sputum Amount None Gastrointestinal Assessment Abdomen Description Large Round 3 or more loose stools, in less than 24 No hours Nausea/Vomiting Presence None All Four Quadrants Active Flatus Presence Present Genitourinary Assessment Genitourinary Symptoms None Bladder Pattern Normal Voiding Method Urinal Bladder Distention None Suprapubic Tenderness with Palpation No Integumentary Assessment Nail Bed Appearance [place] Temperature Warm Moisture Dry Turgor Normal Color Normal All Pressure Points Assessed Yes Evidence of Incision/Wounds/Breakdown No Mucous membranes moist, pink and intact Yes Oral Cavity Missing Teeth Musculoskeletal Assessment Musculoskeletal Symptoms Generalized Weakness Document 08/15/16 03:00 [facility] (Rec: 08/15/16 03:09 [facility] [id number]) Pain Assessment Pain Present Reports No Pain Abdomen Scale Used Numeric (1 - 10) Pain Intervention None Neurological Assessment Eye Opening Spontaneous Motor Obeys Commands Verbal Oriented Coma Scale Total [address] Time Speech Pattern Normal rate Normal rhythm Normal tone Appropriate Clear Coherent Patient Behavior Appropriate Cooperative Mood Description Calm Relaxed Bilateral Pupil Reaction Reactive Pupil United Equal Sensory Hard of Hearing Dance Entertainer Strength Equal Push/Pull Equal Numbness/Tingling No Facial Symmetry Symmetrical Cardiovascular Assessment Signs and Symptoms None Heart Sounds S1 & S2 Pulse Rhythm Irregular Jugular Vein Distention None Capillary Refill < 3 Seconds Right Radial 2+ Left Radial 2+ Right Dorsalis Pedis 2+ Left Dorsalis Pedis 2+ Has Confirmed Diagnosis of DVT, PE or No VTE VTE Prophylaxis SQ Treatment Mechanical Prophylaxis No Cardiac Monitoring Heart Rate 98 Monitoring Method Telemetry Rhythm Atrial Fibrillation QRS Interval .08 Monitor Number [id number] Pipe Liner Limits 130/40 Strip placed in Chart Yes Respiratory Assessment Respiratory Symptoms Shortness of Breath at Rest Shortness of Breath on Exertion Effort Short of Breath Depth Normal Respiratory Pattern Irregular Chest Shape Normal Expansion Symmetrical All Lung Hernandez Fine Crackles Oxygen Delivery Method Nasal Cannula Oxygen Flow Rate (LPM) 3 Cough Description Voluntary Cough Frequency Intermittent Sputum Amount None Gastrointestinal Assessment Abdomen Description Large Round 3 or more loose stools, in less than 24 No hours Nausea/Vomiting Presence None All Four Quadrants Active Flatus Presence Present Genitourinary Assessment Genitourinary Symptoms None Bladder Pattern Normal Voiding Method Urinal Odor Normal Bladder Distention None Suprapubic Tenderness with Palpation No Integumentary Assessment Nail Bed Appearance [place] Temperature Warm Moisture Dry Turgor Loose Color Normal All Pressure Points Assessed Yes Evidence of Incision/Wounds/Breakdown No Mucous membranes moist, pink and intact Yes Oral Cavity Missing Teeth Musculoskeletal Assessment Musculoskeletal Symptoms Generalized Weakness Document 08/15/16 07:00 [facility] [place] (Rec: 08/15/16 19:13 [facility] [place] [id number]) Pain Assessment Pain Present Reports No Pain Neurological Assessment Eye Opening Spontaneous Motor Obeys Commands Verbal Oriented Coma Scale Total 15 Neurologic Status Alert Patient Orientation Person Place Time Arousable To Name Speech Pattern Normal rate Normal rhythm Normal tone Appropriate Clear Coherent Patient Behavior Appropriate Cooperative Mood Description Calm Relaxed Bilateral Pupil Reaction Reactive Pupil United Equal Dance Entertainer Strength Equal Push/Pull Equal Numbness/Tingling No Facial Symmetry Symmetrical Cardiovascular Assessment Signs and Symptoms None Heart Sounds S1 & S2 Pulse Rhythm Irregular Jugular Vein Distention None Capillary Refill < 3 Seconds Circulatory Tenderness Description None Right Radial 2+ Left Radial 2+ Right Dorsalis Pedis 2+ Left Dorsalis Pedis 2+ Lower Extremity Degree 1+ Has Confirmed Diagnosis of DVT, PE or No VTE VTE Prophylaxis SQ Treatment Contraindication Reason for not order Surgical Contraindication VTE Prophylaxis Mechanical Prophylaxis No Contraindication No VTE Prophylaxis Treatment not Indicated - Low risk for VTE Cardiac Monitoring Heart Rate 98 Monitoring Method 12 Lead Rhythm Atrial Fibrillation Ectopy PAC's QRS Interval 0.04 QT Interval 0.20 Monitor Number [id number] Pipe Liner Limits 130/40 Strip placed in Chart Yes Respiratory Assessment Respiratory Symptoms Shortness of Breath at Rest Shortness of Breath on Exertion Effort Short of Breath Depth Normal Respiratory Pattern Irregular Chest Shape Normal Expansion Symmetrical All Lung Hernandez Fine Crackles Oxygen Delivery Method Nasal Cannula Oxygen Flow Rate (LPM) 3 Cough Description Voluntary Cough Frequency Intermittent Sputum Amount None Gastrointestinal Assessment Abdomen Description Large Round 3 or more loose stools, in less than 24 No hours Nausea/Vomiting Presence None All Four Quadrants Hypoactive Flatus Presence Absent Genitourinary Assessment Genitourinary Symptoms None Bladder Pattern Normal Voiding Method Urinal Bladder Distention None Suprapubic Tenderness with Palpation No Integumentary Assessment Fingernail Condition Striated Fingernail Color Yellow Nail Bed Appearance [place] Temperature Warm Moisture Dry Turgor Loose Color Normal All Pressure Points Assessed Yes Evidence of Incision/Wounds/Breakdown No Mucous membranes moist, pink and intact Yes Oral Cavity Missing Teeth Musculoskeletal Assessment Musculoskeletal Symptoms Generalized Weakness Document 08/15/16 11:26 [facility] [place] (Rec: 08/15/16 19:18 [facility] [place] [id number]) Pain Assessment Pain Present Reports Pain Abdomen Pain Intensity 5 Description Ache Scale Used Numeric (1 - 10) Pain Intervention Medication Neurological Assessment Eye Opening Spontaneous Motor Obeys Commands Verbal Oriented Coma Scale Total 15 Neurologic Status Alert Patient Orientation Person Place Time Arousable To Name Speech Pattern Normal rate Normal rhythm Normal tone Appropriate Clear Coherent Patient Behavior Appropriate Cooperative Mood Description Calm Relaxed Bilateral Pupil Reaction Reactive Pupil United Equal Sensory Hard of Hearing Dance Entertainer Strength Equal Push/Pull Equal Numbness/Tingling No Facial Symmetry Symmetrical Cardiovascular Assessment Signs and Symptoms None Heart Sounds S1 & S2 Pulse Rhythm Irregular Jugular Vein Distention None Capillary Refill < 3 Seconds Circulatory Tenderness Description None Right Radial 2+ Left Radial 2+ Right Dorsalis Pedis 2+ Left Dorsalis Pedis 2+ Lower Extremity Degree 1+ Has Confirmed Diagnosis of DVT, PE or No VTE VTE Prophylaxis SQ Treatment Contraindication Reason for not order Surgical Contraindication VTE Prophylaxis Mechanical Prophylaxis No Contraindication No VTE Prophylaxis Treatment not Indicated - Low risk for VTE Cardiac Monitoring Heart Rate 116 Monitoring Method 12 Lead Rhythm Atrial Fibrillation Ectopy PAC's QRS Interval 0.05 QT Interval 0.25 Monitor Number [id number] Pipe Liner Limits 130/40 Strip placed in Chart Yes Respiratory Assessment Respiratory Symptoms Shortness of Breath at Rest Shortness of Breath on Exertion Effort Short of Breath Depth Normal Respiratory Pattern Irregular Chest Shape Normal Expansion Symmetrical All Lung Hernandez Fine Crackles Right Upper Lobe Expiratory Wheezing Oxygen Delivery Method Nasal Cannula Oxygen Flow Rate (LPM) 3 Cough Description Voluntary Cough Frequency Intermittent Sputum Amount None Gastrointestinal Assessment Abdomen Description Large Round 3 or more loose stools, in less than 24 No hours Nausea/Vomiting Presence None All Four Quadrants Hypoactive Flatus Presence Absent Genitourinary Assessment Genitourinary Symptoms None Bladder Pattern Normal Voiding Method Urinal Color Dark Yellow Odor Normal Bladder Distention None Suprapubic Tenderness with Palpation No Integumentary Assessment Fingernail Condition Striated Fingernail Color Yellow Nail Bed Appearance [place] Temperature Warm Moisture Dry Turgor Loose Color Normal All Pressure Points Assessed Yes Evidence of Incision/Wounds/Breakdown No Mucous membranes moist, pink and intact Yes Oral Cavity Missing Teeth Musculoskeletal Assessment Musculoskeletal Symptoms Generalized Weakness Document 08/15/16 16:55 [facility] (Rec: 08/15/16 19:22 [facility] [place] [id number]) Pain Assessment Pain Present Reports Pain Abdomen Pain Intensity 7 Description Ache Scale Used Numeric (1 - 10) Pain Intervention Medication Neurological Assessment Eye Opening Spontaneous Motor Obeys Commands Verbal Oriented Coma Scale Total 15 Neurologic Status Alert Patient Orientation Person Place Time Arousable To Name Speech Pattern Normal rate Normal rhythm Normal tone Appropriate Clear Coherent Patient Behavior Appropriate Cooperative Mood Description Calm Relaxed Bilateral Pupil Reaction Reactive Pupil United Equal Dance Entertainer Strength Equal Push/Pull Equal Numbness/Tingling No Facial Symmetry Symmetrical Cardiovascular Assessment Signs and Symptoms None Heart Sounds S1 & S2 Pulse Rhythm Irregular Jugular Vein Distention None Capillary Refill < 3 Seconds Circulatory Tenderness Description None Right Radial 2+ Left Radial 2+ Right Dorsalis Pedis 2+ Left Dorsalis Pedis 2+ Lower Extremity Degree 1+ Has Confirmed Diagnosis of DVT, PE or No VTE VTE Prophylaxis SQ Treatment Contraindication Reason for not order Surgical Contraindication VTE Prophylaxis Mechanical Prophylaxis No Contraindication No VTE Prophylaxis Treatment not Indicated - Low risk for VTE Cardiac Monitoring Monitoring Method 12 Lead Rhythm Atrial Fibrillation Ectopy PAC's QRS Interval 0.06 QT Interval 0.20 Monitor Number [id number] Pipe Liner Limits 130/40 Strip placed in Chart Yes Respiratory Assessment Respiratory Symptoms Shortness of Breath at Rest Shortness of Breath on Exertion Effort Short of Breath Depth Normal Respiratory Pattern Irregular Chest Shape Normal Expansion Symmetrical All Lung Hernandez Fine Crackles Oxygen Delivery Method Nasal Cannula Oxygen Flow Rate (LPM) 3 Cough Description Voluntary Cough Frequency Intermittent Sputum Amount None Gastrointestinal Assessment Abdomen Description Large Round 3 or more loose stools, in less than 24 No hours Nausea/Vomiting Presence None All Four Quadrants Hypoactive Flatus Presence Absent Genitourinary Assessment Genitourinary Symptoms None Bladder Pattern Normal Voiding Method Urinal Color Dark Yellow Odor Normal Bladder Distention None Suprapubic Tenderness with Palpation No Integumentary Assessment Fingernail Condition Striated Fingernail Color Yellow Nail Bed Appearance [place] Temperature Warm Moisture Dry Turgor Loose Color Normal All Pressure Points Assessed Yes Evidence of Incision/Wounds/Breakdown No Mucous membranes moist, pink and intact Yes Oral Cavity Missing Teeth Musculoskeletal Assessment Musculoskeletal Symptoms Generalized Weakness Document 08/15/16 19:51 [facility] (Rec: 08/15/16 19:58 [facility] [id number]) Neurological Assessment Eye Opening Spontaneous Motor Obeys Commands Verbal Oriented Coma Scale Total 15 Neurologic Status Alert Patient Orientation Person Place Time Speech Pattern Normal rate Normal rhythm Normal tone Appropriate Clear Coherent Patient Behavior Appropriate Cooperative Mood Description Calm Relaxed Bilateral Pupil Reaction Reactive Pupil Size (mm) 2 Pupil United PERRLA Scleral Edema No Sensory Hard of Hearing Dance Entertainer Strength Equal Push/Pull Equal Numbness/Tingling No Facial Symmetry Symmetrical Blink Present Cough/Gag Normal Neurological Comment: . Cardiovascular Assessment Signs and Symptoms None Heart Sounds S1 & S2 Pulse Rhythm Irregular Jugular Vein Distention None Capillary Refill < 3 Seconds Circulatory Tenderness Description None Right Radial 2+ Left Radial 2+ Right Dorsalis Pedis 2+ Left Dorsalis Pedis 2+ Lower Extremity Type None Degree 1+ Chest Pain Complaint No Has Confirmed Diagnosis of DVT, PE or No VTE VTE Prophylaxis SQ Treatment Contraindication Reason for not order Surgical Contraindication VTE Prophylaxis Mechanical Prophylaxis No Contraindication No VTE Prophylaxis Treatment not Indicated - Low risk for VTE Cardiac Monitoring Heart Rate 129 Monitoring Method 12 Lead Rhythm Atrial Fibrillation QRS Interval 0.04 Monitor Number [id number] Pipe Liner Limits 130/40 Strip placed in Chart Yes Pacemaker Assessment Cardiac Comment: Pt given IV Lopressor at this time to control heart-rate as well as scheduled PO meds Respiratory Assessment Respiratory Symptoms Shortness of Breath at Rest Shortness of Breath on Exertion Effort Short of Breath Depth Normal Respiratory Pattern Irregular Chest Shape Normal Expansion Symmetrical Right Upper Lobe Clear Right Middle Lobe Clear Right Lower Lobe Clear Diminished Left Upper Lobe Clear Left Lower Lobe Clear Oxygen Delivery Method Nasal Cannula Oxygen Flow Rate (LPM) 3 Cough Description Voluntary Cough Frequency Intermittent Sputum Amount None Respiratory Comment: Asked patient to keep oxygen on Gastrointestinal Assessment Abdomen Description Large Round 3 or more loose stools, in less than 24 No hours Nausea/Vomiting Presence None GI Comment: . All Four Quadrants Active Flatus Presence Present Genitourinary Assessment Genitourinary Symptoms None Bladder Pattern Normal Voiding Method Urinal Color Dark Anne Marie Odor Normal Bladder Distention None Suprapubic Tenderness with Palpation No Comment: . Integumentary Assessment Fingernail Condition Striated Fingernail Color Yellow Nail Bed Appearance [place] Temperature Warm Moisture Dry Turgor Normal Color Normal All Pressure Points Assessed Yes Evidence of Incision/Wounds/Breakdown No Mucous membranes moist, pink and intact Yes Oral Cavity Missing Teeth Integumentary Comment: Pt noted to have a scab to his right lower leg Musculoskeletal Assessment Musculoskeletal Symptoms Generalized Weakness Musculoskeletal Comment: States ROM of left wrist is limited d/t injury in his youth Document 08/16/16 04:30 JRLarry (Rec: 08/16/16 06:09 [facility] [id number]) Neurological Assessment Eye Opening Spontaneous Motor Obeys Commands Verbal Oriented Coma Scale Total 15 Neurologic Status Alert Patient Orientation Person Place Time Arousable To Name Speech Pattern Normal rate Normal rhythm Normal tone Appropriate Clear Coherent Patient Behavior Appropriate Cooperative Mood Description Calm Relaxed Bilateral Pupil Reaction Reactive Pupil Size (mm) 2 Pupil United PERRLA Scleral Edema No Sensory Hard of Hearing Dance Entertainer Strength Equal Push/Pull Equal Numbness/Tingling No Facial Symmetry Symmetrical Blink Present Cough/Gag Normal Neurological Comment: . Cardiovascular Assessment Signs and Symptoms None Heart Sounds S1 & S2 Pulse Rhythm Irregular Jugular Vein Distention None Capillary Refill < 3 Seconds Circulatory Tenderness Description None Right Radial 2+ Left Radial 2+ Right Dorsalis Pedis 2+ Left Dorsalis Pedis 2+ Lower Extremity Type None Degree 1+ Chest Pain Complaint No Has Confirmed Diagnosis of DVT, PE or No VTE VTE Prophylaxis SQ Treatment Contraindication Reason for not order Surgical Contraindication VTE Prophylaxis Mechanical Prophylaxis No Contraindication No VTE Prophylaxis Treatment not Indicated - Low risk for VTE Cardiac Monitoring Heart Rate 96 Monitoring Method 12 Lead Rhythm Sinus Arrhythmia Ectopy PAC's [place] Interval 0.07 QRS Interval 0.04 QT Interval 0.28 Monitor Number [id number] Pipe Liner Limits 130/40 Strip placed in Chart Yes Pacemaker Assessment Cardiac Comment: Pt given IV Lopressor at this time to control heart-rate as well as scheduled PO meds Respiratory Assessment Respiratory Symptoms Shortness of Breath at Rest Shortness of Breath on Exertion Effort Short of Breath Depth Normal Respiratory Pattern Irregular Chest Shape Normal Expansion Symmetrical Right Upper Lobe Clear Right Middle Lobe Clear Right Lower Lobe Clear Diminished Left Upper Lobe Clear Left Lower Lobe Clear Oxygen Delivery Method Nasal Cannula Oxygen Flow Rate (LPM) 3 Cough Description Voluntary Cough Frequency Intermittent Sputum Amount None Gastrointestinal Assessment Abdomen Description Large Round 3 or more loose stools, in less than 24 No hours Nausea/Vomiting Presence None GI Comment: . All Four Quadrants Active Flatus Presence Present Genitourinary Assessment Genitourinary Symptoms None Bladder Pattern Normal Voiding Method Urinal Color Dark Anne Marie Odor Normal Bladder Distention None Suprapubic Tenderness with Palpation No Comment: . Integumentary Assessment Fingernail Condition Striated Fingernail Color Yellow Nail Bed Appearance [place] Temperature Warm Moisture Dry Turgor Normal Color Normal All Pressure Points Assessed Yes Evidence of Incision/Wounds/Breakdown No Mucous membranes moist, pink and intact Yes Oral Cavity Missing Teeth Integumentary Comment: Pt noted to have a scab to his right lower leg Musculoskeletal Assessment Musculoskeletal Symptoms Generalized Weakness Musculoskeletal Comment: States ROM of left wrist is limited d/t injury in his youth Document 08/16/16 07:55 KJP (Rec: 08/16/16 08:20 KJP [id number]) Pain Assessment Pain Present Reports Pain Abdomen Pain Intensity 4 Description Ache Scale Used Numeric (1 - 10) Pain Intervention Declined Neurological Assessment Eye Opening Spontaneous Motor Obeys Commands Verbal Oriented Coma Scale Total 15 Neurologic Status Alert Patient Orientation Person Place Time Arousable To Name Speech Pattern Normal rate Normal rhythm Normal tone Appropriate Clear Coherent Patient Behavior Appropriate Cooperative Mood Description Calm Relaxed Bilateral Pupil Reaction Reactive Pupil Size (mm) 2 Pupil United PERRLA Scleral Edema No Sensory Hard of Hearing Dance Entertainer Strength Equal Push/Pull Equal Numbness/Tingling No Facial Symmetry Symmetrical Blink Present Cough/Gag Normal Cardiovascular Assessment Signs and Symptoms None Heart Sounds S1 & S2 Pulse Rhythm Irregular Jugular Vein Distention None Capillary Refill < 3 Seconds Circulatory Tenderness Description None Right Radial 2+ Left Radial 2+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 08/13/16 12:07 [id number]) Vital Signs with MEWS Temperature (97.6 F-99.6 F) 98.5 F Temperature Source Oral Pulse Rate 109 Respiratory Rate 18 Pulse Oximetry (95-100) 97 Oxygen Delivery Room Air Blood Pressure 107/63 Blood Pressure Location Left Arm Source Automatic Cuff Position HOB Elevated Neuro Status *recalled from last Alert documentation MEWS Score 2 Document 08/13/16 15:36 [facility] (Rec: 08/13/16 15:39 [id number] Vital Signs with MEWS Temperature (97.6 F-99.6 F) 98.6 F Temperature Source Oral Pulse Rate 100 Respiratory Rate 18 Pulse Oximetry (95-100) 95 Oxygen Delivery Nasal Cannula Oxygen Flow Rate (LPM) 2 Blood Pressure 125/69 Blood Pressure Location Left Arm Source Automatic Cuff Position HOB Elevated Neuro Status *recalled from last Alert documentation MEWS Score 1 Document 08/13/16 20:05 [facility] (Rec: 08/13/16 20:15 [id number]) Vital Signs with MEWS Temperature (97.6 F-99.6 F) 98.1 F Temperature Source Oral Pulse Rate 114 Respiratory Rate 16 Pulse Oximetry (95-100) 96 Oxygen Delivery Nasal Cannula Oxygen Flow Rate (LPM) 2 Blood Pressure 154/68 Blood Pressure Location Right Arm Source Automatic Cuff Position HOB Elevated Neuro Status *recalled from last Alert documentation MEWS Score 3 Document 08/14/16 00:30 [facility] (Rec: 08/14/16 00:36 [id number]) Vital Signs with MEWS Temperature (97.6 F-99.6 F) 99.1 F Temperature Source Oral Pulse Rate 67 Respiratory Rate 15 Pulse Oximetry (95-100) 96 Oxygen Delivery Nasal Cannula Oxygen Flow Rate (LPM) 2 Blood Pressure 147/78 Blood Pressure Location Right Arm Source Automatic Cuff Position Supine Neuro Status *recalled from last Alert documentation MEWS Score 1 Document 08/14/16 04:21 TM (Rec: 08/14/16 04:23 [id number]) Vital Signs with MEWS Temperature (97.6 F-99.6 F) 98.7 F Temperature Source Oral Pulse Rate 105 Respiratory Rate 16 Pulse Oximetry (95-100) 95 Oxygen Delivery Room Air Blood Pressure 135/84 Blood Pressure Location Right Arm Source Automatic Cuff Position HOB Elevated Neuro Status *recalled from last Alert documentation MEWS Score 2 Document 08/14/16 07:25 LEB (Rec: 08/14/16 07:28 LE[facility] [id number]) Vital Signs with MEWS Temperature (97.6 F-99.6 F) 98.7 F Temperature Source Oral Pulse Rate 90 Respiratory Rate 18 Pulse Oximetry (95-100) 94 L Oxygen Delivery Room Air Blood Pressure 108/70 Blood Pressure Location Right Arm Source Automatic Cuff Position Supine Neuro Status *recalled from last Alert documentation MEWS Score 1 Document 08/14/16 10:00 LEB (Rec: 08/14/16 12:21 LE[facility] [id number]) Vital Signs with MEWS Temperature (97.6 F-99.6 F) 97.3 F L Temperature Source Oral Pulse Rate 90 Respiratory Rate 18 Pulse Oximetry (95-100) 96 Oxygen Delivery Nasal Cannula Oxygen Flow Rate (LPM) 5 Blood Pressure 147/63 Blood Pressure Location Left Arm Source Automatic Cuff Position Sitting Document 08/14/16 19:35 LMO (Rec: 08/14/16 19:49 LMO [id number]) Vital Signs with MEWS Temperature (97.6 F-99.6 F) 97.8 F Temperature Source Oral Pulse Rate 132 Respiratory Rate 16 Pulse Oximetry (95-100) 91 L Oxygen Delivery Room Air Blood Pressure 159/79 Blood Pressure Location Left Arm Source Automatic Cuff Position Sitting Neuro Status *recalled from last Alert documentation MEWS Score 4 Document 08/14/16 21:52 LMO (Rec: 08/14/16 21:54 LMO [id number]) Vital Signs with MEWS Temperature (97.6 F-99.6 F) 97.9 F Temperature Source Oral Pulse Rate 108 Respiratory Rate 16 Pulse Oximetry (95-100) 95 Oxygen Delivery Nasal Cannula Oxygen Flow Rate (LPM) 3 Blood Pressure 155/83 Blood Pressure Location Left Arm Source Automatic Cuff Position Sitting Neuro Status *recalled from last Alert documentation MEWS Score 2 Document 08/15/16 00:40 EMQ (Rec: 08/15/16 00:42 EMQ [id number]) Vital Signs with MEWS Temperature (97.6 F-99.6 F) 98.0 F Temperature Source Oral Pulse Rate 71 Respiratory Rate 20 Pulse Oximetry (95-100) 94 L Oxygen Delivery Nasal Cannula Oxygen Flow Rate (LPM) 3 Blood Pressure 149/71 Blood Pressure Location Left Arm Source Automatic Cuff Position Sitting Neuro Status *recalled from last Alert documentation MEWS Score 1 Document 08/15/16 04:31 LMO (Rec: 08/15/16 04:38 LMO [id number]) Vital Signs with MEWS Temperature (97.6 F-99.6 F) 98.0 F Temperature Source Oral Pulse Rate 80 Respiratory Rate 18 Pulse Oximetry (95-100) 96 Oxygen Delivery Nasal Cannula Oxygen Flow Rate (LPM) 3 Blood Pressure 127/89 Blood Pressure Location Left Arm Source Automatic Cuff Position HOB Elevated Neuro Status *recalled from last Alert documentation MEWS Score 1 Document 08/15/16 06:59 BEH (Rec: 08/15/16 07:06 BEH [id number]) Vital Signs with MEWS Temperature (97.6 F-99.6 F) 98.0 F Temperature Source Oral Pulse Rate 100 Respiratory Rate 16 Pulse Oximetry (95-100) 94 L Oxygen Delivery Nasal Cannula Oxygen Flow Rate (LPM) 3 Blood Pressure 136/74 Blood Pressure Location Left Arm Source Automatic Cuff Position Supine Neuro Status *recalled from last Alert documentation MEWS Score 1 Document 08/15/16 11:09 BEH (Rec: 08/15/16 11:10 BEH [id number]) Vital Signs with MEWS Temperature (97.6 F-99.6 F) 98.1 F Temperature Source Oral Pulse Rate 98 Respiratory Rate 16 Pulse Oximetry (95-100) 97 Oxygen Delivery Room Air Blood Pressure 154/74 Blood Pressure Location Left Arm Source Automatic Cuff Position HOB Elevated Neuro Status *recalled from last Alert documentation MEWS Score 1 Document 08/15/16 14:24 BEH (Rec: 08/15/16 14:26 BEH [id number]) Vital Signs with MEWS Temperature (97.6 F-99.6 F) 98.7 F Temperature Source Oral Pulse Rate 86 Respiratory Rate 17 Pulse Oximetry (95-100) 93 L Oxygen Delivery Nasal Cannula Blood Pressure 151/75 Blood Pressure Location Left Arm Source Automatic Cuff Position HOB Elevated Neuro Status *recalled from last Alert documentation MEWS Score 1 Document 08/15/16 20:15 [facility] (Rec: 08/15/16 20:28 [facility] [id number]) Vital Signs with MEWS Temperature (97.6 F-99.6 F) 98.0 F Temperature Source Oral Pulse Rate 91 Respiratory Rate 18 Pulse Oximetry (95-100) 93 L Oxygen Delivery Nasal Cannula Blood Pressure 160/92 Blood Pressure Location Right Arm Source Automatic Cuff Position Sitting Neuro Status *recalled from last Alert documentation MEWS Score 1 Document 08/16/16 00:31 LMO (Rec: 08/16/16 00:37 LMO [id number]) Vital Signs with MEWS Temperature (97.6 F-99.6 F) 98.8 F Temperature Source Oral Pulse Rate 85 Respiratory Rate 14 Pulse Oximetry (95-100) 92 L Oxygen Delivery Nasal Cannula Oxygen Flow Rate (LPM) 3 Blood Pressure 110/64 Blood Pressure Location Left Arm Source Automatic Cuff Position Right Lateral Neuro Status *recalled from last Alert documentation MEWS Score 0 Document 08/16/16 04:04 LMO (Rec: 08/16/16 04:10 LMO [id number]) Vital Signs with MEWS Temperature (97.6 F-99.6 F) 99.0 F Temperature Source Oral Pulse Rate 95 Respiratory Rate 16 Pulse Oximetry (95-100) 96 Oxygen Delivery Nasal Cannula Oxygen Flow Rate (LPM) 3 Blood Pressure 150/82 Blood Pressure Location Left Arm Source Automatic Cuff Position HOB Elevated Neuro Status *recalled from last Alert documentation MEWS Score 1 Document 08/16/16 07:50 BEH (Rec: 08/16/16 07:51 BEH [id number]) Vital Signs with MEWS Temperature (97.6 F-99.6 F) 98.4 F Temperature Source Oral Pulse Rate 92 Respiratory Rate 17 Pulse Oximetry (95-100) 96 Oxygen Delivery Nasal Cannula Blood Pressure 151/91 Blood Pressure Location Left Arm Source Automatic Cuff Position HOB Elevated Neuro Status *recalled from last Alert documentation MEWS Score 1 Document 08/16/16 11:34 BEH (Rec: 08/16/16 11:34 BEH [id number]) Vital Signs with MEWS Temperature (97.6 F-99.6 F) 98.0 F Temperature Source Oral Pulse Rate 106 Respiratory Rate 16 Pulse Oximetry (95-100) 95 Oxygen Delivery Nasal Cannula Blood Pressure 161/91 Blood Pressure Location Left Arm Source Automatic Cuff Position HOB Elevated Neuro Status *recalled from last Alert documentation MEWS Score 2 Document 08/16/16 19:07 [facility] (Rec: 08/16/16 19:08 [id number]) Vital Signs with MEWS Temperature (97.6 F-99.6 F) 98.2 F Temperature Source Oral Pulse Rate 90 Respiratory Rate 18 Pulse Oximetry (95-100) 94 L Oxygen Delivery Nasal Cannula Oxygen Flow Rate (LPM) 2 Blood Pressure 118/76 Blood Pressure Location Left Arm Source Automatic Cuff Position HOB Elevated Neuro Status *recalled from last Alert documentation MEWS Score 1 Document 08/16/16 22:52 [facility] (Rec: 08/16/16 22:53 [id number]) Vital Signs with MEWS Temperature (97.6 F-99.6 F) 98.6 F Temperature Source Oral Pulse Rate 99 Respiratory Rate 18 Pulse Oximetry (95-100) 95 Oxygen Delivery Nasal Cannula Oxygen Flow Rate (LPM) 2.5 Blood Pressure 151/67 Blood Pressure Location Right Arm Source Automatic Cuff Position HOB Elevated Neuro Status *recalled from last Alert documentation MEWS Score 1 Document 08/17/16 05:26 [facility] (Rec: 08/17/16 05:26 [id number] Vital Signs with MEWS Temperature (97.6 F-99.6 F) 98.3 F Temperature Source Oral Pulse Rate 89 Respiratory Rate 18 Pulse Oximetry (95-100) 94 L Oxygen Delivery Nasal Cannula Oxygen Flow Rate (LPM) 3 Blood Pressure 136/75 Blood Pressure Location Right Arm Source Automatic Cuff Position HOB Elevated Neuro Status *recalled from last Alert documentation MEWS Score 1 Document 08/17/16 06:48 [facility] (Rec: 08/17/16 07:03 [id number]) Vital Signs with MEWS Temperature (97.6 F-99.6 F) 98.4 F Temperature Source Oral Pulse Rate 108 Respiratory Rate 18 Pulse Oximetry (95-100) 96 Oxygen Delivery Nasal Cannula Oxygen Flow Rate (LPM) 2 Blood Pressure 130/72 Blood Pressure Location Left Arm Source Automatic Cuff Position HOB Elevated Neuro Status *recalled from last Alert documentation MEWS Score 2 Document 08/17/16 11:53 [facility] (Rec: 08/17/16 11:54 [id number][facility] Vital Signs with MEWS Temperature (97.6 F-99.6 F) 98.2 F Temperature Source Oral Pulse Rate 102 Respiratory Rate 18 Pulse Oximetry (95-100) 93 L Oxygen Delivery Non Rebreather Mask Oxygen Flow Rate (LPM) 2 Blood Pressure 133/90 Blood Pressure Location Right Arm Source Automatic Cuff Position HOB Elevated Neuro Status *recalled from last Alert documentation MEWS Score 2 Document 08/17/16 15:25 [facility] (Rec: 08/17/16 15:26 [id number][facility] Vital Signs with MEWS Temperature (97.6 F-99.6 F) 98.0 F Temperature Source Axillary Pulse Rate 75 Respiratory Rate 18 Pulse Oximetry (95-100) 91 L Oxygen Delivery Nasal Cannula Oxygen Flow Rate (LPM) 2 Blood Pressure 115/80 Blood Pressure Location Left Arm Source Automatic Cuff Position HOB Elevated Neuro Status *recalled from last Alert documentation MEWS Score 1 Document 08/17/16 18:55 CDP (Rec: 08/17/16 18:59 CDP [id number]) Vital Signs with MEWS Temperature (97.6 F-99.6 F) 99.0 F Temperature Source Oral Pulse Rate 94 Respiratory Rate 20 Pulse Oximetry (95-100) 94 L Oxygen Delivery Nasal Cannula Oxygen Flow Rate (LPM) 3 Blood Pressure 152/87 Blood Pressure Location Right Arm Source Automatic Cuff Position HOB Elevated Neuro Status *recalled from last Alert documentation MEWS Score 1 Document 08/17/16 22:57 CDP (Rec: 08/17/16 23:00 [id number]) Vital Signs with MEWS Temperature (97.6 F-99.6 F) 97.6 F Temperature Source Oral Pulse Rate 100 Respiratory Rate 20 Pulse Oximetry (95-100) 94 L Oxygen Delivery Nasal Cannula Oxygen Flow Rate (LPM) 3 Blood Pressure 158/78 Blood Pressure Location Right Arm Source Automatic Cuff Position HOB Elevated Neuro Status *recalled from last Alert documentation MEWS Score 1 Document 08/18/16 03:39 CDP (Rec: 08/18/16 03:42 [id number]) Vital Signs with MEWS Temperature (97.6 F-99.6 F) 98.3 F Temperature Source Oral Pulse Rate 90 Respiratory Rate 20 Pulse Oximetry (95-100) 95 Oxygen Delivery Nasal Cannula Oxygen Flow Rate (LPM) 3 Blood Pressure 142/90 Blood Pressure Location Right Arm Source Automatic Cuff Position HOB Elevated Neuro Status *recalled from last Alert documentation MEWS Score 1 Document 08/18/16 08:29 [facility] (Rec: 08/18/16 08:30 [id number]) Vital Signs with MEWS Temperature (97.6 F-99.6 F) 97.6 F Temperature Source Oral Pulse Rate 91 Respiratory Rate 18 Pulse Oximetry (95-100) 93 L Oxygen Delivery Nasal Cannula Oxygen Flow Rate (LPM) 3 Blood Pressure 161/76 Blood Pressure Location Left Arm Source Automatic Cuff Position HOB Elevated Neuro Status *recalled from last Alert documentation MEWS Score 1 Document 08/18/16 12:11 EG (Rec: 08/18/16 12:21 [id number]) Vital Signs with MEWS Temperature (97.6 F-99.6 F) 98.7 F Temperature Source Oral Pulse Rate 89 Respiratory Rate 18 Pulse Oximetry (95-100) 97 Oxygen Delivery Nasal Cannula Oxygen Flow Rate (LPM) 2 Blood Pressure 162/92 Blood Pressure Location Left Arm Source Automatic Cuff Position HOB Elevated Neuro Status *recalled from last Alert documentation MEWS Score 1 Document 08/18/16 16:10 [facility] (Rec: 08/18/16 16:14 [id number]) Vital Signs with MEWS Temperature (97.6 F-99.6 F) 98.5 F Temperature Source Oral Pulse Rate 86 Respiratory Rate 18 Pulse Oximetry (95-100) 95 Oxygen Delivery Nasal Cannula Oxygen Flow Rate (LPM) 3 Blood Pressure 149/79 Blood Pressure Location Right Arm Source Automatic Cuff Position HOB Elevated Neuro Status *recalled from last Alert documentation MEWS Score 1 Document 08/18/16 17:08 [facility] (Rec: 08/18/16 17:20 [email or web address]) Vital Signs with MEWS Temperature (97.6 F-99.6 F) 97.8 F Temperature Source Oral Pulse Rate 99 Respiratory Rate 18 Pulse Oximetry (95-100) 96 Oxygen Delivery Room Air Blood Pressure 155/73 Blood Pressure Location Left Arm Source Automatic Cuff Position HOB Elevated Neuro Status *recalled from last Alert documentation MEWS Score 1 Document 08/18/16 22:02 [id number] (Rec: 08/18/16 22:03 [id number]) Vital Signs with MEWS Temperature (97.6 F-99.6 F) 97.7 F Temperature Source Oral Pulse Rate 65 Respiratory Rate 17 Pulse Oximetry (95-100) 96 Oxygen Delivery Nasal Cannula Oxygen Flow Rate (LPM) 3.5 Blood Pressure 151/83 Blood Pressure Location Left Arm Source Automatic Cuff Position Supine Document 08/19/16 01:20 [id number] (Rec: 08/19/16 01:24 [id number]) Vital Signs with MEWS Temperature (97.6 F-99.6 F) 98.2 F Temperature Source Oral Pulse Rate 83 Respiratory Rate 17 Pulse Oximetry (95-100) 98 Oxygen Delivery Nasal Cannula Oxygen Flow Rate (LPM) 5 Blood Pressure 124/76 Blood Pressure Location Left Arm Source Automatic Cuff Position Supine Document 08/19/16 05:18 [id number] (Rec: 08/19/16 05:24 [id number]) Vital Signs with MEWS Temperature (97.6 F-99.6 F) 98.0 F Temperature Source Oral Pulse Rate 85 Respiratory Rate 15 Pulse Oximetry (95-100) 95 Oxygen Delivery Nasal Cannula Oxygen Flow Rate (LPM) 3 Blood Pressure 166/82 Blood Pressure Location Left Arm Source Automatic Cuff Position Supine Wound Assessment Start: 08/11/16 20: 38 Freq: Q8H Status: Complete Document 08/11/16 21:00 [id number] (Rec: 08/12/16 01:07 [id number]) Drains Tube/Drain Discontinued No Document 08/12/16 04:24 [id number] (Rec: 08/12/16 04:26 [id number]) Drains Tube/Drain Discontinued No Document 08/12/16 08:05 MED (Rec: 08/12/16 17:18 MED [id number]) Drains Tube/Drain Discontinued No Wound Assessment Start: 08/16/16 22: 11 Freq: Q8H Status: Discharge Document 08/16/16 22:12 CBT (Rec: 08/16/16 22:13 CBT [id number]) Wound Assessment Abdomen Wound Type 6 stabs to abd Wound Surrounding Tissue Appearance ( Dry Periwound) 1 Surrounding Tissue Temperature Warm Wound Drainage Amount 1 None Wound Dressing Status Dry & Intact Wound Dressing Type Steri Strips Document 08/17/16 05:26 CBT (Rec: 08/17/16 05:27 CBT [id number]) Wound Assessment Abdomen Wound Type 6 stabs to abd Wound Surrounding Tissue Appearance ( Dry Periwound) 1 Surrounding Tissue Temperature Warm Wound Drainage Amount 1 None Wound Dressing Status Dry & Intact Wound Dressing Type steri strips Drains Tube/Drain Discontinued No Document 08/17/16 07:45 KJP (Rec: 08/17/16 07:59 KJP [id number]) Wound Assessment Abdomen Wound Type Surgical Wound Wound Dressing Status Open to Air Document 08/17/16 15:15 KJP (Rec: 08/17/16 17:07 KJP [id number]) Wound Assessment Abdomen Wound Type Surgical Wound Wound Dressing Status Open to Air Drains Tube/Drain Discontinued No Document 08/17/16 22:18 CNH (Rec: 08/17/16 22:51 CNH [id number]) Wound Assessment Abdomen Wound Type Surgical Wound Wound Surrounding Tissue Appearance ( Dry Periwound) 1 Intact Erythematous Surrounding Tissue Temperature Warm Wound Drainage Amount 1 None Wound Dressing Status Open to Air Wound Dressing Type dermabond Document 08/18/16 04:11 CNH (Rec: 03/12/17 04:16 CNH [id number]) Wound Assessment Abdomen Wound Type Surgical Wound Wound Surrounding Tissue Appearance ( Erythematous Periwound) 1 Surrounding Tissue Temperature Warm Wound Drainage Amount 1 None Wound Dressing Status Open to Air Wound Dressing Type dermabond Document 08/18/16 08:45 KJP (Rec: 08/18/16 09:01 KJP [id number]) Drains Tube/Drain Discontinued No Document 08/18/16 15:52 KJP (Rec: 08/18/16 15:56 KJP [id number]) Wound Assessment Abdomen Wound Type Surgical Wound Wound Dressing Status Open to Air Wound Dressing Type Steri Strips Drains Tube/Drain Discontinued No Document 08/18/16 20:25 CNH (Rec: 08/18/16 20:34 CNH [id number]) Wound Assessment Abdomen Wound Type Surgical Wound Wound Surrounding Tissue Appearance ( Intact Periwound) 1 Erythematous Surrounding Tissue Temperature Warm Wound Drainage Amount 1 None Wound Dressing Type dermabond and steristrips Document 08/19/16 05:15 CNH (Rec: 08/19/16 05:32 CNH [id number]) Wound Assessment Abdomen Wound Type Surgical Wound Wound Surrounding Tissue Appearance ( Dry Periwound) 1 Erythematous Surrounding Tissue Temperature Warm Wound Drainage Amount 1 None Wound Dressing Status Dry & Intact Wound Dressing Type dermabond/steri strips Discharge Information ED Provider: Costa Byers Status: Departed Time Seen by Provider: 08/11/16 16:44 Condition: Fair Triaged At: 08/11/16 16:38 Other ED Providers: Mary Bradley,Ashley Bruno,Andreas Atkinson,Olivia Liu,Nehemias rAriaza,Ehsan Lind,Nanda Vigil,Rodger Aiken,Maria Guadalupe Ramirez,Bonnie Valladares Emergency Discharge Date/Time: 08/11/16 20:04 Emergency Discharge Disposition: Admitted As Inpatient Clinical Impression Abdominal pain Transaminitis Elevated bilirubin Emergency Discharge Comment: Admit Intervention Last Done ED Abdominal Pain Assessment 08/11/16 16:46 Query Result Abdominal Pain Symptoms/Comlaint Abdominal Pain Abdominal Pain Context Unknown Abdominal Pain Improves With Medication Abdominal Pain Worsens With Eating Abdominal Pain Associated Symptoms Denies Other Symptoms Level Of Consciousness Awake Alert Appropriate Follows Commands Patient Orientation Person Place Time Skin Temperature Warm Skin Moisture Dry Skin Turgor Normal Capillary Refill < 3 Seconds Respiratory Depth Normal All Quadrants -Bowel Sounds Hyperactive Abdomen Description Soft Nausea/Vomiting Presence None Bladder Distention Description None ED Discharge Assessment 08/11/16 19:47 Query Result ED Discharge Disposition Admitted ED Condition on Discharge Good Med Rec/Patient Phamracy completed? Yes ED Admit to 3A Bed assigned 3A-33 Transported by oxygen equipment technician Transported with monitor oxygen IV pulse oximetry Report given to Nurse Care transferred to RADHA RN Information relayed patient's care treatments medications given condition recent/anticipated change Clinical Documentation Summary Provided Yes Severity scale (1-10) 0 Pain Scale Used Standard (1-10) Blood Pressure 0/0 Heart rate 105 Respiratory Rate 18 Oxygen Delivery Room Air Pulse Oximetry Reading 96 Critical Care Minutes 0 Inpatient Discharge Date/Time: 08/19/16 17:08 Inpatient Discharge Disposition: Home, Self-Care Inpatient Discharge Comment: Observation Discharge Date/Time: Observation Discharge Disposition: Observation Discharge Comment: Instructions: Meal Planning with Diabetes Exchanges (DC) Stand-Alone Forms: Prescriptions: Diltiazem CD (24hr) [Cardizem CD] Rajbhandari,Prativa Docusate [Colace] Rajbhandari,Prativa HYDROcodone/Acet 5/325 mg [[place] 5-325 mg] [facility] Metoprolol [Lopressor] Rajbhandari,Prativa Sennosides [Senna] Rajbhandari,Prativa Visit Report - Forms: - Referrals: [facility] (Outside) - 08/26/16 11:00 am Nanda Lind MD (Partnered Physician) - 09/04/16 11: 05 am - Additional text: no heavy lifting greater than 15 pounds, may shower, no tub bath, no hot tubs, no swimming, wash incision with soap and water and pat dry, allow steri strips to come off on their own. Do not drive until follow up. Radiology Results Abdomen X-Ray 08/11/16 21:15 IMPRESSION: No acute process of the chest or abdomen. D/ / 08/11/2016 22:05:09 Nabor Garrison MD / gadiel Interpreting Provider: Nabor Garrison MD Chest X-Ray 08/11/16 21:15 IMPRESSION: No acute process of the chest or abdomen. D/ / 08/11/2016 22:05:09 Nabor Garrison MD / [email or web address] Interpreting Provider: Nabor Garrison MD Gallbladder Ultrasound 08/12/16 09:00 IMPRESSION: 1. Coarse echotexture of the liver which may represent fatty infiltration with no evidence of focal disease. 2. Gallbladder sludge but no evidence of wall thickening or pericholecystic fluid. No evidence of biliary dilation. 3. Renal cyst which may be complex. D/ / 08/12/2016 10:51:35 Maddison Santos MD / Juliane Martins Interpreting Provider: Maddison Santos MD Abdomen MRI 08/12/16 10:16 IMPRESSION: 1. Interval appearance since 08/11/2016 of inflammatory stranding and free fluid adjacent to the pancreatic body and tail, highly suggestive of acute pancreatitis. 2. No cholelithiasis or choledocholithiasis. No intra or extrahepatic biliary dilatation. 3. No pancreatic divisum. D/ / 08/12/2016 11:40:22 Mireya Harrison MD / [facility] Interpreting Provider: Mireya Harrison MD Cath/Invasive Procedure 08/12/16 14:00 IMPRESSION: The common duct is unremarkable. Successful placement of pancreatic stent. D/ / Geronimo Hope MD / Geronimo Hope MD Interpreting Provider: Geronimo Hope MD Cholangiogram,Operative 08/16/16 00:00 IMPRESSION: Unremarkable intraoperative cholangiogram. D/ / 08/16/2016 13:40:34 Marquis Hudson MD / joseph Interpreting Provider: Marquis Hudson MD Chest/Abdomen X-ray 08/18/16 10:57 IMPRESSION: Left lower lobe infiltrate consistent with atelectasis or pneumonia. Mild diffuse gaseous distention of bowel is most consistent with an ileus D/ / Iftikhar Regalado MD / Iftikhar Regalado MD Interpreting Provider: Iftikhar Regalado MD
[2016-08-11] MEDS: 0.9 % Sodium Chloride 1,000 ML IVC SCH (22:35)
[2016-08-11] MEDS: Pantoprazole 40 MG in 0.9 % Sodium Chloride Mini Bag 100 ML IVC SCH (22:36)
[2016-08-12] MEDS: *HR* Morphine 2 MG/ML SYRINGE IVP PRN ×2 (02:33→06:39)
[2016-08-12 04:01] LABS: Bilirubin,Urine Large (Negative); Blood,Urine Negative (Negative); Clarity,Urine Cloudy (Clear); Color,Urine Orange (Yellow); Glucose,Urine (UA) Normal (Normal); Ketones,Urine Trace mg/dL (Negative); Leukocyte Esterase,Urine Small (Negative); Nitrite,Urine Positive (Negative); PH,Urine 5.5 pH Units (5.0-8.0); Protein,Urine Trace mg/dL (Neg-Trace); Specific Gravity,Urine 1.019 (1.010-1.025); Urobilinogen,Urine Normal (Normal)
[2016-08-12 04:03] LABS: Bacteria,Urine None Seen per hpf (None-Few)
[2016-08-12 04:04] LABS: Amphetamine Screen,Urine Negative ng/mL (Cutoff=1000); Barbiturate Screen,Urine Negative ng/mL (Cutoff=200); Benzodiazepines Screen,Urine Negative ng/mL (Cutoff=200); Cannabinoid Screen,Urine Negative ng/mL (Cutoff = 50); Cocaine Screen,Urine Negative ng/mL (Cutoff= 300); Opiate Screen,Urine Positive ng/mL (Cutoff=300); Phencyclidine Screen,Urine Negative ng/mL (Cutoff=25)
[2016-08-12 04:12] LABS: Hyaline Casts,Urine None Seen per lpf (None-Few)
[2016-08-12 04:13] LABS: Squamous Epithelial Cell,Urine Few per lpf (None-Few)
[2016-08-12] MEDS: Pantoprazole 40 MG in 0.9 % Sodium Chloride Mini Bag 100 ML IVC SCH (04:20)
[2016-08-12 05:51] LABS: Basophils % 0.2 %; Eosinophils % 0.1 %; Immature Granulocytes % 0.3 % (0-4); Lymphocytes # 0.5 K/mcL (0.6-4.6); Lymphocytes % 6.2 %; Mean Corpuscular HGB Conc 32.6 g/dL (31.6-35.5); Mean Corpuscular Hemoglobin 27.7 pg (28.0-33.3); Mean Corpuscular Volume 84.9 fL (83.0-100.0); Mean Platelet Volume 9.8 fL (9.4-12.4); Monocytes # 0.8 K/mcL (0.0-1.3); Monocytes % 9.1 %; Neutrophils # 7.3 K/mcL (1.6-8.9); Platelet Count 154 K/mcL (140-400); Red Blood Count 5.42 M/mcL (4.19-5.50); Red Cell Distribution Width 13.7 % (11.5-14.5); Segmented Neutrophils % 84.1 %
[2016-08-12 05:52] LABS: INR 3.7
[2016-08-12 05:55] LABS: Activated Partial Thrombo Time 38.9 Seconds (26.0-36.0)
[2016-08-12 06:05] LABS: Hemoglobin A1C 6.2 %
[2016-08-12 06:06] LABS: Albumin 3.2 g/dL (3.5-5.0); Albumin/Globulin Ratio 0.8 (1.1-2.2); Bilirubin,Direct 4.8 mg/dL (0.0-0.5); Bilirubin,Total 7.7 mg/dL (0.2-1.2); Calcium 8.9 mg/dL (8.6-10.8); Chol/HDL Ratio 3.8 (0-4.9); Globulin 3.8 g/dL (2.4-3.5); Magnesium 1.4 mg/dL (1.6-2.6)
[2016-08-12 06:28] LABS: Thyroid Stimulating Hormone 1.436 mcIU/mL (0.350-4.840)
[2016-08-12] MEDS ORDERED: *HR* HYDROmorphone (PF) 1 MG/ML SYRINGE IVP PRN (06:40)
[2016-08-12] MEDS ORDERED: *HR* OxyCODONE Immed Rel 5 MG TABLET PO PRN (06:42)
[2016-08-12] MEDS ORDERED: Magnesium Sulfate 2 GM in D5% in Water 100 ML IVPB STA (06:43)
[2016-08-12] MEDS ORDERED: Sodium Phosphate 30 MMOL in D5% in Water 100 ML IVPB ONE (06:43)
[2016-08-12] MEDS ORDERED: *HR* Metoprolol 5 MG/5 ML VIAL IVP ONE ×2 (08:37→08:40)
[2016-08-12 11:42] LABS: Hepatitis A Antibody IgM Nonreactive (Nonreactive); Hepatitis B Core IgM Nonreactive (Nonreactive); Hepatitis B Surface Antigen Nonreactive (Nonreactive); Hepatitis C Virus Antibody Nonreactive (Nonreactive)
[2016-08-12] MEDS ORDERED: *HR* Succinylcholine 200 MG/10 ML VIAL IVP ONE (12:36)
[2016-08-12] MEDS ORDERED: Ondansetron 4 MG/2 ML VIAL IVP ONE (12:36)
[2016-08-12] MEDS ORDERED: Lidocaine -MPF 2% 5 ML VIAL INFILT ONE (12:36)
[2016-08-12] MEDS ORDERED: *HR* Phenylephrine 10 MG/ML VIAL IVC ONE (12:36)
[2016-08-12] MEDS ORDERED: *HR* Propofol 200 MG/20 ML VIAL IVP ONE (12:36)
[2016-08-12] MEDS: Ringers Solution, Lactated 1,000 ML IVC SCH (13:20)
--- NOTE | 2016-08-12 13:31 | Anesthesia Evaluation PreOp ---
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: TIA (r facial droop with LLE weakness (these were presenting sx's in 2008, resolved)) Other Medical History: Diabetes Type II, GERD, Other (last bm was yesterday morning) Anesthesia History: No Prior Anesthetic Complications, Past Anesthesia (Ao aneurysm stent) Alcohol Use: none Drug use: none Medications and Allergies Aspirin [Adult Low Dose Aspirin EC] 81 mg PO QAM 09/10/15 [History] Metoprolol [Lopressor] 25 mg PO BID 09/10/15 [History] Omeprazole [PriLOSEC] 40 mg PO QAM 09/10/15 [History] Simvastatin [Zocor] 40 mg PO HS 09/10/15 [History] Warfarin [Coumadin] 5 mg PO QMWF 09/10/15 [History] Warfarin [Coumadin] 7.5 mg PO QTUTHSA 09/10/15 [History] Famotidine [Pepcid] 20 mg PO BID #21 tablet 05/27/16 [Rx] Losartan [Cozaar] 25 mg PO DAILY 05/27/16 [History] Allergies No Known Allergies Allergy (Verified 09/10/15 01:00) - Meds/Allergy Pre-op Review Medications Reviewed: Yes Allergies Reviewed: Yes Beta Blockers on Current Med List: Yes If Beta Blockers taken, Date/Time (Last Dose taken): metoprolol at00:23 Anesthesia Results - Labs 08/12/16 05:32 08/12/16 05:32 - Imaging EKG: report reviewed (af 05/24) Anesthesia Exam O2 Sat Height 1.78 m Height 1.78 m Weight 104 kg Weight 105.687 kg O2 Sat by Pulse Oximetry 95 O2 Sat by Pulse Oximetry 97 O2 Sat by Pulse Oximetry 96 O2 Sat by Pulse Oximetry 91 O2 Sat by Pulse Oximetry 96 O2 Sat by Pulse Oximetry 95 O2 Sat by Pulse Oximetry 99 O2 Sat by Pulse Oximetry 97 O2 Sat by Pulse Oximetry 95 O2 Sat by Pulse Oximetry 97 Vital Signs Temp Pulse Resp BP Pulse Ox 97.8 F 84 16 147/101 97 08/11/16 16:41 08/11/16 16:41 08/11/16 16:41 08/11/16 16:41 08/11/16 16:41 Vital Signs/O2 Sat/Glucose, Most Current Temp Pulse Resp BP Pulse Ox 08/12/16 13:19 97.3 F L 95 18 131/78 95 08/12/16 11:30 97.7 F 101 20 111/71 97 Blood glucose: 108 (11:38) Height: 1.78 Weight: 104 NPO (# of Hours): >8 - HEENT Pupil (Motor): Pupils equal, EOMI Mallampati: III Teeth: Poor dentition Oral Opening: Greater than 3 (good underbite) - LIVESTOCK FEEDER LOC: Oriented 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
[2016-08-12] MEDS ORDERED: *HR* FentaNYL (PF) 100 MCG/2 ML VIAL ONE (13:55)
[2016-08-12] MEDS ORDERED: *HR* Midazolam HCl 2 MG/2 ML VIAL ONE (13:55)
[2016-08-12] MEDS: Aspirin Enteric Coated 81 MG Tablet PO SCH (14:13)
[2016-08-12] MEDS ORDERED: Indomethacin 50 MG SUPP.RECT RC ONE (15:28)
--- NOTE | 2016-08-12 15:42 | Anesthesia Evaluation Post Op ---
Date of Encounter: 08/12/16 Time of Encounter: 15:35 - Vital Signs Vital Signs: Vital Signs/O2 Sat, Most Current Temp Pulse Resp BP Pulse Ox 99.3 F 80 16 130/62 96 08/12/16 15:35 08/12/16 15:35 08/12/16 15:35 08/12/16 15:35 08/12/16 15:35 - Lungs Lungs: Clear Ascult./Percussion - Airway Airway: Non-obstructed - Cardiovascular Regular Rate, Baseline Rhythm - Mental Status Mental Status: Alert & Oriented, Answers Appropriately - Pain Pain Scale: 3 Pain Scale used: Numeric (1 - 10) - Nausea Vomiting Nausea Vomiting: Not Present - Hydration Hydration: NPO, Has not voided - Discharge PostOp Status: Transfer Patient to floor
--- NOTE | 2016-08-12 16:07 | Internal Med Progress Note ---
Date of Encounter: 08/12/16 Time of Encounter: 16:04 - Assessment and plan (1) Pancreatitis Current Visit: Yes Status: Acute Assessment and plan: Lipase more than 9000 with deranged liver function. NO evidence of obstruction,, We will continue conservative management. MRI of the abdomen shows inflammatory stranding and free fluid adjacent to the pancreatic body and to suggestive of acute pancreatitis. No evidence of cholelithiasis or choledocholithiasis. s/p ERCP and stent placement in pancreatic duct with Dr. Atkinson. continue IVF, keep NPO. will repeat LFTs with basic labs tomm. anlagesics and anti emetics prn. Qualifiers: Chronicity: acute Pancreatitis type: unspecified pancreatitis type Acute pancreatitis complication: no infection or necrosis Qualified Code(s): K85.90 - Acute pancreatitis without necrosis or infection, unspecified (2) Transaminitis Current Visit: Yes Status: Acute Assessment and plan: Secondary to acute pancreatitis, high risk for ascending cholangitis, no fever at present. may need prophylactic antinbotics , will consult with GI. (3) HTN (hypertension) Current Visit: Yes Status: Chronic Qualifiers: Hypertension type: essential hypertension Qualified Code(s): I10 - Essential (primary) hypertension (4) Obesity (BMI 30-39.9) Current Visit: Yes Status: Chronic (5) Type 2 diabetes mellitus Current Visit: Yes Status: Chronic Qualifiers: Diabetes mellitus complication status: with unspecified complications Diabetes mellitus detention insulin use: without supervisor intermediates use Qualified Code( s): E11.8 - Type 2 diabetes mellitus with unspecified complications - Time Spent With Patient 25 - 35 minutes - Subjective Interval history: Patient seen at the bedside, admitted for acute pancreatitis, appears jaundiced and complaining of diffuse abdominal pain. Lab work reveals elevated liver enzymes and bilirubin. Underwent ERCP with Dr. ATKINSON, successful stent placement in the pancreatic duct. - Constitutional Vitals: Temp Pulse Resp BP Pulse Ox 99.3 F 88 16 137/77 97 08/12/16 15:45 08/12/16 15:45 08/12/16 15:45 08/12/16 15:45 08/12/16 15:45 General appearance: Present: cooperative, mild distress, A&O X 3, morbidly obese , answers questions appropriately Exam: - Head Head exam: Present: atraumatic, normocephalic - Eye Eye exam: Present: EOMI, PERRL, conjuntiva pink, icterus++ - ENT ENT exam: Present: mucous membranes moist, normal oropharynx - Neck Neck exam general surgery: Present: full ROM, supple, trachea midline. Absent: lymphadenopathy - Respiratory Respiratory exam: Present: decreased breath sounds, CTAB. Absent: accessory muscle use, rales, rhonchi, wheezes - Cardiovascular Cardiovascular exam: Present: distant heart sounds, RRR, +S1, +S2. Absent: diastolic murmur, gallop, rubs, systolic murmur - GI/Abdominal GI/Abdominal exam: Present: guarding, normal bowel sounds, soft, tenderness ( LLQ tenderness/guarding), no peritoneal signs. Absent: distended - Extremities Exam Extremities exam: Present: full ROM, warm, radial pulses palpable and symetrical. Absent: calf tenderness, cyanotic, pedal edema - Neurological Exam Neurological exam: Present: alert, CN II-XII intact, oriented X3, no focal deficits. Absent: pronater drift, facial droop, speech deficit - Psychiatric Psychiatric exam: Present: normal affect, normal mood - Skin Skin exam: Present: dry, intact, warm. Absent: petechiae, rash, urticaria, vesicles Internal Medicine: Result - Labs CBC & Chem 7: 08/12/16 05:32 08/12/16 05:32 Labs: Short CBC 08/12/16 Range/Units 05:32 WBC 8.7 (4.3-11.1) K/mcL Hgb 15.0 (12.9-16.9) g/dL Hct 46.0 (37.5-50.1) % Plt Count 154 (140-400) K/mcL Neutrophils # 7.3 (1.6-8.9) K/mcL BMP 08/12/16 05:32 Sodium 135 L Potassium 4.0 Chloride 105 Carbon Dioxide 19 BUN 21 Creatinine 1.77 H Glucose 96 Calcium 8.9 Cardiac Enzymes 08/12/16 Range/Units 05:32 Troponin I 0.00 (0-0.03) ng/mL Liver Function 08/12/16 Range/Units 05:32 Total Bilirubin 7.7 H (0.2-1.2) mg/dL Direct Bilirubin 4.8 H (0.0-0.5) mg/dL AST 227 H (5-34) Units/L ALT 266 H (0-55) Units/L Alkaline Phosphatase 172 H (38-126) Units/L Albumin 3.2 L (3.5-5.0) g/dL Urine 08/12/16 Range/Units 03:40 Urine Color [place] A (Yellow) Urine Clarity Cloudy A (Clear) Urine pH 5.5 (5.0-8.0) pH Units Ur Specific [place] 1.019 (1.010-1.025) Urine Protein Trace (Neg-Trace) mg/dL Urine Glucose (UA) Normal (Normal) mg/dL - ABG Interpretation ABG results: PT/INR, D-dimer PT 42.0 Seconds (9.4-12.1) H 08/12/16 05:32 - Impressions Impressions Gallbladder Ultrasound 08/12/16 09:00 IMPRESSION: 1. Coarse echotexture of the liver which may represent fatty infiltration with no evidence of focal disease. 2. Gallbladder sludge but no evidence of wall thickening or pericholecystic fluid. No evidence of biliary dilation. 3. Renal cyst which may be complex. D/ / 08/12/2016 10:51:35 Maddison Santos MD / Juliane Martins Interpreting Provider: Maddison Santos MD Abdomen MRI 08/12/16 10:16 IMPRESSION: 1. Interval appearance since 08/11/2016 of inflammatory stranding and free fluid adjacent to the pancreatic body and tail, highly suggestive of acute pancreatitis. 2. No cholelithiasis or choledocholithiasis. No intra or extrahepatic biliary dilatation. 3. No pancreatic divisum. D/ / 08/12/2016 11:40:22 Mireya Harrison MD / joseph Interpreting Provider: Mireya Harrison MD Cath/Invasive Procedure 08/12/16 14:00 IMPRESSION: The common duct is unremarkable. Successful placement of pancreatic stent. D/ / Geronimo Hope MD / Geronimo Hope MD Interpreting Provider: Geronimo Hope MD - VTE Documentation of Mechanical Device: Graduated compression elastic hosiery Consult Discharge Plan - Plan [facility] Care Provider[facility] -
[2016-08-12] MEDS: *HR* HYDROmorphone (PF) 1 MG/ML SYRINGE IVP PRN (16:28)
[2016-08-12] MEDS: 0.9 % Sodium Chloride 1,000 ML IVC SCH ×2 (16:44→18:32)
[2016-08-12] MEDS: Pantoprazole 40 MG VIAL IVP SCH (18:32)
--- NOTE | 2016-08-12 20:40 | Procedure Note ---
Date of procedure: 08/12/16 Pre-op diagnosis: Gallstone pancreatitis and jaundice Procedure: Pt seen full consult to follow. ERCP: 1 large stone about 7 mm in size removed from the CBD Rec: Surgical consult for gallbladder removal
[2016-08-13] MEDS: 0.9 % Sodium Chloride 1,000 ML IVC SCH (02:46)
[2016-08-13] MEDS: Pantoprazole 40 MG VIAL IVP SCH ×2 (05:44→18:16)
[2016-08-13 06:41] LABS: Basophils % 0.1 %; Hematocrit 42.3 % (37.5-50.1); Hemoglobin 13.1 g/dL (12.9-16.9); Immature Granulocytes % 0.8 % (0-4); Lymphocytes # 0.6 K/mcL (0.6-4.6); Lymphocytes % 6.6 %; Mean Corpuscular Volume 87.2 fL (83.0-100.0); Mean Platelet Volume 9.6 fL (9.4-12.4); Monocytes # 0.6 K/mcL (0.0-1.3); Monocytes % 6.3 %; Neutrophils # 7.8 K/mcL (1.6-8.9); Platelet Count 131 K/mcL (140-400); Red Blood Count 4.85 M/mcL (4.19-5.50); Segmented Neutrophils % 86.2 %
[2016-08-13 06:54] LABS: Albumin/Globulin Ratio 0.7 (1.1-2.2); Bilirubin,Indirect 1.3 mg/dL (0.0-1.2); Globulin 3.7 g/dL (2.4-3.5); Potassium 4.8 mEq/L (3.5-4.5); Total Protein 6.2 g/dL (6.0-8.3)
[2016-08-13 07:37] LABS: Albumin 2.5 g/dL (3.5-5.0); Bilirubin,Direct 2.1 mg/dL (0.0-0.5); Bilirubin,Total 3.4 mg/dL (0.2-1.2)
--- NOTE | 2016-08-13 07:51 | Internal Med Progress Note ---
Date of Encounter: 08/13/16 - Constitutional Vitals: Temp Pulse Resp BP Pulse Ox 98.2 F 96 14 122/72 96 08/13/16 04:51 08/13/16 04:51 08/13/16 04:51 08/13/16 04:51 08/13/16 04:51 General appearance: Present: cooperative, mild distress, A&O X 3, morbidly obese , answers questions appropriately Internal Medicine: Result - Labs CBC & Chem 7: 08/13/16 06:20 08/13/16 06:20 Labs: Short CBC 08/13/16 Range/Units 06:20 WBC 9.1 (4.3-11.1) K/mcL Hgb 13.1 D (12.9-16.9) g/dL Hct 42.3 (37.5-50.1) % Plt Count 131 L (140-400) K/mcL Neutrophils # 7.8 (1.6-8.9) K/mcL BMP 08/13/16 06:20 Sodium 137 Potassium 4.8 H Chloride 108 Carbon Dioxide 19 BUN 29 H Creatinine 1.58 H Glucose 140 H Calcium 8.0 L Cardiac Enzymes 08/12/16 Range/Units 11:49 Troponin I 0.00 (0-0.03) ng/mL Liver Function 08/13/16 Range/Units 06:20 Total Bilirubin 3.4 H D (0.2-1.2) mg/dL Direct Bilirubin 2.1 H (0.0-0.5) mg/dL AST 89 H (5-34) Units/L ALT 165 H (0-55) Units/L Alkaline Phosphatase 132 H (38-126) Units/L Albumin 2.5 L D (3.5-5.0) g/dL - ABG Interpretation ABG results: PT/INR, D-dimer PT 42.0 Seconds (9.4-12.1) H 08/12/16 05:32 - Impressions Impressions Gallbladder Ultrasound 08/12/16 09:00 IMPRESSION: 1. Coarse echotexture of the liver which may represent fatty infiltration with no evidence of focal disease. 2. Gallbladder sludge but no evidence of wall thickening or pericholecystic fluid. No evidence of biliary dilation. 3. Renal cyst which may be complex. D/ / 08/12/2016 10:51:35 Maddison Santos MD / Juliane Martins Interpreting Provider: Maddison Santos MD Abdomen MRI 08/12/16 10:16 IMPRESSION: 1. Interval appearance since 08/11/2016 of inflammatory stranding and free fluid adjacent to the pancreatic body and tail, highly suggestive of acute pancreatitis. 2. No cholelithiasis or choledocholithiasis. No intra or extrahepatic biliary dilatation. 3. No pancreatic divisum. D/ / 08/12/2016 11:40:22 Mireya Harrison MD / joseph Interpreting Provider: Mireya Harrison MD Cath/Invasive Procedure 08/12/16 14:00 IMPRESSION: The common duct is unremarkable. Successful placement of pancreatic stent. D/ / Geronimo Hope MD / Geronimo Hope MD Interpreting Provider: Geronimo Hope MD - VTE Documentation of Mechanical Device: Graduated compression elastic hosiery Consult Discharge Plan - Plan Referrals: [facility] [Outside]
[2016-08-13] MEDS: Aspirin Enteric Coated 81 MG Tablet PO SCH (09:08)
[2016-08-13] MEDS: *HR* OxyCODONE Immed Rel 5 MG TABLET PO PRN (09:14)
[2016-08-13] MEDS: *HR* Metoprolol 5 MG/5 ML VIAL IVP PRN ×2 (10:43→18:16)
--- NOTE | 2016-08-13 11:34 | General Surgery Consult Note ---
<Mora,Maria Guadalupe Larry - Last Filed: 08/13/16 16:32> Assessment and Plan (1) Gallstone pancreatitis Status: Acute Repeat Amylase and Lipase now and in the am Serial abdominal exams Clear liquid diet NPO after midnight Supportive care/pain control Will plan for Laparosocpic cholecystectomy with resolution of acute pancreatitis (2) Choledocholithiasis Status: Acute ERCP completed yesterday by Dr. Reddy with removal of 7mm stone. Recommended GB surgery. See plan above. (3) Warfarin-induced coagulopathy Status: Chronic INR 3.8 Hold coumadin Vit K 10mg now Patient refusing FFP due to voodoo beliefs Repeat PT/INR in the am (4) PAF (paroxysmal atrial fibrillation) Status: Chronic (5) HTN (hypertension) Status: Chronic Normotensive Patient is on his home medications. 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 use: without [place] [facility] use Qualified Code( s): E11.8 - Type 2 diabetes mellitus with unspecified complications (7) Umbilical hernia Status: Chronic primary repair of umbilical hernia Qualifiers: Obstruction and gangrene presence: without obstruction or gangrene Qualified Code(s): K42.9 - Umbilical hernia without obstruction or gangrene Medications and Allergies Aspirin [Adult Low Dose Aspirin EC] 81 mg PO QAM 09/10/15 [History] Simvastatin [Zocor] 40 mg PO HS 09/10/15 [History] Warfarin [Coumadin] 5 mg PO MOWEFR 09/10/15 [History] Warfarin [Coumadin] 7.5 mg PO SUTUTHSA 09/10/15 [History] DiphenhydraMINE [Benadryl] 50 mg PO BID 08/12/16 [History] Ketoconazole Shampoo [Nizoral Shampoo] 1 appl TP Q48H 08/12/16 [History] Losartan Potassium [Cozaar] 50 mg PO DAILY 08/12/16 [History] Omeprazole [PriLOSEC] 20 mg PO DAILY 08/12/16 [History] Diltiazem CD (24hr) [Cardizem CD] 120 mg PO DAILY #30 cap.er.24h 08/19/16 [Rx] Docusate [Colace] 100 mg PO BID #60 capsule 08/19/16 [Rx] HYDROcodone/Acet 5/325 mg [[place] 5-325 mg] 1 tab PO Q6H PRN #30 tablet 08/19/16 [Rx] Metoprolol [Lopressor] 50 mg PO BID #60 tablet 08/19/16 [Rx] Sennosides [Senna] 17.6 mg PO HS 14 Days 08/19/16 [Rx] Allergies No Known Allergies Allergy (Verified 08/12/16 14:11) Review of Systems All systems PM: A 10-system review of systems was performed and is negative for pertinent findings except as documented above in the HPI. General Surgery Exam Initial Vital Signs Temp Pulse Resp BP Pulse Ox 97.8 F 84 16 147/101 97 08/11/16 16:41 08/11/16 16:41 08/11/16 16:41 08/11/16 16:41 08/11/16 16:41 - Abdomen Hernia: Present: umbilical Exam Initial Vital Signs Temp Pulse Resp BP Pulse Ox 97.8 F 84 16 147/101 97 08/11/16 16:41 08/11/16 16:41 08/11/16 16:41 08/11/16 16:41 08/11/16 16:41 Results - Labs 08/13/16 06:20 08/13/16 06:20 Abnormal lab results MCH 27.0 pg (28.0-33.3) L 08/13/16 06:20 MCHC 31.0 g/dL (31.6-35.5) L 08/13/16 06:20 Plt Count 131 K/mcL (140-400) L 08/13/16 06:20 ESR 38 mm/hr (0-10) H 08/12/16 05:32 PT 43.1 Seconds (9.4-12.1) H 08/13/16 11:21 APTT 38.9 Seconds (26.0-36.0) H 08/12/16 05:32 Potassium 4.8 mEq/L (3.5-4.5) H 08/13/16 06:20 BUN 29 mg/dL (8-26) H 08/13/16 06:20 Creatinine 1.58 mg/dL (0.72-1.25) H 08/13/16 06:20 Est GFR ( Amer) 52 (> 60) L 08/13/16 06:20 Est GFR (Non-Af Amer) 43 (> 60) L 08/13/16 06:20 Glucose 140 mg/dL (70-99) H 08/13/16 06:20 POC Glucose 101 (58-89) H 08/12/16 16:54 Hemoglobin A1c 6.2 % (-5.6) H 08/12/16 05:32 Calcium 8.0 mg/dL (8.6-10.8) L 08/13/16 06:20 Phosphorus 2.0 mg/dL (2.3-4.7) L 08/12/16 05:32 Magnesium 1.4 mg/dL (1.6-2.6) L 08/12/16 05:32 Total Bilirubin 3.4 mg/dL (0.2-1.2) H D 08/13/16 06:20 Direct Bilirubin 2.1 mg/dL (0.0-0.5) H 08/13/16 06:20 Indirect Bilirubin 1.3 mg/dL (0.0-1.2) H 08/13/16 06:20 AST 89 Units/L (5-34) H 08/13/16 06:20 ALT 165 Units/L (0-55) H 08/13/16 06:20 Alkaline Phosphatase 132 Units/L (38-126) H 08/13/16 06:20 C-Reactive Protein 72 mg/L (Less than 5) H 08/12/16 05:32 Albumin 2.5 g/dL (3.5-5.0) L D 08/13/16 06:20 Globulin 3.7 g/dL (2.4-3.5) H 08/13/16 06:20 Albumin/Globulin Ratio 0.7 (1.1-2.2) L 08/13/16 06:20 HDL Cholesterol 26 mg/dL (40-59) L 08/12/16 05:32 Amylase 2959 Units/L (25-125) H 08/12/16 05:32 Lipase 9217 Units/L (8-78) H 08/12/16 05:32 Urine Color [place] (Yellow) A 08/12/16 03:40 Urine Clarity Cloudy (Clear) A 08/12/16 03:40 Urine Ketones Trace mg/dL (Negative) H 08/12/16 03:40 Urine Nitrite Positive (Negative) A 08/12/16 03:40 Urine Bilirubin Large (Negative) H 08/12/16 03:40 Ur Leukocyte Esterase Small (Negative) H 08/12/16 03:40 Urine Microscopic RBC 5-15 per hpf (0-3) H 08/12/16 03:40 Urine Microscopic WBC 5-15 per hpf (0-3) H 08/12/16 03:40 Ur Culture Indicated? YES (NO) A 08/12/16 03:40 Urine Opiates Screen Positive ng/mL (Manheq=345) H 08/12/16 03:40 Diabetes panel 08/13/16 Range/Units 06:20 Sodium 137 (136-145) mEq/L Potassium 4.8 H (3.5-4.5) mEq/L Chloride 108 (98-109) mEq/L Carbon Dioxide 19 (19-29) mEq/L BUN 29 H (8-26) mg/dL Creatinine 1.58 H (0.72-1.25) mg/dL Glucose 140 H (70-99) mg/dL Calcium 8.0 L (8.6-10.8) mg/dL AST 89 H (5-34) Units/L ALT 165 H (0-55) Units/L Alkaline Phosphatase 132 H (38-126) Units/L Albumin 2.5 L D (3.5-5.0) g/dL Calcium panel 08/13/16 Range/Units 06:20 Calcium 8.0 L (8.6-10.8) mg/dL Albumin 2.5 L D (3.5-5.0) g/dL Pituitary panel 08/13/16 Range/Units 06:20 Sodium 137 (136-145) mEq/L Potassium 4.8 H (3.5-4.5) mEq/L Chloride 108 (98-109) mEq/L Carbon Dioxide 19 (19-29) mEq/L BUN 29 H (8-26) mg/dL Creatinine 1.58 H (0.72-1.25) mg/dL Glucose 140 H (70-99) mg/dL Calcium 8.0 L (8.6-10.8) mg/dL Adrenal panel 08/13/16 Range/Units 06:20 Sodium 137 (136-145) mEq/L Potassium 4.8 H (3.5-4.5) mEq/L Chloride 108 (98-109) mEq/L Carbon Dioxide 19 (19-29) mEq/L BUN 29 H (8-26) mg/dL Creatinine 1.58 H (0.72-1.25) mg/dL Glucose 140 H (70-99) mg/dL Calcium 8.0 L (8.6-10.8) mg/dL Total Bilirubin 3.4 H D (0.2-1.2) mg/dL AST 89 H (5-34) Units/L ALT 165 H (0-55) Units/L Alkaline Phosphatase 132 H (38-126) Units/L Albumin 2.5 L D (3.5-5.0) g/dL All other labs normal. Consult Discharge Plan - Plan Instructions: Meal Planning with Diabetes Exchanges (DC) Additional Instructions: no heavy lifting greater than 15 pounds, may shower, no tub bath, no hot tubs, no swimming, wash incision with soap and water and pat dry, allow steri strips to come off on their own. Do not drive until follow up. Referrals: [facility] [Outside] - 08/26/16 11:00 am (Patient appt. already sheduled with the MS prior to admission. The MS wishes to keep this appt. for the patient. Thank you) Nanda Lind MD [Partnered Physician] - 09/04/16 11:05 am Prescriptions: Diltiazem CD (24hr) [Cardizem CD] 120 mg PO DAILY #30 cap.er.24h Docusate [Colace] 100 mg PO BID #60 capsule HYDROcodone/Acet 5/325 mg [[place] 5-325 mg] 1 tab PO Q6H PRN #30 tablet PRN Reason: Moderate Pain Metoprolol [Lopressor] 50 mg PO BID #60 tablet Sennosides [Senna] 17.6 mg PO HS 14 Days <Lavon Boykin - Last Filed: 08/14/16 15:33> Date of Encounter: 08/13/16 Time of Encounter: 11:15 Assessment and Plan (1) Gallstone pancreatitis Status: Acute The patient will be planned for laparoscopic cholecystectomy after his pancreatitis has decreased. (2) Choledocholithiasis Status: Acute ERCP completed yesterday by Dr. Reddy with removal of 7mm stone. Recommended GB surgery. See plan above. (3) HTN (hypertension) Status: Chronic Patient is on his home medications. Qualifiers: Hypertension type: essential hypertension Qualified Code(s): I10 - Essential (primary) hypertension History of Present Illness Consult date: 08/13/16 Reason for consult: gallstones Requesting physician: Jean Gloria History of present illness: This is a 75 year old male with PMH significant for hypertension, aortic aneurysm, arthritis, cancer, COPD, CAD, CVA, hyperlipidemia, renal disease, GERD , A. fib, and DM who presented with a 3 day history of abdominal pain. The pain was described as "gassy" and radiated from the lower abdomen to the upper abdomen. Over that three day period the pain became worse and sharp. He states he has had episodes of this in the past year that have been becoming closer together in frequency. He underwent ERCP yesterday with Dr. Reddy and was found to have choledocholithiasis. One stone was removed, which was 7mm and biliary sphincterotomy was performed. The tree was swept and a temporary stent was placed in the ventral pancreatic duct. He states that since his procedure his pain has been well controlled, but he continues to feel bloated. He states his last bowel movement was at 4AM this morning and was normal for him. He is able to ambulate well currently and is voiding well. He is on coumadin for his A. fib , but states his last dose was on Friday before coming to the hospital. He is currently on Lovenox SQ for DVT prophylaxis. Past Med Surg Social Fam HX - Past Medical History Medical history: aortic aneurysm, arthritis, atrial fibrillation, cancer, COPD ( [place]), coronary artery disease, CVA, diabetes, GERD, hyperlipidemia, hypertension , myocardial infarction, osteoporosis, renal disease, SVT, syncope, TIA, other Psychiatric history: anxiety, depression, other - Past Surgical History Surgical History: angioplasty/stent, other (AAA repair) - Social History Smoking Status: Former smoker Smokeless Tobacco Status: No Alcohol use: none Drug use: none - Family History Father History Unknown: Yes Adopted: [place]: [place] Family Member Ethnicity: Non- Living Status: Cause of : cardiac Hx Family Cardiac Disorders: Yes Review of Systems All systems PM: A 10-system review of systems was performed and is negative for pertinent findings except as documented above in the HPI. - Constitutional no chills, no fatigue, no fever(s), no weakness - EENT Nose, mouth and throat: no dysphagia, no headache(s), no sore throat - Cardiovascular no chest pain, no dyspnea, no palpitations - Respiratory no dyspnea - Gastrointestinal bloating, no abdominal pain, no constipation, no diarrhea, no melena, no nausea , no vomiting - Genitourinary no dysuria - Integumentary no new lesions, no rash - Neurological no numbness, no tingling, no weakness - Hematologic/Lymphatic no easy bleeding, no easy bruising General Surgery Exam Initial Vital Signs Temp Pulse Resp BP Pulse Ox 97.8 F 84 16 147/101 97 08/11/16 16:41 08/11/16 16:41 08/11/16 16:41 08/11/16 16:41 08/11/16 16:41 - General physical appearance well developed, well nourished, no distress, obese - Eyes normal ocular movement - ENT normal mucosa, atraumatic, normocephalic - Neck trachea midline - Respiratory normal respiratory effort, clear to auscultation - Cardiovascular Cardiovascular exam: Present: RRR, distant heart sounds, no murmurs/rubs/gallops - Abdomen Abdomen general surgery: Present: bowel sounds present, soft, distended, tender (right upper quadrant and epigastric pain to deep palpation), guarding. Absent : rebound - Integumentary Integumentary general surgery: Present: warm and dry - Neurologic Present: CN 2-12 grossly intact - Musculoskeletal Present: normal posture - Psychiatric Psychiatric general surgery: Present: appropriate, oriented to person, oriented to place, oriented to time, speech is normal, memory intact Exam Initial Vital Signs Temp Pulse Resp BP Pulse Ox 97.8 F 84 16 147/101 97 08/11/16 16:41 08/11/16 16:41 08/11/16 16:41 08/11/16 16:41 08/11/16 16:41 Results - Labs 08/13/16 06:20 08/13/16 06:20 Abnormal lab results MCH 27.0 pg (28.0-33.3) L 08/13/16 06:20 MCHC 31.0 g/dL (31.6-35.5) L 08/13/16 06:20 Plt Count 131 K/mcL (140-400) L 08/13/16 06:20 ESR 38 mm/hr (0-10) H 08/12/16 05:32 PT 42.0 Seconds (9.4-12.1) H 08/12/16 05:32 APTT 38.9 Seconds (26.0-36.0) H 08/12/16 05:32 Potassium 4.8 mEq/L (3.5-4.5) H 08/13/16 06:20 BUN 29 mg/dL (8-26) H 08/13/16 06:20 Creatinine 1.58 mg/dL (0.72-1.25) H 08/13/16 06:20 Est GFR ( Amer) 52 (> 60) L 08/13/16 06:20 Est GFR (Non-Af Amer) 43 (> 60) L 08/13/16 06:20 Glucose 140 mg/dL (70-99) H 08/13/16 06:20 POC Glucose 101 (58-89) H 08/12/16 16:54 Hemoglobin A1c 6.2 % (-5.6) H 08/12/16 05:32 Calcium 8.0 mg/dL (8.6-10.8) L 08/13/16 06:20 Phosphorus 2.0 mg/dL (2.3-4.7) L 08/12/16 05:32 Magnesium 1.4 mg/dL (1.6-2.6) L 08/12/16 05:32 Total Bilirubin 3.4 mg/dL (0.2-1.2) H D 08/13/16 06:20 Direct Bilirubin 2.1 mg/dL (0.0-0.5) H 08/13/16 06:20 Indirect Bilirubin 1.3 mg/dL (0.0-1.2) H 08/13/16 06:20 AST 89 Units/L (5-34) H 08/13/16 06:20 ALT 165 Units/L (0-55) H 08/13/16 06:20 Alkaline Phosphatase 132 Units/L (38-126) H 08/13/16 06:20 C-Reactive Protein 72 mg/L (Less than 5) H 08/12/16 05:32 Albumin 2.5 g/dL (3.5-5.0) L D 08/13/16 06:20 Globulin 3.7 g/dL (2.4-3.5) H 08/13/16 06:20 Albumin/Globulin Ratio 0.7 (1.1-2.2) L 08/13/16 06:20 HDL Cholesterol 26 mg/dL (40-59) L 08/12/16 05:32 Amylase 2959 Units/L (25-125) H 08/12/16 05:32 Lipase 9217 Units/L (8-78) H 08/12/16 05:32 Urine Color [place] (Yellow) A 08/12/16 03:40 Urine Clarity Cloudy (Clear) A 08/12/16 03:40 Urine Ketones Trace mg/dL (Negative) H 08/12/16 03:40 Urine Nitrite Positive (Negative) A 08/12/16 03:40 Urine Bilirubin Large (Negative) H 08/12/16 03:40 Ur Leukocyte Esterase Small (Negative) H 08/12/16 03:40 Urine Microscopic RBC 5-15 per hpf (0-3) H 08/12/16 03:40 Urine Microscopic WBC 5-15 per hpf (0-3) H 08/12/16 03:40 Ur Culture Indicated? YES (NO) A 08/12/16 03:40 Urine Opiates Screen Positive ng/mL (Zulkqs=327) H 08/12/16 03:40 Diabetes panel 08/13/16 Range/Units 06:20 Sodium 137 (136-145) mEq/L Potassium 4.8 H (3.5-4.5) mEq/L Chloride 108 (98-109) mEq/L Carbon Dioxide 19 (19-29) mEq/L BUN 29 H (8-26) mg/dL Creatinine 1.58 H (0.72-1.25) mg/dL Glucose 140 H (70-99) mg/dL Calcium 8.0 L (8.6-10.8) mg/dL AST 89 H (5-34) Units/L ALT 165 H (0-55) Units/L Alkaline Phosphatase 132 H (38-126) Units/L Albumin 2.5 L D (3.5-5.0) g/dL Calcium panel 08/13/16 Range/Units 06:20 Calcium 8.0 L (8.6-10.8) mg/dL Albumin 2.5 L D (3.5-5.0) g/dL Pituitary panel 08/13/16 Range/Units 06:20 Sodium 137 (136-145) mEq/L Potassium 4.8 H (3.5-4.5) mEq/L Chloride 108 (98-109) mEq/L Carbon Dioxide 19 (19-29) mEq/L BUN 29 H (8-26) mg/dL Creatinine 1.58 H (0.72-1.25) mg/dL Glucose 140 H (70-99) mg/dL Calcium 8.0 L (8.6-10.8) mg/dL Adrenal panel 08/13/16 Range/Units 06:20 Sodium 137 (136-145) mEq/L Potassium 4.8 H (3.5-4.5) mEq/L Chloride 108 (98-109) mEq/L Carbon Dioxide 19 (19-29) mEq/L BUN 29 H (8-26) mg/dL Creatinine 1.58 H (0.72-1.25) mg/dL Glucose 140 H (70-99) mg/dL Calcium 8.0 L (8.6-10.8) mg/dL Total Bilirubin 3.4 H D (0.2-1.2) mg/dL AST 89 H (5-34) Units/L ALT 165 H (0-55) Units/L Alkaline Phosphatase 132 H (38-126) Units/L Albumin 2.5 L D (3.5-5.0) g/dL All other labs normal. - Attending Attestation I examined this patient and my medical decision-making was reviewed with the FORESTRY HUNTER/PA/Advanced Practice Nurse/Resident Physician. I agree with the documented findings, disposition and treatment plan as described except to the extent set forth below. <Nanda Lind - Last Filed: 08/21/16 18:03> Date of Encounter: 08/13/16 Time of Encounter: 11:50 Assessment and Plan (1) Abdominal pain Status: Acute Qualifiers: Abdominal location: epigastric Qualified Code(s): R10.13 - Epigastric pain (2) Atrial fibrillation Status: Acute Qualifiers: Atrial fibrillation type: chronic Qualified Code(s): I48.2 - Chronic atrial fibrillation (3) Gallstone pancreatitis Status: Acute recheck inr in am pt may have ileus due to pancreatitis as very distended and tympanic without good bowel sounds will plan laparoscopic cholecystectomy with cholangiograms, possible open in future, risks and benefits of surgery discussed with patient and he wishes to proceed when appropriate History of Present Illness Reason for consult: gallstones Review of Systems All systems PM: A 10-system review of systems was performed and is negative for pertinent findings except as documented above in the HPI. General Surgery Exam Initial Vital Signs Temp Pulse Resp BP Pulse Ox 97.8 F 84 16 147/101 97 08/11/16 16:41 08/11/16 16:41 08/11/16 16:41 08/11/16 16:41 08/11/16 16:41 - General physical appearance well developed, well nourished, no distress, no pain, obese - Eyes PERRL, normal ocular movement - ENT normal mucosa, normocephalic - Neck trachea midline - Respiratory normal expansion, normal respiratory effort - Cardiovascular Cardiovascular exam: Present: irregular rhythm - Abdomen Abdomen general surgery: Present: bowel sounds present, tympanic, distended, tender Abdominal Tenderness: Present: epigastic Hernia: Present: umbilical - Integumentary Integumentary general surgery: Present: warm and dry - Neurologic Present: CN 2-12 grossly intact - Musculoskeletal Present: normal posture - Psychiatric Psychiatric general surgery: Present: A&Ox3, speech is normal Exam Initial Vital Signs Temp Pulse Resp BP Pulse Ox 97.8 F 84 16 147/101 97 08/11/16 16:41 08/11/16 16:41 08/11/16 16:41 08/11/16 16:41 08/11/16 16:41 Results - Labs 08/19/16 04:16 08/19/16 04:16 Abnormal lab results Hgb 12.6 g/dL (12.9-16.9) L 08/16/16 08:38 ESR 38 mm/hr (0-10) H 08/12/16 05:32 PT 15.9 Seconds (9.4-12.1) H 08/16/16 08:51 APTT 38.9 Seconds (26.0-36.0) H 08/12/16 05:32 Glucose 117 mg/dL (70-99) H 08/16/16 08:38 POC Glucose 103 (58-89) H 08/16/16 05:44 Hemoglobin A1c 6.2 % (-5.6) H 08/12/16 05:32 Phosphorus 2.0 mg/dL (2.3-4.7) L 08/12/16 05:32 Magnesium 1.4 mg/dL (1.6-2.6) L 08/12/16 05:32 Total Bilirubin 2.5 mg/dL (0.2-1.2) H 08/16/16 08:38 Direct Bilirubin 1.4 mg/dL (0.0-0.5) H 08/16/16 08:38 C-Reactive Protein 72 mg/L (Less than 5) H 08/12/16 05:32 B-Natriuretic Peptide 349 pg/mL (0-100) H 08/15/16 04:26 Albumin 2.2 g/dL (3.5-5.0) L 08/16/16 08:38 Globulin 4.2 g/dL (2.4-3.5) H 08/16/16 08:38 Albumin/Globulin Ratio 0.5 (1.1-2.2) L 08/16/16 08:38 HDL Cholesterol 26 mg/dL (40-59) L 08/12/16 05:32 Amylase 178 Units/L (25-125) H 08/14/16 04:04 Lipase 110 Units/L (8-78) H 08/14/16 04:04 Urine Color [place] (Yellow) A 08/12/16 03:40 Urine Clarity Cloudy (Clear) A 08/12/16 03:40 Urine Ketones Trace mg/dL (Negative) H 08/12/16 03:40 Urine Nitrite Positive (Negative) A 08/12/16 03:40 Urine Bilirubin Large (Negative) H 08/12/16 03:40 Ur Leukocyte Esterase Small (Negative) H 08/12/16 03:40 Urine Microscopic RBC 5-15 per hpf (0-3) H 08/12/16 03:40 Urine Microscopic WBC 5-15 per hpf (0-3) H 08/12/16 03:40 Ur Culture Indicated? YES (NO) A 08/12/16 03:40 Urine Opiates Screen Positive ng/mL (Uxwudy=003) H 08/12/16 03:40 Diabetes panel 08/16/16 Range/Units 08:38 Sodium 138 (136-145) mEq/L Potassium 3.7 (3.5-4.5) mEq/L Chloride 103 (98-109) mEq/L Carbon Dioxide 24 (19-29) mEq/L BUN 11 (8-26) mg/dL Creatinine 0.88 (0.72-1.25) mg/dL Glucose 117 H (70-99) mg/dL Calcium 8.6 (8.6-10.8) mg/dL AST 17 (5-34) Units/L ALT 48 (0-55) Units/L Alkaline Phosphatase 95 (38-126) Units/L Albumin 2.2 L (3.5-5.0) g/dL Calcium panel 08/16/16 Range/Units 08:38 Calcium 8.6 (8.6-10.8) mg/dL Albumin 2.2 L (3.5-5.0) g/dL Pituitary panel 08/16/16 Range/Units 08:38 Sodium 138 (136-145) mEq/L Potassium 3.7 (3.5-4.5) mEq/L Chloride 103 (98-109) mEq/L Carbon Dioxide 24 (19-29) mEq/L BUN 11 (8-26) mg/dL Creatinine 0.88 (0.72-1.25) mg/dL Glucose 117 H (70-99) mg/dL Calcium 8.6 (8.6-10.8) mg/dL Adrenal panel 08/16/16 Range/Units 08:38 Sodium 138 (136-145) mEq/L Potassium 3.7 (3.5-4.5) mEq/L Chloride 103 (98-109) mEq/L Carbon Dioxide 24 (19-29) mEq/L BUN 11 (8-26) mg/dL Creatinine 0.88 (0.72-1.25) mg/dL Glucose 117 H (70-99) mg/dL Calcium 8.6 (8.6-10.8) mg/dL Total Bilirubin 2.5 H (0.2-1.2) mg/dL AST 17 (5-34) Units/L ALT 48 (0-55) Units/L Alkaline Phosphatase 95 (38-126) Units/L Albumin 2.2 L (3.5-5.0) g/dL All other labs normal. - Imaging US - abdomen: report reviewed (MRI images personally reviewed by myself) - Attending Attestation I examined this patient and my medical decision-making was reviewed with the FORESTRY HUNTER/PA/Advanced Practice Nurse/Resident Physician. I agree with the documented findings, disposition and treatment plan as described except to the extent set forth below.
[2016-08-13 11:37] LABS: INR 3.8; Prothrombin Time 43.1 Seconds (9.4-12.1)
[2016-08-13] MEDS: Ringers Solution, Lactated 1,000 ML IVC SCH (11:39)
[2016-08-13] MEDS ORDERED: *HR* Enoxaparin 40 MG/0.4 ML SYRINGE SQ SCH (12:00)
--- NOTE | 2016-08-13 12:19 | Gastroenterology Consult Note ---
<Andreas Bruno - Last Filed: 08/13/16 12:16> Date of Encounter: 08/13/16 Time of Encounter: 11:20 - Assessment and plan (1) Choledocholithiasis Current Visit: Yes Status: Acute Assessment and plan: ERCP yesterday which showed choledocholithiasis with 7 mm stone removed, one temporary stent placed into the pancreatic duct. No repeat ERCP needed, pancreatic duct stent should fall off on its own. KUB in 2 weeks to evaluate pancreatic duct stent has passed. LFTs are improving. Surgery consulted for cholecystectomy. (2) Gallstone pancreatitis Current Visit: Yes Status: Acute Assessment and plan: Continue antiemetics and pain control. ERCP showed 7 mm stone in the CBD which was removed. Temporary stent placed and pancreatic duct. Surgery consulted for cholecystectomy. LFTs improving. (3) Transaminitis Current Visit: Yes Status: Acute Assessment and plan: Secondary to choledocholithiasis. On admission to be 7.7, 4.8, AST 227, ALT is 266. Today TB 3.4, DB 2.1, AST 89, ALT 165. Patient is s/p ERCP with 7 mm stone removal and temporary stent placed and pancreatic duct. - Time Spent With Patient Total time spent is greater than 50% in coordination of care (as documented) at patient's floor/unit and/or counseling patient: GI History of Present Illness - Data of Consult Patient: new to practice Consult date: 08/13/16 Requesting Physician: Pema Campa - Consult Narrative Reason for consult: Elevated LFTs History of present illness: Mr. Antunez is a 75 year old male with PMHx of aortic anerysm, Afib, COPD, CAD, CVA, DM, GERD, HLD, HTN, OH, TIA who presented [facility] with 3 day history of abdominal pain that started in his lower abdomen and came up to his epigastric region. He reports several episodes of this in the past year. CT at the [facility] showed no acute findings but a distended gallbladder without CT evidence of cholelithiasis or acute cholecystitis. Multiple low-attenuation lesions arising from each kidney statistically likely to represent cyst. On admission here, TB 7.7, DB 4.8, AST 227, ALT 266, amylase 2959, lipase 9217. MRI of the abdomen shows inflammatory stranding and free fluid adjacent to the pancreatic body and to suggestive of acute pancreatitis. No evidence of cholelithiasis or choledocholithiasis. Pt underwent ERCP yesterday which showed choledocholithiasis with complete removal by biliary sphincterotomy and balloon extraction, one temporary stent placed into the ventral pancreatic duct. Procedures: Colonoscopy 07/04/2008 Dr. Banegas with hyperplastic polyps. NSAIDs: ASA Anticoagulation: Coumadin Past Med Surg Social Fam HX - Past Medical History Medical history: aortic aneurysm, arthritis, atrial fibrillation, cancer, COPD ( [facility]), coronary artery disease, CVA, diabetes, GERD, hyperlipidemia, hypertension , myocardial infarction, osteoporosis, renal disease, SVT, syncope, TIA, other Psychiatric history: anxiety, depression, other - Past Surgical History Surgical History: angioplasty/stent, other (AAA repair) - Social History Smoking Status: Former smoker Smokeless Tobacco Status: No Alcohol use: none Drug use: none - Family History Father History Unknown: Yes Adopted: [place]: gabby brown Family Member Ethnicity: Non- Living Status: Cause of : cardiac Hx Family Cardiac Disorders: Yes - Gastrointestinal Gastrointestinal: Present: as per HPI - Constitutional Constitutional: as per HPI - EENT Eyes: as per HPI Ears: Present: as per HPI Nose, mouth and throat: Present: as per HPI - Cardiovascular Cardiovascular ROS: Present: as per HPI - Respiratory Respiratory IM: Present: as per HPI - Genitourinary Genitourinary: Absent: change in color, Urinary frequency - Neurological ROS Neurological GI: Present: as per HPI - Hematologic/Lymphatic Hematologic/Lymphatic pediatric: Present: as per HPI - Musculoskeletal Musculoskeletal ROS GI: Present: as per HPI - Integumentary Integumentary GI: Present: as per HPI - Psychiatric ROS Psychiatric GI: Present: as per HPI - Endocrine Endocrine IM: Present: as per HPI - Constitutional Vitals: Temp Pulse Resp BP Pulse Ox 98.5 F 109 18 107/63 97 08/13/16 11:54 08/13/16 11:54 08/13/16 11:54 08/13/16 11:54 08/13/16 11:54 General appearance: Present: cooperative, A&O X 3, no acute distress, answers questions appropriately - Head Head exam: Present: atraumatic, normocephalic - Eye Eye exam: Present: normal appearance, sclera anicteric - ENT ENT exam: Present: mucous membranes dry - Neck Neck exam general surgery: Present: normal inspection, trachea midline - Respiratory Respiratory exam: Present: CTAB - Cardiovascular Cardiovascular exam: Present: RRR, +S1, +S2 - GI/Abdominal GI/Abdominal exam: Present: soft, tenderness, no peritoneal signs. Absent: distended, firm, guarding - Rectal Rectal exam: Present: deferred - Extremities Exam Extremities exam: Present: warm - Neurological Exam Neurological exam: Present: no focal deficits - Psychiatric Psychiatric exam: Present: normal affect, normal mood - Skin Skin exam: Present: dry, intact, normal color, warm Results - Labs CBC & Chem 7: 08/13/16 06:20 08/13/16 06:20 Labs: Last Result ESR 38 mm/hr (0-10) H 08/12/16 05:32 Calcium 8.0 mg/dL (8.6-10.8) L 08/13/16 06:20 Troponin I 0.00 ng/mL (0-0.03) 08/12/16 11:49 C-Reactive Protein 72 mg/L (Less than 5) H 08/12/16 05:32 Triglycerides 98 mg/dL (< 150) 08/12/16 05:32 Urine Opiates Screen Positive ng/mL (Ujgqrs=418) H 08/12/16 03:40 Entire Visit Hgb 13.1 g/dL (12.9-16.9) D 08/13/16 06:20 Hct 42.3 % (37.5-50.1) 08/13/16 06:20 PT 43.1 Seconds (9.4-12.1) H 08/13/16 11:21 Total Bilirubin 3.4 mg/dL (0.2-1.2) H D 08/13/16 06:20 AST 89 Units/L (5-34) H 08/13/16 06:20 ALT 165 Units/L (0-55) H 08/13/16 06:20 Amylase 2959 Units/L (25-125) H 08/12/16 05:32 Lipase 9217 Units/L (8-78) H 08/12/16 05:32 - ABG ABG results: PT/INR, D-dimer PT 43.1 Seconds (9.4-12.1) H 08/13/16 11:21 - Impressions Impressions Abdomen MRI 08/12/16 10:16 IMPRESSION: 1. Interval appearance since 08/11/2016 of inflammatory stranding and free fluid adjacent to the pancreatic body and tail, highly suggestive of acute pancreatitis. 2. No cholelithiasis or choledocholithiasis. No intra or extrahepatic biliary dilatation. 3. No pancreatic divisum. D/ / 08/12/2016 11:40:22 Mireya Harrison MD / joseph Interpreting Provider: Mireya Harrison MD Cath/Invasive Procedure 08/12/16 14:00 IMPRESSION: The common duct is unremarkable. Successful placement of pancreatic stent. D/ / Geronimo Hope MD / Geronimo Hope MD Interpreting Provider: Geronimo Hope MD Consult Discharge Plan - Plan Referrals: [facility] [Outside] - 08/26/16 11:00 am (Patient appt. already sheduled with the [facility] prior to admission. The [facility] wishes to keep this appt. for the patient. Thank you) <Olivia Reddy - Last Filed: 08/13/16 17:23> Time of Encounter: 14:00 - Time Spent With Patient Total time spent is greater than 50% in coordination of care (as documented) at patient's floor/unit and/or counseling patient: GI History of Present Illness - Data of Consult Requesting Physician: Pema Campa - Consult Narrative History of present illness: Mr. Antunez is a 75 year old male - Constitutional Vitals: Temp Pulse Resp BP Pulse Ox 98.6 F 100 18 125/69 95 08/13/16 15:36 08/13/16 15:36 08/13/16 15:36 08/13/16 15:36 08/13/16 15:36 Results - Labs CBC & Chem 7: 08/13/16 06:20 08/13/16 06:20 Labs: Last Result ESR 38 mm/hr (0-10) H 08/12/16 05:32 Calcium 8.0 mg/dL (8.6-10.8) L 08/13/16 06:20 Troponin I 0.00 ng/mL (0-0.03) 08/12/16 11:49 C-Reactive Protein 72 mg/L (Less than 5) H 08/12/16 05:32 Triglycerides 98 mg/dL (< 150) 08/12/16 05:32 Urine Opiates Screen Positive ng/mL (Rgortu=171) H 08/12/16 03:40 Entire Visit Hgb 13.1 g/dL (12.9-16.9) D 08/13/16 06:20 Hct 42.3 % (37.5-50.1) 08/13/16 06:20 PT 43.1 Seconds (9.4-12.1) H 08/13/16 11:21 Total Bilirubin 3.4 mg/dL (0.2-1.2) H D 08/13/16 06:20 AST 89 Units/L (5-34) H 08/13/16 06:20 ALT 165 Units/L (0-55) H 08/13/16 06:20 Amylase 928 Units/L (25-125) H 08/13/16 06:20 Lipase 981 Units/L (8-78) H 08/13/16 06:20 - ABG ABG results: PT/INR, D-dimer PT 43.1 Seconds (9.4-12.1) H 08/13/16 11:21 - Impressions Impressions Abdomen MRI 08/12/16 10:16 IMPRESSION: 1. Interval appearance since 08/11/2016 of inflammatory stranding and free fluid adjacent to the pancreatic body and tail, highly suggestive of acute pancreatitis. 2. No cholelithiasis or choledocholithiasis. No intra or extrahepatic biliary dilatation. 3. No pancreatic divisum. D/ / 08/12/2016 11:40:22 Mireya Harrison MD / [email or web address] Interpreting Provider: Mireya Harrison MD - Attending Attestation I examined this patient and my medical decision-making was reviewed with the CUSTOMER ASSISTANT/PA/Advanced Practice Nurse/Resident Physician. I agree with the documented findings, disposition and treatment plan as described except to the extent set forth below.
[2016-08-13] MEDS: *HR* HYDROmorphone (PF) 1 MG/ML SYRINGE IVP PRN (13:24)
[2016-08-14] MEDS: Ringers Solution, Lactated 1,000 ML IVC SCH ×3 (01:43→14:37)
[2016-08-14] MEDS: *HR* HYDROmorphone (PF) 1 MG/ML SYRINGE IVP PRN ×2 (04:37→12:48)
[2016-08-14] MEDS: Pantoprazole 40 MG VIAL IVP SCH ×2 (04:41→17:45)
[2016-08-14 04:46] LABS: INR 1.6; Prothrombin Time 17.5 Seconds (9.4-12.1)
[2016-08-14 04:59] LABS: Alanine Aminotransferase 107 Units/L (0-55); Albumin 2.4 g/dL (3.5-5.0); Albumin/Globulin Ratio 0.7 (1.1-2.2); Alkaline Phosphatase 110 Units/L (38-126); Aspartate Amino Transferase 39 Units/L (5-34); Bilirubin,Direct 1.7 mg/dL (0.0-0.5); Bilirubin,Indirect 1.8 mg/dL (0.0-1.2); Bilirubin,Total 3.5 mg/dL (0.2-1.2); Globulin 3.6 g/dL (2.4-3.5); Lipase 110 Units/L (8-78)
[2016-08-14 07:04] LABS: BUN/Creatinine Ratio 22 (6-26); Blood Urea Nitrogen 24 mg/dL (8-26); Calcium 8.1 mg/dL (8.6-10.8); Carbon Dioxide 23 mEq/L (19-29); Chloride 105 mEq/L (98-109); Glucose 99 mg/dL (70-99); Osmolality,Calculated 288 (280-300); Potassium 4.4 mEq/L (3.5-4.5); Sodium 137 mEq/L (136-145); eGFR For African Americans > 60 (> 60); eGFR For Non-African Americans > 60 (> 60)
--- NOTE | 2016-08-14 08:10 | General Surgery Progress Note ---
<Lavon Boykin - Last Filed: 08/14/16 12:02> Date of Encounter: 08/14/16 Time of Encounter: 08:00 - Assessment and Plan (1) Gallstone pancreatitis Current Visit: Yes Status: Acute Amylase and lipase greatly improved today. Continue serial abdominal exams. Clear liquid diet. NPO after midnight. Supportive care/pain control. Will plan for laparoscopic cholecystectomy after abdominal distention has improved and the patient has resolution of acute pancreatitis. (2) Choledocholithiasis Current Visit: Yes Status: Acute ERCP completed yesterday by Dr. Reddy with removal of 7mm stone. Recommended GB surgery. See plan above. (3) HTN (hypertension) Current Visit: Yes Status: Chronic Normotensive Patient is on his home medications. Qualifiers: Hypertension type: essential hypertension Qualified Code(s): I10 - Essential (primary) hypertension (4) Anticoagulated on Coumadin Current Visit: Yes Status: Acute Patient had an eleveated INR yesterday. Warfarin was held. INR today was 1.6 (5) Type 2 diabetes mellitus Current Visit: Yes Status: Chronic Management per medicine team. Well controlled. Qualifiers: Diabetes mellitus complication status: with unspecified complications Diabetes mellitus shelter insulin use: without shelter use Qualified Code( s): E11.8 - Type 2 diabetes mellitus with unspecified complications (6) Umbilical hernia Current Visit: Yes Status: Chronic Primary repair. Qualifiers: Obstruction and gangrene presence: without obstruction or gangrene Qualified Code(s): K42.9 - Umbilical hernia without obstruction or gangrene (7) PAF (paroxysmal atrial fibrillation) Current Visit: Yes Status: Chronic Subjective Patient reports: no new complaints, tolerating liquids well, voiding w/o difficulty, flatus, bowel movement, afebrile Narrative: The patient states he was able to tolerate clear liquids yesterday without any nausea or vomiting. He had two bowel movements yesterday and continues to pass gas. He states that he feels less distended than yesterday, but that every time he passes gas he feels himself bloat back up shortly afterwards. Objective Vital Signs - Last 8 Hours Temp Pulse Resp BP Pulse Ox 08/14/16 07:25 98.7 F 90 18 108/70 94 L 08/14/16 04:21 98.7 F 105 16 135/84 95 08/14/16 00:30 99.1 F 67 15 147/78 96 Intake and Output 08/13/16 08/14/16 08/14/16 23:59 07:59 15:59 Intake Total 196 / 196 624 / 624 Output Total 350 / 350 450 / 450 Balance -154 / -154 174 / 174 Intake: IV Fluids 76 / 76 624 / 624 Lactated Ringers 1,000 ML 76 / 76 624 / 624 @ 75 mls/hr IVC .[id number] [facility] Rx#:[id number] Oral 120 / 120 0 / 0 Output: Urine 350 / 350 450 / 450 Other: Weight 108.153 kg Blood Glucose* 94 Patient Weight 08/14/16 23:59 Weight 108.153 kg - General physical appearance well developed, well nourished, no distress, obese - Eyes normal ocular movement - ENT normal mucosa, atraumatic, normocephalic - Neck Neck exam: trachea midline - Respiratory normal respiratory effort, clear to auscultation - Cardiovascular Cardiovascular exam: Present: RRR, no murmurs/rubs/gallops - Abdomen Abdomen: Present: bowel sounds present, soft, non tender, distended - Integumentary no rash - Neurologic CN 2-12 grossly intact - Musculoskeletal normal posture - Psychiatric oriented to time, oriented to person, oriented to place, speech is normal, memory intact - Labs 08/13/16 06:20 08/14/16 04:04 Diabetes panel 08/13/16 08/14/16 Range/Units 06:20 04:04 Sodium 137 137 (136-145) mEq/L Potassium 4.8 H 4.4 (3.5-4.5) mEq/L Chloride 108 105 (98-109) mEq/L Carbon Dioxide 19 23 (19-29) mEq/L BUN 29 H 24 (8-26) mg/dL Creatinine 1.58 H 1.11 (0.72-1.25) mg/dL Glucose 140 H 99 (70-99) mg/dL Calcium 8.0 L 8.1 L (8.6-10.8) mg/dL AST 89 H 39 H (5-34) Units/L ALT 165 H 107 H (0-55) Units/L Alkaline Phosphatase 132 H 110 (38-126) Units/L Albumin 2.5 L D 2.4 L (3.5-5.0) g/dL Calcium panel 08/13/16 08/14/16 Range/Units 06:20 04:04 Calcium 8.0 L 8.1 L (8.6-10.8) mg/dL Albumin 2.5 L D 2.4 L (3.5-5.0) g/dL Pituitary panel 08/13/16 08/14/16 Range/Units 06:20 04:04 Sodium 137 137 (136-145) mEq/L Potassium 4.8 H 4.4 (3.5-4.5) mEq/L Chloride 108 105 (98-109) mEq/L Carbon Dioxide 19 23 (19-29) mEq/L BUN 29 H 24 (8-26) mg/dL Creatinine 1.58 H 1.11 (0.72-1.25) mg/dL Glucose 140 H 99 (70-99) mg/dL Calcium 8.0 L 8.1 L (8.6-10.8) mg/dL Adrenal panel 08/13/16 08/14/16 Range/Units 06:20 04:04 Sodium 137 137 (136-145) mEq/L Potassium 4.8 H 4.4 (3.5-4.5) mEq/L Chloride 108 105 (98-109) mEq/L Carbon Dioxide 19 23 (19-29) mEq/L BUN 29 H 24 (8-26) mg/dL Creatinine 1.58 H 1.11 (0.72-1.25) mg/dL Glucose 140 H 99 (70-99) mg/dL Calcium 8.0 L 8.1 L (8.6-10.8) mg/dL Total Bilirubin 3.4 H D 3.5 H (0.2-1.2) mg/dL AST 89 H 39 H (5-34) Units/L ALT 165 H 107 H (0-55) Units/L Alkaline Phosphatase 132 H 110 (38-126) Units/L Albumin 2.5 L D 2.4 L (3.5-5.0) g/dL - VTE Documentation of Mechanical Device: Graduated compression elastic hosiery Consult Discharge Plan - Plan Referrals: [facility] [Outside] - 08/26/16 11:00 am (Patient appt. already sheduled with the [facility] prior to admission. The [facility] wishes to keep this appt. for the patient. Thank you) - Attending Attestation I examined this patient and my medical decision-making was reviewed with the AIRPLANE REFUELER/PA/Advanced Practice Nurse/Resident Physician. I agree with the documented findings, disposition and treatment plan as described except to the extent set forth below. <Nanda Lind - Last Filed: 08/15/16 17:32> - Assessment and Plan (1) Abdominal pain Current Visit: Yes Status: Acute improved, prn pain medication Qualifiers: Abdominal location: epigastric Qualified Code(s): R10.13 - Epigastric pain (2) Atrial fibrillation Current Visit: Yes Status: Acute pt on coumadin for afib, holding coumadin Qualifiers: Atrial fibrillation type: chronic Qualified Code(s): I48.2 - Chronic atrial fibrillation (3) Gallstone pancreatitis Current Visit: Yes Status: Acute improved labs, continue clears, will see if less distended tomorrow and able to do surgery prn pain control, no nausea Subjective Narrative: feels less distended today, no nausea or emesis, passing flatus, tolerated clears, decreased abdominal pain Objective Vital Signs - Last 8 Hours Temp Pulse Resp BP Pulse Ox 08/15/16 14:24 98.7 F 86 17 151/75 93 L 08/15/16 11:09 98.1 F 98 16 154/74 97 Intake and Output 08/15/16 08/15/16 08/15/16 07:59 15:59 23:59 Intake Total 588 / 588 0 / 0 1000 / 1000 Output Total 1850 / 1850 500 / 500 Balance -1262 / -1262 -500 / -500 1000 / 1000 Intake: IV Fluids 588 / 588 1000 / 1000 Lactated Ringers 1,000 ML 588 / 588 1000 / 1000 @ 75 mls/hr IVC .[id number] [facility] Rx#:[id number] Oral 0 / 0 0 / 0 Output: Urine 1850 / 1850 500 / 500 Other: Meal NPO lunch Weight 106.7 kg Blood Glucose* 117 116 95 Patient Weight 08/15/16 23:59 Weight 106.7 kg - General physical appearance well developed, well nourished, no distress, obese - Eyes PERRL, normal ocular movement - ENT normal mucosa, normocephalic - Neck Neck exam: trachea midline - Respiratory normal expansion, clear to auscultation - Cardiovascular Cardiovascular exam: Present: RRR, no murmurs/rubs/gallops - Abdomen Abdomen: Present: bowel sounds present, soft, tender (minimally at mid abdomen) - Integumentary no rash, no growths - Neurologic CN 2-12 grossly intact - Musculoskeletal normal posture - Psychiatric oriented to time, oriented to person, oriented to place, memory intact - Labs 08/13/16 06:20 08/15/16 04:26 Diabetes panel 08/15/16 Range/Units 04:26 Sodium 138 (136-145) mEq/L Potassium 3.8 (3.5-4.5) mEq/L Chloride 103 (98-109) mEq/L Carbon Dioxide 27 (19-29) mEq/L BUN 14 D (8-26) mg/dL Creatinine 1.02 (0.72-1.25) mg/dL Glucose 122 H (70-99) mg/dL Calcium 8.5 L (8.6-10.8) mg/dL AST 22 (5-34) Units/L ALT 70 H (0-55) Units/L Alkaline Phosphatase 97 (38-126) Units/L Albumin 2.3 L (3.5-5.0) g/dL Calcium panel 08/15/16 Range/Units 04:26 Calcium 8.5 L (8.6-10.8) mg/dL Albumin 2.3 L (3.5-5.0) g/dL Pituitary panel 08/15/16 Range/Units 04:26 Sodium 138 (136-145) mEq/L Potassium 3.8 (3.5-4.5) mEq/L Chloride 103 (98-109) mEq/L Carbon Dioxide 27 (19-29) mEq/L BUN 14 D (8-26) mg/dL Creatinine 1.02 (0.72-1.25) mg/dL Glucose 122 H (70-99) mg/dL Calcium 8.5 L (8.6-10.8) mg/dL Adrenal panel 08/15/16 Range/Units 04:26 Sodium 138 (136-145) mEq/L Potassium 3.8 (3.5-4.5) mEq/L Chloride 103 (98-109) mEq/L Carbon Dioxide 27 (19-29) mEq/L BUN 14 D (8-26) mg/dL Creatinine 1.02 (0.72-1.25) mg/dL Glucose 122 H (70-99) mg/dL Calcium 8.5 L (8.6-10.8) mg/dL Total Bilirubin 2.9 H (0.2-1.2) mg/dL AST 22 (5-34) Units/L ALT 70 H (0-55) Units/L Alkaline Phosphatase 97 (38-126) Units/L Albumin 2.3 L (3.5-5.0) g/dL - Attending Attestation I examined this patient and my medical decision-making was reviewed with the AIRPLANE REFUELER/PA/Advanced Practice Nurse/Resident Physician. I agree with the documented findings, disposition and treatment plan as described except to the extent set forth below.
[2016-08-14] MEDS: Aspirin Enteric Coated 81 MG Tablet PO SCH (09:03)
--- NOTE | 2016-08-14 13:39 | Internal Med Progress Note ---
Date of Encounter: 08/14/16 Time of Encounter: 13:36 - Assessment and plan (1) Pancreatitis Current Visit: Yes Status: Acute Assessment and plan: Lipase more than 9000 with deranged liver function at admission NO evidence of obstruction,, We will continue conservative management. MRI of the abdomen shows inflammatory stranding and free fluid adjacent to the pancreatic body and to suggestive of acute pancreatitis. s/p ERCP and stent placement in pancreatic duct with Dr. Atkinson. repeat LFTs improved surgery has been consulted, planned for lap magdiel tomm. Qualifiers: Chronicity: acute Pancreatitis type: unspecified pancreatitis type Acute pancreatitis complication: no infection or necrosis Qualified Code(s): K85.90 - Acute pancreatitis without necrosis or infection, unspecified (2) Transaminitis Current Visit: Yes Status: Acute Assessment and plan: Secondary to acute pancreatitis, better now after the ERCp. (3) HTN (hypertension) Current Visit: Yes Status: Chronic Assessment and plan: stable. Qualifiers: Hypertension type: essential hypertension Qualified Code(s): I10 - Essential (primary) hypertension (4) Obesity (BMI 30-39.9) Current Visit: Yes Status: Chronic (5) Type 2 diabetes mellitus Current Visit: Yes Status: Chronic Qualifiers: Diabetes mellitus complication status: with unspecified complications Diabetes mellitus retirement insulin use: without director long term care use Qualified Code( s): E11.8 - Type 2 diabetes mellitus with unspecified complications - Time Spent With Patient 25 - 35 minutes - Subjective Interval history: Patient seen at the bedside, admitted for acute pancreatitis, c/o abdominal distension possible from the procedure yesterday. Lab work reveals improved liver enzymes and bilirubin. Underwent ERCP with Dr. ATKINSON, successful stent placement in the pancreatic duct. surgery consulted , planned for lap cholecystectomy tomm - Constitutional Vitals: Temp Pulse Resp BP Pulse Ox 97.3 F L 90 18 147/63 96 08/14/16 10:00 08/14/16 10:00 08/14/16 10:00 08/14/16 10:00 08/14/16 10:00 General appearance: Present: cooperative, A&O X 3, morbidly obese, answers questions appropriately Exam: - Head Head exam: Present: atraumatic, normocephalic - Eye Eye exam: Present: EOMI, PERRL, conjuntiva pink, icterus++ - ENT ENT exam: Present: mucous membranes moist, normal oropharynx - Neck Neck exam general surgery: Present: full ROM, supple, trachea midline. Absent: lymphadenopathy - Respiratory Respiratory exam: Present: decreased breath sounds, CTAB. Absent: accessory muscle use, rales, rhonchi, wheezes - Cardiovascular Cardiovascular exam: Present: distant heart sounds, RRR, +S1, +S2. Absent: diastolic murmur, gallop, rubs, systolic murmur - GI/Abdominal GI/Abdominal exam: Present: distended, non tender, bs are heard, no peritoneal signs Absent: distended - Extremities Exam Extremities exam: Present: full ROM, warm, radial pulses palpable and symetrical. Absent: calf tenderness, cyanotic, pedal edema - Neurological Exam Neurological exam: Present: alert, CN II-XII intact, oriented X3, no focal deficits. Absent: pronater drift, facial droop, speech deficit - Psychiatric Psychiatric exam: Present: normal affect, normal mood - Skin Skin exam: Present: dry, intact, warm. Absent: petechiae, rash, urticaria, vesicles Internal Medicine: Result - Labs CBC & Chem 7: 08/13/16 06:20 08/14/16 04:04 Labs: BMP 08/13/16 08/14/16 06:20 04:04 Sodium 137 137 Potassium 4.8 H 4.4 Chloride 108 105 Carbon Dioxide 19 23 BUN 29 H 24 Creatinine 1.58 H 1.11 Glucose 140 H 99 Calcium 8.0 L 8.1 L Liver Function 08/13/16 08/14/16 Range/Units 06:20 04:04 Total Bilirubin 3.4 H D 3.5 H (0.2-1.2) mg/dL Direct Bilirubin 2.1 H 1.7 H (0.0-0.5) mg/dL AST 89 H 39 H (5-34) Units/L ALT 165 H 107 H (0-55) Units/L Alkaline Phosphatase 132 H 110 (38-126) Units/L Albumin 2.5 L D 2.4 L (3.5-5.0) g/dL - ABG Interpretation ABG results: PT/INR, D-dimer PT 17.5 Seconds (9.4-12.1) H D 08/14/16 04:04 - VTE Documentation of Mechanical Device: Graduated compression elastic hosiery Consult Discharge Plan - Plan Referrals: [facility] [Outside] - 08/26/16 11:00 am ([facility]. Thank you)
[2016-08-14] MEDS: 0.9 % Sodium Chloride 1,000 ML IVC SCH (14:37)
[2016-08-14] MEDS: Pantoprazole 40 MG in 0.9 % Sodium Chloride Mini Bag 100 ML IVC SCH (14:37)
[2016-08-14] MEDS: *HR* Heparin 5,000 UNIT/ML VIAL SQ SCH (17:45)
[2016-08-14] MEDS: *HR* Metoprolol 5 MG/5 ML VIAL IVP PRN (20:03)
--- NOTE | 2016-08-14 21:10 | Anesthesia Evaluation PreOp ---
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 Other Medical History: Diabetes Type II (diet controlled), GERD Anesthesia History: No Prior Anesthetic Complications Alcohol Use: none Drug use: none Medications and Allergies Aspirin [Adult Low Dose Aspirin EC] 81 mg PO QAM 09/10/15 [History] Simvastatin [Zocor] 40 mg PO HS 09/10/15 [History] Warfarin [Coumadin] 5 mg PO MOWEFR 09/10/15 [History] Warfarin [Coumadin] 7.5 mg PO SUTUTHSA 09/10/15 [History] DiphenhydraMINE [Benadryl] 50 mg PO BID 08/12/16 [History] HYDROcodone/Acet 5/325 mg [[place] 5-325 mg] 1 tab PO Q6H PRN 08/12/16 [History] Ketoconazole Shampoo [Nizoral Shampoo] 1 appl TP Q48H 08/12/16 [History] Losartan Potassium [Cozaar] 50 mg PO DAILY 08/12/16 [History] Metoprolol [Lopressor] 12.5 mg PO BID 08/12/16 [History] Omeprazole [PriLOSEC] 20 mg PO DAILY 08/12/16 [History] Allergies No Known Allergies Allergy (Verified 08/12/16 14:11) - Meds/Allergy Pre-op Review Medications Reviewed: Yes Allergies Reviewed: Yes Beta Blockers on Current Med List: Yes Anesthesia Results - Labs 08/13/16 06:20 08/14/16 04:04 Laboratory Tests 08/12/16 08/14/16 05:32 04:04 PT 17.5 H D INR 1.6 D APTT 38.9 H Patient is currently off warfarin and on subQ heparin - Imaging EKG: report reviewed, image reviewed (A fib, PVC's or aberrant conduction) Anesthesia Exam Last Vital Signs Temp 97.8 F 08/14/16 19:35 Pulse 132 08/14/16 19:35 Resp 16 08/14/16 19:35 BP 159/79 08/14/16 19:35 Pulse Ox 91 L 08/14/16 19:35 Weight: 108 kg - HEENT Pupil (Motor): Pupils equal, EOMI Mallampati: III Teeth: Poor dentition Oral Opening: Less than or equal to 3 (small mouth opening) - WAREHOUSE WORKER LOC: Oriented WAREHOUSE WORKER Motor: Normal RUE, Normal LUE, Normal RLE, Normal LLE, Normal Face - Cardiac Rhythm: Irregular (rapid) Murmur: None - Pulmonary Breath Sounds: bilateral Clear Respiratory Effort: Symmetrical Anesthesia Assess/Plan ASA Score: 4 Modified [place] Scale for Level of Consciousness: Cooperative, oriented, and tranquil Anesthetic Plan: General Monitoring Plan: Standard Monitors Recovery Plan: PACU
[2016-08-15] MEDS ORDERED: Furosemide 20 MG/2 ML VIAL IVP ONE (00:58)
[2016-08-15] MEDS: *HR* HYDROmorphone (PF) 1 MG/ML SYRINGE IVP PRN ×2 (01:16→16:55)
[2016-08-15] MEDS: Ringers Solution, Lactated 1,000 ML IVC SCH ×2 (04:31→16:53)
[2016-08-15] MEDS: Pantoprazole 40 MG VIAL IVP SCH ×3 (05:02→16:53)
[2016-08-15 05:10] LABS: Alanine Aminotransferase 70 Units/L (0-55); Albumin 2.3 g/dL (3.5-5.0); Albumin/Globulin Ratio 0.6 (1.1-2.2); Alkaline Phosphatase 97 Units/L (38-126); Aspartate Amino Transferase 22 Units/L (5-34); BUN/Creatinine Ratio 14 (6-26); Bilirubin,Direct 1.6 mg/dL (0.0-0.5); Bilirubin,Indirect 1.3 mg/dL (0.0-1.2); Bilirubin,Total 2.9 mg/dL (0.2-1.2); Blood Urea Nitrogen 14 mg/dL (8-26); Calcium 8.5 mg/dL (8.6-10.8); Carbon Dioxide 27 mEq/L (19-29); Chloride 103 mEq/L (98-109); Glucose 122 mg/dL (70-99); Osmolality,Calculated 288 (280-300); Potassium 3.8 mEq/L (3.5-4.5); Sodium 138 mEq/L (136-145); Total Protein 6.3 g/dL (6.0-8.3); eGFR For African Americans > 60 (> 60); eGFR For Non-African Americans > 60 (> 60)
[2016-08-15] MEDS: *HR* Heparin 5,000 UNIT/ML VIAL SQ SCH ×2 (05:21→19:35)
[2016-08-15] MEDS: Aspirin Enteric Coated 81 MG Tablet PO SCH (07:10)
--- NOTE | 2016-08-15 09:07 | Electrocardiograph Report ---
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
[2016-08-15] MEDS: *HR* Metoprolol 5 MG/5 ML VIAL IVP PRN ×2 (11:27→20:02)
[2016-08-15] MEDS: *HR* OxyCODONE Immed Rel 5 MG TABLET PO PRN (11:36)
[2016-08-15] MEDS ORDERED: *HR* Metoprolol 5 MG/5 ML VIAL IVP ONE (13:30)
--- NOTE | 2016-08-15 13:34 | Internal Med Progress Note ---
Date of Encounter: 08/15/16 Time of Encounter: 13:32 - Assessment and plan (1) Pancreatitis Current Visit: Yes Status: Acute Assessment and plan: Lipase more than 9000 with deranged liver function at admission NO evidence of obstruction,, We will continue conservative management. MRI of the abdomen shows inflammatory stranding and free fluid adjacent to the pancreatic body and to suggestive of acute pancreatitis. s/p ERCP and stent placement in pancreatic duct with Dr. Atkinson. repeat LFTs improved surgery has been consulted, planned for lap magdiel today. Qualifiers: Chronicity: acute Pancreatitis type: unspecified pancreatitis type Acute pancreatitis complication: no infection or necrosis Qualified Code(s): K85.90 - Acute pancreatitis without necrosis or infection, unspecified (2) Transaminitis Current Visit: Yes Status: Acute Assessment and plan: Secondary to acute pancreatitis, better now after the ERCp. (3) HTN (hypertension) Current Visit: Yes Status: Chronic Assessment and plan: stable. Qualifiers: Hypertension type: essential hypertension Qualified Code(s): I10 - Essential (primary) hypertension (4) Obesity (BMI 30-39.9) Current Visit: Yes Status: Chronic (5) Type 2 diabetes mellitus Current Visit: Yes Status: Chronic Qualifiers: Diabetes mellitus complication status: with unspecified complications Diabetes mellitus long term care phlebotomist insulin use: without long term care phlebotomist use Qualified Code( s): E11.8 - Type 2 diabetes mellitus with unspecified complications (6) Atrial fibrillation with RVR Current Visit: Yes Status: Acute Assessment and plan: elvin had an episode of RVR when he was walking on the hallway today monring BP is stable AC has been held in anticipation of the surgery. will give IV lopressor 5 mg and will increase the dose of mteoprolol to 50 mg bid today. - Time Spent With Patient 25 - 35 minutes - Subjective Interval history: Patient seen at the bedside, admitted for acute pancreatitis, distension seems better but still has pain abdomen. noted to be in afib RVR. denies chest pain or sob. Lab work reveals improved liver enzymes and bilirubin. Underwent ERCP with Dr. ATKINSON, successful stent placement in the pancreatic duct. surgery consulted , planned for lap cholecystectomy today - Constitutional Vitals: Temp Pulse Resp BP Pulse Ox 98.1 F 98 16 154/74 97 08/15/16 11:09 08/15/16 11:09 08/15/16 11:09 08/15/16 11:09 08/15/16 11:09 General appearance: Present: cooperative, A&O X 3, morbidly obese, answers questions appropriately Exam: - Head Head exam: Present: atraumatic, normocephalic - Eye Eye exam: Present: EOMI, PERRL, conjuntiva pink, icterus++ - ENT ENT exam: Present: mucous membranes moist, normal oropharynx - Neck Neck exam general surgery: Present: full ROM, supple, trachea midline. Absent: lymphadenopathy - Respiratory Respiratory exam: Present: decreased breath sounds, CTAB. Absent: accessory muscle use, rales, rhonchi, wheezes - Cardiovascular Cardiovascular exam: Present: distant heart sounds, RRR, +S1, +S2. Absent: diastolic murmur, gallop, rubs, systolic murmur - GI/Abdominal GI/Abdominal exam: Present: distended but improved than yesterday, mild tenderness on the LUQ, epigastrium and RUQ,, bs are heard, no peritoneal signs Absent: distended - Extremities Exam Extremities exam: Present: full ROM, warm, radial pulses palpable and symetrical. Absent: calf tenderness, cyanotic, pedal edema - Neurological Exam Neurological exam: Present: alert, CN II-XII intact, oriented X3, no focal deficits. Absent: pronater drift, facial droop, speech deficit - Psychiatric Psychiatric exam: Present: normal affect, normal mood - Skin Skin exam: Present: dry, intact, warm. Absent: petechiae, rash, urticaria, vesicles Internal Medicine: Result - Labs CBC & Chem 7: 08/13/16 06:20 08/15/16 04:26 Labs: BMP 08/15/16 04:26 Sodium 138 Potassium 3.8 Chloride 103 Carbon Dioxide 27 BUN 14 D Creatinine 1.02 Glucose 122 H Calcium 8.5 L Liver Function 08/15/16 Range/Units 04:26 Total Bilirubin 2.9 H (0.2-1.2) mg/dL Direct Bilirubin 1.6 H (0.0-0.5) mg/dL AST 22 (5-34) Units/L ALT 70 H (0-55) Units/L Alkaline Phosphatase 97 (38-126) Units/L Albumin 2.3 L (3.5-5.0) g/dL - ABG Interpretation ABG results: PT/INR, D-dimer PT 17.5 Seconds (9.4-12.1) H D 08/14/16 04:04 - VTE Documentation of Mechanical Device: Graduated compression elastic hosiery Consult Discharge Plan - Plan Referrals: [facility] [Outside] - 08/26/16 11:00 am ([facility] The [place] wishes to keep this appt. for the patient. Thank you)
--- NOTE | 2016-08-15 16:03 | Electrocardiograph Report ---
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
--- NOTE | 2016-08-15 17:34 | Event Note ---
Date of Encounter: 08/15/16 Time of Encounter: 17:32 Anesthesia has evaluate patient and due to afib episodes with RVR they want to hold off on surgery today until the afib and RVR is better controlled, ok to let patient drink clears and npo at midnight in anticipation of surgery tomorrow.
[2016-08-16] MEDS: Ringers Solution, Lactated 1,000 ML IVC SCH (03:08)
[2016-08-16] MEDS: Pantoprazole 40 MG VIAL IVP SCH ×2 (05:40→17:17)
[2016-08-16] MEDS: *HR* Heparin 5,000 UNIT/ML VIAL SQ SCH (05:40)
[2016-08-16] MEDS: *HR* Metoprolol 5 MG/5 ML VIAL IVP PRN (05:41)
[2016-08-16] MEDS: Aspirin Enteric Coated 81 MG Tablet PO SCH (08:07)
[2016-08-16 09:02] LABS: INR 1.5; Prothrombin Time 15.9 Seconds (9.4-12.1)
[2016-08-16 09:08] LABS: Basophils % 0.1 %; Eosinophils # 0.1 K/mcL (0.0-0.6); Eosinophils % 1.5 %; Hematocrit 38.6 % (37.5-50.1); Hemoglobin 12.6 g/dL (12.9-16.9); Immature Granulocytes % 0.4 % (0-4); Lymphocytes # 1.3 K/mcL (0.6-4.6); Lymphocytes % 15.6 %; Mean Corpuscular HGB Conc 32.6 g/dL (31.6-35.5); Mean Corpuscular Hemoglobin 28.4 pg (28.0-33.3); Mean Corpuscular Volume 86.9 fL (83.0-100.0); Mean Platelet Volume 10.3 fL (9.4-12.4); Monocytes # 0.9 K/mcL (0.0-1.3); Monocytes % 10.7 %; Neutrophils # 5.9 K/mcL (1.6-8.9); Platelet Count 148 K/mcL (140-400); Red Blood Count 4.44 M/mcL (4.19-5.50); Segmented Neutrophils % 71.7 %
[2016-08-16 09:11] LABS: Alanine Aminotransferase 48 Units/L (0-55); Albumin 2.2 g/dL (3.5-5.0); Albumin/Globulin Ratio 0.5 (1.1-2.2); Alkaline Phosphatase 95 Units/L (38-126); Aspartate Amino Transferase 17 Units/L (5-34); BUN/Creatinine Ratio 13 (6-26); Bilirubin,Direct 1.4 mg/dL (0.0-0.5); Bilirubin,Indirect 1.1 mg/dL (0.0-1.2); Bilirubin,Total 2.5 mg/dL (0.2-1.2); Blood Urea Nitrogen 11 mg/dL (8-26); Calcium 8.6 mg/dL (8.6-10.8); Carbon Dioxide 24 mEq/L (19-29); Chloride 103 mEq/L (98-109); Globulin 4.2 g/dL (2.4-3.5); Glucose 117 mg/dL (70-99); Osmolality,Calculated 286 (280-300); Potassium 3.7 mEq/L (3.5-4.5); Sodium 138 mEq/L (136-145); Total Protein 6.4 g/dL (6.0-8.3); eGFR For African Americans > 60 (> 60); eGFR For Non-African Americans > 60 (> 60)
--- NOTE | 2016-08-16 11:23 | Anesthesia Evaluation PreOp ---
Date of Encounter: 08/16/16 Time of Encounter: 11:21 - Past History Planned Operation: Lap. [place]. 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 Other Medical History: Diabetes Type II, GERD Alcohol Use: none Drug use: none Medications and Allergies Aspirin [Adult Low Dose Aspirin EC] 81 mg PO QAM 09/10/15 [History] Simvastatin [Zocor] 40 mg PO HS 09/10/15 [History] Warfarin [Coumadin] 5 mg PO MOWEFR 09/10/15 [History] Warfarin [Coumadin] 7.5 mg PO SUTUTHSA 09/10/15 [History] DiphenhydraMINE [Benadryl] 50 mg PO BID 08/12/16 [History] HYDROcodone/Acet 5/325 mg [[place] 5-325 mg] 1 tab PO Q6H PRN 08/12/16 [History] Ketoconazole Shampoo [Nizoral Shampoo] 1 appl TP Q48H 08/12/16 [History] Losartan Potassium [Cozaar] 50 mg PO DAILY 08/12/16 [History] Metoprolol [Lopressor] 12.5 mg PO BID 08/12/16 [History] Omeprazole [PriLOSEC] 20 mg PO DAILY 08/12/16 [History] Allergies No Known Allergies Allergy (Verified 08/12/16 14:11) - Meds/Allergy Pre-op Review Medications Reviewed: Yes Allergies Reviewed: Yes Beta Blockers on Current Med List: Yes If Beta Blockers taken, Date/Time (Last Dose taken): 08:07 08/16/2016 Anesthesia Results - Labs 08/16/16 08:38 08/16/16 08:38 - Imaging EKG: image reviewed (AFib in RVR () Currently AFib rate 92-97. On cardizem drip) Anesthesia Exam O2 Sat Weight 106.2 kg O2 Sat by Pulse Oximetry 96 O2 Sat by Pulse Oximetry 96 O2 Sat by Pulse Oximetry 92 O2 Sat by Pulse Oximetry 93 O2 Sat by Pulse Oximetry 93 Vital Signs Temp Pulse Resp BP Pulse Ox 97.8 F 84 16 147/101 97 08/11/16 16:41 08/11/16 16:41 08/11/16 16:41 08/11/16 16:41 08/11/16 16:41 Vital Signs/O2 Sat, Most Current Temp Pulse Resp BP Pulse Ox 98.4 F 92 17 151/91 96 08/16/16 07:50 08/16/16 07:50 08/16/16 07:50 08/16/16 07:50 08/16/16 07:50 - HEENT Pupil (Motor): Pupils equal Mallampati: III Teeth: Poor dentition Oral Opening: Less than or equal to 3 - 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
[2016-08-16] MEDS ORDERED: *HR* FentaNYL (PF) 100 MCG/2 ML VIAL ONE (12:04)
[2016-08-16] MEDS ORDERED: *HR* Propofol 200 MG/20 ML VIAL IVP ONE (12:04)
[2016-08-16] MEDS ORDERED: Lidocaine -MPF 2% 2 ML VIAL ONE (12:05)
[2016-08-16] MEDS ORDERED: *HR* Succinylcholine 200 MG/10 ML VIAL IVP ONE (12:05)
[2016-08-16] MEDS ORDERED: Esmolol 100 MG/10 ML VIAL IVP ONE (12:41)
[2016-08-16] MEDS ORDERED: CefOXitin 2,000 MG VIAL IVPB ONE (12:41)
--- NOTE | 2016-08-16 13:26 | Internal Med Progress Note ---
Date of Encounter: 08/16/16 Time of Encounter: 13:24 - Assessment and plan (1) Pancreatitis Current Visit: Yes Status: Acute Assessment and plan: Lipase more than 9000 with deranged liver function at admission NO evidence of obstruction,, We will continue conservative management. MRI of the abdomen shows inflammatory stranding and free fluid adjacent to the pancreatic body and to suggestive of acute pancreatitis. s/p ERCP and stent placement in pancreatic duct with Dr. Atkinson. repeat LFTs improved surgery has been consulted, planned for lap magdiel today. Qualifiers: Chronicity: acute Pancreatitis type: unspecified pancreatitis type Acute pancreatitis complication: no infection or necrosis Qualified Code(s): K85.90 - Acute pancreatitis without necrosis or infection, unspecified (2) Transaminitis Current Visit: Yes Status: Acute Assessment and plan: Secondary to acute pancreatitis, better now after the ERCp. (3) HTN (hypertension) Current Visit: Yes Status: Chronic Assessment and plan: stable. Qualifiers: Hypertension type: essential hypertension Qualified Code(s): I10 - Essential (primary) hypertension (4) Obesity (BMI 30-39.9) Current Visit: Yes Status: Chronic (5) Type 2 diabetes mellitus Current Visit: Yes Status: Chronic Qualifiers: Diabetes mellitus complication status: with unspecified complications Diabetes mellitus bed bug exterminator insulin use: without bed bug exterminator use Qualified Code( s): E11.8 - Type 2 diabetes mellitus with unspecified complications (6) Atrial fibrillation with RVR Current Visit: Yes Status: Acute Assessment and plan: elvin had an episode of RVR when he was walking on the hallway yesterday. BP is stable AC has been held in anticipation of the surgery. was started on cardizem drip yest, currently running at 5, will leave marissa drip until surgery, HR controlled, discussed with Attila. will switch to PO after surgery - Time Spent With Patient 25 - 35 minutes - Subjective Interval history: Patient seen at the bedside, admitted for acute pancreatitis, c/o distended abdomen. noted to be in afib RVR yesterday and was started on cardizem drip, HR much controlled today Lab work reveals improved liver enzymes and bilirubin. Underwent ERCP with Dr. ATKINSON, successful stent placement in the pancreatic duct. surgery consulted , planned for lap cholecystectomy today - Constitutional Vitals: Temp Pulse Resp BP Pulse Ox 98.0 F 106 16 161/91 95 08/16/16 11:34 08/16/16 11:34 08/16/16 11:34 08/16/16 11:34 08/16/16 11:34 General appearance: Present: cooperative, A&O X 3, morbidly obese, answers questions appropriately Exam: - Head Head exam: Present: atraumatic, normocephalic - Eye Eye exam: Present: EOMI, PERRL, conjuntiva pink, icterus++ - ENT ENT exam: Present: mucous membranes moist, normal oropharynx - Neck Neck exam general surgery: Present: full ROM, supple, trachea midline. Absent: lymphadenopathy - Respiratory Respiratory exam: Present: decreased breath sounds, CTAB. Absent: accessory muscle use, rales, rhonchi, wheezes - Cardiovascular Cardiovascular exam: Present: distant heart sounds, RRR, +S1, +S2. Absent: diastolic murmur, gallop, rubs, systolic murmur - GI/Abdominal GI/Abdominal exam: Present: distended but improved than before, mild tenderness on the LUQ, epigastrium and RUQ,, bs are heard, no peritoneal signs Absent: distended - Extremities Exam Extremities exam: Present: full ROM, warm, radial pulses palpable and symetrical. Absent: calf tenderness, cyanotic, pedal edema - Neurological Exam Neurological exam: Present: alert, CN II-XII intact, oriented X3, no focal deficits. Absent: pronater drift, facial droop, speech deficit - Psychiatric Psychiatric exam: Present: normal affect, normal mood - Skin Skin exam: Present: dry, intact, warm. Absent: petechiae, rash, urticaria, vesicles Internal Medicine: Result - Labs CBC & Chem 7: 08/16/16 08:38 08/16/16 08:38 Labs: Short CBC 08/16/16 Range/Units 08:38 WBC 8.2 (4.3-11.1) K/mcL Hgb 12.6 L (12.9-16.9) g/dL Hct 38.6 (37.5-50.1) % Plt Count 148 (140-400) K/mcL Neutrophils # 5.9 (1.6-8.9) K/mcL BMP 08/16/16 08:38 Sodium 138 Potassium 3.7 Chloride 103 Carbon Dioxide 24 BUN 11 Creatinine 0.88 Glucose 117 H Calcium 8.6 Liver Function 08/16/16 Range/Units 08:38 Total Bilirubin 2.5 H (0.2-1.2) mg/dL Direct Bilirubin 1.4 H (0.0-0.5) mg/dL AST 17 (5-34) Units/L ALT 48 (0-55) Units/L Alkaline Phosphatase 95 (38-126) Units/L Albumin 2.2 L (3.5-5.0) g/dL - ABG Interpretation ABG results: PT/INR, D-dimer PT 15.9 Seconds (9.4-12.1) H 08/16/16 08:51 - VTE Documentation of Mechanical Device: Graduated compression elastic hosiery Consult Discharge Plan - Plan Referrals: [facility] [Outside] - 08/26/16 11:00 am ([facility] The [place] wishes to keep this appt. for the patient. Thank you)
[2016-08-16] MEDS ORDERED: *HR* Promethazine 25 MG/ML VIAL IVP PRN (13:43)
[2016-08-16] MEDS ORDERED: Neostigmine Methylsulfate 3 MG/3 ML SYRINGE ONE (13:44)
[2016-08-16] MEDS ORDERED: Ringers Solution, Lactated 1,000 ML IVC SCH (13:45)
[2016-08-16] MEDS ORDERED: Ondansetron 4 MG/2 ML VIAL ONE (13:45)
[2016-08-16] MEDS ORDERED: *HR* HYDROmorphone 2 MG/ML SYRINGE ONE (13:50)
--- NOTE | 2016-08-16 13:51 | Operative Note ---
Date of procedure: 08/16/16 Pre-op diagnosis: gallstone pancreatitis, choledocholithiasis, umbilical hernia Post-op diagnosis: same Procedure: Laparoscopic cholecystectomy with cholangiograms, primary repair of umiblical hernia Complications: none immediate Anesthesia: GETA, local Local Anesthetics: 0.5% Sensorcaine HCL SubQ (cc) (20) Surgeon: Nanda Lind Estimated blood loss (cc): 50 Specimen: gallbladder and contents Condition: stable Disposition: PACU Procedure in Detail: The patient was brought into the operating suite and placed supine on the operating table. Sign-in was performed and everyone was in agreement. Anesthesia was induced and patient was endotracheally intubated by anesthesia without incident and they also placed an OG tube. The abdomen was prepped and draped in the usual sterile fashion. A timeout was performed again everyone was in agreement. A supraumbilical incision was made through the skin into the subcutaneous tissue with an 11 blade. Towel clamps were placed on either side of the umbilicus for retraction. S retractors were used to dissect down to through to the patients umbilical hernia. A stab incision in LUQ was made with an 11#blade, and a Veress needle was placed through this incision and a water drop test confirmed placement and the abdomen was insufflated. The abdomen was entered with a 5 mm 0 degree laparoscope on a 5 mm Xcel trocar. The area and entry was visualized was no bleeding and no apparent bowel injury. There was no bowel or anything within the umbilical hernia other than preperitoneal fat. A 12 mm trocar was placed through the supraumbilical incision and through the umbilical hernia under direct visualization. A 5 mm subxiphoid port was placed under direct visualization after first incising the skin with an 11 blade. A right upper quadrant subcostal position midclavicular line 5 mm port was placed under direct visualization after first incising skin with 11 blade. The last 5 mm port was placed in the right upper quadrant subcostal position anterior axillary line after first incising the skin with an 11 blade. The patient was placed in steep reverse Trendelenburg left side down position. The dome of the gallbladder was grasped and retracted cephalad. The infundibulum was grasped and retracted laterally. Using the [place] we dissected out the cystic duct and cystic artery. One 5 mm Hemoclip was placed proximally on what was thought to be the cystic duct. One Hemoclip was placed distally on the cystic artery. What was thought to be the cystic duct was partially transected with curved scissors and it was actually the cystic artery. We were able to control the artery with one 5 mm Hemoclip proximally. An opening was made in the cystic duct. A stab incision was made in the right upper quadrant with an 11 blade. A 12-[place] angiocatheter was placed through this and the taut catheter was then placed into the abdomen and into the cystic duct and a metal 5 mm hemoclips was placed across this and the cystic duct keeping it in place. Cholangiograms were obtained demonstrating flow up into the left and right hepatic ducts as well as down through the common bile duct into the duodenum and no obvious stone was present. The taut catheter was removed and 25 mm hemoclips are placed distally on the cystic duct and it was transected with curved scissors. A 5 mm Hemoclip was placed proximally on the cystic duct. The cystic duct was partially transected with curved scissors. The gallbladder was removed off the cystic plate with the Bovie. Any bleeding points were stopped with the Bovie. The gallbladder was placed in a laparoscopic Endo Catch bag and removed via the supraumbilical incision site. The inferior edge of the liver was bluntly retracted cephalad and the cystic plate was copiously irrigated with sterile saline. There was no bleeding or apparent bile leak from the cystic plate and the clips on the cystic artery and duct were intact. All irrigation and insufflation was suctioned free from the abdomen and the ports removed. The umbilical hernia site was closed two 0 Vicryl [id number] stitch. 20 mL of 0.5% Marcaine was injected subcutaneously at the 5 port sites. The skin at the four 5 mm port sites were closed with 4-0 Monocryl interrupted subcuticular stitches. The skin at the supraumbilical incision site was closed with a 4-0 Monocryl running subcuticular stitch. Steri-Strips were applied to all wounds. The patient was awoken in the operating suite having tolerated the procedure well and were taken to PACU in stable condition after all lap and ensuring counts were correct at the end of the case.
[2016-08-16] MEDS: *HR* HYDROmorphone (PF) 1 MG/ML SYRINGE IVP PRN ×5 (14:10→17:17)
[2016-08-16] MEDS ORDERED: *HR* Labetalol 20 MG/4 ML SYRINGE IVP ONE (14:40)
--- NOTE | 2016-08-16 14:52 | Anesthesia Evaluation Post Op ---
Date of Encounter: 08/16/16 Time of Encounter: 14:50 - Vital Signs Vital Signs: Vital Signs/O2 Sat/Glucose, Most Current Temp Pulse Resp BP Pulse Ox 08/16/16 14:37 102 20 167/95 93 L 08/16/16 14:27 97.8 F 94 20 165/95 93 L 08/16/16 14:17 90 20 168/89 93 L 08/16/16 14:07 83 20 150/77 95 08/16/16 13:57 97.6 F 82 16 148/73 95 08/16/16 11:34 98.0 F 106 16 161/91 95 - Lungs Lungs: Clear Ascult./Percussion - Airway Airway: Non-obstructed - Cardiovascular Regular Rate - Mental Status Mental Status: Alert & Oriented, Answers Appropriately - Pain Pain Scale: 0 - Nausea Vomiting Nausea Vomiting: Not Present - Hydration Hydration: NPO, Has not voided - Discharge PostOp Status: Transfer Patient to floor
[2016-08-16] MEDS ORDERED: Acetaminophen 325 MG TABLET PO PRN (16:39)
[2016-08-16] MEDS ORDERED: Ondansetron 4 MG/2 ML VIAL IVP PRN (16:39)
[2016-08-16] MEDS ORDERED: Naloxone 0.4 MG/ML INJ IVP PRN (16:39)
[2016-08-16] MEDS ORDERED: *HR* Metoprolol 5 MG/5 ML VIAL IVP PRN (16:39)
--- NOTE | 2016-08-16 17:50 | Electrocardiograph Report ---
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
[2016-08-16] MEDS: *HR* OxyCODONE/APAP 5/325 TABLET PO PRN (23:58)
[2016-08-17] MEDS: *HR* HYDROmorphone (PF) 1 MG/ML SYRINGE IVP PRN ×5 (00:48→23:56)
[2016-08-17] MEDS ORDERED: Saline Nasal Spray 44 ML BOTTLE NS PRN (01:53)
[2016-08-17] MEDS: Pantoprazole 40 MG VIAL IVP SCH ×2 (05:12→18:18)
[2016-08-17 05:17] LABS: Basophils % 0.2 %; Eosinophils # 0.1 K/mcL (0.0-0.6); Eosinophils % 1.3 %; Hematocrit 40.1 % (37.5-50.1); Hemoglobin 12.5 g/dL (12.9-16.9); Immature Granulocytes % 0.6 % (0-4); Lymphocytes # 1.1 K/mcL (0.6-4.6); Lymphocytes % 13.6 %; Mean Corpuscular HGB Conc 31.2 g/dL (31.6-35.5); Mean Corpuscular Hemoglobin 27.5 pg (28.0-33.3); Mean Corpuscular Volume 88.1 fL (83.0-100.0); Mean Platelet Volume 9.8 fL (9.4-12.4); Monocytes % 11.7 %; Platelet Count 169 K/mcL (140-400); Red Blood Count 4.55 M/mcL (4.19-5.50); Red Cell Distribution Width 14.1 % (11.5-14.5); Segmented Neutrophils % 72.6 %
[2016-08-17 05:44] LABS: Albumin 2.2 g/dL (3.5-5.0); Albumin/Globulin Ratio 0.5 (1.1-2.2); Bilirubin,Direct 0.9 mg/dL (0.0-0.5); Bilirubin,Indirect 0.9 mg/dL (0.0-1.2); Bilirubin,Total 1.8 mg/dL (0.2-1.2); Globulin 4.3 g/dL (2.4-3.5); Total Protein 6.5 g/dL (6.0-8.3)
[2016-08-17] MEDS: Ringers Solution, Lactated 1,000 ML IVC SCH (07:06)
--- NOTE | 2016-08-17 10:35 | Internal Med Progress Note ---
Date of Encounter: 08/17/16 Time of Encounter: 10:33 - Assessment and plan (1) Pancreatitis Current Visit: Yes Status: Acute Assessment and plan: Lipase more than 9000 with deranged liver function at admission NO evidence of obstruction,, clinicallay better. MRI of the abdomen shows inflammatory stranding and free fluid adjacent to the pancreatic body and to suggestive of acute pancreatitis. s/p ERCP and stent placement in pancreatic duct with Dr. Atkinson. repeat LFTs improved s/p lap magdiel yesterday., post op care as per surgery, abd feels distended and patient is c/o gas. will add GAs-x and miralax today. Qualifiers: Chronicity: acute Pancreatitis type: unspecified pancreatitis type Acute pancreatitis complication: no infection or necrosis Qualified Code(s): K85.90 - Acute pancreatitis without necrosis or infection, unspecified (2) Transaminitis Current Visit: Yes Status: Acute Assessment and plan: Secondary to acute pancreatitis, better now after the ERCp. (3) HTN (hypertension) Current Visit: Yes Status: Chronic Assessment and plan: stable. Qualifiers: Hypertension type: essential hypertension Qualified Code(s): I10 - Essential (primary) hypertension (4) Obesity (BMI 30-39.9) Current Visit: Yes Status: Chronic (5) Type 2 diabetes mellitus Current Visit: Yes Status: Chronic Qualifiers: Diabetes mellitus complication status: with unspecified complications Diabetes mellitus care home insulin use: without termite renewal inspector use Qualified Code( s): E11.8 - Type 2 diabetes mellitus with unspecified complications (6) Atrial fibrillation with RVR Current Visit: Yes Status: Acute Assessment and plan: elvin had an episode of RVR for which he has been on marissa cardizem drip BP is stable will transition to PO. also contineu the lopressor 50mg bid will restart marissa AC today. - Time Spent With Patient 25 - 35 minutes - Subjective Interval history: Patient seen at the bedside,admitted for acute pancreatitis, c/o distended abdomen. has been passing gas but hasnt moved his bowel. Lab work reveals improved liver enzymes and bilirubin. Underwent ERCP with Dr. ATKINSON, successful stent placement in the pancreatic duct. s/p lap cholecystectomy yest, POD #1 today - Constitutional Vitals: Temp Pulse Resp BP Pulse Ox 98.4 F 108 18 130/72 94 L 08/17/16 06:48 08/17/16 06:48 08/17/16 06:48 08/17/16 06:48 08/17/16 07:45 General appearance: Present: cooperative, A&O X 3, morbidly obese, answers questions appropriately Exam: - Head Head exam: Present: atraumatic, normocephalic - Eye Eye exam: Present: EOMI, PERRL, conjuntiva pink, icterus++ - ENT ENT exam: Present: mucous membranes moist, normal oropharynx - Neck Neck exam general surgery: Present: full ROM, supple, trachea midline. Absent: lymphadenopathy - Respiratory Respiratory exam: Present: decreased breath sounds, CTAB. Absent: accessory muscle use, rales, rhonchi, wheezes - Cardiovascular Cardiovascular exam: Present: distant heart sounds, RRR, +S1, +S2. Absent: diastolic murmur, gallop, rubs, systolic murmur - GI/Abdominal GI/Abdominal exam: Present: distended , non tender, bs are heard, no peritoneal signs Absent: distended - Extremities Exam Extremities exam: Present: full ROM, warm, radial pulses palpable and symetrical. Absent: calf tenderness, cyanotic, pedal edema - Neurological Exam Neurological exam: Present: alert, CN II-XII intact, oriented X3, no focal deficits. Absent: pronater drift, facial droop, speech deficit - Psychiatric Psychiatric exam: Present: normal affect, normal mood - Skin Skin exam: Present: dry, intact, warm. Absent: petechiae, rash, urticaria, vesicles Internal Medicine: Result - Labs CBC & Chem 7: 08/17/16 04:56 08/16/16 08:38 Labs: Short CBC 08/17/16 Range/Units 04:56 WBC 8.3 (4.3-11.1) K/mcL Hgb 12.5 L (12.9-16.9) g/dL Hct 40.1 (37.5-50.1) % Plt Count 169 (140-400) K/mcL Neutrophils # 6.0 (1.6-8.9) K/mcL Liver Function 08/17/16 Range/Units 04:56 Total Bilirubin 1.8 H (0.2-1.2) mg/dL Direct Bilirubin 0.9 H (0.0-0.5) mg/dL AST 35 H (5-34) Units/L ALT 45 (0-55) Units/L Alkaline Phosphatase 88 (38-126) Units/L Albumin 2.2 L (3.5-5.0) g/dL - ABG Interpretation ABG results: PT/INR, D-dimer PT 15.9 Seconds (9.4-12.1) H 08/16/16 08:51 - Impressions Impressions Cholangiogram,Operative 08/16/16 00:00 IMPRESSION: Unremarkable intraoperative cholangiogram. D/ / 08/16/2016 13:40:34 Marquis Hudson MD / [email or web address] Interpreting Provider: Marquis Hudson MD - VTE Documentation of Mechanical Device: Intermittent pneumatic compression device Consult Discharge Plan - Plan Referrals: [facility] [Outside] - 08/26/16 11:00 am (Patient appt. already sheduled with the DE prior to admission. The DE wishes to keep this appt. for the patient. Thank you)
[2016-08-17] MEDS: Simethicone 80 MG TAB.CHEW PO SCH ×3 (10:51→22:00)
[2016-08-17] MEDS: *HR* OxyCODONE/APAP 5/325 TABLET PO PRN (15:09)
--- NOTE | 2016-08-17 17:59 | General Surgery Progress Note ---
Date of Encounter: 08/17/16 Time of Encounter: 10:30 - Assessment and Plan (1) Gallstone pancreatitis Current Visit: Yes Status: Acute POD #1 status post laparoscopic cholecystectomy with cholangiogram and umbilical hernia repair. NPO as the patient continues to complain of abdominal distention. Repeat lipase: 45 Serial abdominal exams. Supportive measures. Continued pain control. Miralax 17gm/ day added per medicine team. Simethicone added per medicine team. Continue GI prophylaxis. (2) Choledocholithiasis Current Visit: Yes Status: Resolved POD #1 status post laparoscopic cholecystectomy with cholangiogram and umbilical hernia repair. (3) HTN (hypertension) Current Visit: Yes Status: Chronic Normotensive at this time. Patient is on his home medications. Qualifiers: Hypertension type: essential hypertension Qualified Code(s): I10 - Essential (primary) hypertension (4) Atrial fibrillation Current Visit: Yes Status: Acute Coumadin has been restarted by medicine team. Cardizem 30mg PO Q6hr Qualifiers: Atrial fibrillation type: chronic Qualified Code(s): I48.2 - Chronic atrial fibrillation Subjective Patient reports: still having pain, flatus, no bowel movement, afebrile Narrative: The patient was able to tolerate a clear liquid diet. He states he continues to have bloating and pain of his abdomen. He denies nausea and vomiting. He has not had a bowel movement yet. He complains of nose bleeds from the oxygen nasal cannula, and states he has developed a cough. Objective Vital Signs - Last 8 Hours Temp Pulse Resp BP Pulse Ox 08/17/16 15:25 98.0 F 75 18 115/80 91 L 08/17/16 11:53 98.2 F 102 18 133/90 93 L Intake and Output 08/17/16 08/17/16 08/17/16 07:59 15:59 23:59 Intake Total 438 / 438 950 / 950 Output Total 0 / 0 400 / 400 Balance 438 / 438 550 / 550 Intake: IV Fluids Cardizem 125 MG In Dextrose 5% 100 ML @ 5 MG /HR 5 mls/hr IVC .Q24H [facility] Rx#:[id number] Oral 400 / 400 950 / 950 Output: Urine 0 / 0 400 / 400 Other: Meal Lunch Blood Glucose* 114 - General physical appearance well developed, well nourished, no distress - Eyes normal ocular movement - ENT normal mucosa - Neck Neck exam: trachea midline - Respiratory normal respiratory effort, clear to auscultation - Cardiovascular Cardiovascular exam: Present: tachycardia, irregular rhythm - Abdomen Abdomen: Present: bowel sounds present, tympanic, distended, tender - Incision Incision: Present: clean and dry, intact - Integumentary no rash - Neurologic CN 2-12 grossly intact - Musculoskeletal normal gait - Psychiatric oriented to time, oriented to person, oriented to place, speech is normal, memory intact - Labs 08/17/16 04:56 08/16/16 08:38 Diabetes panel 08/17/16 Range/Units 04:56 AST 35 H (5-34) Units/L ALT 45 (0-55) Units/L Alkaline Phosphatase 88 (38-126) Units/L Albumin 2.2 L (3.5-5.0) g/dL Calcium panel 08/17/16 Range/Units 04:56 Albumin 2.2 L (3.5-5.0) g/dL Adrenal panel 08/17/16 Range/Units 04:56 Total Bilirubin 1.8 H (0.2-1.2) mg/dL AST 35 H (5-34) Units/L ALT 45 (0-55) Units/L Alkaline Phosphatase 88 (38-126) Units/L Albumin 2.2 L (3.5-5.0) g/dL - VTE Documentation of Mechanical Device: Intermittent pneumatic compression device Consult Discharge Plan - Plan Referrals: [facility] [Outside] - 08/26/16 11:00 am (Patient appt. already sheduled with the [facility] prior to admission. The NM wishes to keep this appt. for the patient. Thank you) - Attending Attestation I examined this patient and my medical decision-making was reviewed with the DRAG OUT WORKER/PA/Advanced Practice Nurse/Resident Physician. I agree with the documented findings, disposition and treatment plan as described except to the extent set forth below.
[2016-08-17] MEDS: *HR* Warfarin 7.5 MG TABLET PO SCH (18:18)
[2016-08-18] MEDS: *HR* HYDROmorphone (PF) 1 MG/ML SYRINGE IVP PRN ×4 (04:00→22:15)
[2016-08-18 05:10] LABS: INR 1.6; Prothrombin Time 17.3 Seconds (9.4-12.1)
[2016-08-18] MEDS: Pantoprazole 40 MG VIAL IVP SCH ×2 (06:04→17:53)
[2016-08-18 08:32] LABS: Basophils % 0.4 %; Eosinophils # 0.2 K/mcL (0.0-0.6); Hematocrit 39.5 % (37.5-50.1); Hemoglobin 12.4 g/dL (12.9-16.9); Immature Granulocytes % 0.5 % (0-4); Lymphocytes # 1.7 K/mcL (0.6-4.6); Lymphocytes % 21.5 %; Mean Corpuscular HGB Conc 31.4 g/dL (31.6-35.5); Mean Corpuscular Hemoglobin 28.1 pg (28.0-33.3); Mean Corpuscular Volume 89.4 fL (83.0-100.0); Monocytes # 0.9 K/mcL (0.0-1.3); Monocytes % 10.8 %; Platelet Count 173 K/mcL (140-400); Red Blood Count 4.42 M/mcL (4.19-5.50); Red Cell Distribution Width 13.9 % (11.5-14.5); Segmented Neutrophils % 63.8 %
[2016-08-18] MEDS: Simethicone 80 MG TAB.CHEW PO SCH ×3 (08:43→20:15)
[2016-08-18 08:47] LABS: Alanine Aminotransferase 35 Units/L (0-55); Albumin 2.2 g/dL (3.5-5.0); Albumin/Globulin Ratio 0.5 (1.1-2.2); Alkaline Phosphatase 85 Units/L (38-126); Aspartate Amino Transferase 26 Units/L (5-34); BUN/Creatinine Ratio 14 (6-26); Bilirubin,Direct 1.1 mg/dL (0.0-0.5); Bilirubin,Indirect 0.7 mg/dL (0.0-1.2); Bilirubin,Total 1.8 mg/dL (0.2-1.2); Blood Urea Nitrogen 14 mg/dL (8-26); Calcium 8.6 mg/dL (8.6-10.8); Carbon Dioxide 28 mEq/L (19-29); Chloride 103 mEq/L (98-109); Globulin 4.2 g/dL (2.4-3.5); Glucose 118 mg/dL (70-99); Osmolality,Calculated 294 (280-300); Potassium 3.7 mEq/L (3.5-4.5); Sodium 141 mEq/L (136-145); Total Protein 6.4 g/dL (6.0-8.3); eGFR For African Americans > 60 (> 60); eGFR For Non-African Americans > 60 (> 60)
--- NOTE | 2016-08-18 09:55 | Internal Med Progress Note ---
Date of Encounter: 08/18/16 Time of Encounter: 09:53 - Assessment and plan (1) Pancreatitis Current Visit: Yes Status: Acute Assessment and plan: Lipase more than 9000 with deranged liver function at admission NO evidence of obstruction,, clinicallay better. MRI of the abdomen shows inflammatory stranding and free fluid adjacent to the pancreatic body and to suggestive of acute pancreatitis. s/p ERCP and stent placement in pancreatic duct with Dr. Atkinson. repeat LFTs improved s/p lap magdiel ,, post op care as per surgery, abd feels distended and patient is still c/o gas. GAs-x and miralax was added yesterday. will make him walk around today, will follow sx recs. on clears today. Qualifiers: Chronicity: acute Pancreatitis type: unspecified pancreatitis type Acute pancreatitis complication: no infection or necrosis Qualified Code(s): K85.90 - Acute pancreatitis without necrosis or infection, unspecified (2) Transaminitis Current Visit: Yes Status: Acute Assessment and plan: Secondary to acute pancreatitis, better now after the ERCp. (3) HTN (hypertension) Current Visit: Yes Status: Chronic Assessment and plan: stable. Qualifiers: Hypertension type: essential hypertension Qualified Code(s): I10 - Essential (primary) hypertension (4) Obesity (BMI 30-39.9) Current Visit: Yes Status: Chronic (5) Type 2 diabetes mellitus Current Visit: Yes Status: Chronic Qualifiers: Diabetes mellitus complication status: with unspecified complications Diabetes mellitus mcfp insulin use: without mcfp use Qualified Code( s): E11.8 - Type 2 diabetes mellitus with unspecified complications (6) Atrial fibrillation with RVR Current Visit: Yes Status: Acute Assessment and plan: elvin had an episode of RVR for which he has been on the cardizem drip BP is stable, HR at 90s has been changed to PO. also contineu the lopressor 50mg bid restarted AC today. - Time Spent With Patient 25 - 35 minutes - Subjective Interval history: Patient seen at the bedside,admitted for acute pancreatitis, still c/o distended abdomen. has been passing gas but hasnt moved his bowel. Lab work reveals improved liver enzymes and bilirubin. Underwent ERCP with Dr. ATKINSON, successful stent placement in the pancreatic duct. s/p lap cholecystectomy yest, POD #2 today - Constitutional Vitals: Temp Pulse Resp BP Pulse Ox 97.6 F 91 18 161/76 93 L 08/18/16 08:29 08/18/16 08:29 08/18/16 08:29 08/18/16 08:29 08/18/16 08:29 General appearance: Present: cooperative, A&O X 3, morbidly obese, answers questions appropriately Exam: - Head Head exam: Present: atraumatic, normocephalic - Eye Eye exam: Present: EOMI, PERRL, conjuntiva pink, icterus++ - ENT ENT exam: Present: mucous membranes moist, normal oropharynx - Neck Neck exam general surgery: Present: full ROM, supple, trachea midline. Absent: lymphadenopathy - Respiratory Respiratory exam: Present: decreased breath sounds, CTAB. Absent: accessory muscle use, rales, rhonchi, wheezes - Cardiovascular Cardiovascular exam: Present: distant heart sounds, RRR, +S1, +S2. Absent: diastolic murmur, gallop, rubs, systolic murmur - GI/Abdominal GI/Abdominal exam: Present: distended , non tender, bs are heard, no peritoneal signs Absent: distended - Extremities Exam Extremities exam: Present: full ROM, warm, radial pulses palpable and symetrical. Absent: calf tenderness, cyanotic, pedal edema - Neurological Exam Neurological exam: Present: alert, CN II-XII intact, oriented X3, no focal deficits. Absent: pronater drift, facial droop, speech deficit - Psychiatric Psychiatric exam: Present: normal affect, normal mood - Skin Skin exam: Present: dry, intact, warm. Absent: petechiae, rash, urticaria, vesicles Internal Medicine: Result - Labs CBC & Chem 7: 08/18/16 08:07 08/18/16 08:07 Labs: Short CBC 08/18/16 Range/Units 08:07 WBC 7.9 (4.3-11.1) K/mcL Hgb 12.4 L (12.9-16.9) g/dL Hct 39.5 (37.5-50.1) % Plt Count 173 (140-400) K/mcL Neutrophils # 5.0 (1.6-8.9) K/mcL BMP 08/18/16 08:07 Sodium 141 Potassium 3.7 Chloride 103 Carbon Dioxide 28 BUN 14 Creatinine 1.03 Glucose 118 H Calcium 8.6 Liver Function 08/18/16 Range/Units 08:07 Total Bilirubin 1.8 H (0.2-1.2) mg/dL Direct Bilirubin 1.1 H (0.0-0.5) mg/dL AST 26 (5-34) Units/L ALT 35 (0-55) Units/L Alkaline Phosphatase 85 (38-126) Units/L Albumin 2.2 L (3.5-5.0) g/dL - ABG Interpretation ABG results: PT/INR, D-dimer PT 17.3 Seconds (9.4-12.1) H 08/18/16 04:26 - VTE Documentation of Mechanical Device: Intermittent pneumatic compression device Consult Discharge Plan - Plan Referrals: [facility] [Outside] - 08/26/16 11:00 am ([facility] The [facility] wishes to keep this appt. for the patient. Thank you)
--- NOTE | 2016-08-18 14:36 | General Surgery Progress Note ---
Date of Encounter: 08/18/16 Time of Encounter: 09:20 - Assessment and Plan (1) Gallstone pancreatitis Current Visit: Yes Status: Acute POD #2 status post laparoscopic cholecystectomy with cholangiogram and umbilical hernia repair. NPO as the patient continues to complain of abdominal distention. AAS: Left lower lobe infiltrate consistent with atelectasis or pneumonia. Mild diffuse gaseous distention of bowel is most consistent with an ileus. Serial abdominal exams. Supportive measures. Continued pain control. Miralax 17gm/ day added yesterday per medicine team. Simethicone added yesterday per medicine team. 1 bottle Mag citrate ordered. Continue GI prophylaxis. (2) Choledocholithiasis Current Visit: Yes Status: Resolved POD #2 status post laparoscopic cholecystectomy with cholangiogram and umbilical hernia repair. (3) HTN (hypertension) Current Visit: Yes Status: Chronic Normotensive at this time. Patient is on his home medications. Qualifiers: Hypertension type: essential hypertension Qualified Code(s): I10 - Essential (primary) hypertension (4) Atrial fibrillation Current Visit: Yes Status: Acute Coumadin has been restarted by medicine team. Cardizem 30mg PO Q6hr Qualifiers: Atrial fibrillation type: chronic Qualified Code(s): I48.2 - Chronic atrial fibrillation Subjective Patient reports: still having pain, voiding w/o difficulty, flatus, no bowel movement, afebrile Narrative: The patient states he feels about the same as yesterday. He continues to have pain in his RUQ, which is worsened with deep breaths. He continues to feel as if his abdomen is distended. He states he finally has removed on of the blood clots from one of his nostrils and is able to breath more easily at this time even without oxygen. The patient states he feels as if he is wanting to go home and states he may leave against medical advice soon. Objective Vital Signs - Last 8 Hours Temp Pulse Resp BP Pulse Ox 08/18/16 12:11 98.7 F 89 18 162/92 97 08/18/16 08:29 97.6 F 91 18 161/76 93 L Intake and Output 08/17/16 08/18/16 08/18/16 22:59 07:59 15:59 Intake Total 0 / 0 Output Total 450 / 450 Balance -450 / -450 Intake: Oral 0 / 0 Output: Urine 450 / 450 Other: Meal NPO Percent of Meal Consumed 0% Weight Blood Glucose* 123 Patient Weight 08/19/16 00:59 Weight 105 kg - General physical appearance well developed, well nourished, no distress - Eyes normal ocular movement - ENT normal mucosa, atraumatic, normocephalic - Neck Neck exam: no lymphadectomy - Respiratory normal respiratory effort, clear to auscultation - Cardiovascular Cardiovascular exam: Present: irregular rhythm - Abdomen Abdomen: Present: bowel sounds present, tympanic, distended Abdominal Tenderness: RUQ - Incision Incision: Present: clean and dry, intact - Integumentary no rash - Neurologic CN 2-12 grossly intact - Musculoskeletal normal gait - Psychiatric oriented to time, oriented to person, oriented to place, speech is normal, memory intact - Labs 08/18/16 08:07 08/18/16 08:07 Diabetes panel 08/18/16 Range/Units 08:07 Sodium 141 (136-145) mEq/L Potassium 3.7 (3.5-4.5) mEq/L Chloride 103 (98-109) mEq/L Carbon Dioxide 28 (19-29) mEq/L BUN 14 (8-26) mg/dL Creatinine 1.03 (0.72-1.25) mg/dL Glucose 118 H (70-99) mg/dL Calcium 8.6 (8.6-10.8) mg/dL AST 26 (5-34) Units/L ALT 35 (0-55) Units/L Alkaline Phosphatase 85 (38-126) Units/L Albumin 2.2 L (3.5-5.0) g/dL Calcium panel 08/18/16 Range/Units 08:07 Calcium 8.6 (8.6-10.8) mg/dL Albumin 2.2 L (3.5-5.0) g/dL Pituitary panel 08/18/16 Range/Units 08:07 Sodium 141 (136-145) mEq/L Potassium 3.7 (3.5-4.5) mEq/L Chloride 103 (98-109) mEq/L Carbon Dioxide 28 (19-29) mEq/L BUN 14 (8-26) mg/dL Creatinine 1.03 (0.72-1.25) mg/dL Glucose 118 H (70-99) mg/dL Calcium 8.6 (8.6-10.8) mg/dL Adrenal panel 08/18/16 Range/Units 08:07 Sodium 141 (136-145) mEq/L Potassium 3.7 (3.5-4.5) mEq/L Chloride 103 (98-109) mEq/L Carbon Dioxide 28 (19-29) mEq/L BUN 14 (8-26) mg/dL Creatinine 1.03 (0.72-1.25) mg/dL Glucose 118 H (70-99) mg/dL Calcium 8.6 (8.6-10.8) mg/dL Total Bilirubin 1.8 H (0.2-1.2) mg/dL AST 26 (5-34) Units/L ALT 35 (0-55) Units/L Alkaline Phosphatase 85 (38-126) Units/L Albumin 2.2 L (3.5-5.0) g/dL - VTE Documentation of Mechanical Device: Intermittent pneumatic compression device Consult Discharge Plan - Plan Referrals: [facility] [Outside] - 08/26/16 11:00 am (Patient appt. already sheduled with the MD prior to admission. The MD wishes to keep this appt. for the patient. Thank you) - Attending Attestation I examined this patient and my medical decision-making was reviewed with the STRUCTURAL TECHNICIAN/PA/Advanced Practice Nurse/Resident Physician. I agree with the documented findings, disposition and treatment plan as described except to the extent set forth below.
[2016-08-18] MEDS: *HR* Warfarin 7.5 MG TABLET PO SCH (17:53)
[2016-08-19 04:52] LABS: Basophils % 0.3 %; Eosinophils # 0.2 K/mcL (0.0-0.6); Eosinophils % 2.6 %; Hematocrit 37.3 % (37.5-50.1); Hemoglobin 11.7 g/dL (12.9-16.9); Immature Granulocytes % 0.5 % (0-4); Lymphocytes # 1.1 K/mcL (0.6-4.6); Lymphocytes % 17.1 %; Mean Corpuscular HGB Conc 31.4 g/dL (31.6-35.5); Mean Corpuscular Hemoglobin 27.9 pg (28.0-33.3); Monocytes # 0.7 K/mcL (0.0-1.3); Monocytes % 11.1 %; Neutrophils # 4.5 K/mcL (1.6-8.9); Platelet Count 178 K/mcL (140-400); Red Blood Count 4.19 M/mcL (4.19-5.50); Red Cell Distribution Width 13.7 % (11.5-14.5); Segmented Neutrophils % 68.4 %
[2016-08-19 05:07] LABS: Alanine Aminotransferase 29 Units/L (0-55); Albumin 2.1 g/dL (3.5-5.0); Albumin/Globulin Ratio 0.5 (1.1-2.2); Alkaline Phosphatase 75 Units/L (38-126); Aspartate Amino Transferase 21 Units/L (5-34); BUN/Creatinine Ratio 15 (6-26); Bilirubin,Total 1.2 mg/dL (0.2-1.2); Blood Urea Nitrogen 14 mg/dL (8-26); Calcium 8.4 mg/dL (8.6-10.8); Carbon Dioxide 28 mEq/L (19-29); Chloride 103 mEq/L (98-109); Glucose 122 mg/dL (70-99); Magnesium 1.7 mg/dL (1.6-2.6); Osmolality,Calculated 292 (280-300); Phosphorous 2.2 mg/dL (2.3-4.7); Potassium 3.9 mEq/L (3.5-4.5); Sodium 140 mEq/L (136-145); Total Protein 6.1 g/dL (6.0-8.3); eGFR For African Americans > 60 (> 60); eGFR For Non-African Americans > 60 (> 60)
[2016-08-19] MEDS: Pantoprazole 40 MG VIAL IVP SCH (05:09)
[2016-08-19] MEDS: *HR* HYDROmorphone (PF) 1 MG/ML SYRINGE IVP PRN ×2 (05:10→08:53)
[2016-08-19 05:24] VITALS: BP 166/82
[2016-08-19] MEDS: Simethicone 80 MG TAB.CHEW PO SCH (08:05)
--- NOTE | 2016-08-19 10:18 | Discharge Summary ---
Date of Encounter: 08/19/16 Time of Encounter: 10:15 - Discharge Diagnosis (1) Pancreatitis Priority: Primary Status: Acute Qualifiers: Chronicity: acute Pancreatitis type: unspecified pancreatitis type Acute pancreatitis complication: no infection or necrosis Qualified Code(s): K85.90 - Acute pancreatitis without necrosis or infection, unspecified (2) Transaminitis Priority: Primary Status: Acute (3) HTN (hypertension) Priority: Secondary Status: Chronic Qualifiers: Hypertension type: essential hypertension Qualified Code(s): I10 - Essential (primary) hypertension (4) Obesity (BMI 30-39.9) Priority: Secondary Status: Chronic (5) Type 2 diabetes mellitus Priority: Secondary Status: Chronic Qualifiers: Diabetes mellitus complication status: with unspecified complications 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 architect insulin use: without intermediate use Qualified Code( s): E11.8 - Type 2 diabetes mellitus with unspecified complications (6) Atrial fibrillation with RVR Priority: Primary Status: Acute - Discharge Medications Prescriptions: Diltiazem CD (24hr) [Cardizem CD] 120 mg PO DAILY #30 cap.er.24h Docusate [Colace] 100 mg PO BID #60 capsule HYDROcodone/Acet 5/325 mg [[place] 5-325 mg] 1 tab PO Q6H PRN #30 tablet PRN Reason: Moderate Pain Metoprolol [Lopressor] 50 mg PO BID #60 tablet Sennosides [Senna] 17.6 mg PO HS 14 Days Home Medications: Aspirin [Adult Low Dose Aspirin EC] 81 mg PO QAM 09/10/15 [History] Simvastatin [Zocor] 40 mg PO HS 09/10/15 [History] Warfarin [Coumadin] 5 mg PO MOWEFR 09/10/15 [History] Warfarin [Coumadin] 7.5 mg PO SUTUTHSA 09/10/15 [History] DiphenhydraMINE [Benadryl] 50 mg PO BID 08/12/16 [History] Ketoconazole Shampoo [Nizoral Shampoo] 1 appl TP Q48H 08/12/16 [History] Losartan Potassium [Cozaar] 50 mg PO DAILY 08/12/16 [History] Omeprazole [PriLOSEC] 20 mg PO DAILY 08/12/16 [History] Diltiazem CD (24hr) [Cardizem CD] 120 mg PO DAILY #30 cap.er.24h 08/19/16 [Rx] Docusate [Colace] 100 mg PO BID #60 capsule 08/19/16 [Rx] HYDROcodone/Acet 5/325 mg [[place] 5-325 mg] 1 tab PO Q6H PRN #30 tablet 08/19/16 [Rx] Metoprolol [Lopressor] 50 mg PO BID #60 tablet 08/19/16 [Rx] Sennosides [Senna] 17.6 mg PO HS 14 Days 08/19/16 [Rx] Allergies/Adverse Reactions: Allergies No Known Allergies Allergy (Verified 08/12/16 14:11) Date of admission: 08/12/16 01:14 Primary care physician: PCP NH Consults: 08/12/16 09:01 Consult to Gastroenterology [CONS] Routine Consulting Provider: [facility] [place] Reason for Consult: please evaluate for elevated lipase, transaminits and hyperbilirubinemia, MRCP and liver US has been ordered. Thank you Call Completed: Yes 08/13/16 11:06 Consult to Surgery [CONS] Routine Consulting Provider: [facility] Reason for Consult: Choledocholithiasis. s/p ERCP with 7mm CBD stone. Evaluate candidacy for cholecystectomy. Call Completed: No Discharging clinician: Pema Campa Anticipated date of discharge: 08/19/16 - Patient Status Disposition: Home, Self-Care Condition: Fair Functional capacity at discharge: independent ambulation Overall status at discharge: patient is back to baseline - Discharge Instructions Instructions: Meal Planning with Diabetes Exchanges (DC) Follow Up With: [facility] [Outside] - 08/26/16 11:00 am (Patient appt. already sheduled with the NH prior to admission. The NH wishes to keep this appt. for the patient. Thank you) Nanda Lind MD [Partnered Physician] - 09/04/16 11:05 am Additional Instructions: no heavy lifting greater than 15 pounds, may shower, no tub bath, no hot tubs, no swimming, wash incision with soap and water and pat dry, allow steri strips to come off on their own. Do not drive until follow up. - Diet and Activity Activity: resume usual activities as tolerated Diet: other (soft) Interval History: Mr. Antunez is a 75 year old male with PMHx of aortic anerysm, Afib, COPD, CAD, CVA, DM, GERD, HLD, HTN, OH, TIA who presented from the NH with 3 day history of abdominal pain that started in his lower abdomen and came up to his epigastric region. He reports several episodes of this in the past year. CT at the NH showed no acute findings but a distended gallbladder without CT evidence of cholelithiasis or acute cholecystitis. Multiple low-attenuation lesions arising from each kidney statistically likely to represent cyst. On admission here, TB 7.7, DB 4.8, AST 227, ALT 266, amylase 2959, lipase 9217. MRI of the abdomen shows inflammatory stranding and free fluid adjacent to the pancreatic body and to suggestive of acute pancreatitis. No evidence of cholelithiasis or choledocholithiasis. Pt underwent ERCP which showed choledocholithiasis with complete removal by biliary sphincterotomy and balloon extraction, one temporary stent placed into the ventral pancreatic duct. he improved after ERCP and his LFTs has improved. general surgery was consulted for lap cholecystectome and he underwent Laparoscopic cholecystectomy with cholangiograms, primary repair of umiblical hernia on 08/16 post op care was manged by surgery, his hospital course was complicated by one episode of A. fib RVR. Diltiazem and oral aspirin added to his regimen. He improved clinically and is now able to tolerate soft diet and has moved his bowels. He is being discharged in stable condition today and will follow-up with surgery as outpatient. Hospital course: Mr. Antunez is a 75 year old male Time spent discussing smoking cessation with patient: more than 10 minutes - Time Spent with Patient Total time spent providing and/or coordinating discharge services: Greater than 30 minutes - Constitutional Vitals: Temp Pulse Resp BP Pulse Ox 98.0 F 85 15 166/82 95 08/19/16 05:18 08/19/16 05:18 08/19/16 05:18 08/19/16 05:18 08/19/16 05:18 General appearance: Present: cooperative, A&O X 3, morbidly obese, answers questions appropriately Exam: - Head Head exam: Present: atraumatic, normocephalic - Eye Eye exam: Present: EOMI, PERRL, conjuntiva pink, icterus++ - ENT ENT exam: Present: mucous membranes moist, normal oropharynx - Neck Neck exam general surgery: Present: full ROM, supple, trachea midline. Absent: lymphadenopathy - Respiratory Respiratory exam: Present: decreased breath sounds, CTAB. Absent: accessory muscle use, rales, rhonchi, wheezes - Cardiovascular Cardiovascular exam: Present: distant heart sounds, RRR, +S1, +S2. Absent: diastolic murmur, gallop, rubs, systolic murmur - GI/Abdominal GI/Abdominal exam: Present: distended , non tender, bs are heard, no peritoneal signs Absent: distended - Extremities Exam Extremities exam: Present: full ROM, warm, radial pulses palpable and symetrical. Absent: calf tenderness, cyanotic, pedal edema - Neurological Exam Neurological exam: Present: alert, CN II-XII intact, oriented X3, no focal deficits. Absent: pronater drift, facial droop, speech deficit - Psychiatric Psychiatric exam: Present: normal affect, normal mood - Skin Skin exam: Present: dry, intact, warm. Absent: petechiae, rash, urticaria, vesicles - VTE Documentation of Mechanical Device: Intermittent pneumatic compression device
--- NOTE | 2016-08-19 10:36 | General Surgery Progress Note ---
<Yemi Martins - Last Filed: 08/19/16 10:39> Date of Encounter: 08/19/16 Time of Encounter: 10:33 - Assessment and Plan (1) Gallstone pancreatitis Status: Acute POD #3 status post laparoscopic cholecystectomy with cholangiogram and umbilical hernia repair. Advance diet as tolerated Supportive measures. Continued pain control. Surgery is signing off on this patient. D/C per primary team when medically stable. (2) Choledocholithiasis Status: Resolved POD #3 status post laparoscopic cholecystectomy with cholangiogram and umbilical hernia repair. (3) Atrial fibrillation Status: Acute Coumadin has been restarted by medicine team. Cardizem 30mg PO Q6hr Qualifiers: Atrial fibrillation type: chronic Qualified Code(s): I48.2 - Chronic atrial fibrillation (4) HTN (hypertension) Status: Chronic Normotensive at this time. Patient is on his home medications. Qualifiers: Hypertension type: essential hypertension Qualified Code(s): I10 - Essential (primary) hypertension Subjective Patient reports: no new complaints, feels better Narrative: Patient seen and examined at bedside. His pain is decreased from yesterday. His bloating is also decreased. He is not complaining of any pain. His vital signs are stable. He is having regular stools. Surgery will sign off this patient. Objective Vital Signs - Last 8 Hours Temp Pulse Resp BP Pulse Ox 08/19/16 05:18 98.0 F 85 15 166/82 95 Intake and Output 08/18/16 08/19/16 08/19/16 23:59 07:59 15:59 Intake Total 0 / 0 Output Total 0 / 0 300 / 300 Balance 0 / 0 -300 / -300 Intake: Oral 0 / 0 Output: Urine 0 / 0 100 / 100 Stool 200 / 200 Other: Meal NPO NPO breakfast Stool Size Moderate Stool Consistency soft liquid liquid Stool Characteristics Normal for Patient Stool Color Brown Brown # Voids 1 # Bowel Movements 1 1 Weight 106.8 kg Blood Glucose* 93 102 Patient Weight 08/19/16 23:59 Weight 106.8 kg - Additional Exam - General physical appearance well developed, well nourished, no distress - Eyes normal ocular movement - ENT normal mucosa, atraumatic, normocephalic - Neck Neck exam: no lymphadectomy - Respiratory normal respiratory effort, clear to auscultation - Cardiovascular Cardiovascular exam: Present: irregular rhythm - Abdomen Abdomen: Present: bowel sounds present, tympanic, distended Abdominal Tenderness: RUQ - Incision Incision: Present: clean and dry, intact - Integumentary no rash - Neurologic CN 2-12 grossly intact - Musculoskeletal normal gait - Psychiatric oriented to time, oriented to person, oriented to place, speech is normal, memory intact - Labs 08/19/16 04:16 08/19/16 04:16 Diabetes panel 08/19/16 Range/Units 04:16 Sodium 140 (136-145) mEq/L Potassium 3.9 (3.5-4.5) mEq/L Chloride 103 (98-109) mEq/L Carbon Dioxide 28 (19-29) mEq/L BUN 14 (8-26) mg/dL Creatinine 0.96 (0.72-1.25) mg/dL Glucose 122 H (70-99) mg/dL Calcium 8.4 L (8.6-10.8) mg/dL AST 21 (5-34) Units/L ALT 29 (0-55) Units/L Alkaline Phosphatase 75 (38-126) Units/L Albumin 2.1 L (3.5-5.0) g/dL Calcium panel 08/19/16 Range/Units 04:16 Calcium 8.4 L (8.6-10.8) mg/dL Phosphorus 2.2 L (2.3-4.7) mg/dL Albumin 2.1 L (3.5-5.0) g/dL Pituitary panel 08/19/16 Range/Units 04:16 Sodium 140 (136-145) mEq/L Potassium 3.9 (3.5-4.5) mEq/L Chloride 103 (98-109) mEq/L Carbon Dioxide 28 (19-29) mEq/L BUN 14 (8-26) mg/dL Creatinine 0.96 (0.72-1.25) mg/dL Glucose 122 H (70-99) mg/dL Calcium 8.4 L (8.6-10.8) mg/dL Adrenal panel 08/19/16 Range/Units 04:16 Sodium 140 (136-145) mEq/L Potassium 3.9 (3.5-4.5) mEq/L Chloride 103 (98-109) mEq/L Carbon Dioxide 28 (19-29) mEq/L BUN 14 (8-26) mg/dL Creatinine 0.96 (0.72-1.25) mg/dL Glucose 122 H (70-99) mg/dL Calcium 8.4 L (8.6-10.8) mg/dL Total Bilirubin 1.2 (0.2-1.2) mg/dL AST 21 (5-34) Units/L ALT 29 (0-55) Units/L Alkaline Phosphatase 75 (38-126) Units/L Albumin 2.1 L (3.5-5.0) g/dL - VTE Documentation of Mechanical Device: Intermittent pneumatic compression device Consult Discharge Plan - Plan Instructions: Meal Planning with Diabetes Exchanges (DC) Additional Instructions: no heavy lifting greater than 15 pounds, may shower, no tub bath, no hot tubs, no swimming, wash incision with soap and water and pat dry, allow steri strips to come off on their own. Do not drive until follow up. Referrals: [facility] [Outside] - 08/26/16 11:00 am (Patient appt. already sheduled with the OR prior to admission. The OR wishes to keep this appt. for the patient. Thank you) Nanda Lind MD [Partnered Physician] - 09/04/16 11:05 am Prescriptions: Diltiazem CD (24hr) [Cardizem CD] 120 mg PO DAILY #30 cap.er.24h Docusate [Colace] 100 mg PO BID #60 capsule HYDROcodone/Acet 5/325 mg [[place] 5-325 mg] 1 tab PO Q6H PRN #30 tablet PRN Reason: Moderate Pain Metoprolol [Lopressor] 50 mg PO BID #60 tablet Sennosides [Senna] 17.6 mg PO HS 14 Days <Nanda Lind - Last Filed: 08/19/16 18:56> - Assessment and Plan (1) Abdominal pain Status: Acute Qualifiers: Abdominal location: epigastric Qualified Code(s): R10.13 - Epigastric pain (2) Atrial fibrillation Status: Acute Qualifiers: Atrial fibrillation type: chronic Qualified Code(s): I48.2 - Chronic atrial fibrillation (3) Gallstone pancreatitis Status: Acute Objective Intake and Output 08/19/16 08/19/16 08/19/16 07:59 15:59 23:59 Output Total 300 / 300 0 / 0 Balance -300 / -300 0 / 0 Output: Urine 100 / 100 0 / 0 Stool 200 / 200 Other: Meal NPO Stool Consistency liquid liquid Stool Color Brown # Bowel Movements 1 Weight 106.8 kg Blood Glucose* 102 150 Patient Weight 08/19/16 23:59 Weight 106.8 kg - Labs 08/19/16 04:16 08/19/16 04:16 Diabetes panel 08/19/16 Range/Units 04:16 Sodium 140 (136-145) mEq/L Potassium 3.9 (3.5-4.5) mEq/L Chloride 103 (98-109) mEq/L Carbon Dioxide 28 (19-29) mEq/L BUN 14 (8-26) mg/dL Creatinine 0.96 (0.72-1.25) mg/dL Glucose 122 H (70-99) mg/dL Calcium 8.4 L (8.6-10.8) mg/dL AST 21 (5-34) Units/L ALT 29 (0-55) Units/L Alkaline Phosphatase 75 (38-126) Units/L Albumin 2.1 L (3.5-5.0) g/dL Calcium panel 08/19/16 Range/Units 04:16 Calcium 8.4 L (8.6-10.8) mg/dL Phosphorus 2.2 L (2.3-4.7) mg/dL Albumin 2.1 L (3.5-5.0) g/dL Pituitary panel 08/19/16 Range/Units 04:16 Sodium 140 (136-145) mEq/L Potassium 3.9 (3.5-4.5) mEq/L Chloride 103 (98-109) mEq/L Carbon Dioxide 28 (19-29) mEq/L BUN 14 (8-26) mg/dL Creatinine 0.96 (0.72-1.25) mg/dL Glucose 122 H (70-99) mg/dL Calcium 8.4 L (8.6-10.8) mg/dL Adrenal panel 08/19/16 Range/Units 04:16 Sodium 140 (136-145) mEq/L Potassium 3.9 (3.5-4.5) mEq/L Chloride 103 (98-109) mEq/L Carbon Dioxide 28 (19-29) mEq/L BUN 14 (8-26) mg/dL Creatinine 0.96 (0.72-1.25) mg/dL Glucose 122 H (70-99) mg/dL Calcium 8.4 L (8.6-10.8) mg/dL Total Bilirubin 1.2 (0.2-1.2) mg/dL AST 21 (5-34) Units/L ALT 29 (0-55) Units/L Alkaline Phosphatase 75 (38-126) Units/L Albumin 2.1 L (3.5-5.0) g/dL - Attending Attestation patient was discharged before I have a chance to see him ok to followup in the office in two weeks no lifting more than 20 lbs for 2 weeks
[2016-08-19] MEDS: *HR* OxyCODONE/APAP 5/325 TABLET PO PRN (13:54)
[2016-08-19] MEDS ORDERED: *HR* Warfarin 5 MG TABLET PO SCH (18:00)
--- NOTE | 2016-09-20 06:05 | Internal Med History&Physical ---
Date of Encounter: 08/11/16 (Late entry:09/20/16) Time of Encounter: 20:00 (0600) Assessment and Plan (1) Acute generalized abdominal pain Status: Acute . (2) Cholestasis Status: Acute . (3) Jaundice, hepatocellular Status: Acute . (4) Obesity (BMI 30-39.9) Status: Chronic . (5) PAF (paroxysmal atrial fibrillation) Status: Chronic . (6) Chronic anticoagulation Status: Chronic . (7) HTN (hypertension) Status: Chronic . Qualifiers: Hypertension type: essential hypertension Qualified Code(s): I10 - Essential (primary) hypertension (8) Type 2 diabetes mellitus Status: Chronic . 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 Qualifiers: [place] vs. transplanted heart: [place] heart Associated angina: angina presence unspecified Qualified Code(s): I25.10 - Atherosclerotic heart disease of [place] coronary artery without angina pectoris (10) History of PTCA Status: Chronic . (11) H/O TIA (transient ischemic attack) and stroke Status: Chronic . (12) Hard of hearing Status: Chronic . Qualifiers: Hearing loss type: unspecified Laterality: bilateral Qualified Code(s): H91.93 - Unspecified hearing loss, bilateral (13) Dyslipidemia Status: Chronic . (14) GERD (gastroesophageal reflux disease) Status: Chronic . Qualifiers: Esophagitis presence: esophagitis presence not specified Qualified Code(s) : K21.9 - Gastro-esophageal reflux disease without esophagitis (15) Transaminitis Status: Acute . (16) LLQ abdominal pain Status: Acute . (17) Gaseous abdominal distention Status: Acute . Internal Medicine - H&P: HPI Chief complaint: Acute abdominal pain Admitted From: Hospital to Hospital Transfer (Hospital to hospital transfer to [facility] urgent care center to [facility] emergency department.) Plans for Post Hospital Care: Home History of present illness: Mr. Antunez is a 75 year old male [facility] patient with history significant for type II DM, CKD III, ANDRES, osteoarthritis, osteopenia, chronic LBP/neck/MSK pain , CAD, CHF, AAA s/p repair, hypogonadism/ED, depression and anxiety, h/o TIAs/ syncope, hypertension, dyslipidemia, PAF/PSVT/chr A/C (WARFARIN), skin Pawan s/p excisions, morbid obesity, former smoker. The patient was visited and interviewed and examined. Patient admitted for complaints of abdominal pain 3-4 days as a referral from [facility] urgent care center. Patient reported primarily epigastric pain worse in the 24 hours leading up to his presentation to the urgent care center with radiation to his shoulders. Abdominal bloating, nausea and diminished oral intake was reported. He says at least 4 times within the last year and each time self-limited without discrete diagnosis being made. CT of abdomen and pelvis without contrast obtained at the [facility] prior to transfer demonstrated no acute findings. Evidence of distended gallbladder with evidence of cholelithiasis or acute cholecystitis was noted. Nonobstructive bowel gas pattern seen. Multiple bilateral renal cysts. Umbilical hernia without obstruction containing a loop of bowel and omental fat. Incomplete distention of the urinary bladder was suspicious for thickening and correlation was recommended. Lung bases demonstrated mild atelectatic changes. Calcified granuloma right lung base. Cardiovascular calcification. Granulomatous disease and calcifications noted in her and spleen. Aortic stent graft noted. Atheromatous vascular disease noted. Changes of the spine and pelvis noted incidentally. Prostate enlargement with minimal calcification. Postsurgical changes in each groin. These findings the patient was transitioned to [facility] to access higher level of care and potential consultative interventions. Initial studies suggested the presence of cholestatic jaundice. Differential includes acute biliary obstruction with associated acute pancreatitis. Workup and treatments will proceed comprehensively. Cumulative laboratory and radiographic data base was reviewed and considered and discussed. Pertinent ancillary medical records including [facility] and PCI and [facility] documentation when available was reviewed and considered. Given the patient's presenting concerns, past medical history, clinical findings and symptoms, he is admitted at this time will undergo further evaluation and disposition. Orders were written as per Computerized physician customer order clerk system.......................................................................... .................... Consultative opinions will be sought as clinical circumstances justify. Pain management needs will be addressed. Laboratory /radiographic data base will be updated as appropriate. Studies include: Cultures of blood and urine and sputum, coag's,UA, cardiac injury panel, BNP, ammonia, metabolic and hematologic panel, magnesium, phosphorus, ionized calcium, thyroid panel, lipid profile, A1c, C-peptide, CRP, sedimentation rate, respiratory infection profile, respiratory virus panel, blood gas, lactic acid, serologies, etc. Precautions: Aspiration, fall, delirium protocol/surveillance initiated. Telemetry with continuous hemodynamic monitoring and pulse oximetry initiated. Empiric antibiotic coverage: Intravenous Rocephin and azithromycin pending culture data. Special studies: CT chest/abd/pelvis, MRCP, chest x-ray, telemetry, EKG, US gallbladder. Pulmonary toilet: Incentive spirometry, aerosol bronchodilator, mucolytic, antitussive, supplemental oxygen. Corticosteroid therapyPRN. CPAP/BiPAP supplemental oxygen delivery employedPRN. Aerosol Mucomyst therapy may be employedPRN. Fluid and electrolyte repletion efforts will proceed. Careful attention to fluid balance and renal recovery will be emphasized. Avoidance of nephrotoxic exposure and adverse drug drug interaction in the setting of impaired renal function will be monitored closely. Acute coronary syndrome protocol/surveillance initiated. DVT and PUD prophylaxis initiated: PPI therapy, intermittent pneumatic cuffs. Subcutaneous heparin was held due to thrombocytopenia. Early ambulation will be encouraged. Immunization updates recommended. Influenza and pneumococcal vaccinations as part of ongoing preventative healthcare recommendations strongly recommended. Smoking cessation counseling briefly addressed. Patient is a former smoker. Advanced care directive discussion briefly addressed. Patient does not declare any healthcare restrictions at this time. Cardiovascular risk appraisal and cardiovascular risk reduction efforts will be emphasized. Physical /occupational therapy may be consulted to evaluate patient's functional capacity and progress mobility if circumstances justify. Sliding scale insulin coverage, ADA dietary restraint and schedule an as-needed basis fingerstick glucose assessments were initiated. Nutrition/diabetes education counseling may be considered as circumstances justify. Outpatient medication schedules will be reviewed, confirmed and facilitated as appropriate. Reconciliation of home treatments including adjustments, substitutions and reintroduction into the treatment regimen will address necessary maintenance therapies for chronic pre-existing medical conditions. Plan of care has been reviewed and discussed in detail with the patient. Questions addressed. Hospital course dictated by clinical findings, treatment response and potential consultative interventions. Patient is at risk for further acute clinical decline due to his age, chief complaints and comorbid conditions. Condition is serious. Prognosis is guarded. CODE STATUS is full. Past Med Surg Social Fam HX - Past Medical History Source: old records reviewed Medical history: aortic aneurysm, arthritis, atrial fibrillation, cancer, COPD ( ANDRES), coronary artery disease, CVA, diabetes, GERD, hyperlipidemia, hypertension , myocardial infarction, osteoporosis, renal disease, SVT, syncope, TIA, other Psychiatric history: anxiety, depression, other - Past Surgical History Surgical History: angioplasty/stent, other - Social History Smoking Status: Former smoker Smokeless Tobacco Status: No Alcohol use: none Drug use: none Occupational status: retired Current living situation: Home, With Family Activity Level: Independent ambulation, Mostly sedentary Recent Out of Country Travel Within the Last 8 Weeks: No Exposure or Possible Exposure to Illness During Travel: No - Family History Father History Unknown: Yes Adopted: [place]: gabby brown Family Member Ethnicity: Non- Living Status: Cause of : cardiac Hx Family Cardiac Disorders: Yes Internal Medicine - H&P: Meds Aspirin [Adult Low Dose Aspirin EC] 81 mg PO QAM 09/10/15 [History] Simvastatin [Zocor] 40 mg PO HS 09/10/15 [History] Warfarin [Coumadin] 5 mg PO MOWEFR 09/10/15 [History] Warfarin [Coumadin] 7.5 mg PO SUTUTHSA 09/10/15 [History] DiphenhydraMINE [Benadryl] 50 mg PO BID 08/12/16 [History] Ketoconazole Shampoo [Nizoral Shampoo] 1 appl TP Q48H 08/12/16 [History] Losartan Potassium [Cozaar] 50 mg PO DAILY 08/12/16 [History] Omeprazole [PriLOSEC] 20 mg PO DAILY 08/12/16 [History] Diltiazem CD (24hr) [Cardizem CD] 120 mg PO DAILY #30 cap.er.24h 08/19/16 [Rx] Docusate [Colace] 100 mg PO BID #60 capsule 08/19/16 [Rx] HYDROcodone/Acet 5/325 mg [[place] 5-325 mg] 1 tab PO Q6H PRN #30 tablet 08/19/16 [Rx] Metoprolol [Lopressor] 50 mg PO BID #60 tablet 08/19/16 [Rx] Sennosides [Senna] 17.6 mg PO HS 14 Days 08/19/16 [Rx] Allergies No Known Allergies Allergy (Verified 08/12/16 14:11) All Systems PM: A 10-system review of systems was performed and is negative for pertinent findings except as documented above in the HPI. - Constitutional Constitutional: as per HPI, malaise, no chills, no fever(s), no night sweats - EENT Eyes: as per HPI, no change in vision, no discharge, no pain, no photophobia Ears: as per HPI, decreased hearing, no ear discharge, no ear pain, no tinnitus Nose, mouth and throat: as per HPI, no dysphagia, no nasal discharge, no neck pain, no sore throat - Cardiovascular Cardiovascular ROS IM: as per HPI, no chest pain, no diaphoresis, no dyspnea, no lightheadedness, no palpitations, no syncope - Respiratory Respiratory: as per HPI, no cough, no dyspnea, no wheezing, no excessive phlegm production - Gastrointestinal Gastrointestinal: as per HPI, abdominal pain, bloating, excessive flatus, other , no coffee ground emesis, no diarrhea, no hematemesis, no hematochezia, no melena, no nausea, no vomiting - Genitourinary Genitourinary ROS male: as per HPI - Musculoskeletal Musculoskeletal ROS IM: as per HPI, no numbness, no tingling - Integumentary Integumentary IM: as per HPI, no rash, no unusual bruising - Neurological Neurological ROS: as per HPI, abnormal gait, other, no confusion, no convulsions , no focal weakness, no numbness, no tingling, no tremor(s) - Psychiatric Psychiatric: as per HPI - Endocrine Endocrine IM: as per HPI - Hematologic/Lymphatic Hematologic/Lymphatic: as per HPI, no easy bruising - Allergic/Immunologic Allergic/Immunologic: as per HPI - Constitutional Vitals: Temp Pulse Resp BP Pulse Ox 98.0 F 85 15 166/82 95 08/19/16 05:18 08/19/16 05:18 08/19/16 05:18 08/19/16 05:18 08/19/16 10:00 General appearance: Present: cooperative, mild distress, A&O X 3, morbidly obese , answers questions appropriately - Head Head exam: Present: atraumatic, normocephalic - Eye Eye exam: Present: EOMI, PERRL, conjuntiva pink, sclera anicteric Pupils: Present: normal accommodation, PERRL - ENT ENT exam: Present: mucous membranes moist, normal oropharynx - Neck Neck exam general surgery: Present: full ROM, supple, trachea midline. Absent: lymphadenopathy - Respiratory Respiratory exam: Present: decreased breath sounds, CTAB, prolonged expiratory phase. Absent: accessory muscle use, rales, rhonchi, stridor, wheezes - Cardiovascular Cardiovascular exam: Present: distant heart sounds, RRR, +S1, +S2. Absent: diastolic murmur, gallop, rubs, systolic murmur - GI/Abdominal GI/Abdominal exam: Present: guarding, normal bowel sounds, soft, tenderness ( LLQ tenderness/guarding), no peritoneal signs. Absent: distended - Extremities Exam Extremities exam: Present: full ROM, warm, radial pulses palpable and symetrical. Absent: calf tenderness, cyanotic, pedal edema - Neurological Exam Neurological exam: Present: alert, CN II-XII intact, oriented X3, no focal deficits. Absent: pronater drift, facial droop, speech deficit - Psychiatric Psychiatric exam: Present: normal affect, normal mood - Skin Skin exam: Present: dry, intact, warm. Absent: petechiae, rash, urticaria, vesicles Internal Med - H&P Results - Labs CBC & Chem 7: 08/19/16 04:16 08/19/16 04:16 - Impressions ITS Impressions Gallbladder Ultrasound 08/12/16 09:00 IMPRESSION: 1. Coarse echotexture of the liver which may represent fatty infiltration with no evidence of focal disease. 2. Gallbladder sludge but no evidence of wall thickening or pericholecystic fluid. No evidence of biliary dilation. 3. Renal cyst which may be complex. D/ / 08/12/2016 10:51:35 Maddison Santos MD / Juliane Martins Interpreting Provider: Maddison Santos MD Abdomen MRI 08/12/16 10:16 IMPRESSION: 1. Interval appearance since 08/11/2016 of inflammatory stranding and free fluid adjacent to the pancreatic body and tail, highly suggestive of acute pancreatitis. 2. No cholelithiasis or choledocholithiasis. No intra or extrahepatic biliary dilatation. 3. No pancreatic divisum. D/ / 08/12/2016 11:40:22 Mireya Harrison MD / [email or web address] Interpreting Provider: Mireya Harrison MD Cath/Invasive Procedure 08/12/16 14:00 IMPRESSION: The common duct is unremarkable. Successful placement of pancreatic stent. D/ / Geronimo Hope MD / Geronimo Hope MD Interpreting Provider: Geronimo Hope MD Cholangiogram,Operative 08/16/16 00:00 IMPRESSION: Unremarkable intraoperative cholangiogram. D/ / 08/16/2016 13:40:34 Marquis Hudson MD / [email or web address] Interpreting Provider: Marquis Hudson MD Chest/Abdomen X-ray 08/18/16 10:57 IMPRESSION: Left lower lobe infiltrate consistent with atelectasis or pneumonia. Mild diffuse gaseous distention of bowel is most consistent with an ileus D/ / Iftikhar Regalado MD / Iftikhar Regalado MD Interpreting Provider: Iftikhar Regalado MD - VTE Documentation of Mechanical Device: Intermittent pneumatic compression device
== END 2016-08-19 17:08 | disposition home or self-care (01) | DRG 417 ==
LOC: EMEROO 16:37 → 3ANU 16:37
PROVIDERS: ADMIT Family Medicine; ATTEND Internal Medicine Endocrinology, Diabetes & Metabolism